=== PATIENT | female | born 1955 | race Caucasian/White ===

== ENCOUNTER → 2016-07-20 | Outpatient (CLI) | payer MEDICARE ==
[~2016-07-20] MED LIST: ALPR1T PO; ASPI-84 PO; CATHETER FLUSH 10 ML SYR IV PRN; CLC500CT; CPR500T PO; ESCT10T PO; EST.625T; ESTRADIOL PO; HYDR-3720 PO; HYDR12.56 PO; IOHEXOL 350 MG/ML 100 ML (OMNIPAQUE 350) VIAL IV ONE; LISI40TA PO; LSNP20T; METO-354 PO; MORP30CP12 PO; MULT-974 PO; NF-ESOM40C PO; NFPRILOC40 PO; NS 100 ML (IVPB) BAG IV ONE; ONDAN4ODT PO; PANT40TA2 PO; POLY17PO23 PO; PRILOSEC OTC; PRM25T PO; PROM25SU10 PR; SIMV40TA2 PO; SUCR1TAB36 PO; TRAM50TA2 PO; TRAZ-144 PO; TRAZADONE; TRZ50T PO; VENL150C PO; VITAMIN C; VITAMIN E
--- OUTSIDE RECORDS SUMMARY | 2016-07-20 09:27 | XMS REPORT | Continuity of Care Document ---
Author Author [facility] Organization [facility] Address Unknown Phone Unavailable Care Team Providers Care Lead Blender Name Role Phone HAIDER DEL CASTILLO DO PCP Insurance Providers Payer Name Policy Number Subscriber Name Relationship Wps Medicare [id number] Zhanna Sutton I 16 Self / Same As Patient Advance Directives Directive Response Recorded Date/Time Advance Directives No 12/15/15 9:35am Health Care Power of Skein Mercerizing Machine Operator No 12/15/15 9:35am Organ Donor Yes 12/15/15 [...] 11/30/07 Aspirin Allergy Unknown Active 11/30/07 desvenlafaxine ([id number]) Allergy Unknown NAUSEA Active 11/05/15 Immunizations Name Given Type Date of Pneumonia Vaccine 07/03/10 Historical Tetanus Booster (TDap) Unknown Historical Vital Signs Acute Vital Signs Vital Response Date/Time Temperature (Fahrenheit) 97.0 degrees F (97.6 - 99.5) 12/15/2015 11:42am Temperature (Calculated Celsius) 36.69532 degrees C (36.4 - 37.5) 12/15/2015 11:42am [...] 0.00 inches 12/15/2015 9:35am Height (Calculated Centimeters) 152.372245 cm 12/15/2015 9:35am Weight (Pounds) 130 pounds 12/15/2015 9:35am Weight (Ounces) 0.0 oz 12/15/2015 9:35am Weight (Calculated Grams) 08288.009 gm 12/15/2015 9:35am Weight (Calculated Kilograms) 58.691372 kilograms 12/15/2015 9:35am Calculated BMI 25.4 12/15/2015 9:35am Results No known relevant diagnostic tests, laboratory data and/or discharge summary. Procedures Procedure Status Date Provider(s) Diagnostic colonoscopy Completed 12/15/15 DAVE GORDON DO Anesthesia for 30 minutes Active 12/15/15 DAVE GORDON DO Encounters Encounter Location Arrival/Admit Date Discharge/Depart Date Attending Provider Departed [facility] 12/15/15 9:29am 11:40am DAVE GORDON DO Departed Clinic [facility] 12/09/15 6:19am 12/09/15 11: 12am DAVE GORDON DO
--- NOTE | 2016-07-20 11:25 | Diagnostic Imaging Report ---
PROCEDURE: CT abdomen with and without contrast. TECHNIQUE: Multiple contiguous axial CT images of the abdomen were obtained prior to and after intravenous administration of iodinated contrast. INDICATION: Liver disease. Hepatitis C. 100 mL of Omnipaque 350 is administered intravenously. FINDINGS: The lung bases demonstrate minimal atelectasis. There is a nodular contour to the liver compatible with cirrhosis. There is no liver mass identified. The portal vein is patent. This is 1.2 cm in caliber, the upper limits of normal. Mild upper abdominal varices around the stomach and distal esophagus seen, early varices. The spleen is enlarged measuring 13.9 x 6.7 x 10.6 cm. The pancreas and the adrenal glands appear unremarkable. Cholecystectomy clips are seen. The kidneys have symmetric enhancement and contrast excretion. The unenhanced phase demonstrates calcifications near the left kidney hilum, which appear to be vascular with no stones identified. There is an elongated 9 mm hypodense lesion in the lower pole of the left kidney, similar to the previous exam of 10/09/2015 exam, likely related to a tiny cyst. The abdominal aorta is normal in caliber. No para-aortic significantly enlarged lymph node is noted. There is no free fluid or fluid collection in the abdomen seen. The osseous structures demonstrate scoliosis convex to the right at the thoracolumbar junction and degenerative changes around this. IMPRESSION: Manifestations of liver cirrhosis, mild splenomegaly, and mild upper abdominal varices. There is no ascites. No liver mass seen. Dictated by: Dictated on workstation # [id number]
--- NOTE | 2016-07-20 11:31 | Diagnostic Imaging Report ---
PROCEDURE: US abdomen complete. TECHNIQUE: Multiple real-time grayscale images were obtained over the abdomen in various projections. INDICATION: Cirrhosis, hepatitis C, and renal mass. FINDINGS: Liver measures up to 17 cm. Liver has a nodular appearance compatible with cirrhosis. The gallbladder is surgically absent. Common bile duct measures 5.9 mm. The pancreas is largely obscured by bowel gas. There is splenomegaly with the spleen measuring up to 14.2 cm. The abdominal aorta is nonaneurysmal. The IVC is obscured. Both kidneys are unremarkable. There is no ascites. IMPRESSION: Cirrhotic appearance of the liver. Status post cholecystectomy. Splenomegaly. Otherwise unremarkable abdominal ultrasound. Dictated by: Dictated on workstation # [id number]
== END ==
LOC: RAD 09:24
PROVIDERS: ATTEND Internal Medicine Hematology & Oncology
DX: N28.89 Other specified disorders of kidney and ureter (principal); K76.9 Liver disease, unspecified; B18.2 Chronic viral hepatitis C
CPT/HCPCS: 74170; 76700

== ENCOUNTER 2016-07-25 14:28 | Outpatient (RCR) | payer MEDICARE ==
--- OUTSIDE RECORDS SUMMARY | 2016-07-20 09:06 | XMS REPORT | Continuity of Care Document ---
Author Author [facility] Organization [facility] Address Unknown Phone Unavailable Care Team Providers Care [employer] Counselor Name Role Phone HAIDER DEL CASTILLO DO PCP Insurance Providers Payer Name Policy Number Subscriber Name Relationship Wps Medicare [id number] Zhanna Sutton I 16 Self / Same As Patient Advance Directives Directive Response Recorded Date/Time Advance Directives No 12/15/15 9:35am Health Care Power of Kitchen Food Assembler No 12/15/15 9:35am Organ Donor Yes 12/15/15 9:35am Resuscitation Status Full Code 12/15/15 9:35am Problems Active Problems Medical Problem Onset Date Status Constipation Unknown Acute Grief reaction Unknown Acute Headache Unknown Acute Low back pain Unknown Acute Low back pain Unknown Acute T12 compression fracture Unknown Acute Tension type headache Unknown Acute Medications Current Home Medications Medication Dose Units Route Directions Days/Qty Instructions Start Date Simvastatin 40 Mg 40 Mg Oral Bedtime 04/16/07 Alprazolam 1 Mg 1 Mg Oral Three Times A Day 04/16/07 Omeprazole 40 Mg 40 Mg Oral Daily 05/11/10 Lisinopril 40 Mg 40 Mg Oral Daily 05/11/10 Promethazine Hcl 25 Mg 1 Tab Oral Four Times Daily as needed Trazodone Hcl 50 Mg 50 Mg Oral Bedtime 09/16/14 Venlafaxine Hcl 150 Mg 150 Mg Oral Bedtime 09/16/14 Multivitamin 1 Each 1 Each Oral Daily 09/16/14 Hydrochlorothiazide 12.5 Mg 12.5 Mg Oral Daily 09/16/14 Polyethylene Glycol 17 Gm 17 Gm Oral Twice A Day 10 Days FOR CONSTIPATION 09/16/14 Pantoprazole Sodium 40 Mg 40 Mg Oral Daily 30 11/10/15 Sucralfate 1 Gm 1 Gm Oral Four Times Daily 120 11/10/15 Past Home Medications Medication Directions Ordered Status [Vitamin C] Tablet, 04/16/07 Discontinued [Vitamin E] , 04/16/07 Discontinued Calcium Carbonate 500 Mg Tab.chew, 04/16/07 Discontinued Lisinopril 20 Mg Tablet, 04/16/07 Discontinued [Trazadone ] , 04/16/07 Discontinued Estrogens Conjugated 0.625 Mg Tablet, 04/16/07 Discontinued [Prilosec Otc] , 04/16/07 Discontinued Acetaminophen/Hydrocodone Bitart 1 Ea Tab, 1 Ea Oral Every 6 Hours 11/12/08 Discontinued Escitalopram Oxalate 10 Mg Tablet, 1 Each Oral Daily 11/12/08 Discontinued Aspirin 81 Mg Tablet.dr, 81 Mg Oral Daily 04/23/09 Discontinued [Estradiol] , Oral Daily 05/11/10 Discontinued Trazodone Hcl 50 Mg Tab, 50 Mg Oral Bedtime 05/11/10 Discontinued Ondansetron Hcl 4 Mg Tab, 4 Mg Oral Every 4HRS 05/11/10 Discontinued Esomeprazole Magnesium 40 Mg Capsule.dr, 1 Cap Oral Daily 05/11/10 Discontinued Ciprofloxacin 500 Mg Tablet, 1 Tab Oral Twice A Day 03/30/11 Discontinued Promethazine Hcl 25 Mg/Supp.rect Supp.rect, 1 Supp Rectal Four Times Daily as needed 12/19/12 Discontinued Metoclopramide Hcl 10 Mg Tab, 1 Each Oral Qid Prn 12/19/12 Discontinued Ondansetron Hcl 4 Mg Tab, 4 Mg Oral Every 4HRS 12/19/12 Discontinued Tramadol Hcl 50 Mg Tablet, 50 Mg Oral Every 4HRS as needed for Pain 09/16/14 Discontinued Morphine Sulfate 30 Mg Cpmp.24hr, 30 Mg Oral Three Times A Day 09/16/14 Discontinued Social History Social History Problem Response Recorded Date/Time Alcohol Use Occasionally Uses 10/04/2015 5:48pm Recreational Drug Use Y METH "30 YRS.AGO" STILL USES THC 10/04/2015 7:20pm Recent Foreign Travel No 12/15/2015 9:35am Sexually Transmitted Disease No 10/04/2015 5:48pm HIV/AIDS No 10/04/2015 5:48pm Smoking Status Never a Smoker 12/15/2015 9:35am Do you dip or chew tobacco? No 10/04/2015 5:48pm Query Response Start Date Stop Date Smoking Status Never a Smoker Hospital Discharge Instructions Patient Instructions Physician Instructions Plan of Care/Instructions/FU: Repeat colonoscopy in 10 years unless family history of colon cancer, if change in condition be re-evaluated at that time. Activity as Tolerated: Yes Discharge Diet: Regular Diet (high fiber) Care Plan Patient Instructions:: Repeat colonoscopy in 10 years unless family history of colon cancer, ifchange in condition be re-evaluated at that time. Plan of Care Discharge Date 12/15/15 11:40am Instructions/Education Provided Colonoscopy (DC) Prescriptions See Medication Section Functional Status No functional status results. Allergies, Adverse Reactions, Alerts Allergen Type Severity Reaction Status Last Updated Oxycodone Adverse Reaction Mild HALLUCINATIONS Active 11/30/07 Aspirin Allergy Unknown Active 11/30/07 desvenlafaxine ([id number]) Allergy Unknown NAUSEA Active 11/05/15 Immunizations Name Given Type Date of Pneumonia Vaccine 07/03/10 Historical Tetanus Booster (TDap) Unknown Historical Vital Signs Acute Vital Signs Vital Response Date/Time Temperature (Fahrenheit) 97.0 degrees F (97.6 - 99.5) 12/15/2015 11:42am Temperature (Calculated Celsius) 36.44004 degrees C (36.4 - 37.5) 12/15/2015 11:42am Temperature Source Tympanic 12/15/2015 11:42am Pulse Rate (adult) 76 bpm (60 - 90) 12/15/2015 11:42am Respiratory Rate 18 bpm (12 - 24) 12/15/2015 11:42am O2 Sat by Pulse Oximetry 100 % (88 - 100) 12/15/2015 11:42am Blood Pressure 182/87 mm Hg 12/15/2015 11:42am Pain Pain Intensity 0 12/15/2015 11:42am Height (Feet) 5 feet 12/15/2015 9:35am Height (Inches) 0.00 inches 12/15/2015 9:35am Height (Calculated Centimeters) 152.182248 cm 12/15/2015 9:35am Weight (Pounds) 130 pounds 12/15/2015 9:35am Weight (Ounces) 0.0 oz 12/15/2015 9:35am Weight (Calculated Grams) 41681.009 gm 12/15/2015 9:35am Weight (Calculated Kilograms) 58.726838 kilograms 12/15/2015 9:35am Calculated BMI 25.4 12/15/2015 9:35am Results No known relevant diagnostic tests, laboratory data and/or discharge summary. Procedures Procedure Status Date Provider(s) Diagnostic colonoscopy Completed 12/15/15 DAVE GORDON DO Anesthesia for 30 minutes Active 12/15/15 DAVE GORDON DO Encounters Encounter Location Arrival/Admit Date Discharge/Depart Date Attending Provider Departed [facility] 12/15/15 9:29am 11:40am DAVE GORDON DO Departed Clinic [facility] 12/09/15 6:19am 12/09/15 11: 12am DAVE GORDON DO
[2016-07-20 09:16] LABS: BASOPHILS % (AUTO) 0 % (0-10); EOSINOPHILS # (AUTO) 0.1 10^3/uL (0.0-0.3); EOSINOPHILS % (AUTO) 3 % (0-10); LYMPHOCYTES # (AUTO) 1.6 X 10^3 (1.0-4.0); LYMPHOCYTES % (AUTO) 44 % (12-44); MEAN CORPUSCULAR HEMOGLOBIN 28 PG (25-34); MEAN CORPUSCULAR HGB CONC 32 G/DL (32-36); MEAN CORPUSCULAR VOLUME 85 FL (80-99); MEAN PLATELET VOLUME 9.1 FL (7.4-10.4); MONOCYTES # (AUTO) 0.3 X 10^3 (0.0-1.0); MONOCYTES % (AUTO) 10 % (0-12); NEUTROPHILS # (AUTO) 1.5 X 10^3 (1.8-7.8); NEUTROPHILS % (AUTO) 43 % (42-75); PLATELET COUNT 89 10^3/uL (130-400); RED BLOOD COUNT 3.34 10^6/uL (4.35-5.85); RED CELL DISTRIBUTION WIDTH 17.9 % (10.0-14.5); WHITE BLOOD COUNT 3.5 10^3/uL (4.3-11.0)
[2016-07-20 09:39] LABS: INR 1.3 (0.8-1.4); PROTHROMBIN TIME PATIENT 15.9 SEC (12.2-14.7)
[2016-07-20 09:51] LABS: BILIRUBIN,TOTAL 0.9 MG/DL (0.1-1.0); CALCIUM 9.2 MG/DL (8.5-10.1); CREATININE SERUM 0.94 MG/DL (0.60-1.30); POTASSIUM 3.2 MMOL/L (3.6-5.0); TOTAL PROTEIN 7.8 G/DL (6.4-8.2)
[~2016-07-25 14:28] MED LIST changes: -CATHETER FLUSH 10 ML SYR IV PRN; -IOHEXOL 350 MG/ML 100 ML (OMNIPAQUE 350) VIAL IV ONE; -NS 100 ML (IVPB) BAG IV ONE
== END 2016-10-18 | disposition home or self-care (01) ==
LOC: ONC 14:28
PROVIDERS: ATTEND Internal Medicine Hematology & Oncology
DX: D61.818 Other pancytopenia (principal); D69.59 Other secondary thrombocytopenia; D68.4 Acquired coagulation factor deficiency; B18.2 Chronic viral hepatitis C; I10 Essential (primary) hypertension; F17.210 Nicotine dependence, cigarettes, uncomplicated; F11.20 Opioid dependence, uncomplicated; Z79.899 Other long term (current) drug therapy
CPT/HCPCS: 36415; 80053; 82105; 85025; 85610; 99213

== ENCOUNTER 2017-02-17 13:25 | Emergency (ER) | payer OTHER, MEDICARE ==
[~2017-02-17] VITALS: Ht 165.1 cm; Wt 59.9 kg
[2017-02-17 13:35] VITALS: BP 142/71
--- OUTSIDE RECORDS SUMMARY | 2017-02-17 13:35 | XMS REPORT | Continuity of Care Document ---
Author Author [facility] Organization [facility] Address Unknown Phone Unavailable Allergies Active Description Code Type Severity Reaction Onset Reported/Identified Relationship to Patient Clinical Status Yes oxycodone [id number] Drug Allergy Mild HALLUCINATIONS 11/30/2007 Yes aspirin [id number] Drug Allergy Unknown N/A 11/30/2007 Yes ketorolac [id number] Drug Allergy Unknown N/A 09/16/2014 Yes desvenlafaxine [id number] Drug Allergy Unknown NAUSEA 11/05/2015 Medications Problems Date Dx Coded Attending Type Code Diagnosis Diagnosed By 12/19/2012 DEA HARRIS DO Ot 276.9 ELECTROLYT/FLUID DIS NEC 12/19/2012 DEA HARRIS DO Ot 564.00 UNSPEC CONSTIPATION 12/19/2012 DEA HARRIS DO Ot 787.01 NAUSEA WITH VOMITING 01/10/2014 Ot 309.0 ADJUSTMENT DISORDER WITH DEPRESSED MOOD 01/10/2014 Ot 338.29 OTHER CHRONIC PAIN 01/10/2014 Ot 530.81 ESOPHAGEAL REFLUX 01/10/2014 Ot 564.09 OTHER CONSTIPATION 01/10/2014 Ot 719.46 JOINT PAIN-L/LEG 01/10/2014 Ot 784.0 HEADACHE 01/10/2014 Ot V12.54 PERSONAL HX OF TIA, CEREBRAL INFARCTION 01/10/2014 Ot V58.66 LONG-TERM (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 OF ASPIRIN 01/10/2014 Ot V58.69 OTH MED,LT,CURRENT USE 09/16/2014 Ot 564.00 UNSPEC CONSTIPATION 09/16/2014 Ot 805.2 FX DORSAL VERTEBRA-CLOSE 09/16/2014 Ot 959.19 OTH INJURY OF OTHER SITES OF TRUNK 09/16/2014 Ot E000.8 OTHER EXTERNAL CAUSE STATUS 09/16/2014 Ot E816.0 LOSS CONTROL MV ACC-DRIV 05/05/2015 LAWRENCE BARRIOS Ot Z12.31 10/04/2015 Ot F17.210 NICOTINE DEPENDENCE, CIGARETTES, UNCOMPL 10/04/2015 Ot G44.209 TENSION-TYPE HEADACHE, UNSPECIFIED, NOT 10/04/2015 Ot Z79.891 SWEAT BAND SEPARATOR (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 OF OPIATE ANALGE 10/06/2015 LISETH PANDA MD Ot 070.54 10/06/2015 LISETH PANDA MD Ot 789.01 10/06/2015 DIEGO WYMAN, AIDAN Paulson Ot 070.70 10/06/2015 DIEGO WYMAN, AIDAN Paulson Ot 305.1 10/06/2015 DIEGO WYMAN, AIDAN Paulson Ot 396.3 10/06/2015 DIEGO WYMAN, AIDAN Paulson Ot 397.0 10/06/2015 IDEGO WYMAN, AIDAN Paulson Ot 729.5 10/06/2015 DIEGO WYMAN, AIDAN Paulson Ot 780.4 10/06/2015 DIEGO WYMAN, AIDAN Paulson Ot 786.50 10/06/2015 LAWRENCE BARRIOS INTERIOR HORTICULTURIST Ot Z12.31 10/09/2015 LISETH PANDA MD Ot 070.54 10/09/2015 LISETH PANDA MD Ot 789.01 10/09/2015 AIDAN CORTEZ MD Ot 070.70 10/09/2015 DIEGO WYMAN, AIDAN Paulson Ot 305.1 10/09/2015 DIEGO WYMAN, AIDAN Paulson Ot 396.3 10/09/2015 DIEGO WYMAN, AIDAN Paulson Ot 397.0 10/09/2015 DIEGO WYMAN, AIDAN Paulson Ot 729.5 10/09/2015 DIEGO WYMAN, AIDAN Paulson Ot 780.4 10/09/2015 DIEGO WYMAN, AIDAN Paulson Ot 786.50 10/09/2015 LAWRENCE BARRIOS INTERIOR HORTICULTURIST Ot Z12.31 10/09/2015 KENYON WYMAN, JAI Mcadams Ot B18.2 10/09/2015 KENYON WYMAN, JAI Mcadams Ot D61.818 10/09/2015 KENYNO WYMAN, JAI Mcadams Ot D68.4 10/09/2015 KENYON WYMAN, JAI Mcadams Ot D69.59 10/09/2015 KENYON WYMAN, JAI Mcadams Ot F11.20 10/09/2015 KENYON WYMAN, JAI Mcadams Ot F17.210 10/09/2015 KENYON WYMAN, JAI Mcadams Ot I10 10/09/2015 KENYON WYMAN, JAI Mcadams Ot Z79.899 10/12/2015 KENYON WYMAN, JAI Mcadams Ot B19.20 10/12/2015 KENYON WYMAN, JAI Mcadams Ot D69.59 10/12/2015 KENYON WYMAN, JAI Mcadams Ot F11.20 10/12/2015 KENYON WYMAN, JAI Mcadams Ot F17.200 10/12/2015 KENYON WYMAN, JAI Mcadams Ot I10 10/12/2015 KENYON WYMAN, JAI Mcadams Ot B19.20 10/12/2015 KENYON WYMAN, JAI Mcadams Ot D69.59 10/12/2015 KENYON WYMAN, JAI Mcadams Ot F11.20 10/12/2015 KENYON WYMAN, JAI Mcadams Ot F17.200 10/12/2015 KENYON WYMAN, JAI Mcadams Ot I10 10/29/2015 KENYON WYMAN, JAI Mcadams Ot B19.20 UNSPECIFIED VIRAL HEPATITIS C WITHOUT HE 10/29/2015 KENYON WYMAN, JAI Mcadams Ot D69.59 OTHER SECONDARY THROMBOCYTOPENIA 10/29/2015 KENYON WYMAN, JAI Mcadams Ot F11.20 OPIOID DEPENDENCE, UNCOMPLICATED 10/29/2015 KENYON WYMAN, JAI Mcadams Ot F17.200 NICOTINE DEPENDENCE, UNSPECIFIED, UNCOMP 10/29/2015 KENYON WYMAN, JAI Abbe Ot I10 ESSENTIAL (PRIMARY) HYPERTENSION 11/05/2015 DAVE GORDON DO D Ot K59.00 CONSTIPATION, UNSPECIFIED 11/05/2015 DAVE GORDON DO D Ot R13.10 DYSPHAGIA, UNSPECIFIED 11/05/2015 DAVE GORDON DO D Ot Z01.818 ENCOUNTER FOR OTHER PREPROCEDURAL EXAMIN 11/06/2015 DAVE GORDON DO D Ot K59.00 CONSTIPATION, UNSPECIFIED 11/06/2015 DAVE GORDON DO Ot R13.10 DYSPHAGIA, UNSPECIFIED 11/06/2015 GORDONDAVE SHEPHERD DO D Ot Z01.818 ENCOUNTER FOR OTHER PREPROCEDURAL EXAMIN 11/10/2015 DAVE GORDON DO D Ot D69.6 THROMBOCYTOPENIA, UNSPECIFIED 11/10/2015 GORDONDAVE SHEPHERD DO D Ot K22.2 ESOPHAGEAL OBSTRUCTION 11/10/2015 DAVE GORDON DO D Ot K29.70 GASTRITIS, UNSPECIFIED, WITHOUT BLEEDING 11/10/2015 DAVE GORDON DO D Ot K59.00 CONSTIPATION, UNSPECIFIED 11/11/2015 GORDONDAVE SHEPHERD DO D Ot K59.00 CONSTIPATION, UNSPECIFIED 11/11/2015 GORDONDAVE SHEPHERD DO D Ot R13.10 DYSPHAGIA, UNSPECIFIED 11/11/2015 DAVE GORDON DO Ot Z01.818 ENCOUNTER FOR OTHER PREPROCEDURAL EXAMIN 11/11/2015 JAI PRESCOTT MD Ot D69.59 OTHER SECONDARY THROMBOCYTOPENIA 11/11/2015 JAI PRESCOTT MD Ot D69.59 OTHER SECONDARY THROMBOCYTOPENIA 11/12/2015 DAVE GORDON DO Ot D69.6 THROMBOCYTOPENIA, UNSPECIFIED 11/12/2015 DAVE GORDON DO Ot K22.2 ESOPHAGEAL OBSTRUCTION 11/12/2015 DAVE GORDON DO Ot K29.70 GASTRITIS, UNSPECIFIED, WITHOUT BLEEDING 11/12/2015 DAVE GORDON DO Ot K59.00 CONSTIPATION, UNSPECIFIED 11/17/2015 DAVE GORDON DO Ot D69.6 THROMBOCYTOPENIA, UNSPECIFIED 11/17/2015 DAVE GORDON DO Ot K22.2 ESOPHAGEAL OBSTRUCTION 11/17/2015 DAVE GORDON DO Ot K29.70 GASTRITIS, UNSPECIFIED, WITHOUT BLEEDING 11/17/2015 DAVE GORDON DO Ot K59.00 CONSTIPATION, UNSPECIFIED 11/23/2015 JAI PRESCOTT MD Ot B18.2 CHRONIC VIRAL HEPATITIS C 11/23/2015 JAI PRESCOTT MD Ot D61.818 OTHER PANCYTOPENIA 11/23/2015 JAI PRESCOTT MD Ot D68.4 ACQUIRED COAGULATION FACTOR DEFICIENCY 11/23/2015 JAI PRESCOTT MD Ot D69.59 OTHER SECONDARY THROMBOCYTOPENIA 11/23/2015 JAI PRESCOTT MD Ot F11.20 OPIOID DEPENDENCE, UNCOMPLICATED 11/23/2015 JAI PRSECOTT MD Ot F17.210 NICOTINE DEPENDENCE, CIGARETTES, UNCOMPL 11/23/2015 JAI PRESCOTT MD Ot I10 ESSENTIAL (PRIMARY) HYPERTENSION 11/23/2015 JAI PRESCOTT MD Ot Z79.899 OTHER SHELTER (CURRENT) DRUG THERAPY 12/09/2015 JAI PRESCOTT MD Ot D69.59 OTHER SECONDARY THROMBOCYTOPENIA 12/09/2015 DAVE GORDON DO Ot Z01.818 ENCOUNTER FOR OTHER PREPROCEDURAL EXAMIN 12/10/2015 DAVE GORDON DO Ot Z01.818 ENCOUNTER FOR OTHER PREPROCEDURAL EXAMIN 12/15/2015 DAVE GORDON DO Ot K59.00 CONSTIPATION, UNSPECIFIED 12/15/2015 DAVE GORDON DO Ot R10.32 LEFT LOWER QUADRANT PAIN 12/17/2015 DAVE GORDON DO Ot R10.32 LEFT LOWER QUADRANT PAIN 01/04/2016 JAI PRESCOTT MD Ot B18.2 CHRONIC VIRAL HEPATITIS C 01/04/2016 JAI PRESCOTT MD Ot D61.818 OTHER PANCYTOPENIA 01/04/2016 JAI PRESCOTT MD Ot D68.4 ACQUIRED COAGULATION FACTOR DEFICIENCY 01/04/2016 JAI PRESCOTT MD Ot D69.59 OTHER SECONDARY THROMBOCYTOPENIA 01/04/2016 JAI PRESCOTT MD Ot F11.20 OPIOID DEPENDENCE, UNCOMPLICATED 01/04/2016 JAI PRESCOTT MD Ot F17.210 NICOTINE DEPENDENCE, CIGARETTES, UNCOMPL 01/04/2016 JAI PRESCOTT MD Ot I10 ESSENTIAL (PRIMARY) HYPERTENSION 01/04/2016 JAI PRESCOTT MD Ot Z79.899 OTHER SWEAT BAND SEPARATOR (CURRENT) DRUG THERAPY 07/20/2016 LISETH PANDA MD Ot 070.54 CHRONIC HEPATITIS C W/O HEPATIC COMA 07/20/2016 LISETH PANDA MD Ot 789.01 ABDOMINAL PAIN, RIGHT UPPER QUADRANT 07/20/2016 AIDAN CORTEZ MD Ot 070.70 UNSPECIFIED VIRAL HEPATITIS C WITHOUT HE 07/20/2016 AIDAN CORTEZ MD Ot 305.1 TOBACCO USE DISORDER 07/20/2016 AIDAN CORTEZ MD Ot 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 07/20/2016 AIDAN CORTEZ MD Ot 397.0 TRICUSPID VALVE DISEASE 07/20/2016 AIDAN CORTEZ MD Ot 729.5 PAIN IN LIMB 07/20/2016 AIDAN CORTEZ MD Ot 780.4 DIZZINESS AND GIDDINESS 07/20/2016 AIDAN CORTEZ MD Ot 786.50 CHEST PAIN NOS 07/20/2016 LAWRENCE BARRIOS INTERIOR HORTICULTURIST Ot Z12.31 ENCNTR SCREEN MAMMOGRAM FOR MALIGNANT NE 07/20/2016 JAI PRESCOTT MD Ot B19.20 UNSPECIFIED VIRAL HEPATITIS C WITHOUT HE 07/20/2016 JAI PRESCOTT MD Ot D69.59 OTHER SECONDARY THROMBOCYTOPENIA 07/20/2016 JAI PRESCOTT MD Ot F11.20 OPIOID DEPENDENCE, UNCOMPLICATED 07/20/2016 JAI PRESCOTT MD Ot F17.200 NICOTINE DEPENDENCE, UNSPECIFIED, UNCOMP 07/20/2016 JAI PRESCOTT MD Ot I10 ESSENTIAL (PRIMARY) HYPERTENSION 07/20/2016 JAI PRESCOTT MD Ot D69.59 OTHER SECONDARY THROMBOCYTOPENIA 07/20/2016 JAI PRESCOTT MD Ot B18.2 CHRONIC VIRAL HEPATITIS C 07/20/2016 JAI PRESCOTT MD Ot D61.818 OTHER PANCYTOPENIA 07/20/2016 JAI PRESCOTT MD Ot D68.4 ACQUIRED COAGULATION FACTOR DEFICIENCY 07/20/2016 JAI PRESCOTT MD Ot D69.59 OTHER SECONDARY THROMBOCYTOPENIA 07/20/2016 JAI PRESCOTT MD Ot F11.20 OPIOID DEPENDENCE, UNCOMPLICATED 07/20/2016 JAI PRESCOTT MD Ot F17.210 NICOTINE DEPENDENCE, CIGARETTES, UNCOMPL 07/20/2016 JAI PRESCOTT MD Ot I10 ESSENTIAL (PRIMARY) HYPERTENSION 07/20/2016 JAI PRESCOTT MD Ot Z79.899 OTHER SHELTER (CURRENT) DRUG THERAPY 07/21/2016 JAI PRESCOTT MD Ot B18.2 CHRONIC VIRAL HEPATITIS C 07/21/2016 JAI PRESCOTT MD Ot K76.9 LIVER DISEASE, UNSPECIFIED 07/21/2016 JAI PRESCOTT MD Ot N28.89 OTHER SPECIFIED DISORDERS OF KIDNEY AND 07/21/2016 JAI PRESCOTT MD Ot B18.2 CHRONIC VIRAL HEPATITIS C 07/21/2016 JAI PRESCOTT MD Ot D61.818 OTHER PANCYTOPENIA 07/21/2016 JAI PRESCOTT MD Ot D68.4 ACQUIRED COAGULATION FACTOR DEFICIENCY 07/21/2016 JAI PRESCOTT MD Ot D69.59 OTHER SECONDARY THROMBOCYTOPENIA 07/21/2016 JAI PRESCOTT MD Ot F11.20 OPIOID DEPENDENCE, UNCOMPLICATED 07/21/2016 JAI PRESCOTT MD Ot F17.210 NICOTINE DEPENDENCE, CIGARETTES, UNCOMPL 07/21/2016 JAI PRESCOTT MD Ot I10 ESSENTIAL (PRIMARY) HYPERTENSION 07/21/2016 JAI PRESCOTT MD Ot Z79.899 OTHER SHELTER (CURRENT) DRUG THERAPY 08/12/2016 JAI PRESCOTT MD Ot B18.2 CHRONIC VIRAL HEPATITIS C 08/12/2016 JAI PRESCOTT MD Ot K76.9 LIVER DISEASE, UNSPECIFIED 08/12/2016 JAI PRESCOTT MD Ot N28.89 OTHER SPECIFIED DISORDERS OF KIDNEY AND 08/29/2016 JAI PRESCOTT MD Ot B18.2 CHRONIC VIRAL HEPATITIS C 08/29/2016 JAI PRESCOTT MD Ot D61.818 OTHER PANCYTOPENIA 08/29/2016 JAI PRESCOTT MD Ot D68.4 ACQUIRED COAGULATION FACTOR DEFICIENCY 08/29/2016 JAI PRESCOTT MD Ot D69.59 OTHER SECONDARY THROMBOCYTOPENIA 08/29/2016 JAI PRESCOTT MD Ot F11.20 OPIOID DEPENDENCE, UNCOMPLICATED 08/29/2016 JAI PRESCOTT MD Ot F17.210 NICOTINE DEPENDENCE, CIGARETTES, UNCOMPL 08/29/2016 JAI PRESCOTT MD Ot I10 ESSENTIAL (PRIMARY) HYPERTENSION 08/29/2016 JAI PRESCOTT MD Ot Z79.899 OTHER SWEAT BAND SEPARATOR (CURRENT) DRUG THERAPY 08/30/2016 KASHMIR BULL DO Ot B18.2 CHRONIC VIRAL HEPATITIS C 10/18/2016 JAI PRESCOTT MD, Ot B18.2 CHRONIC VIRAL HEPATITIS C 10/18/2016 JAI PRESCOTT MD Ot D61.818 OTHER PANCYTOPENIA 10/18/2016 JAI PRESCOTT MD Ot D68.4 ACQUIRED COAGULATION FACTOR DEFICIENCY 10/18/2016 JAI PRESCOTT MD Ot D69.59 OTHER SECONDARY THROMBOCYTOPENIA 10/18/2016 JAI PRESCOTT MD Ot F11.20 OPIOID DEPENDENCE, UNCOMPLICATED 10/18/2016 JAI PRESCOTT MD Ot F17.210 NICOTINE DEPENDENCE, CIGARETTES, UNCOMPL 10/18/2016 JAI PRESCOTT MD Ot I10 ESSENTIAL (PRIMARY) HYPERTENSION 10/18/2016 JAI PRESCOTT MD Ot Z79.899 OTHER SWEAT BAND SEPARATOR (CURRENT) DRUG THERAPY Procedures Results Encounters ACCT No. Visit Date/Time Discharge Status Pt. Type Provider Facility Loc./Unit Complaint [id number] 01/18/2017 08:30:00 2016 23:59:59 CLS Preadmit JAI PRESCOTT MD [facility] RAD HEP C,ABNORMAL LFT'S [id number] 10/19/2016 00:12:00 2016 23:59:59 CLS Shiramit JAI PRESCOTT MD [facility] ONC [id number] 07/25/2016 14:28:00 2016 00:01:00 DIS Outpatient JAI PRESCOTT MD [facility] ONC [id number] 08/29/2016 11:31:00 2016 11:31:00 CAN Preadmit KASHMIR BULL DO [facility] LAB [id number] 07/20/2016 09:24:00 2016 23:59:59 CLS Outpatient JAI PRESCOTT MD [facility] RAD LIVER DISEASE,HEPATITIS C [id number] 12/23/2015 13:43:00 2015 00:01:00 DIS Outpatient JAI PRESCOTT MD [facility] ONC [id number] 12/15/2015 09:29:00 2015 11:40:00 DIS Outpatient DAVE GORDON DO [facility] ABDOMINAL PAIN [id number] 12/09/2015 06:19:00 2015 11:12:00 DIS Outpatient DAVE GORDON DO [facility] PREOP ABDOMINAL PAIN [id number] 11/10/2015 09:22:00 2015 23:59:59 CLS Outpatient JAI PRESCOTT MD [facility] LAB ACQUIRED THROMBOCYTOPENIA [id number] 11/10/2015 09:17:00 2015 23:59:59 CLS Outpatient DAVE GORDON DO [facility] SDC DYSPHAGIA [id number] 11/05/2015 05:43:00 2015 10:57:00 DIS Outpatient DAVE GORDON DO [facility] PREOP DYSPHAGIA [id number] 10/09/2015 11:33:00 2015 23:59:59 CLS Outpatient JAI PRESCOTT MD [facility] RAD HISTORY OF SMOKING,ABDOMINAL PAIN, THROMBOSIDAPENIA [id number] 04/10/2015 13:26:00 2014 23:59:59 CLS Outpatient LAWRENCE BARRIOS [facility] RAD SCREENING [id number] 02/25/2014 10:58:00 2013 23:59:59 CLS Outpatient AIDAN CORTEZ MD [facility] CARD CHEST PAIN HTN [id number] 08/12/2013 08:39:00 2013 23:59:59 CLS Outpatient LISETH PANDA MD [facility] RAD HEPATITIS C UPPER QUAD PAIN [id number] 12/19/2012 18:09:00 2012 22:20:00 DIS Emergency DEA HARRIS DO [facility] ER NAUSEA,VOMITING [id number] 10/05/2015 14:37:00 Document Registration [id number] 09/16/2014 14:39:00 Document Registration [id number] 01/10/2014 21:50:00 Document Registration
[2017-02-17] MEDS ORDERED: morphine INJ 10 MG/ML 1ML (SYR OR VIAL) IVP STA (14:21)
[2017-02-17] MEDS ORDERED: ORPHENADRINE 60 MG/2 ML (NORFLEX) AMP IV STA (14:21)
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
[2017-02-17] MEDS ORDERED: NS 100 ML (IVPB) BAG IV ONE (14:45)
[2017-02-17] MEDS ORDERED: IOHEXOL 350 MG/ML 100 ML (OMNIPAQUE 350) VIAL IV ONE (14:45)
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
[2017-02-17] MEDS ORDERED: CYCL5TAB PO (16:51)
[2017-02-17] MEDS ORDERED: oxyCODONE/APAP 5/325MG (PERCOCET 5) TABLET PO STA (17:13)
[2017-03-06] MEDS ORDERED: ONDA4TAB8 PO (05:59)
[2017-03-06] MEDS ORDERED: HYOS0.1283 SL (05:59)
== END 2017-02-17 17:27 | disposition home or self-care (01) ==
LOC: EDUNIT# 13:25 → ER 13:30
DX: S22.029A Unspecified fracture of second thoracic vertebra, initial encounter for closed fracture (principal); S22.039A Unspecified fracture of third thoracic vertebra, initial encounter for closed fracture; S22.049A Unspecified fracture of fourth thoracic vertebra, initial encounter for closed fracture; S42.002A Fracture of unspecified part of left clavicle, initial encounter for closed fracture; E78.00 Pure hypercholesterolemia, unspecified; I10 Essential (primary) hypertension; G43.909 Migraine, unspecified, not intractable, without status migrainosus; B19.20 Unspecified viral hepatitis C without hepatic coma; F41.9 Anxiety disorder, unspecified; F32.9 Major depressive disorder, single episode, unspecified; K21.9 Gastro-esophageal reflux disease without esophagitis; F17.210 Nicotine dependence, cigarettes, uncomplicated; Z87.19 Personal history of other diseases of the digestive system; Z90.49 Acquired absence of other specified parts of digestive tract; Z90.710 Acquired absence of both cervix and uterus; V49.40XA Driver injured in collision with unspecified motor vehicles in traffic accident, initial encounter
CPT/HCPCS: 70450; 71250; 72125; 72128; 72131; 96374; 96375

== ENCOUNTER 2017-02-18 16:41 | Emergency (ER) | payer OTHER, MEDICARE ==
[~2017-02-18] VITALS: Ht 165.1 cm; Wt 59.9 kg
[~2017-02-18 16:41] MED LIST changes: +CYCL5TAB PO
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
[2017-02-18] MEDS ORDERED: oxyCODONE/APAP 5/325MG (PERCOCET 5) TABLET PO STA (18:33)
[2017-02-18] MEDS ORDERED: CYCLOBENZAPRINE 10 MG (FLEXERIL) TAB PO STA (18:33)
[2017-02-18 18:55] VITALS: BP 145/87
--- OUTSIDE RECORDS SUMMARY | 2017-02-19 02:39 | XMS REPORT | Continuity of Care Document ---
Author Author [facility] Organization [facility] Address Unknown Phone Unavailable Allergies Active Description Code Type Severity Reaction Onset Reported/Identified Relationship to Patient Clinical Status Yes oxycodone [id number] Drug Allergy Mild HALLUCINATIONS 11/30/2007 Yes aspirin [id number] Drug Allergy Unknown N/A 11/30/2007 Yes ketorolac [id number] Drug Allergy Unknown N/A 09/16/2014 Yes desvenlafaxine [id number] Drug Allergy Unknown NAUSEA 11/05/2015 Medications Problems [...] TENSION-TYPE HEADACHE, UNSPECIFIED, NOT 10/04/2015 Ot Z79.891 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 MIXER 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31 10/09/2015 KENYON WYMAN, JAI Mcadams Ot B18.2 10/09/2015 KENYON WYMAN, JAI Mcadams Ot D61.818 10/09/2015 KENYON WYMAN, JAI Mcadams Ot D68.4 10/09/2015 KENYON [...] Ot F11.20 OPIOID DEPENDENCE, UNCOMPLICATED 11/23/2015 JAI PRESCOTT MD Ot F17.210 NICOTINE DEPENDENCE, CIGARETTES, UNCOMPL 11/23/2015 JAI PRESCOTT MD Ot I10 ESSENTIAL (PRIMARY) HYPERTENSION 11/23/2015 JAI PRESCOTT MD Ot Z79.899 OTHER SKILLED NURSING (CURRENT) DRUG THERAPY 12/09/2015 JAI PRESCOTT MD [...] 01/04/2016 JAI PRESCOTT MD Ot Z79.899 OTHER QUICK MIXER OPERATOR (CURRENT) DRUG THERAPY 07/20/2016 LISETH PANDA MD [...] 786.50 CHEST PAIN NOS 07/20/2016 LAWRENCE BARRIOS CUTTER GRINDER Ot Z12.31 ENCNTR SCREEN MAMMOGRAM FOR MALIGNANT [...] 07/20/2016 JAI PRESCOTT MD Ot Z79.899 OTHER SKILLED NURSING (CURRENT) DRUG THERAPY 07/21/2016 JAI PRESCOTT MD [...] 07/21/2016 JAI PRESCOTT MD Ot Z79.899 OTHER SKILLED NURSING (CURRENT) DRUG THERAPY 08/12/2016 JAI PRESCOTT MD [...] 08/29/2016 JAI PRESCOTT MD Ot Z79.899 OTHER QUICK MIXER OPERATOR (CURRENT) DRUG THERAPY 08/30/2016 KASHMIR BULL DO [...] 10/18/2016 JAI PRESCOTT MD Ot Z79.899 OTHER QUICK MIXER OPERATOR (CURRENT) DRUG THERAPY Procedures Results Encounters ACCT No. Visit Date/Time Discharge Status Pt. Type Provider Facility Loc./Unit Complaint [id number] 01/18/2017 08:30:00 2016 23:59:59 CLS Preadmit JAI PRESCOTT MD [facility] RAD HEP C,ABNORMAL LFT'S [id number] 10/19/2016 00:12:00 2016 23:59:59 CLS Shiramit JAI PRESCOTT MD [facility] ONC [id number] 07/25/2016 14:28:00 2016 00:01:00 DIS Outpatient JAI PRESCOTT MD [facility] ONC [id number] 08/29/2016 11:31:00 2016 11:31:00 CAN Preadmit KASHMIR BULL DO [facility] LAB [id number] 07/20/2016 09:24:00 2016 23:59:59 CLS Outpatient JAI PRESCOTT MD [facility] RAD LIVER DISEASE,HEPATITIS C [id number] 12/23/2015 13:43:00 2015 00:01:00 DIS Outpatient JAI PRESCOTT MD [facility] ONC [id number] 12/15/2015 09:29:00 2015 11:40:00 DIS Outpatient DAVE GORDON DO [facility] ABDOMINAL PAIN [id number] 12/09/2015 06:19:00 2015 11:12:00 DIS Outpatient DAVE GORDON DO [facility] PREOP ABDOMINAL PAIN [id number] 11/10/2015 09:22:00 2015 23:59:59 CLS Outpatient JAI PRESCOTT MD [facility] LAB ACQUIRED THROMBOCYTOPENIA [id number] 11/10/2015 09:17:00 2015 23:59:59 CLS Outpatient DAVE GORDNO DO [facility] SDC DYSPHAGIA [id number] 11/05/2015 05:43:00 2015 10:57:00 DIS Outpatient DAVE GORDON DO [facility] PREOP DYSPHAGIA [id number] 10/09/2015 11:33:00 2015 23:59:59 CLS Outpatient JAI PRESCOTT MD [facility] RAD HISTORY OF SMOKING,ABDOMINAL PAIN, THROMBOSIDAPENIA [id number] 04/10/2015 13:26:00 2014 23:59:59 CLS Outpatient LAWRENCE BARRIOS [facility] RAD SCREENING [id number] 02/25/2014 10:58:00 2013 23:59:59 CLS Outpatient AIDAN CORTEZ MD [facility] CARD CHEST PAIN HTN [id number] 08/12/2013 08:39:00 2013 23:59:59 CLS Outpatient LISETH PANDA MD [facility] RAD HEPATITIS C UPPER QUAD PAIN [id number] 12/19/2012 18:09:00 2012 22:20:00 DIS Emergency DEA HARRIS DO [facility] ER NAUSEA,VOMITING [id number] 10/05/2015 14:37:00 Document Registration [id number] 09/16/2014 14:39:00 Document Registration [id number] 01/10/2014 21:50:00 Document Registration
[2017-02-19] MEDS ORDERED: TRAM-42 PO (03:35)
== END 2017-02-18 18:55 | disposition home or self-care (01) ==
LOC: EDUNIT# 16:41 → ER 16:44
DX: S20.212D Contusion of left front wall of thorax, subsequent encounter (principal); F41.9 Anxiety disorder, unspecified; F32.9 Major depressive disorder, single episode, unspecified; K21.9 Gastro-esophageal reflux disease without esophagitis; G43.909 Migraine, unspecified, not intractable, without status migrainosus; E78.00 Pure hypercholesterolemia, unspecified; I10 Essential (primary) hypertension; F17.210 Nicotine dependence, cigarettes, uncomplicated; Z91.14 Patient's other noncompliance with medication regimen; Z90.49 Acquired absence of other specified parts of digestive tract; Z90.710 Acquired absence of both cervix and uterus; Z87.81 Personal history of (healed) traumatic fracture; V49.9XXD Car occupant (driver) (passenger) injured in unspecified traffic accident, subsequent encounter
CPT/HCPCS: 99283

== ENCOUNTER 2017-02-19 02:15 | Emergency (ER) | payer OTHER, MEDICARE ==
[~2017-02-19] VITALS: Ht 165.1 cm; Wt 59.9 kg
[2017-02-19] MEDS ORDERED: KETOROLAC 60 MG/2 ML VIAL IM ONE (03:30)
[2017-02-19] MEDS ORDERED: TRAM-42 PO (03:35)
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
[2017-02-19 03:45] VITALS: BP 140/85
== END 2017-02-19 03:45 | disposition home or self-care (01) ==
LOC: EDUNIT# 02:15 → ER 02:17
DX: S22.9XXD Fracture of bony thorax, part unspecified, subsequent encounter for fracture with routine healing (principal); F41.9 Anxiety disorder, unspecified; F32.9 Major depressive disorder, single episode, unspecified; G25.81 Restless legs syndrome; K21.9 Gastro-esophageal reflux disease without esophagitis; K59.09 Other constipation; G43.909 Migraine, unspecified, not intractable, without status migrainosus; E78.00 Pure hypercholesterolemia, unspecified; I10 Essential (primary) hypertension; F17.210 Nicotine dependence, cigarettes, uncomplicated; Z90.49 Acquired absence of other specified parts of digestive tract; Z87.828 Personal history of other (healed) physical injury and trauma; Z90.710 Acquired absence of both cervix and uterus; V49.9XXD Car occupant (driver) (passenger) injured in unspecified traffic accident, subsequent encounter
CPT/HCPCS: 96372; 99282

== ENCOUNTER → 2017-03-06 | Emergency (ER) | payer OTHER, MEDICARE ==
[~2017-03-06] VITALS: Ht 165.1 cm; Wt 59.0 kg
[~2017-03-06] MED LIST changes: +FAMOTIDINE 20MG/2ML IV (PEPCID) IV STA; +HYOS0.1283 SL; +HYOSCYAMINE 0.125 MG (LEVSIN) TAB SL ONE; +KCL 10 MEQ TAB (MICRO K) PO ONE; +LACTATED RINGERS 1,000 ML IV ONE; +MAGNESIUM OXIDE (MAG-OX)400 MG TAB PO ONE; +NS IV 1000 ML 1,000 ML IV ONE; +NS W/KCL 20 MEQ/L 1,000 ML IV SCH; +ONDA4TAB8 PO; +ONDANSETRON 4 MG/2 ML (SDV) Z0FRAN IVP ONE; +TRAM-42 PO
[2017-03-06 02:18] VITALS: BP 179/84
[2017-03-06 03:41] LABS: BILIRUBIN,URINE NEGATIVE (NEGATIVE); KETONES,URINE NEGATIVE (NEGATIVE); LEUKOCYTE ESTERASE ,URINE 1+ (NEGATIVE); NITRITE,URINE NEGATIVE (NEGATIVE); PH,URINE 8 (5-9); PROTEIN,URINE NEGATIVE (NEGATIVE); UROBILINOGEN,URINE NORMAL (NORMAL)
[2017-03-06 03:49] LABS: SQUAMOUS EPITHELIAL CELL,UR 0-2 /HPF; WBC,URINE RARE /HPF
[2017-03-06 04:03] LABS: BASOPHILS % (AUTO) 1 % (0-10); EOSINOPHILS # (AUTO) 0.1 10^3/uL (0.0-0.3); EOSINOPHILS % (AUTO) 1 % (0-10); LYMPHOCYTES # (AUTO) 1.4 X 10^3 (1.0-4.0); LYMPHOCYTES % (AUTO) 38 % (12-44); MEAN CORPUSCULAR HEMOGLOBIN 31 PG (25-34); MEAN CORPUSCULAR HGB CONC 33 G/DL (32-36); MEAN CORPUSCULAR VOLUME 94 FL (80-99); MEAN PLATELET VOLUME 9.6 FL (7.4-10.4); MONOCYTES # (AUTO) 0.4 X 10^3 (0.0-1.0); MONOCYTES % (AUTO) 12 % (0-12); NEUTROPHILS # (AUTO) 1.8 X 10^3 (1.8-7.8); NEUTROPHILS % (AUTO) 49 % (42-75); PLATELET COUNT 111 10^3/uL (130-400); RED BLOOD COUNT 2.94 10^6/uL (4.35-5.85); RED CELL DISTRIBUTION WIDTH 17.4 % (10.0-14.5); WHITE BLOOD COUNT 3.7 10^3/uL (4.3-11.0)
[2017-03-06 04:25] LABS: ALANINE AMINOTRANSFERASE 18 U/L (0-55); ALBUMIN 3.5 GM/DL (3.2-4.5); ALCOHOL < 10 MG/DL (<10); AMYLASE 70 U/L (25-125); ANION GAP 14 MMOL/L (5-14); ASPARTATE AMINO TRANSFERASE 36 U/L (5-34); BLOOD UREA NITROGEN 6 MG/DL (7-18); BUN/CREATININE RATIO 8; CARBON DIOXIDE 17 MMOL/L (21-32); CHLORIDE 95 MMOL/L (98-107); CREATININE SERUM 0.76 MG/DL (0.60-1.30); GFR ESTIMATED > 60; GLUCOSE 90 MG/DL (70-105); LIPASE 84 U/L (8-78); MAGNESIUM 1.4 MG/DL (1.8-2.4); POTASSIUM 3.4 MMOL/L (3.6-5.0); SODIUM 126 MMOL/L (135-145); TOTAL PROTEIN 7.3 GM/DL (6.4-8.2)
[2017-03-06 04:26] LABS: ACETAMINOPHEN < 10 UG/ML (10-30)
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
--- NOTE | 2017-03-06 08:46 | Diagnostic Imaging Report ---
INDICATION: Nausea, vomiting. FINDINGS: Lungs are clear. The heart and vessels normal. There is no effusion or pneumothorax. IMPRESSION: Negative. Dictated by: Dictated on workstation # [id number]
--- NOTE | 2017-03-06 09:12 | Diagnostic Imaging Report ---
PROCEDURE: CT abdomen and pelvis without contrast. TECHNIQUE: Multiple contiguous axial images were obtained through the abdomen and pelvis without the use of intravenous contrast. INDICATION: Nausea, vomiting. FINDINGS: Spleen decreased in size from prior. Fatty infiltration of the liver also less conspicuous. There is no ascites. There is no hydronephrosis. Nonaneurysmal aortic atherosclerotic disease chronic. No abscess, hematoma or other fluid collection. There is some distention of the otherwise nonfocal urinary bladder. The appendix absent. There is no diverticulitis. No pneumatosis or free air. No focal inflammatory process. IMPRESSION: Decreased spleen size. Improvements in fatty liver. No ascites. No inflammatory process. Obstructive features or acute abnormalities identified. Dictated by: Dictated on workstation # [id number]
== END ==
LOC: EDUNIT# 02:04 → ER 02:06
DX: R10.30 Lower abdominal pain, unspecified (principal); R11.2 Nausea with vomiting, unspecified; E87.1 Hypo-osmolality and hyponatremia; E87.6 Hypokalemia; D61.818 Other pancytopenia; E83.42 Hypomagnesemia; F32.9 Major depressive disorder, single episode, unspecified; F41.9 Anxiety disorder, unspecified; K21.9 Gastro-esophageal reflux disease without esophagitis; K59.09 Other constipation; E78.00 Pure hypercholesterolemia, unspecified; I10 Essential (primary) hypertension; F17.210 Nicotine dependence, cigarettes, uncomplicated; Z87.19 Personal history of other diseases of the digestive system; Z87.81 Personal history of (healed) traumatic fracture; Z90.710 Acquired absence of both cervix and uterus; Z90.49 Acquired absence of other specified parts of digestive tract
CPT/HCPCS: 36415; 71010; 74176; 80053; 80306; 80320; 80329; 81000; 82150; 83690; 83735; 85025; 96361; 96374; 96375

== ENCOUNTER 2017-03-09 07:25 | Inpatient (IN) | payer MEDICARE, OTHER ==
[2017-03-09] VITALS (7 sets, daily range): BP systolic 122–179; BP diastolic 70–83
[~2017-03-09] VITALS: Ht 165.1 cm; Wt 64.4 kg
[~2017-03-09 07:25] MED LIST changes: -FAMOTIDINE 20MG/2ML IV (PEPCID) IV STA; -HYOSCYAMINE 0.125 MG (LEVSIN) TAB SL ONE; -KCL 10 MEQ TAB (MICRO K) PO ONE; -LACTATED RINGERS 1,000 ML IV ONE; -MAGNESIUM OXIDE (MAG-OX)400 MG TAB PO ONE; -NS IV 1000 ML 1,000 ML IV ONE; -NS W/KCL 20 MEQ/L 1,000 ML IV SCH; -ONDANSETRON 4 MG/2 ML (SDV) Z0FRAN IVP ONE
[2017-03-09] MEDS ORDERED: D5 NS 1000 ML IV SOLUTION 1,000 ML IV ONE (07:44)
--- NOTE | 2017-03-09 07:53 | ED Neurological Problem ---
General Chief Complaint: General Problems/Pain Stated Complaint: SEIZURE Nursing Triage Note: PT BROUGHT IN BY [facility] AFTER FAMILY REPORTS THAT PT WAS FOUND IN THE BATHROOM WITH SEIZURE LIKE ACTIVITY. UPON ARRIVAL TO ED PT IS A&O X 3. SHE DOES NOT APPEAR TO BE POST ICTAL AT THIS TIME. Nursing Sepsis Screen: No Definite Risk Source: patient, family, EMS Exam Limitations: no limitations History of Present Illness Time seen by provider: 07:43 Initial Comments Patient presents to ER by EMS with a chief complaint that the found her slumped over on the toilet and doing some convulsing seizure-like movements. Patient does not have a history of epilepsy however she has a 38 year history of using opiates and Xanax and recently tried to go cold turkey but the took over giving her her medicines and says that she's been using about half the Xanax that she is prescribed for the past several days. He says she's been seen for 5 days ago in the ER for some abdominal pain and since at times, progressively gone downhill and being less responsive and not making much sense. The son who is present said that the patient called her yesterday telling her that some cousin had who had clearly not side and saying some other bizarre things. The patient's unable to give any meaningful history and when interviewed says the reason she came to ER because she lied to God and that God told her to come to the ER. She does say that she feels a little short of breath and has some epigastric pain and when asked to point to the pain she points to her throat. says the patient did not fall or strike her head. denies any vomiting or nausea or diarrhea. Patient is been afebrile per . Allergies and Home Medications Allergies Coded Allergies: aspirin (Verified Allergy, Unknown, 11/30/07) desvenlafaxine (Verified Allergy, Unknown, NAUSEA, 11/05/15) Home Medications Alprazolam 1 Mg Tablet, 1 MG PO TID, (Reported) Cyclobenzaprine HCl 5 Mg Tablet, 5 MG PO Q8H PRN for SPASMS, #14 Ref 0 Prescribed by: ISRAEL CARTER on 02/17/17 1651 Hydrochlorothiazide 12.5 Mg Tablet, 12.5 MG PO DAILY, (Reported) Hyoscyamine Sulfate 0.125 Mg Tab.subl, 1-2 TAB SL Q4H, #15 Prescribed by: DEA HARRIS on 03/06/17 0559 Lisinopril 40 Mg Tablet, 40 MG PO DAILY, (Reported) Multivitamin 1 Each Tablet, 1 EACH PO DAILY, (Reported) Omeprazole 40 Mg Capsule.dr, 40 MG PO DAILY, (Reported) Ondansetron 4 Mg Tab.rapdis, 4 MG PO Q4H, #10 Prescribed by: DEA HARRIS on 03/06/17 0559 Pantoprazole Sodium 40 Mg Tablet.dr, 40 MG PO DAILY, #30 Ref 5 Prescribed by: MOHAN MOJICA on 11/10/15 1041 Polyethylene Glycol 17 Gm Pack, 17 GM PO BID for 10 Days FOR CONSTIPATION Prescribed by: ARJUN BRANTLEY on 09/16/14 1756 Promethazine Hcl 25 Mg Tablet, 1 TAB PO QID PRN, (Reported) Simvastatin 40 Mg Tablet, 40 MG PO HS, Ref 0 (Reported) Sucralfate 1 Gm Tablet, 1 GM PO QID, #120 Prescribed by: MOHAN MOJICA on 11/10/15 1041 Tramadol HCl 50 Mg Tablet, 50 MG PO BID, #8 Prescribed by: DONAVAN RODRIGUEZ on 02/19/17 0335 Trazodone Hcl 50 Mg Tablet, 50 MG PO HS, (Reported) Venlafaxine Hcl 150 Mg Cap.sr.24h, 150 MG PO HS, (Reported) Constitutional: see HPI (a complete and thorough review of systems is difficult to obtain as the patient is fairly nonsensical in her verbal command medication.), No fever Eyes: Denies Blindness, Denies Pain Respiratory: cough, short of breath Gastrointestinal: abdominal pain, No diarrhea, No nausea Genitourinary: No discharge, dysuria Psychiatric/Neurological: Cognitive Dysfunction (per family) Past Hcjkvhe-Ixsydb-Bopplh Hx Patient Social History Alcohol Use: Denies Use Recreational Drug Use: Yes (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, NOW HYDROCODONE AND THC) Smoking Status: Current Everyday Smoker Type Used: Cigarettes 2nd Hand Smoke Exposure: Yes Recent Foreign Travel: No Contact w/Someone Who Travel: No Recent Infectious Disease Expo: No Recent Hopitalizations: No Physical Abuse: No Sexual Abuse: No Immunizations Up To Date Tetanus Booster (TDap): Unknown Date of Pneumonia Vaccine: Jul 03, 2010 Seasonal Allergies Seasonal Allergies: No Surgeries History of Surgeries: Yes (right foot x4, left foot x1, BILATERAL ANKLES; TEETH REMOVED; HYST/BSO) Surgeries: Appendectomy, Gallbladder, Hysterectomy, Oophorectomy, Orthopedic Respiratory History of Respiratory Disorde: No Cardiovascular History of Cardiac Disorders: Yes Cardiac Disorders: High Cholesterol, Hypertension, Irregular Heartbeat Neurological History of Neurological Disord: Yes (NARCOTIC DEPENDENT) Neurological Disorders: Headaches /Migraines Reproductive System Hx Reproductive Disorders: No Sexually Transmitted Disease: No HIV/AIDS: 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, 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 Genitourinary History of Genitourinary Disor: No Gastrointestinal History of Gastrointestinal Di: Yes (HEPATITIS C--NO TREATMENT) Gastrointestinal Disorders: Gastroesophageal Reflux, Liver Disease/Jaundice, Chronic Constipation, Hepatitis Musculoskeletal History of Musculoskeletal Dis: Yes (CHRONIC ANKLE PAIN/BILAT ANKLE FX'S; RESTLESS LEGS) Musculoskeletal Disorders: Fractures Endocrine History of Endocrine Disorders: No HEENT History of HEENT Disorders: Yes (SINUS PROBLEMS) Cancer History of Cancer: No Psychosocial History of Psychiatric Problem: Yes Behavioral Health Disorders: Anxiety, Depression Suicide Risk Score: 0 Integumentary History of Skin or Integumenta: No Blood Transfusions History of Blood Disorders: No Adverse Reaction to a Blood Tr: No Physical Exam Vital Signs Vital Sign - Last 12Hours 03/09/17 07:25 Temp 97.8 Pulse 96 Resp 14 B/P (MAP) 146/77 Pulse Ox 97 O2 Delivery Room Air Capillary Refill : Less Than 3 Seconds General Appearance: mild distress, thin HEENT: PERRL/EOMI, normal ENT inspection, TMs normal, pharynx normal (oral mucosa mildly on the dry side) Neck: non-tender, full range of motion, supple, normal inspection Respiratory: chest non-tender, lungs clear, normal breath sounds, no respiratory distress Cardiovascular: normal peripheral pulses, regular rate, rhythm, no edema, no JVD Peripheral Pulses: 2+ Dorsalis Pedis (R), 2+ Left Dors-Pedis (L), 2+ Radial Pulses (R), 2+ Radial Pulses (L) Gastrointestinal: normal bowel sounds, non tender, soft, no organomegaly, no pulsatile mass Extremities: non-tender, normal inspection, no pedal edema, no calf tenderness , normal capillary refill Neurologic/Psychiatric: alert, disoriented x 3 Crainal Nerves: normal hearing, normal speech, PERRL Skin: normal color, warm/dry Focused Exam Evaluation Lactate Level Laboratory Tests 03/09/17 08:05: Lactic Acid Level 2.28*H Lactic Acid Level Laboratory Tests Test 03/09/17 08:05 Lactic Acid Level 2.28 MMOL/L (0.50-2.00) *H Progress/Results/Core Measures Results/Orders Lab Results Laboratory Tests Test 03/09/17 07:50 03/09/17 08:05 Range/Units Urine Color YELLOW Urine Clarity CLEAR Urine pH 6.5 5-9 Urine Specific [place] 1.020 1.016-1.022 Urine Protein 3+ H NEGATIVE Urine Glucose (UA) NEGATIVE NEGATIVE Urine Ketones NEGATIVE NEGATIVE Urine Nitrite NEGATIVE NEGATIVE Urine Bilirubin NEGATIVE NEGATIVE Urine Urobilinogen 1 NORMAL MG/DL Urine Leukocyte Esterase 3+ H NEGATIVE Urine RBC (Auto) 1+ H NEGATIVE Urine RBC RARE /HPF Urine WBC 10-25 H /HPF Urine Squamous Epithelial Cells 0-2 /HPF Urine Crystals NONE /LPF Urine Bacteria LARGE H /HPF Urine Casts NONE /LPF Urine Mucus NEGATIVE /LPF Urine Culture Indicated YES Urine Opiates Screen NEGATIVE NEGATIVE Urine Oxycodone Screen NEGATIVE NEGATIVE Urine Methadone Screen NEGATIVE NEGATIVE Urine Propoxyphene Screen NEGATIVE NEGATIVE Urine Barbiturates Screen NEGATIVE NEGATIVE Ur Tricyclic Antidepressants Screen NEGATIVE NEGATIVE Urine Phencyclidine Screen NEGATIVE NEGATIVE Urine Amphetamines Screen NEGATIVE NEGATIVE Urine Methamphetamines Screen NEGATIVE NEGATIVE Urine Benzodiazepines Screen POSITIVE H NEGATIVE Urine Cocaine Screen NEGATIVE NEGATIVE Urine Cannabinoids Screen NEGATIVE NEGATIVE White Blood Count 3.6 L 4.3-11.0 10^3/uL Red Blood Count 3.30 L 4.35-5.85 10^6/uL Hemoglobin 10.3 L 11.5-16.0 G/DL Hematocrit 31 L 35-52 % Mean Corpuscular Volume 94 80-99 FL Mean Corpuscular Hemoglobin 31 25-34 PG Mean Corpuscular Hemoglobin Concent 33 32-36 G/DL Red Cell Distribution Width 16.5 H 10.0-14.5 % Platelet Count 134 130-400 10^3/uL Mean Platelet Volume 8.7 7.4-10.4 FL Neutrophils (%) (Auto) 60 42-75 % Lymphocytes (%) (Auto) 25 12-44 % Monocytes (%) (Auto) 13 H 0-12 % Eosinophils (%) (Auto) 1 0-10 % Basophils (%) (Auto) 0 0-10 % Neutrophils # (Auto) 2.2 1.8-7.8 X 10^3 Lymphocytes # (Auto) 0.9 L 1.0-4.0 X 10^3 Monocytes # (Auto) 0.5 0.0-1.0 X 10^3 Eosinophils # (Auto) 0.1 0.0-0.3 10^3/uL Basophils # (Auto) 0.0 0.0-0.1 10^3/uL Prothrombin Time 15.2 H 12.2-14.7 SEC INR Comment 1.2 0.8-1.4 Activated Partial Thromboplast Time 28 24-35 SEC Sodium Level 126 L 135-145 MMOL/L Potassium Level 3.6 3.6-5.0 MMOL/L Chloride Level 95 L 98-107 MMOL/L Carbon Dioxide Level 22 21-32 MMOL/L Anion Gap 9 5-14 MMOL/L Blood Urea Nitrogen 5 L 7-18 MG/DL Creatinine 0.83 0.60-1.30 MG/DL Estimat Glomerular Filtration Rate > 60 BUN/Creatinine Ratio 6 Glucose Level 137 H 70-105 MG/DL Lactic Acid Level 2.28 *H 0.50-2.00 MMOL/L Calcium Level 10.4 H 8.5-10.1 MG/DL Phosphorus Level 2.7 2.3-4.7 MG/DL Magnesium Level 1.8 1.8-2.4 MG/DL Total Bilirubin 0.9 0.1-1.0 MG/DL Aspartate Amino Transf (AST/SGOT) 32 5-34 U/L Alanine Aminotransferase (ALT/SGPT) 20 0-55 U/L Alkaline Phosphatase 92 40-136 U/L Ammonia 19 11-32 UMOL/L Troponin I < 0.30 <0.30 NG/ML Total Protein 7.8 6.4-8.2 GM/DL Albumin 3.9 3.2-4.5 GM/DL Lipase 77 8-78 U/L Thyroid Stimulating Hormone (TSH) 2.27 0.35-4.94 UIU/ML Salicylates Level < 5.0 L 5.0-20.0 MG/DL Acetaminophen Level < 10 L 10-30 UG/ML Serum Alcohol < 10 <10 MG/DL My Orders Orders - MARIAA COLEMAN Acetaminophen (03/09/17 07:44) Alcohol (03/09/17 07:44) Ammonia (03/09/17 07:44) Cbc With Automated Diff (03/09/17 07:44) Comprehensive Metabolic Panel (03/09/17 07:44) Drug Screen Stat (Urine) (03/09/17 07:44) Lactic Acid Analyzer (03/09/17 07:44) Lipase (03/09/17 07:44) Magnesium (03/09/17 07:44) Salicylate (03/09/17 07:44) Thyroid Stimulating Hormone (03/09/17 07:44) Troponin I (03/09/17 07:44) Ua Culture If Indicated (03/09/17 07:44) Phosphorus (03/09/17 07:44) Chest 1 View, Ap/Pa Only (03/09/17 07:44) Saline Lock/Iv-Start (03/09/17 07:44) D5 Ns 1000 Ml Iv Solution (Dextrose 5%/0 (03/09/17 07:44) Protime With Inr (03/09/17 08:29) Partial Thromboplastin Time (03/09/17 08:29) Urine Culture (03/09/17 07:50) Ns Iv 500 Ml (Sodium Chloride 0.9%) (03/09/17 08:55) Blood Culture (03/09/17 09:58) Ua Culture If Indicated (03/09/17 09:58) Vital Signs Adult Sepsis Patie Q1HR (03/09/17 09:58) Ceftriaxone Injection (Rocephin Injectio (03/09/17 09:58) Remove Rings In Anticipation O (03/09/17 09:58) Medications Given in ED Current Medications Medications Dose Ordered Sig/[place] Route Start Time Stop Time Status Last Admin Dose Admin Dextrose/Sodium Chloride 1,000 ml @ 0 mls/hr Q0M ONCE IV 03/09/17 07:44 03/09/17 07:51 DC 03/09/17 08:14 0 MLS/HR Sodium Chloride 500 ml @ 0 mls/hr Q0M ONCE IV 03/09/17 08:55 03/09/17 08:57 DC 03/09/17 09:12 0 MLS/HR Vital Signs/I&O Vital Sign - Last 12Hours 03/09/17 07:25 Temp 97.8 Pulse 96 Resp 14 B/P (MAP) 146/77 Pulse Ox 97 O2 Delivery Room Air Blood Pressure Mean: 100 Progress Note #1: Time: 08:02 Progress Note Patient doesn't give much useful history however when I listen to the patient interact with nursing staff while in the room she answers questions appropriately and asks questions about what they're doing and what the plans are while she is here which is inconsistent with the clinical history she was able to provide this provider. I reviewed her recent hospital examination in the ER from 03/06/[address] abdomen and pelvis were performed as well as a chest x-ray which were both unremarkable. She still is endorsing some abdominal pain but her abdominal exam is not remarkable and with a recent CT Araceli sure that wouldn't see anything different in 3 days time with no known history of diarrhea nausea or vomiting per the . On the fourth she was endorsing some nausea and diarrhea but did not have any while in the ER. We'll hold off giving her any Zofran and get her lab and chest x-ray and observe her. It is highly likely that the substances she's been using on a daily basis and now trying to wean off on could explain many of her symptoms. Certainly an elevated ammonia or infection is also high on the differential. Progress Note #2: Time: 08:31 Progress Note Patient's white blood cell count is low and 3000 but stable from what is been for over a year. Given her history is likely secondary to her liver disease. Diagnostic Imaging Diagonstic Imaging: Xray Plain Films/CT/US/NM/MRI: chest Comments No acute cardiopulmonary process. Pending radiology over read Reviewed: Reviewed by Me Departure Communication (Admissions) Time/Spoke to Admitting Phy: 10:[address] Thu Cervantes covering for the PCP and she is willing to admit the patient and since the ammonia is okay and the urinalysis looks positive she is okay with Rocephin and fluids and admitting to the floor with stable vitals. Normal chest x-ray discussed. she'll see the patient. Impression Impression: Primary Impression: Sepsis Qualified Codes: A41.9 - Sepsis, unspecified organism Additional Impressions: UTI (urinary tract infection) Qualified Codes: N30.00 - Acute cystitis without hematuria Delirium Chronic hyponatremia Disposition: 01 HOME, SELF-CARE Condition: Stable Admissions Decision to Admit Reason: Admit from ER (General) Decision to Admit/Date: Mar 09, 2017 Time/Decision to Admit Time: 10:04 Departure-Patient Inst. Referrals: LAWRENCE BARRIOS (PCP/Family) Primary Care Physician Copy Copies To 1: HAIDER DEL CASTILLO TITUS J Mar 09, 2017 07:53
[2017-03-09 08:17] LABS: BASOPHILS % (AUTO) 0 % (0-10); EOSINOPHILS # (AUTO) 0.1 10^3/uL (0.0-0.3); EOSINOPHILS % (AUTO) 1 % (0-10); LYMPHOCYTES # (AUTO) 0.9 X 10^3 (1.0-4.0); LYMPHOCYTES % (AUTO) 25 % (12-44); MEAN CORPUSCULAR HEMOGLOBIN 31 PG (25-34); MEAN CORPUSCULAR HGB CONC 33 G/DL (32-36); MEAN CORPUSCULAR VOLUME 94 FL (80-99); MEAN PLATELET VOLUME 8.7 FL (7.4-10.4); MONOCYTES # (AUTO) 0.5 X 10^3 (0.0-1.0); MONOCYTES % (AUTO) 13 % (0-12); NEUTROPHILS # (AUTO) 2.2 X 10^3 (1.8-7.8); NEUTROPHILS % (AUTO) 60 % (42-75); PLATELET COUNT 134 10^3/uL (130-400); RED CELL DISTRIBUTION WIDTH 16.5 % (10.0-14.5); WHITE BLOOD COUNT 3.6 10^3/uL (4.3-11.0)
[2017-03-09 08:21] LABS: BILIRUBIN,URINE NEGATIVE (NEGATIVE); KETONES,URINE NEGATIVE (NEGATIVE); LEUKOCYTE ESTERASE ,URINE 3+ (NEGATIVE); NITRITE,URINE NEGATIVE (NEGATIVE); PH,URINE 6.5 (5-9); PROTEIN,URINE 3+ (NEGATIVE); UROBILINOGEN,URINE 1 MG/DL (NORMAL)
[2017-03-09 08:37] LABS: SQUAMOUS EPITHELIAL CELL,UR 0-2 /HPF
--- NOTE | 2017-03-09 08:37 | Diagnostic Imaging Report ---
INDICATION: Seizure. COMPARISON: 03/06/2017. FINDINGS: The lungs are well aerated and clear. The heart is not enlarged. There is no pulmonary edema. No hilar adenopathy. No pneumothorax or pleural effusion. No bony abnormality. IMPRESSION: Normal chest. Dictated by: Dictated on workstation # [id number]
[2017-03-09 08:43] LABS: INR 1.2 (0.8-1.4); PROTHROMBIN TIME PATIENT 15.2 SEC (12.2-14.7)
[2017-03-09 08:46] LABS: ALANINE AMINOTRANSFERASE 20 U/L (0-55); ALBUMIN 3.9 GM/DL (3.2-4.5); ALCOHOL < 10 MG/DL (<10); AMMONIA 19 UMOL/L (11-32); ANION GAP 9 MMOL/L (5-14); ASPARTATE AMINO TRANSFERASE 32 U/L (5-34); BILIRUBIN,TOTAL 0.9 MG/DL (0.1-1.0); BLOOD UREA NITROGEN 5 MG/DL (7-18); BUN/CREATININE RATIO 6; CALCIUM 10.4 MG/DL (8.5-10.1); CARBON DIOXIDE 22 MMOL/L (21-32); CHLORIDE 95 MMOL/L (98-107); CREATININE SERUM 0.83 MG/DL (0.60-1.30); GFR ESTIMATED > 60; GLUCOSE 137 MG/DL (70-105); LIPASE 77 U/L (8-78); MAGNESIUM 1.8 MG/DL (1.8-2.4); PHOSPHORUS 2.7 MG/DL (2.3-4.7); POTASSIUM 3.6 MMOL/L (3.6-5.0); SALICYLATE < 5.0 MG/DL (5.0-20.0); SODIUM 126 MMOL/L (135-145); TOTAL PROTEIN 7.8 GM/DL (6.4-8.2)
[2017-03-09 08:54] LABS: ACETAMINOPHEN < 10 UG/ML (10-30)
[2017-03-09] MEDS ORDERED: NS IV 500 ML 500 ML IV ONE (08:55)
[2017-03-09 09:06] LABS: THYROID STIMULATING HORMONE 2.27 UIU/ML (0.35-4.94); TROPONIN I < 0.30 NG/ML (<0.30)
[2017-03-09] MEDS ORDERED: cefTRIAXone 1 GM (ROCEPHIN) VIAL IV STA (09:58)
[2017-03-09] MEDS ORDERED: TRAZ-28 PO (11:02)
[2017-03-09] MEDS ORDERED: VENL75CA PO (11:02)
[2017-03-09] MEDS ORDERED: METH20TA34 PO (11:02)
[2017-03-09] MEDS ORDERED: ALPR1TAB7 PO (11:02)
[2017-03-09] MEDS ORDERED: HYDR12.5 PO (11:02)
[2017-03-09] MEDS ORDERED: SPIR50TA PO (11:02)
[2017-03-09] MEDS ORDERED: OXYC-465 PO (11:02)
[2017-03-09] MEDS ORDERED: CATHETER FLUSH 10 ML SYR IV PRN (11:30)
[2017-03-09] MEDS ORDERED: ONDANSETRON 4 MG/2 ML (SDV) Z0FRAN IV PRN (11:30)
[2017-03-09] MEDS: NS IV 1000 ML 1,000 ML IV SCH ×2 (11:41→20:30)
[2017-03-09] MEDS ORDERED: LORazepam INJ 2 MG/ML (ATIVAN) VIAL IVP PRN (15:30)
[2017-03-09 15:52] LABS: ANION GAP 11 MMOL/L (5-14); BLOOD UREA NITROGEN 3 MG/DL (7-18); BUN/CREATININE RATIO 4; CALCIUM 8.8 MG/DL (8.5-10.1); CARBON DIOXIDE 17 MMOL/L (21-32); CHLORIDE 105 MMOL/L (98-107); CREATININE SERUM 0.77 MG/DL (0.60-1.30); GFR ESTIMATED > 60; GLUCOSE 124 MG/DL (70-105); SODIUM 133 MMOL/L (135-145)
[2017-03-10] VITALS (21 sets, daily range): BP systolic 151–176; BP diastolic 70–97
[2017-03-10 04:27] LABS: BASOPHILS % (AUTO) 1 % (0-10); EOSINOPHILS % (AUTO) 1 % (0-10); LYMPHOCYTES # (AUTO) 1.9 X 10^3 (1.0-4.0); LYMPHOCYTES % (AUTO) 43 % (12-44); MEAN CORPUSCULAR HEMOGLOBIN 31 PG (25-34); MEAN CORPUSCULAR HGB CONC 32 G/DL (32-36); MEAN CORPUSCULAR VOLUME 97 FL (80-99); MONOCYTES # (AUTO) 0.5 X 10^3 (0.0-1.0); MONOCYTES % (AUTO) 11 % (0-12); NEUTROPHILS % (AUTO) 45 % (42-75); PLATELET COUNT 120 10^3/uL (130-400); RED BLOOD COUNT 2.81 10^6/uL (4.35-5.85); RED CELL DISTRIBUTION WIDTH 16.8 % (10.0-14.5); WHITE BLOOD COUNT 4.5 10^3/uL (4.3-11.0)
[2017-03-10 04:48] LABS: ANION GAP 12 MMOL/L (5-14); BLOOD UREA NITROGEN 4 MG/DL (7-18); BUN/CREATININE RATIO 5; CALCIUM 8.7 MG/DL (8.5-10.1); CARBON DIOXIDE 14 MMOL/L (21-32); CHLORIDE 108 MMOL/L (98-107); CREATININE SERUM 0.76 MG/DL (0.60-1.30); GFR ESTIMATED > 60; GLUCOSE 93 MG/DL (70-105); MAGNESIUM 1.7 MG/DL (1.8-2.4); PHOSPHORUS 2.3 MG/DL (2.3-4.7); POTASSIUM 3.1 MMOL/L (3.6-5.0); SODIUM 134 MMOL/L (135-145)
[2017-03-10] MEDS: MAGNESIUM 1 GM/100 ML IVPB 100 ML IV SCH ×3 (05:00→06:19)
[2017-03-10] MEDS: KCL 20 MEQ TAB (K-DUR) PO SCH (05:00)
[2017-03-10] MEDS: POTASSIUM CL 10MEQ/50ML IVPB 50 ML IV SCH (05:00)
[2017-03-10] MEDS ORDERED: KCL 20 MEQ TAB (K-DUR) PO ONE ×2 (05:15→07:15)
[2017-03-10] MEDS: NS IV 1000 ML 1,000 ML IV SCH ×3 (05:26→23:46)
--- NOTE | 2017-03-10 08:21 | Pulmonary Consultation ---
History of Present Illness History of Present Illness Date of Consultation 03/10/17 08:13 Time Seen by Provider: 08:14 Date of Admission History of Present Illness 61 yo with hx of epilepsy presented via EMS after being found in the bathroom having seizure like activity and slumped over the toilet. Upon arival to ED was was A&O x 3 and did not appear to be post ictal per ED notes. Pt has had progressive abdominal pain over the last 5 days. Pt has been taking opiates and xanax for about 38yrs and tried to D/C meds all at once. Secondary to withdrawl symptoms her started giving her 1/2 tab of xanax 3-4 days prior to admission. She was seen in ED 5 days prior to this admission secondary to abdominal pain. Pt has also had progressive confusion. Unable to obtain ROS secondary to pt fanny very lethargic and confused. I am consulted for ICU management. Allergies and Home Medications Allergies Coded Allergies: aspirin (Verified Allergy, Unknown, 11/30/07) desvenlafaxine (Verified Allergy, Unknown, NAUSEA, 11/05/15) Home Medications Alprazolam 1 Mg Tablet, 1 MG PO BID PRN for ANXIETY, (Reported) Hydrochlorothiazide 12.5 Mg Capsule, 12.5 MG PO DAILY, (Reported) Hyoscyamine Sulfate 0.125 Mg Tab.subl, 1-2 TAB SL Q4H, #15 Prescribed by: DEA HARRIS on 03/06/17 0559 Lisinopril 40 Mg Tablet, 40 MG PO DAILY, (Reported) LAST FILLED #90 10-18-16 Methylphenidate HCl 20 Mg Tablet, 20 MG PO DAILY, (Reported) Multivitamin 1 Each Tablet, 1 EACH PO DAILY, (Reported) Omeprazole 40 Mg Capsule.dr, 40 MG PO DAILY, (Reported) Oxycodone HCl/Acetaminophen 1 Each Tablet, 1 TAB PO QID PRN for PAIN-MODERATE, ( Reported) Polyethylene Glycol 17 Gm Pack, 17 GM PO BID for 10 Days FOR CONSTIPATION Prescribed by: ARJUN BRANTLEY on 09/16/14 5759 Promethazine Hcl 25 Mg Tablet, 1 TAB PO QID PRN, (Reported) Simvastatin 40 Mg Tablet, 40 MG PO HS, (Reported) Spironolactone 50 Mg Tablet, 50 MG PO DAILY, (Reported) Trazodone HCl 50 Mg Tablet, 50 MG PO HS PRN for SLEEP, (Reported) Venlafaxine HCl 75 Mg Cap.er.24h, 75 MG PO DAILY, (Reported) Past Ztsmohg-Bzsapg-Ivhxwl Hx Patient Social History Alcohol Use: Denies Use Recreational Drug Use: Yes (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, NOW HYDROCODONE AND THC) Smoking Status: Never a Smoker Type Used: Cigarettes 2nd Hand Smoke Exposure: Yes Recent Foreign Travel: No Contact w/Someone Who Travel: No Recent Infectious Disease Expo: No Recent Hopitalizations: No Physical Abuse: No Sexual Abuse: No Immunizations Up To Date Tetanus Booster (TDap): Unknown Date of Pneumonia Vaccine: Jul 03, 2010 Seasonal Allergies Seasonal Allergies: No Surgeries History of Surgeries: Yes (right foot x4, left foot x1, BILATERAL ANKLES; TEETH REMOVED; HYST/BSO) Surgeries: Appendectomy, Gallbladder, Hysterectomy, Oophorectomy, Orthopedic Respiratory History of Respiratory Disorde: No Cardiovascular History of Cardiac Disorders: Yes Cardiac Disorders: High Cholesterol, Hypertension, Irregular Heartbeat Neurological History of Neurological Disord: Yes (NARCOTIC DEPENDENT) Neurological Disorders: Headaches /Migraines Reproductive System Hx Reproductive Disorders: No Sexually Transmitted Disease: No 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, 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 Genitourinary History of Genitourinary Disor: No Gastrointestinal History of Gastrointestinal Di: Yes (HEPATITIS C-TREATMENT UNKNOWN IF CURED) Gastrointestinal Disorders: Gastroesophageal Reflux, Liver Disease/Jaundice, Chronic Constipation, Hepatitis Musculoskeletal History of Musculoskeletal Dis: Yes (CHRONIC ANKLE PAIN/BILAT ANKLE FX'S; RESTLESS LEGS) Musculoskeletal Disorders: Fractures Endocrine History of Endocrine Disorders: No HEENT History of HEENT Disorders: Yes (SINUS PROBLEMS) Cancer History of Cancer: No Psychosocial History of Psychiatric Problem: Yes Behavioral Health Disorders: Anxiety, Depression Suicide Risk Score: 0 Integumentary History of Skin or Integumenta: No Blood Transfusions History of Blood Disorders: No Adverse Reaction to a Blood Tr: No Review of Systems Time Seen by Provider: 09:16 Exam Exam Vital Signs Date Time Temp Pulse Resp B/P (MAP) Pulse Ox O2 Delivery O2 Flow Rate FiO2 03/10/17 06:00 91 21 160/96 98 Room Air 03/10/17 05:00 105 20 153/79 99 Room Air 03/10/17 04:00 100 26 159/73 98 Room Air 03/10/17 04:00 Room Air 03/10/17 04:00 98.9 03/10/17 03:00 99.9 03/10/17 03:00 106 30 151/70 98 Room Air 03/10/17 02:00 91 19 160/77 98 Room Air 03/10/17 01:00 102 25 157/80 98 Room Air 03/10/17 01:00 102 03/10/17 00:00 102 26 158/73 98 Room Air 03/10/17 00:00 98.7 03/10/17 00:00 Room Air 03/09/17 23:00 96 21 149/70 99 Room Air 03/09/17 22:00 102 22 151/70 100 Room Air 03/09/17 21:00 96 20 154/77 100 Room Air 03/09/17 20:00 Room Air 03/09/17 20:00 103 28 153/73 100 Room Air 03/09/17 19:00 102 03/09/17 19:00 102 28 146/70 99 Room Air 03/09/17 17:30 Room Air 03/09/17 16:00 100.7 143 26 179/81 97 Room Air 03/09/17 12:12 99 Room Air 03/09/17 11:25 97.9 122 24 122/83 99 OxyMask 03/09/17 11:14 97.8 90 14 97 Room Air General Appearance: No Apparent Distress, Thin HEENT: Normal ENT Inspection Respiratory: Accessory Muscle Use, Decreased Breath Sounds Cardiovascular: No Edema, No Gallop, No Murmur, Tachycardia Capillary Refill: Less Than 3 Seconds Peripheral Pulses: 2+ Dorsalis Pedis (R), 2+ Left Dors-Pedis (L), 2+ Radial Pulses (R), 2+ Radial Pulses (L) Gastrointestinal: normal bowel sounds, non tender, soft, no organomegaly, no pulsatile mass Neurologic/Psychiatric: Other (lethargic ) Skin: Normal Color, Warm/Dry Lymphatic: No Adenopathy Results Lab Laboratory Tests 03/09/17 08:05 03/09/17 15:20 03/10/17 03:51 Assessment/Plan Assessment/Plan Confusion/MS changes -check ABG, accu check -Check CT of head with and without contrast -Check EEG seizure -Seizure precautions -check EEG UTI with sepsis -Continue Abx Metabolic acidosis nonanion gap -Check ABG -check CT of abd/pelvis Pt was complaining of sever abdominal pain and constipation prior to admission sinus tachycardia I am going to check Ct of head and abd/pelvis. If imaging does not explain clinical symptoms i am suspicous of OD on Levsin and will proceed with physostigmine. I discussed this with pharmacy and they state there has been recalls on Levsin secondary to ODs and over concentration of medicines. 120 min spent with patient, family, and medical care team including pharmacy, RN , and Dr. Cervantes. UPDATE: d/w radiology and patient has extensive colitis. Head CT is normal. Adding flagyl and vanco to rocephin and checking marshall cultures. Will hold off on physostigmine. I consulted Dr. Loredo. Clinical Quality Measures DVT/VTE Risk/Contraindication: Risk Factor Score Per Nursin RFS Level Per Nursing on Admit: 4+=Very High TAMIKA RIDLEY DO Mar 10, 2017 08:21
--- NOTE | 2017-03-10 08:44 | Diagnostic Imaging Report ---
Portable erect AP chest at 4:55 AM. INDICATION: Dyspnea. There is shallow inspiration when compared to the prior exam of 03/09/2017. Allowing for this technical factor, the heart size is within normal limits, and the lungs remain clear. There is still no sign of failure, pneumonia, or pleural effusion. Mediastinum is not widened. The osseous structures are intact. IMPRESSION: Stable chest. Allowing for the shallow degree of inspiration on this exam, there has been no significant change since the prior study. Dictated by: Dictated on workstation # [id number]
[2017-03-10] MEDS ORDERED: NS 100 ML (IVPB) BAG IV ONE (09:15)
[2017-03-10] MEDS ORDERED: IOHEXOL 350 MG/ML 100 ML (OMNIPAQUE 350) VIAL IV ONE (09:15)
--- NOTE | 2017-03-10 09:24 | Diagnostic Imaging Report ---
PROCEDURE: CT head with and without contrast. TECHNIQUE: Multiple contiguous axial images were obtained through the brain before and after the administration of intravenous contrast. INDICATION: Cerebrovascular accident. COMPARISON: 02/17/2017. FINDINGS: The ventricles and cortical sulci are diffusely prominent, compatible with age-related volume loss. There are confluent areas of abnormal, low attenuation in the periventricular white matter. This is consistent with chronic small vessel ischemic changes. Postcontrast images show no abnormal areas of enhancement. There is no midline shift or mass-effect. No acute intra-axial hemorrhage is seen. There are no abnormal areas of increased or decreased density to suggest acute hemorrhage or edema. No extra-axial masses or collections are present. The bony calvarium is intact. The visualized paranasal sinuses are unremarkable. The mastoid air cells are clear. IMPRESSION: 1. No acute intracranial abnormality. No CT evidence of mass, acute infarct or intracranial hemorrhage. 2. Chronic small vessel ischemic changes in deep white matter. Dictated by: Dictated on workstation # [id number]
[2017-03-10] MEDS: cefTRIAXone 1 GM/NS 50 ML IVPB IV SCH ×2 (09:56)
--- NOTE | 2017-03-10 10:01 | Diagnostic Imaging Report ---
PROCEDURE: CT abdomen and pelvis with contrast. TECHNIQUE: Multiple contiguous axial images were obtained through the abdomen and pelvis after administration of intravenous contrast. INDICATION: Abdominal pain. FINDINGS: The recent CT abdomen/pelvis exam of 03/06/17 failed to show any sign of an acute abnormality. In the interval since the prior exam, marked thickening and edema of the wall of most of the colon has developed. I suspect that this is secondary to colitis. There is no sign of pneumatosis to indicate bowel ischemia. The liver, spleen, pancreas, adrenals, kidneys, aorta and inferior vena cava show no sign of an acute abnormality. The spleen is prominent but stable when compared to the prior exam. The small area of diminished density along the posterior aspect of the left kidney seen on the previous exam of 10/09/15 is again evident and no different. This may represent a small cyst. The stomach is partially filled with fluid and particulate matter and consequently difficult to assess. There is no pelvic mass or free fluid collection noted. In the interval since the prior exam, a Rebolledo catheter has been inserted into the bladder and the bladder is now decompressed. The uterus is surgically absent. The appendix was not well-visualized but there are no indirect signs of acute appendicitis. The lung bases are clear. The bone windows show no sign of a fracture or destructive lesion. IMPRESSION: 1. In the interval since the prior exam, marked thickening and edema of the wall of the colon has developed. This does suggest diffuse colitis. There is no sign of pneumatosis to indicate bowel ischemia, however. 2. No other acute abnormality of the abdomen or pelvis is identified. 3. There is now Rebolledo catheter in place. 4. These results were discussed with Dr. Neto Maradiaga and Dr. Pranay Loredo. Dictated by: Dictated on workstation # [id number]
[2017-03-10 10:23] LABS: ABG BASE EXCESS -4.7 MMOL/L (-2.5-2.5); ABG HCO3 19 MMOL/L (23-27); ABG OXYGEN SATURATION 84 % (94-100); ABG PCO2 29 MMHG (35-45); ABG PH 7.43 (7.37-7.43); ABG PO2 51 MMHG (79-93); ABG TCO2 19.8 MMOL/L (21.0-31.0)
[2017-03-10 10:24] LABS: ALLENS TEST YES-POS; PATIENT TEMP 98.1
[2017-03-10] MEDS ORDERED: VANCOMYCIN 1500 MG/NS 500 ML IVPB IV NR ×2 (10:24)
--- NOTE | 2017-03-10 11:36 | History & Physicial ([facility]) ---
HPI History of Present Illness: 61 yo woman presented with mental status changes. She is well known to have cirrhosis and was recently treated with hep c with epclusa for a 12 week course. Her family noticed that she was becoming much weaker and disoriented. No fevers, no abdominal pain, no diarrhea or nausea. Once pt was transferred to 4th floor she began to have seizure activity. A rapid response was called and fluid bolus begun. She came out of that seizure but had another within about 30 min. She was given a dose of Ativan and did not have a recurrence. 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 Reviewed Test Results Reviewed Test Results Lab Laboratory Tests Test 03/09/17 07:50 03/09/17 08:05 03/09/17 10:59 03/09/17 15:20 Range/Units Urine Color YELLOW Urine Clarity CLEAR Urine pH 6.5 5-9 Urine Specific [place] 1.020 1.016-1.022 Urine Protein 3+ H NEGATIVE Urine Glucose (UA) NEGATIVE NEGATIVE Urine Ketones NEGATIVE NEGATIVE Urine Nitrite NEGATIVE NEGATIVE Urine Bilirubin NEGATIVE NEGATIVE Urine Urobilinogen 1 NORMAL MG/DL Urine Leukocyte Esterase 3+ H NEGATIVE Urine RBC (Auto) 1+ H NEGATIVE Urine RBC RARE /HPF Urine WBC 10-25 H /HPF Urine Squamous Epithelial Cells 0-2 /HPF Urine Crystals NONE /LPF Urine Bacteria LARGE H /HPF Urine Casts NONE /LPF Urine Mucus NEGATIVE /LPF Urine Culture Indicated YES Urine Opiates Screen NEGATIVE NEGATIVE Urine Oxycodone Screen NEGATIVE NEGATIVE Urine Methadone Screen NEGATIVE NEGATIVE Urine Propoxyphene Screen NEGATIVE NEGATIVE Urine Barbiturates Screen NEGATIVE NEGATIVE Ur Tricyclic Antidepressants Screen NEGATIVE NEGATIVE Urine Phencyclidine Screen NEGATIVE NEGATIVE Urine Amphetamines Screen NEGATIVE NEGATIVE Urine Methamphetamines Screen NEGATIVE NEGATIVE Urine Benzodiazepines Screen POSITIVE H NEGATIVE Urine Cocaine Screen NEGATIVE NEGATIVE Urine Cannabinoids Screen NEGATIVE NEGATIVE White Blood Count 3.6 L 4.3-11.0 10^3/uL Red Blood Count 3.30 L 4.35-5.85 10^6/uL Hemoglobin 10.3 L 11.5-16.0 G/DL Hematocrit 31 L 35-52 % Mean Corpuscular Volume 94 80-99 FL Mean Corpuscular Hemoglobin 31 25-34 PG Mean Corpuscular Hemoglobin Concent 33 32-36 G/DL Red Cell Distribution Width 16.5 H 10.0-14.5 % Platelet Count 134 130-400 10^3/uL Mean Platelet Volume 8.7 7.4-10.4 FL Neutrophils (%) (Auto) 60 42-75 % Lymphocytes (%) (Auto) 25 12-44 % Monocytes (%) (Auto) 13 H 0-12 % Eosinophils (%) (Auto) 1 0-10 % Basophils (%) (Auto) 0 0-10 % Neutrophils # (Auto) 2.2 1.8-7.8 X 10^3 Lymphocytes # (Auto) 0.9 L 1.0-4.0 X 10^3 Monocytes # (Auto) 0.5 0.0-1.0 X 10^3 Eosinophils # (Auto) 0.1 0.0-0.3 10^3/uL Basophils # (Auto) 0.0 0.0-0.1 10^3/uL Prothrombin Time 15.2 H 12.2-14.7 SEC INR Comment 1.2 0.8-1.4 Activated Partial Thromboplast Time 28 24-35 SEC Sodium Level 126 L 133 L 135-145 MMOL/L Potassium Level 3.6 3.0 L 3.6-5.0 MMOL/L Chloride Level 95 L 105 98-107 MMOL/L Carbon Dioxide Level 22 17 L 21-32 MMOL/L Anion Gap 9 11 5-14 MMOL/L Blood Urea Nitrogen 5 L 3 L 7-18 MG/DL Creatinine 0.83 0.77 0.60-1.30 MG/DL Estimat Glomerular Filtration Rate > 60 > 60 BUN/Creatinine Ratio 6 4 Glucose Level 137 H 124 H 70-105 MG/DL Lactic Acid Level 2.28 *H 2.83 *H 7.48 *H 0.50-2.00 MMOL/L Calcium Level 10.4 H 8.8 8.5-10.1 MG/DL Phosphorus Level 2.7 2.3-4.7 MG/DL Magnesium Level 1.8 1.8-2.4 MG/DL Total Bilirubin 0.9 0.1-1.0 MG/DL Aspartate Amino Transf (AST/SGOT) 32 5-34 U/L Alanine Aminotransferase (ALT/SGPT) 20 0-55 U/L Alkaline Phosphatase 92 40-136 U/L Ammonia 19 11-32 UMOL/L Troponin I < 0.30 <0.30 NG/ML Total Protein 7.8 6.4-8.2 GM/DL Albumin 3.9 3.2-4.5 GM/DL Lipase 77 8-78 U/L Thyroid Stimulating Hormone (TSH) 2.27 0.35-4.94 UIU/ML Salicylates Level < 5.0 L 5.0-20.0 MG/DL Acetaminophen Level < 10 L 10-30 UG/ML Serum Alcohol < 10 <10 MG/DL Test 03/09/17 15:58 03/09/17 19:53 03/10/17 00:45 03/10/17 03:51 Range/Units Glucometer 127 H 70-110 MG/DL Lactic Acid Level 1.37 0.76 0.50-2.00 MMOL/L White Blood Count 4.5 4.3-11.0 10^3/uL Red Blood Count 2.81 L 4.35-5.85 10^6/uL Hemoglobin 8.7 L 11.5-16.0 G/DL Hematocrit 27 L 35-52 % Mean Corpuscular Volume 97 80-99 FL Mean Corpuscular Hemoglobin 31 25-34 PG Mean Corpuscular Hemoglobin Concent 32 32-36 G/DL Red Cell Distribution Width 16.8 H 10.0-14.5 % Platelet Count 120 L 130-400 10^3/uL Mean Platelet Volume 9.0 7.4-10.4 FL Neutrophils (%) (Auto) 45 42-75 % Lymphocytes (%) (Auto) 43 12-44 % Monocytes (%) (Auto) 11 0-12 % Eosinophils (%) (Auto) 1 0-10 % Basophils (%) (Auto) 1 0-10 % Neutrophils # (Auto) 2.0 1.8-7.8 X 10^3 Lymphocytes # (Auto) 1.9 1.0-4.0 X 10^3 Monocytes # (Auto) 0.5 0.0-1.0 X 10^3 Eosinophils # (Auto) 0.0 0.0-0.3 10^3/uL Basophils # (Auto) 0.0 0.0-0.1 10^3/uL Sodium Level 134 L 135-145 MMOL/L Potassium Level 3.1 L 3.6-5.0 MMOL/L Chloride Level 108 H 98-107 MMOL/L Carbon Dioxide Level 14 L 21-32 MMOL/L Anion Gap 12 5-14 MMOL/L Blood Urea Nitrogen 4 L 7-18 MG/DL Creatinine 0.76 0.60-1.30 MG/DL Estimat Glomerular Filtration Rate > 60 BUN/Creatinine Ratio 5 Glucose Level 93 70-105 MG/DL Calcium Level 8.7 8.5-10.1 MG/DL Phosphorus Level 2.3 2.3-4.7 MG/DL Magnesium Level 1.7 L 1.8-2.4 MG/DL Test 03/10/17 08:33 03/10/17 10:13 03/10/17 10:53 Range/Units Glucometer 103 70-110 MG/DL Blood Gas Puncture Site LT RAD Blood Gas Patient Temperature 98.1 Arterial Blood pH 7.43 7.37-7.43 Arterial Blood Partial Pressure CO2 29 L 35-45 MMHG Arterial Blood Partial Pressure O2 51 L 79-93 MMHG Arterial Blood HCO3 19 L 23-27 MMOL/L Arterial Blood Total CO2 19.8 L 21.0-31.0 MMOL/L Arterial Blood Oxygen Saturation 84 L 94-100 % Arterial Blood Base Excess -4.7 L -2.5-2.5 MMOL/L Elliott Test YES-POS Blood Gas Ventilator Setting NO Blood Gas Inspired Oxygen ROOM AIR Lactic Acid Level 0.65 0.50-2.00 MMOL/L Physical Exam-([facility]) Physical Exam Vital Signs VS - Last 72 Hours, by Label 03/09/17 03/09/17 03/09/17 03/09/17 07:25 11:14 11:25 12:12 Temp 97.8 97.8 97.9 Pulse 96 90 122 Resp 14 14 24 B/P (MAP) 146/77 122/83 Pulse Ox 97 97 99 99 O2 Delivery Room Air Room Air OxyMask Room Air 03/09/17 03/09/17 03/09/17 03/09/17 16:00 17:30 19:00 19:00 Temp 100.7 Pulse 143 102 102 Resp 26 28 B/P (MAP) 179/81 146/70 Pulse Ox 97 99 O2 Delivery Room Air Room Air Room Air 03/09/17 03/09/17 03/09/17 03/09/17 20:00 20:00 21:00 22:00 Pulse 103 96 102 Resp 28 20 22 B/P (MAP) 153/73 154/77 151/70 Pulse Ox 100 100 100 O2 Delivery Room Air Room Air Room Air Room Air 03/09/17 03/10/17 03/10/17 03/10/17 23:00 00:00 00:00 00:00 Temp 98.7 Pulse 96 102 Resp 26 B/P (MAP) 149/70 158/73 Pulse Ox 99 98 O2 Delivery Room Air Room Air Room Air 03/10/17 03/10/17 03/10/17 03/10/17 01:00 01:00 02:00 03:00 Pulse 102 102 91 106 Resp 25 19 30 B/P (MAP) 157/80 160/77 151/70 Pulse Ox 98 98 98 O2 Delivery Room Air Room Air Room Air 03/10/17 03/10/17 03/10/17 03/10/17 03:00 04:00 04:00 04:00 Temp 99.9 98.9 Pulse 100 Resp 26 B/P (MAP) 159/73 Pulse Ox 98 O2 Delivery Room Air Room Air 03/10/17 03/10/17 03/10/17 03/10/17 05:00 06:00 07:00 07:00 Pulse 105 91 98 98 Resp 20 21 27 B/P (MAP) 153/79 160/96 153/76 Pulse Ox 99 98 99 O2 Delivery Room Air Room Air Room Air 03/10/17 03/10/17 03/10/17 08:00 08:39 10:00 Temp 97.8 Pulse 93 98 Resp 26 30 B/P (MAP) 154/74 160/83 Pulse Ox 99 100 O2 Delivery Room Air Room Air Room Air Capillary Refill : Less Than 3 SecondsLess Than 3 Seconds General Appearance: no apparent distress, thin Eyes: Bilateral Eye Normal Inspection Neck: supple Respiratory: lungs clear, normal breath sounds, no respiratory distress Cardiovascular: regular rate, rhythm, no edema, no murmur Peripheral Pulses: 2+ Dorsalis Pedis (R) Gastrointestinal: normal bowel sounds, non tender, soft, no organomegaly Extremities: normal capillary refill Neurologic/Psychiatric: alert, oriented x 3 Skin: normal color, warm/dry Assessment/Plan Assessment/Plan Plan AMS ADM: Likely due to severity of sepsis, family denies pt regularly uses ETOH. Will give fluids to see if dehydration also playing a role. Hyponatremia, Chronic ADM: Likely due to severity of liver disease, states she has had low sodium in the past. I am concerned that the rapid IV fluids necessary to treat the sepsis may have increased her sodium level too quickly and precipitated the seizure. Seizures ADM: Not likely to be withdrawal related in absence of regular ETOH use. I do believe this is caused by the rapid increase in her sodium level. However, there was no way to avoid this in light of her septic state. UTI w/ sepsis ADM: On Rocephin. Blood cultures pending. ESLD w/ cirrhosis ADM: Will require careful fluid balance. Does not appear to be encephalopathic at this point. Pancytopenia ADM: Will monitor. No active bleeding. DVT ppx: SCDs I had a long conversation with the family about the severity of the patient's condition. With her end-stage cirrhosis, she has both a decreased immunity as well as metabolic derangements. She will require a large amount of fluid to treat the sepsis. This may cause worsening over her overall fluid balance and precipitate respiratory failure. I asked the family if the pt would want to be intubated, her stated no and the family all agreed. They further stated they would not want her to be resuscitated. We agreed that we would do all measures up to intubation and we would not do a code. I am transferring her to the ICU for closer monitoring and will consult Dr. Maradiaga as well, he will see her in the morning. Diagnosis/Problems: Clinical Quality Measures DVT/VTE Risk/Contraindication: Risk Factor Score Per Nursin RFS Level Per Nursing on Admit: 4+=Very High GAMAL AUGUSTINE MD Mar 10, 2017 11:36 am
--- NOTE | 2017-03-10 12:01 | Progress Note (SOAP) ---
Objective Exam Last Set of Vital Signs Vital Signs Date Time Temp Pulse Resp B/P (MAP) Pulse Ox O2 Delivery O2 Flow Rate FiO2 03/10/17 10:00 98 30 160/83 100 Room Air 03/10/17 08:39 97.8 Capillary Refill : Less Than 3 SecondsLess Than 3 Seconds I&O Intake and Output 03/11/17 00:00 Intake Total 590 ml Output Total 850 ml Balance -260 ml Intake Oral 340 ml IV Total 250 ml Output Urine Total 850 ml Results/Procedures Lab Laboratory Tests 03/09/17 15:20: Sodium Level 133L, Potassium Level 3.0L, Chloride Level 105, Carbon Dioxide Level 17L, Anion Gap 11, Blood Urea Nitrogen 3L, Creatinine 0.77, Estimat Glomerular Filtration Rate > 60, BUN/Creatinine Ratio 4, Glucose Level 124H, Lactic Acid Level 7.48*H, Calcium Level 8.8 03/09/17 15:58: Glucometer 127H 03/09/17 19:53: Lactic Acid Level 1.37 03/10/17 00:45: Lactic Acid Level 0.76 03/10/17 03:51: White Blood Count 4.5, Red Blood Count 2.81L, Hemoglobin 8.7L, Hematocrit 27L, Mean Corpuscular Volume 97, Mean Corpuscular Hemoglobin 31, Mean Corpuscular Hemoglobin Concent 32, Red Cell Distribution Width 16.8H, Platelet Count 120L, Mean Platelet Volume 9.0, Neutrophils (%) (Auto) 45, Lymphocytes (%) (Auto) 43, Monocytes (%) (Auto) 11, Eosinophils (%) (Auto) 1, Basophils (%) (Auto) 1, Neutrophils # (Auto) 2.0, Lymphocytes # (Auto) 1.9, Monocytes # (Auto) 0.5, Eosinophils # (Auto) 0.0, Basophils # (Auto) 0.0, Sodium Level 134L, Potassium Level 3.1L, Chloride Level 108H, Carbon Dioxide Level 14L, Anion Gap 12, Blood Urea Nitrogen 4L, Creatinine 0.76, Estimat Glomerular Filtration Rate > 60, BUN/ Creatinine Ratio 5, Glucose Level 93, Calcium Level 8.7, Phosphorus Level 2.3, Magnesium Level 1.7L 03/10/17 08:33: Glucometer 103 03/10/17 10:13: Blood Gas Puncture Site LT RAD, Blood Gas Patient Temperature 98.1, Arterial Blood pH 7.43, Arterial Blood Partial Pressure CO2 29L, Arterial Blood Partial Pressure O2 51L, Arterial Blood HCO3 19L, Arterial Blood Total CO2 19.8L, Arterial Blood Oxygen Saturation 84L, Arterial Blood Base Excess -4.7L, Elliott Test YES-POS, Blood Gas Ventilator Setting NO, Blood Gas Inspired Oxygen ROOM AIR 03/10/17 10:53: Lactic Acid Level 0.65 Microbiology 03/09/17 Urine Culture - Preliminary, Resulted Klebsiella Oxytoca Assessment/Plan Assessment/Plan Plan AMS ADM: Likely due to severity of sepsis, family denies pt regularly uses ETOH. Will give fluids to see if dehydration also playing a role. Hyponatremia, Chronic ADM: Likely due to severity of liver disease, states she has had low sodium in the past. I am concerned that the rapid IV fluids necessary to treat the sepsis may have increased her sodium level too quickly and precipitated the seizure. Seizures ADM: Not likely to be withdrawal related in absence of regular ETOH use. I do believe this is caused by the rapid increase in her sodium level. However, there was no way to avoid this in light of her septic state. UTI w/ sepsis ADM: On Rocephin. Blood cultures pending. ESLD w/ cirrhosis ADM: Will require careful fluid balance. Does not appear to be encephalopathic at this point. Pancytopenia ADM: Will monitor. No active bleeding. DVT ppx: SCDs I had a long conversation with the family about the severity of the patient's condition. With her end-stage cirrhosis, she has both a decreased immunity as well as metabolic derangements. She will require a large amount of fluid to treat the sepsis. This may cause worsening over her overall fluid balance and precipitate respiratory failure. I asked the family if the pt would want to be intubated, her stated no and the family all agreed. They further stated they would not want her to be resuscitated. We agreed that we would do all measures up to intubation and we would not do a code. I am transferring her to the ICU for closer monitoring and will consult Dr. Maradiaga as well, he will see her in the morning. Diagnosis/Problems: Clinical Quality Measures DVT/VTE Risk/Contraindication: Risk Factor Score Per Nursin RFS Level Per Nursing on Admit: 4+=Very High GAMAL AUGUSTINE MD Mar 10, 2017 12:01 pm
--- NOTE | 2017-03-10 12:26 | Consultation ---
History of Present Illness History of Present Illness Patient Consulted On(yesika/time) 03/10/17 12:17 Date Seen by Provider: Mar 10, 2017 Time Seen by Provider: 12:17 History of Present Illness consult requested by Dr. Maradiaga for colitis Patient is a 61-year-old female who is been ill for approximately 5 days. Her family states that she was having some complaints of some slight abdominal discomfort. Patient yesterday was found in the bathroom having a seizure I her and was brought to the emergency department by EMS. Patient has had altered mental status.. Family states that she has constipation/diarrhea issues for many years. She did have some diarrhea today but they think that she has been constipated lately. Patient had a CT scan on 2016 which did not demonstrate any bowel wall thickening but today had a repeat CT of the abdomen and pelvis which demonstrated thickened edematous: Consistent with colitis. There is no free air and no pneumatosis. Patient was admitted for urinary tract infection and has been on Rocephin. Patient still does not respond to questions and is difficult to arouse. Allergies and Home Medications Allergies Coded Allergies: aspirin (Verified Allergy, Unknown, 11/30/07) desvenlafaxine (Verified Allergy, Unknown, NAUSEA, 11/05/15) Home Medications Alprazolam 1 Mg Tablet, 1 MG PO BID PRN for ANXIETY, (Reported) Hydrochlorothiazide 12.5 Mg Capsule, 12.5 MG PO DAILY, (Reported) Hyoscyamine Sulfate 0.125 Mg Tab.subl, 1-2 TAB SL Q4H, #15 Prescribed by: DEA HARRIS on 03/06/17 0559 Lisinopril 40 Mg Tablet, 40 MG PO DAILY, (Reported) LAST FILLED #90 10-18-16 Methylphenidate HCl 20 Mg Tablet, 20 MG PO DAILY, (Reported) Multivitamin 1 Each Tablet, 1 EACH PO DAILY, (Reported) Omeprazole 40 Mg Capsule.dr, 40 MG PO DAILY, (Reported) Oxycodone HCl/Acetaminophen 1 Each Tablet, 1 TAB PO QID PRN for PAIN-MODERATE, ( Reported) Polyethylene Glycol 17 Gm Pack, 17 GM PO BID for 10 Days FOR CONSTIPATION Prescribed by: ARJUN BRANTLEY on 09/16/14 2636 Promethazine Hcl 25 Mg Tablet, 1 TAB PO QID PRN, (Reported) Simvastatin 40 Mg Tablet, 40 MG PO HS, (Reported) Spironolactone 50 Mg Tablet, 50 MG PO DAILY, (Reported) Trazodone HCl 50 Mg Tablet, 50 MG PO HS PRN for SLEEP, (Reported) Venlafaxine HCl 75 Mg Cap.er.24h, 75 MG PO DAILY, (Reported) Past Blykafh-Bjutdd-Erqvxg Hx Patient Social History Alcohol Use: Denies Use Recreational Drug Use: Yes (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, NOW HYDROCODONE AND THC) Smoking Status: Never a Smoker Type Used: Cigarettes 2nd Hand Smoke Exposure: Yes Recent Foreign Travel: No Contact w/Someone Who Travel: No Recent Infectious Disease Expo: No Recent Hopitalizations: No Physical Abuse Screen: No Sexual Abuse: No Immunizations Up To Date Tetanus Booster (TDap): Unknown Date of Pneumonia Vaccine: Jul 03, 2010 Seasonal Allergies Seasonal Allergies: No Surgeries History of Surgeries: Yes (right foot x4, left foot x1, BILATERAL ANKLES; TEETH REMOVED; HYST/BSO) Surgeries: Appendectomy, Gallbladder, Hysterectomy, Oophorectomy, Orthopedic Respiratory History of Respiratory Disorde: No Cardiovascular History of Cardiac Disorders: Yes Cardiac Disorders: High Cholesterol, Hypertension, Irregular Heartbeat Neurological History of Neurological Disord: Yes (NARCOTIC DEPENDENT) Neurological Disorders: Headaches /Migraines Reproductive System Hx Reproductive Disorders: No Sexually Transmitted Disease: No HIV/AIDS: 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, 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 Genitourinary History of Genitourinary Disor: No Gastrointestinal History of Gastrointestinal Di: Yes (HEPATITIS C-TREATMENT UNKNOWN IF CURED) Gastrointestinal Disorders: Gastroesophageal Reflux, Liver Disease/Jaundice, Chronic Constipation, Hepatitis Musculoskeletal History of Musculoskeletal Dis: Yes (CHRONIC ANKLE PAIN/BILAT ANKLE FX'S; RESTLESS LEGS) Musculoskeletal Disorders: Fractures Endocrine History of Endocrine Disorders: No HEENT History of HEENT Disorders: Yes (SINUS PROBLEMS) Cancer History of Cancer: No Psychosocial History of Psychiatric Problem: Yes Behavioral Health Disorders: Anxiety, Depression Integumentary History of Skin or Integumenta: No Blood Transfusions History of Blood Disorders: No Adverse Reaction to a Blood Tr: No Family Medical History Significant Family History: No Pertinent Family Hx Review of Systems-General ROS-Unable to Obtain: patient with altered mental status and not communicating at this time. Physical Exam-General Problems Physical Exam Vital Signs Vital Sign - Last 12Hours 03/09/17 07:25 Temp 97.8 Pulse 96 Resp 14 B/P (MAP) 146/77 Pulse Ox 97 O2 Delivery Room Air Capillary Refill : Less Than 3 SecondsLess Than 3 Seconds General Appearance: no apparent distress HEENT: other (head is normocephalic atraumatic eyes are nonicteric nares are patent mouth moist) Neck: supple Respiratory: no respiratory distress, no accessory muscle use Cardiovascular: regular rate, rhythm Gastrointestinal: non tender, soft, no organomegaly, No distended, No guarding , No rebound, No tenderness Rectal: deferred Back: no CVA tenderness Extremities: non-tender, normal inspection Neurologic/Psychiatric: No alert Skin: normal color, warm/dry Lymphatic: no adenopathy Data Review Labs Laboratory Tests 03/09/17 15:20: Sodium Level 133L, Potassium Level 3.0L, Chloride Level 105, Carbon Dioxide Level 17L, Anion Gap 11, Blood Urea Nitrogen 3L, Creatinine 0.77, Estimat Glomerular Filtration Rate > 60, BUN/Creatinine Ratio 4, Glucose Level 124H, Lactic Acid Level 7.48*H, Calcium Level 8.8 03/09/17 15:58: Glucometer 127H 03/09/17 19:53: Lactic Acid Level 1.37 03/10/17 00:45: Lactic Acid Level 0.76 03/10/17 03:51: White Blood Count 4.5, Red Blood Count 2.81L, Hemoglobin 8.7L, Hematocrit 27L, Mean Corpuscular Volume 97, Mean Corpuscular Hemoglobin 31, Mean Corpuscular Hemoglobin Concent 32, Red Cell Distribution Width 16.8H, Platelet Count 120L, Mean Platelet Volume 9.0, Neutrophils (%) (Auto) 45, Lymphocytes (%) (Auto) 43, Monocytes (%) (Auto) 11, Eosinophils (%) (Auto) 1, Basophils (%) (Auto) 1, Neutrophils # (Auto) 2.0, Lymphocytes # (Auto) 1.9, Monocytes # (Auto) 0.5, Eosinophils # (Auto) 0.0, Basophils # (Auto) 0.0, Sodium Level 134L, Potassium Level 3.1L, Chloride Level 108H, Carbon Dioxide Level 14L, Anion Gap 12, Blood Urea Nitrogen 4L, Creatinine 0.76, Estimat Glomerular Filtration Rate > 60, BUN/ Creatinine Ratio 5, Glucose Level 93, Calcium Level 8.7, Phosphorus Level 2.3, Magnesium Level 1.7L 03/10/17 08:33: Glucometer 103 03/10/17 10:13: Blood Gas Puncture Site LT RAD, Blood Gas Patient Temperature 98.1, Arterial Blood pH 7.43, Arterial Blood Partial Pressure CO2 29L, Arterial Blood Partial Pressure O2 51L, Arterial Blood HCO3 19L, Arterial Blood Total CO2 19.8L, Arterial Blood Oxygen Saturation 84L, Arterial Blood Base Excess -4.7L, Elliott Test YES-POS, Blood Gas Ventilator Setting NO, Blood Gas Inspired Oxygen ROOM AIR 03/10/17 10:53: Lactic Acid Level 0.65 Microbiology 03/09/17 Urine Culture - Preliminary, Resulted Klebsiella Oxytoca Assessment/Plan Assessment/Plan Assessment/Plan Colitis, UTI, sepsis, seizures, ESLD, AMS patient urine culture klebsiella on rocephin with colitis vanc and flagyl added today by Dr. Ashwini hanks ordered no surgical intervention at this time will follow. Clinical Quality Measures DVT/VTE Risk/Contraindication: Risk Factor Score Per Nursin RFS Level Per Nursing on Admit: 4+=Very High DAVE GORDON DO Mar 10, 2017 12:26
[2017-03-10] MEDS ORDERED: DIPH25CA79 PO (13:52)
[2017-03-10] MEDS ORDERED: OMEP20TA33 PO (13:52)
[2017-03-10] MEDS ORDERED: LINA72CA PO (13:52)
[2017-03-10] MEDS ORDERED: PEDI1TAB35 PO (13:52)
[2017-03-10] MEDS ORDERED: LATUDA PO (13:57)
[2017-03-10] MEDS: metroNIDAZOLE 500MG/100ML IVPB 100 ML IV SCH ×2 (14:20→22:22)
[2017-03-10] MEDS ORDERED: LURA60TA2 PO (16:07)
[2017-03-10] MEDS: VANCOMYCIN INJECTION 1,250 MG in NS (IVPB) 250 ML IV SCH (20:52)
[2017-03-11] VITALS (10 sets, daily range): BP systolic 150–179; BP diastolic 74–118
[2017-03-11 05:16] LABS: BASOPHILS % (AUTO) 1 % (0-10); EOSINOPHILS # (AUTO) 0.1 10^3/uL (0.0-0.3); EOSINOPHILS % (AUTO) 3 % (0-10); LYMPHOCYTES # (AUTO) 1.7 X 10^3 (1.0-4.0); LYMPHOCYTES % (AUTO) 35 % (12-44); MEAN CORPUSCULAR HEMOGLOBIN 31 PG (25-34); MEAN CORPUSCULAR HGB CONC 32 G/DL (32-36); MEAN CORPUSCULAR VOLUME 97 FL (80-99); MEAN PLATELET VOLUME 8.8 FL (7.4-10.4); MONOCYTES # (AUTO) 0.5 X 10^3 (0.0-1.0); MONOCYTES % (AUTO) 10 % (0-12); NEUTROPHILS # (AUTO) 2.6 X 10^3 (1.8-7.8); NEUTROPHILS % (AUTO) 51 % (42-75); PLATELET COUNT 120 10^3/uL (130-400); RED BLOOD COUNT 2.93 10^6/uL (4.35-5.85); RED CELL DISTRIBUTION WIDTH 16.2 % (10.0-14.5)
[2017-03-11 05:28] LABS: ANION GAP 9 MMOL/L (5-14); BLOOD UREA NITROGEN 4 MG/DL (7-18); BUN/CREATININE RATIO 6; CALCIUM 8.8 MG/DL (8.5-10.1); CARBON DIOXIDE 16 MMOL/L (21-32); CHLORIDE 105 MMOL/L (98-107); CREATININE SERUM 0.71 MG/DL (0.60-1.30); GFR ESTIMATED > 60; GLUCOSE 95 MG/DL (70-105); PHOSPHORUS 2.4 MG/DL (2.3-4.7); POTASSIUM 3.1 MMOL/L (3.6-5.0); SODIUM 130 MMOL/L (135-145)
[2017-03-11 05:29] LABS: MAGNESIUM 1.7 MG/DL (1.8-2.4)
[2017-03-11] MEDS: metroNIDAZOLE 500MG/100ML IVPB 100 ML IV SCH ×2 (05:47→15:35)
[2017-03-11] MEDS: MAGNESIUM 1 GM/100 ML IVPB 100 ML IV SCH ×3 (07:04→12:01)
[2017-03-11] MEDS: KCL 20 MEQ TAB (K-DUR) PO SCH (07:04)
[2017-03-11] MEDS: POTASSIUM CL 10MEQ/50ML IVPB 50 ML IV SCH ×5 (07:04→13:26)
--- NOTE | 2017-03-11 08:10 | Diagnostic Imaging Report ---
INDICATION: Dyspnea. COMPARISON: 03/10/2017. FINDINGS: Visible lungs are clear. Please note posterior lower lobes are poorly evaluated by portable radiography. No pleural effusion or pneumothorax. Normal heart size and pulmonary vasculature. Atherosclerotic aorta is unchanged. IMPRESSION: 1. Stable exam without adverse development or acute process. Dictated by: Dictated on workstation # [id number]
[2017-03-11] MEDS ORDERED: TROUGH ORDER-PHARMACY XX NR (09:00)
[2017-03-11] MEDS ORDERED: GADOBUTROL 7.5 MMOL/7.5 ML (GADAVIST) VIAL IV ONE (09:00)
--- NOTE | 2017-03-11 09:18 | Diagnostic Imaging Report ---
PROCEDURE: MR imaging of the brain with and without contrast. TECHNIQUE: Multiplanar, multisequence MR imaging of the brain was performed with and without contrast. INDICATION: Seizure. COMPARISON: CT head without and with IV contrast 03/10/2017. FINDINGS: Examination mildly limited by motion artifact. Moderate to advanced nonspecific T2 hyperintensities in the supratentorial white matter. No other abnormal intracranial signal, enhancement, restricted water diffusion or hemosiderin deposition. Mild to moderate generalized cerebral and cerebellar parenchymal volume loss is age appropriate. Normal morphology including the major midline structures, cerebellar pontine angle and posterior fossa. The orbits are negative. No hydrocephalus or extra-axial fluid collections. Normal intracranial flow voids. The paranasal sinuses are clear. Small amount of fluid in the right mastoid air cells. Normal bone marrow signal. IMPRESSION: 1. Moderate to advanced nonspecific T2 hyperintensities in the supratentorial white matter. These most likely represent chronic small vessel ischemic change. There is no active intracranial enhancement or restricted water diffusion. No evidence of intracranial hemorrhage. 2. Mild to moderate generalized parenchymal volume loss is age appropriate. 3. No findings specific for seizure etiology or sequelae. Dictated by: Dictated on workstation # [id number]
[2017-03-11] MEDS: cefTRIAXone 1 GM/NS 50 ML IVPB IV SCH ×2 (09:45)
[2017-03-11] MEDS ORDERED: meTOprolol 5 MG/5 ML (LOPRESSOR) VIAL ONE (10:31)
[2017-03-11] MEDS ORDERED: meTOprolol 5 MG/5 ML (LOPRESSOR) VIAL IV ONE (10:40)
[2017-03-11 11:07] LABS: ALANINE AMINOTRANSFERASE 18 U/L (0-55); ALBUMIN 3.3 GM/DL (3.2-4.5); ANION GAP 10 MMOL/L (5-14); ASPARTATE AMINO TRANSFERASE 38 U/L (5-34); BILIRUBIN,TOTAL 0.8 MG/DL (0.1-1.0); BLOOD UREA NITROGEN 3 MG/DL (7-18); BUN/CREATININE RATIO 4; CALCIUM 9.1 MG/DL (8.5-10.1); CARBON DIOXIDE 16 MMOL/L (21-32); CHLORIDE 104 MMOL/L (98-107); CREATININE SERUM 0.74 MG/DL (0.60-1.30); GFR ESTIMATED > 60; GLUCOSE 98 MG/DL (70-105); MAGNESIUM 1.7 MG/DL (1.8-2.4); PHOSPHORUS 2.7 MG/DL (2.3-4.7); POTASSIUM 3.4 MMOL/L (3.6-5.0); SODIUM 130 MMOL/L (135-145); TOTAL PROTEIN 6.9 GM/DL (6.4-8.2)
[2017-03-11] MEDS: NS IV 1000 ML 1,000 ML IV SCH (13:26)
[2017-03-11] MEDS: VANCOMYCIN INJECTION 1,250 MG in NS (IVPB) 250 ML IV SCH (13:30)
--- NOTE | 2017-03-11 13:36 | Progress Note ---
Subjective Date Seen by Provider: Mar 11, 2017 Time Seen by Provider: 09:00 Subjective/Events-last exam Patient lying in bed with family around her. She does not verbalize any information. She does open eyes. She does have some seizure-like activity while I'm in the room. Patient's family reports that she's been having a couple of these today. Patient's C. difficile is negative. She still having some diarrhea stools. Objective Exam Vital Signs Date Time Temp Pulse Resp B/P (MAP) Pulse Ox O2 Delivery O2 Flow Rate FiO2 03/11/17 12:05 98 Room Air 03/11/17 12:01 97.9 03/11/17 09:00 93 23 174/94 100 Room Air 03/11/17 09:00 98.2 03/11/17 08:00 103 20 179/88 96 Room Air 03/11/17 08:00 98 Room Air 03/11/17 07:00 98 03/11/17 07:00 97 22 175/86 97 Room Air 03/11/17 06:00 98 18 174/86 97 Room Air 03/11/17 05:00 101 19 166/118 96 Room Air 03/11/17 04:00 99.2 03/11/17 04:00 98 Room Air 03/11/17 04:00 104 13 168/76 98 Room Air 03/11/17 03:00 101 16 162/75 97 Room Air 03/11/17 02:00 96 20 150/89 97 Room Air 03/11/17 01:36 96 03/11/17 01:00 96 22 157/74 97 Room Air 03/11/17 00:00 94 21 165/81 99 Room Air 03/11/17 00:00 98 Room Air 03/11/17 00:00 99.2 03/10/17 23:00 99 20 171/83 98 Room Air 03/10/17 22:00 98 18 176/97 98 Room Air 03/10/17 21:00 98 15 152/84 98 Room Air 03/10/17 20:00 97 22 168/91 99 Room Air 03/10/17 20:00 98.7 03/10/17 20:00 98 Room Air 03/10/17 19:27 93 03/10/17 19:00 94 22 166/83 100 Room Air 03/10/17 18:00 96 19 167/81 99 Room Air 03/10/17 17:00 94 19 172/74 100 Room Air 03/10/17 16:31 98.3 03/10/17 16:00 95 24 99 Room Air 03/10/17 16:00 Room Air 03/10/17 15:00 92 19 164/94 100 Room Air 03/10/17 14:00 93 23 165/84 100 Room Air I & O 03/12/17 07:00 Intake Total 50 ml Output Total 350 ml Balance -300 ml Capillary Refill : Less Than 3 SecondsLess Than 3 Seconds General Appearance: Thin, Other (does not verbalize. She does track and follow slightly at times) HEENT: Normal ENT Inspection Neck: Supple Respiratory: No Accessory Muscle Use, No Respiratory Distress, Decreased Breath Sounds Cardiovascular: No Edema, No Gallop, No Murmur, Tachycardia Gastrointestinal: non tender, soft, no organomegaly, No distended, No guarding , No rebound, No tenderness, other (does not seem to have any abdominal pain or discomfort with deep palpation) Extremity: Non Tender Neurologic/Psychiatric: No Alert, No Oriented x3, Other (lethargic ) Skin: Normal Color, Warm/Dry Lymphatic: No Adenopathy Results Lab Laboratory Tests 03/11/17 04:47: White Blood Count 5.0, Red Blood Count 2.93L, Hemoglobin 9.2L, Hematocrit 28L, Mean Corpuscular Volume 97, Mean Corpuscular Hemoglobin 31, Mean Corpuscular Hemoglobin Concent 32, Red Cell Distribution Width 16.2H, Platelet Count 120L, Mean Platelet Volume 8.8, Neutrophils (%) (Auto) 51, Lymphocytes (%) (Auto) 35, Monocytes (%) (Auto) 10, Eosinophils (%) (Auto) 3, Basophils (%) (Auto) 1, Neutrophils # (Auto) 2.6, Lymphocytes # (Auto) 1.7, Monocytes # (Auto) 0.5, Eosinophils # (Auto) 0.1, Basophils # (Auto) 0.0, Sodium Level 130L, Potassium Level 3.1L, Chloride Level 105, Carbon Dioxide Level 16L, Anion Gap 9, Blood Urea Nitrogen 4L, Creatinine 0.71, Estimat Glomerular Filtration Rate > 60, BUN/ Creatinine Ratio 6, Glucose Level 95, Calcium Level 8.8, Phosphorus Level 2.4, Magnesium Level 1.7L 03/11/17 09:46: Sodium Level 130L, Potassium Level 3.4L, Chloride Level 104, Carbon Dioxide Level 16L, Anion Gap 10, Blood Urea Nitrogen 3L, Creatinine 0.74, Estimat Glomerular Filtration Rate > 60, BUN/Creatinine Ratio 4, Glucose Level 98, Calcium Level 9.1, Phosphorus Level 2.7, Magnesium Level 1.7L, Total Bilirubin 0.8, Aspartate Amino Transf (AST/SGOT) 38H, Alanine Aminotransferase (ALT/SGPT) 18, Alkaline Phosphatase 82, Total Protein 6.9, Albumin 3.3 03/11/17 09:56: Vancomycin Level Trough 19.2 Microbiology 03/09/17 Blood Culture - Preliminary, Resulted No growth 03/10/17 C. difficile [facility] Antigen & Toxins - Final, Complete 03/09/17 Urine Culture - Final, Complete Klebsiella Oxytoca Assessment/Plan Assessment/Plan Assessment/Plan Colitis, UTI, sepsis, seizures, ESLD, AMS patient urine culture klebsiella on rocephin with colitis vanc and flagyl added c diff ordered-neg Patient with seizures Difficult to assess patient due to questionable neurological condition. At this time don't feel that her abdomen needs any surgical intervention. We' ll continue to follow closely. We'll also get stool culture. Continue antibiotics, medical management Clinical Quality Measures DVT/VTE Risk/Contraindication: Risk Factor Score Per Nursin RFS Level Per Nursing on Admit: 4+=Very High DAVE GORDON DO Mar 11, 2017 13:36
--- NOTE | 2017-03-11 13:39 | Discharge Summary ---
Diagnosis/Chief Complaint Date of Admission Mar 09, 2017 at 10:15 am Date of Discharge Mar 11, 2017 Admission Diagnosis Admission Diagnosis AMS Hyponatremia, Chronic Seizures UTI w/ sepsis ESLD w/ cirrhosis Pancytopenia Discharge Diagnosis AMS -Unclear etiology- initially suspected due to sepsis, however not improving with treatment and in fact worsened after seizure activity to the point of long periods of unresponsiveness, given this and her recurrent seizures of unexplained origin, patient was transferred to [facility] for continuous Neuro monitoring and evaluation Hyponatremia, Chronic ADM: Likely due to severity of liver disease, states she has had low sodium in the past. Seizures Not likely to be withdrawal related in absence of regular ETOH use. There was concern that it was related to sodium change with fluid required for sepsis resuscitation, however the rate of change in her sodium was 7 mEq over 6-7 hours per lab work, so this seems less likely. CT of head with chronic small vessel changes. MRI obtained 03/11 with nonspecific hyperintense T2 supratentorial signal likely chronic small vessel change, no findings to explain seizures or depressed sensorium. Given recurrent seizures with improving labs, discussed with Neurology at [facility] in [place] who accept patient in transfer for further evaluation. UTI w/ sepsis- klebsiella oxytoca sensitive to rocephin Fluid resusciated on arrival, lactate up to over 7, but back to normal. On Rocephin. Blood cultures negative to date. ESLD w/ cirrhosis Will require careful fluid balance. Does not appear to be encephalopathic at this point, ammonia normal on admission Pancytopenia ADM: Will monitor. No active bleeding. Diffuse colitis CT abdomen 03/10 showed diffuse colon wall thickening, no pneumotosis to suggest ischemia. Surgery consulted, no surgical issue currently. Added vancomycin, flagyl. C diff negative. Chief Complaint/HPI Chief Complaint/HPI 61 yo woman presented with mental status changes. She is well known to have cirrhosis and was recently treated with hep c with epclusa for a 12 week course. Her family noticed that she was becoming much weaker and disoriented. No fevers, no abdominal pain, no diarrhea or nausea. Once pt was transferred to 4th floor she began to have seizure activity. A rapid response was called and fluid bolus begun. She came out of that seizure but had another within about 30 min. She was given a dose of Ativan and did not have a recurrence. Discharge Summary-Simple/Stand Consultations Critical Care General Surgery Discharge Physical Examination Allergies: Coded Allergies: aspirin (Verified Allergy, Unknown, 11/30/07) desvenlafaxine (Verified Allergy, Unknown, NAUSEA, 11/05/15) Vitals & I&Os Vital Sign - Last 12Hours Date Time Temp Pulse Resp B/P (MAP) Pulse Ox O2 Delivery O2 Flow Rate FiO2 03/11/17 12:05 98 Room Air 03/11/17 12:01 97.9 03/11/17 09:00 93 23 174/94 General Appearance: Other (Does not open eyes to name or tactile stimuli, but opens eyes spontaneously and holds eye contact, does not speak) Respiratory: Clear to Auscultation, Normal Air Movement Cardiovascular: Regular Rate, No Murmurs Abdominal: Normal Bowel Sounds, Soft, No Tenderness Hospital Course See final discharge diagnosis. Labs Laboratory Tests Test 03/09/17 15:20 03/09/17 15:58 03/09/17 19:53 03/10/17 00:45 Range/Units Sodium Level 133 L 135-145 MMOL/L Potassium Level 3.0 L 3.6-5.0 MMOL/L Chloride Level 105 98-107 MMOL/L Carbon Dioxide Level 17 L 21-32 MMOL/L Anion Gap 11 5-14 MMOL/L Blood Urea Nitrogen 3 L 7-18 MG/DL Creatinine 0.77 0.60-1.30 MG/DL Estimat Glomerular Filtration Rate > 60 BUN/Creatinine Ratio 4 Glucose Level 124 H 70-105 MG/DL Lactic Acid Level 7.48 *H 1.37 0.76 0.50-2.00 MMOL/L Calcium Level 8.8 8.5-10.1 MG/DL Glucometer 127 H 70-110 MG/DL Test 03/10/17 03:51 03/10/17 08:33 03/10/17 10:13 03/10/17 10:53 Range/Units White Blood Count 4.5 4.3-11.0 10^3/uL Red Blood Count 2.81 L 4.35-5.85 10^6/uL Hemoglobin 8.7 L 11.5-16.0 G/DL Hematocrit 27 L 35-52 % Mean Corpuscular Volume 97 80-99 FL Mean Corpuscular Hemoglobin 31 25-34 PG Mean Corpuscular Hemoglobin Concent 32 32-36 G/DL Red Cell Distribution Width 16.8 H 10.0-14.5 % Platelet Count 120 L 130-400 10^3/uL Mean Platelet Volume 9.0 7.4-10.4 FL Neutrophils (%) (Auto) 45 42-75 % Lymphocytes (%) (Auto) 43 12-44 % Monocytes (%) (Auto) 11 0-12 % Eosinophils (%) (Auto) 1 0-10 % Basophils (%) (Auto) 1 0-10 % Neutrophils # (Auto) 2.0 1.8-7.8 X 10^3 Lymphocytes # (Auto) 1.9 1.0-4.0 X 10^3 Monocytes # (Auto) 0.5 0.0-1.0 X 10^3 Eosinophils # (Auto) 0.0 0.0-0.3 10^3/uL Basophils # (Auto) 0.0 0.0-0.1 10^3/uL Sodium Level 134 L 135-145 MMOL/L Potassium Level 3.1 L 3.6-5.0 MMOL/L Chloride Level 108 H 98-107 MMOL/L Carbon Dioxide Level 14 L 21-32 MMOL/L Anion Gap 12 5-14 MMOL/L Blood Urea Nitrogen 4 L 7-18 MG/DL Creatinine 0.76 0.60-1.30 MG/DL Estimat Glomerular Filtration Rate > 60 BUN/Creatinine Ratio 5 Glucose Level 93 70-105 MG/DL Calcium Level 8.7 8.5-10.1 MG/DL Phosphorus Level 2.3 2.3-4.7 MG/DL Magnesium Level 1.7 L 1.8-2.4 MG/DL Glucometer 103 70-110 MG/DL Blood Gas Puncture Site LT RAD Blood Gas Patient Temperature 98.1 Arterial Blood pH 7.43 7.37-7.43 Arterial Blood Partial Pressure CO2 29 L 35-45 MMHG Arterial Blood Partial Pressure O2 51 L 79-93 MMHG Arterial Blood HCO3 19 L 23-27 MMOL/L Arterial Blood Total CO2 19.8 L 21.0-31.0 MMOL/L Arterial Blood Oxygen Saturation 84 L 94-100 % Arterial Blood Base Excess -4.7 L -2.5-2.5 MMOL/L Elliott Test YES-POS Blood Gas Ventilator Setting NO Blood Gas Inspired Oxygen ROOM AIR Lactic Acid Level 0.65 0.50-2.00 MMOL/L Test 03/11/17 04:47 03/11/17 09:46 03/11/17 09:56 Range/Units White Blood Count 5.0 4.3-11.0 10^3/uL Red Blood Count 2.93 L 4.35-5.85 10^6/uL Hemoglobin 9.2 L 11.5-16.0 G/DL Hematocrit 28 L 35-52 % Mean Corpuscular Volume 97 80-99 FL Mean Corpuscular Hemoglobin 31 25-34 PG Mean Corpuscular Hemoglobin Concent 32 32-36 G/DL Red Cell Distribution Width 16.2 H 10.0-14.5 % Platelet Count 120 L 130-400 10^3/uL Mean Platelet Volume 8.8 7.4-10.4 FL Neutrophils (%) (Auto) 51 42-75 % Lymphocytes (%) (Auto) 35 12-44 % Monocytes (%) (Auto) 10 0-12 % Eosinophils (%) (Auto) 3 0-10 % Basophils (%) (Auto) 1 0-10 % Neutrophils # (Auto) 2.6 1.8-7.8 X 10^3 Lymphocytes # (Auto) 1.7 1.0-4.0 X 10^3 Monocytes # (Auto) 0.5 0.0-1.0 X 10^3 Eosinophils # (Auto) 0.1 0.0-0.3 10^3/uL Basophils # (Auto) 0.0 0.0-0.1 10^3/uL Sodium Level 130 L 130 L 135-145 MMOL/L Potassium Level 3.1 L 3.4 L 3.6-5.0 MMOL/L Chloride Level 105 104 98-107 MMOL/L Carbon Dioxide Level 16 L 16 L 21-32 MMOL/L Anion Gap 9 10 5-14 MMOL/L Blood Urea Nitrogen 4 L 3 L 7-18 MG/DL Creatinine 0.71 0.74 0.60-1.30 MG/DL Estimat Glomerular Filtration Rate > 60 > 60 BUN/Creatinine Ratio 6 4 Glucose Level 95 98 70-105 MG/DL Calcium Level 8.8 9.1 8.5-10.1 MG/DL Phosphorus Level 2.4 2.7 2.3-4.7 MG/DL Magnesium Level 1.7 L 1.7 L 1.8-2.4 MG/DL Total Bilirubin 0.8 0.1-1.0 MG/DL Aspartate Amino Transf (AST/SGOT) 38 H 5-34 U/L Alanine Aminotransferase (ALT/SGPT) 18 0-55 U/L Alkaline Phosphatase 82 40-136 U/L Total Protein 6.9 6.4-8.2 GM/DL Albumin 3.3 3.2-4.5 GM/DL Vancomycin Level Trough 19.2 10.0-20.0 UG/ML Discharge Condition at discharge Transferred to facility with Neurology Instructions to patient/family Please see electronic discharge instructions given to patient. Discharge Medications Reviewed and agree with Discharge Medication list on patient's Discharge Instruction sheet Clinical Quality Measures DVT/VTE Risk/Contraindication: Risk Factor Score Per Nursin RFS Level Per Nursing on Admit: 4+=Very High Copy Copies To 1: GAMAL AUGUSTINE MD, BETHANY N MD Mar 11, 2017 1:39 pm
--- NOTE | 2017-03-15 09:16 | ELECTROENCEPHALOPATHY REPORT ---
DATE OF SERVICE: 03/10/2017 The patient is a 61-year-old female who was admitted for urinary tract infection. On 03/10/2017 the patient had witnessed event of staring episodes with unresponsiveness lasting approximately 20 minutes long. The background rhythm consisted of 9-10 Hz, 60-75 microvolts in amplitude, bilaterally symmetric over the vortex region which was reactive to eye opening. Intermixed were a few sharp waves in the left temporal area. Muscle and movement artifacts were present. The patient was awaken and drowsy during this recording. Hyperventilation was not performed. Intermittent photic stimulation was done at various fast frequencies and no photic driving response was seen. IMPRESSION: This EEG is abnormal in awake and drowsy states. The epileptic form activity described above is suggestive of a seizure focus in the left upper lobe, the clinical correlation is suggested. 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
== END 2017-03-11 16:35 | disposition short-term general hospital (02) | DRG 872 ==
LOC: EDUNIT# 07:25 → ER 07:26 → 4TH 10:15 → ICU 17:30
PROVIDERS: ADMIT Pediatrics; ATTEND Pediatrics
DX: A41.89 Other specified sepsis (principal); N39.0 Urinary tract infection, site not specified; B96.89 Other specified bacterial agents as the cause of diseases classified elsewhere; E87.1 Hypo-osmolality and hyponatremia; E87.2 Acidosis; D61.818 Other pancytopenia; R41.82 Altered mental status, unspecified; R56.9 Unspecified convulsions; B19.20 Unspecified viral hepatitis C without hepatic coma; K74.60 Unspecified cirrhosis of liver; K52.9 Noninfective gastroenteritis and colitis, unspecified; I10 Essential (primary) hypertension; G43.909 Migraine, unspecified, not intractable, without status migrainosus; F17.210 Nicotine dependence, cigarettes, uncomplicated; F12.10 Cannabis abuse, uncomplicated; F11.10 Opioid abuse, uncomplicated; E78.00 Pure hypercholesterolemia, unspecified; K21.9 Gastro-esophageal reflux disease without esophagitis; G25.81 Restless legs syndrome; M25.571 Pain in right ankle and joints of right foot; M25.572 Pain in left ankle and joints of left foot; F41.9 Anxiety disorder, unspecified; F32.9 Major depressive disorder, single episode, unspecified; K59.09 Other constipation
CPT/HCPCS: 36415; 51701; 70470; 70553; 71010; 74177; 80048; 80053; 80202; 80306; 80320; 80329; 81000; 82140; 82805; 82962; 83605; 83690; 83735; 83930; 84100; 84443; 84484; 85025; 85610; 85730; 87040; 87077; 87088; 87186; 87324; 87449; 95819; 96361; 96365

== ENCOUNTER 2017-11-26 13:03 | Emergency (ER) | payer MEDICARE ==
[~2017-11-26] VITALS: Ht 162.6 cm; Wt 68.0 kg
[~2017-11-26 13:03] MED LIST changes: +ALPR1TAB7 PO; +BENZ-13 PO; +CEFU250T80 PO; +DIPH25CA79 PO; +HYDR12.5 PO; +LATUDA PO; +LINA72CA PO; +LURA60TA2 PO; +METH20TA34 PO; +OMEP20TA33 PO; +OXYC-465 PO; +PEDI1TAB35 PO; +SPIR50TA PO; +TRAZ-28 PO; +VENL75CA PO
--- NOTE | 2017-11-26 13:12 | ED General ---
General Chief Complaint: Trauma-Non Activation Stated Complaint: FALL Nursing Triage Note: Patient brought by [place] [facility] after falling at a [place]emetary in [place]. Patient c/o R shoulder/arm pain and L knee pain. denies hitting head or LOC Nursing Sepsis Screen: No Definite Risk Source of Information: Patient Exam Limitations: No Limitations History of Present Illness Date Seen by Provider: November 26, 2017 Time Seen by Provider: 13:09 Initial Comments [facility]. She landed on the left knee and her right shoulder hit a retaining wall. She has pain in these locations did not hit her head and no other pains. She was given 100 g of fentanyl in route to the hospital. Timing/Duration: 1-3 Hours Severity: Moderate Allergies and Home Medications Allergies Coded Allergies: aspirin (Verified Allergy, Unknown, 11/30/07) desvenlafaxine (Verified Allergy, Unknown, NAUSEA, 11/05/15) Home Medications Alprazolam 1 Mg Tablet, 1 MG PO BID PRN for ANXIETY, (Reported) Benzonatate 100 Mg Capsule, 100 MG PO BID PRN for COUGH Prescribed by: ARJUN BRANTLEY on 11/09/171846 Cefuroxime Axetil 250 Mg Tablet, 250 MG PO BID Prescribed by: ARJUN BRANTLEY on 11/09/171846 Diphenhydramine HCl 25 Mg Capsule, 50 MG PO HS, (Reported) TAKES 2 (25MG) CAPSULES Hydrochlorothiazide 12.5 Mg Capsule, 12.5 MG PO DAILY, (Reported) Hydrocodone/Acetaminophen 1 Each Tablet, 1 EACH PO Q4H PRN for PAIN-MODERATE TO SEVERE Prescribed by: ARJUN BRANTLEY on 11/26/17 1351 Linaclotide 72 Mcg Capsule, 72 MCG PO DAILY, (Reported) Lurasidone HCl 60 Mg Tablet, 60 MG PO DAILY, (Reported) Methylphenidate HCl 20 Mg Tablet, 20 MG PO DAILY, (Reported) Omeprazole Magnesium 20 Mg Tablet.dr, 20 MG PO DAILY, (Reported) Oxycodone HCl/Acetaminophen 1 Each Tablet, 0.5-1 TAB PO QID PRN for PAIN- MODERATE, (Reported) Pediatric Multivit Comb. No.49 1 Each Tab.chew, 2 TAB.CHEW PO DAILY, (Reported) Simvastatin 40 Mg Tablet, 40 MG PO HS, (Reported) Spironolactone 50 Mg Tablet, 50 MG PO DAILY, (Reported) Trazodone HCl 50 Mg Tablet, 25 MG PO HS PRN for SLEEP, (Reported) TAKES 1/2 (50MG) TABLET Venlafaxine HCl 75 Mg Cap.er.24h, 75 MG PO HS, (Reported) Patient Home Medication List Home Medication List Reviewed: Yes Review of Systems Constitutional: see HPI EENTM: see HPI Respiratory: no symptoms reported Cardiovascular: no symptoms reported Genitourinary: no symptoms reported Musculoskeletal: see HPI Skin: no symptoms reported Psychiatric/Neurological: No Symptoms Reported Hematologic/Lymphatic: No Symptoms Reported Immunological/Allergic: no symptoms reported Past Awluydu-Cvfyaf-Jxxtmh Hx Patient Social History Alcohol Use: Denies Use Recreational Drug Use: No (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, NOW HYDROCODONE AND THC) Type Used: Cigarettes 2nd Hand Smoke Exposure: Yes Recent Foreign Travel: No Contact w/Someone Who Travel: No Recent Infectious Disease Expo: No Recent Hopitalizations: No Immunizations Up To Date Tetanus Booster (TDap): Unknown Date of Pneumonia Vaccine: Jul 03, 2010 Seasonal Allergies Seasonal Allergies: No Past Medical History Surgeries: Yes (right foot x4, left foot x1, BILATERAL ANKLES; TEETH REMOVED; HYST/BSO) Appendectomy, Gallbladder, Hysterectomy, Oophorectomy, Orthopedic Respiratory: No Cardiac: Yes High Cholesterol, Hypertension, Irregular Heartbeat Neurological: Yes (NARCOTIC DEPENDENT. 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 Sexually Transmitted Disease: No HIV/AIDS: No Genitourinary: No Gastrointestinal: Yes (HEPATITIS C-TREATMENT UNKNOWN IF CURED) Gastroesophageal Reflux, Liver Disease/Jaundice, Chronic Constipation, Hepatitis Musculoskeletal: Yes (CHRONIC ANKLE PAIN/BILAT ANKLE FX'S; RESTLESS LEGS) Back Injury, Chronic Back Pain, Fractures Endocrine: No HEENT: Yes (SINUS PROBLEMS) Cancer: No Psychosocial: Yes Anxiety, Depression Integumentary: No Blood Disorders: No Adverse Reaction/Blood Tranf: No Family Medical History No Pertinent Family Hx Physical Exam Vital Signs Vital Signs - First Documented 11/26/17 13:04 Temp 98.2 Pulse 80 Resp 18 B/P (MAP) 146/71 (96) Pulse Ox 98 Capillary Refill : Less Than 3 Seconds General Appearance: No Apparent Distress, WD/WN Eyes: Bilateral Eye Normal Inspection, Bilateral Eye PERRL, Bilateral Eye EOMI HEENT: PERRL/EOMI, TMs Normal Neck: Full Range of Motion, Normal Inspection Respiratory: No Accessory Muscle Use, No Respiratory Distress Cardiovascular: Regular Rate, Rhythm Extremity: Other (Ecchymosis and abrasion to the left anterior knee. No deformity. She complains of pain to the right elbow and right shoulder but there is no obvious deformity.) Neurologic/Psychiatric: Alert, Oriented x3 Skin: Normal Color, Warm/Dry Comments She is distally neurovascularly intact with strong radial pulse and normal sensation in the right fingertips. Distal sensation with capillary refill also noted to the left foot. Progress/Results/Core Measures Suspected Sepsis Recent Fever Within 48 Hours: No Infection Criteria Present: None New/Unexplained Altered Menta: No Sepsis Screen: No Definite Risk SIRS Temperature:98.2 Pulse: 80 Respiratory Rate: 18 Blood Pressure 146 /71 Mean: 96 Results/Orders My Orders Orders - ARJUN BRANTLEY APRN Shoulder, Right, 3 Views (11/26/17 13:07) Humerus, Right, 2 Views (11/26/17 13:07) Knee, Left, 3 Views (11/26/17 13:07) Vital Signs/I&O 11/26/17 13:04 Temp 98.2 Pulse 80 Resp 18 B/P (MAP) 146/71 (96) Pulse Ox 98 Capillary Refill : Less Than 3 Seconds Blood Pressure Mean: 96 Diagnostic Imaging Diagonstic Imaging: Xray Plain Films/CT/US/NM/MRI: chest Comments NAME: MARI SUTTON I [facility] REC#: [id number] PT STATUS: REG ER : 1955 PHYSICIAN: ARJUN BRANTLEY APRN ADMIT DATE: 11/26/17/ER Draft Date of Exam:11/26/17 HUMERUS, RIGHT, 2 VIEWS Right humerus. Indication: Fall. Comparison made with shoulder radiographs the same day. Findings: Displaced and comminuted fractures demonstrated through the greater tuberosity of the proximal right humerus. There is a high riding humeral head but no evidence of dislocation. The appearance of the clavicle is compatible with prior remote clavicular injury. Impression: 1. Acute mildly displaced multiplanar fracture involving the greater tuberosity of the right proximal humerus. 2. Remote posttraumatic deformity of the right clavicle. Dictated on workstation # [id number] Dict: 11/26/17 1352 Trans: 11/26/17 1354 CVB [id number] Interpreted by: MALIA SIDDIQUI MD Electronically signed by: NAME: MARI SUTTON I [facility] REC#: [id number] PT STATUS: REG ER : 1955 PHYSICIAN: ARJUN BRANTLEY APRN ADMIT DATE: 11/26/17/ER Draft Date of Exam:11/26/17 KNEE, LEFT, 3 VIEWS Three views of the left knee. Indication: Fall. Findings: There is a diastased and displaced transversely oriented fracture demonstrated through the patella. There is no femoral, tibial or fibular fracture. There is no significant joint effusion. Impression: 1. Displaced transversely oriented fracture through the patella. This is displaced by approximately 3.2 cm. Dictated on workstation # [id number] Dict: 11/26/17 1350 Trans: 11/26/17 135 CVB [id number] Interpreted by: MALIA SIDDIQUI MD Electronically signed by: Departure Communication (Admissions) 1412- I discussed the case with Dr. Estes. He agrees to follow-up. Ice to the knee and shoulder, pain medication Impression Primary Impression: Shoulder fracture, right Additional Impression: Left patella fracture Disposition: 01 HOME, SELF-CARE Condition: Stable Departure-Patient Inst. Decision time for Depature: 13:49 Referrals: LISA BULL DAVID F MD (PCP/Family) Primary Care Physician VICKI ADAM MD, JOHN T MD STRINGER, ROBERT F DO ZAFUTA, MICHAEL P MD Patient Instructions: PATELLA FRACTURE, Shoulder Fracture Add. Discharge Instructions: 1. Wear the knee immobilizer at all times. You may take it off to get dressed. Call an orthopedic surgeon of your choosing tomorrow to make an appointment to be seen wear the sling for next 2-3 weeks. All discharge instructions reviewed with patient and/or family. Voiced understanding. Scripts Hydrocodone/Acetaminophen ([place] 5-325 Tablet) 1 Each Tablet 1 EACH PO Q4H PRN for PAIN-MODERATE TO SEVERE, #30 TAB Prov: ARJUN BRANTLEY APRN 11/26/17 Copy Copies To 1: LIZBET ESTES PETER J APRN November 26, 2017 13:12
[2017-11-26] MEDS ORDERED: HYDR-757 PO (13:51)
--- NOTE | 2017-11-26 13:53 | Diagnostic Imaging Report ---
Three views of the left knee. Indication: Fall. Findings: There is a diastased and displaced transversely oriented fracture demonstrated through the patella. There is no femoral, tibial or fibular fracture. There is no significant joint effusion. Impression: 1. Displaced transversely oriented fracture through the patella. This is displaced by approximately 3.2 cm. Dictated by: Dictated on workstation # [id number]
--- NOTE | 2017-11-26 13:55 | Diagnostic Imaging Report ---
Right humerus. Indication: Fall. Comparison made with shoulder radiographs the same day. Findings: Displaced and comminuted fractures demonstrated through the greater tuberosity of the proximal right humerus. There is a high riding humeral head but no evidence of dislocation. The appearance of the clavicle is compatible with prior remote clavicular injury. Impression: 1. Acute mildly displaced multiplanar fracture involving the greater tuberosity of the right proximal humerus. 2. Remote posttraumatic deformity of the right clavicle. Dictated by: Dictated on workstation # [id number]
--- NOTE | 2017-11-26 13:58 | Diagnostic Imaging Report ---
EXAMINATION: Right shoulder series. INDICATION: Fall. COMPARISON: Correlation made with the prior chest radiographs from March [address] of the chest from February 17, 2017. FINDINGS: Prior healed right-sided clavicular fracture is noted. There is however now a new acute fracture involving the proximal right humerus at the level of the greater tuberosity. There is no glenohumeral joint dislocation. The visualized portion of the right lung is clear. IMPRESSION: 1. Acute proximal humeral head fracture with multiplanar fracture lines involving the greater tuberosity. The humeral head is high riding but there is no evidence of dislocation. 2. Remote posttraumatic deformities of the right clavicle. Dictated by: Dictated on workstation # [id number]
[2017-11-26] MEDS ORDERED: HYDROcodone/APAP 5 MG/325 MG (LORTAB) TAB ONE (14:08)
[2017-11-26] MEDS ORDERED: HYDROcodone/APAP 5 MG/325 MG (LORTAB) TAB PO ONE (14:15)
[2017-11-26 14:20] VITALS: BP 165/79
== END 2017-11-26 14:21 | disposition home or self-care (01) ==
LOC: EDUNIT# 13:03 → ER 13:04
DX: S82.032A Displaced transverse fracture of left patella, initial encounter for closed fracture (principal); S42.291A Other displaced fracture of upper end of right humerus, initial encounter for closed fracture; E78.00 Pure hypercholesterolemia, unspecified; I10 Essential (primary) hypertension; G43.909 Migraine, unspecified, not intractable, without status migrainosus; B19.20 Unspecified viral hepatitis C without hepatic coma; K21.9 Gastro-esophageal reflux disease without esophagitis; G25.81 Restless legs syndrome; F41.9 Anxiety disorder, unspecified; F32.9 Major depressive disorder, single episode, unspecified; Z87.19 Personal history of other diseases of the digestive system; Z88.6 Allergy status to analgesic agent; Z88.8 Allergy status to other drugs, medicaments and biological substances; Z77.22 Contact with and (suspected) exposure to environmental tobacco smoke (acute) (chronic); Z90.49 Acquired absence of other specified parts of digestive tract; Z90.710 Acquired absence of both cervix and uterus; W22.01XA Walked into wall, initial encounter
CPT/HCPCS: 73030; 73060; 73562

== ENCOUNTER 2017-11-26 21:43 | Inpatient (IN) | payer MEDICARE ==
[~2017-11-26] VITALS: Ht 162.6 cm; Wt 80.5 kg
[~2017-11-26 21:43] MED LIST changes: +HYDR-757 PO
[2017-11-26] MEDS ORDERED: KETOROLAC 60 MG/2 ML VIAL IM ONE (22:30)
[2017-11-26] MEDS ORDERED: oxyCODONE/APAP 5/325MG (PERCOCET 5) TABLET PO ONE (22:30)
[2017-11-26] MEDS ORDERED: KETOROLAC 30 MG/ML VIAL IVP ONE (22:45)
[2017-11-26] MEDS ORDERED: fentaNYL INJECTION 100 MCG/2 ML AMP IVP ONE (22:45)
--- NOTE | 2017-11-26 22:45 | ED Upper Extremity ---
General Chief Complaint: General Problems/Pain Stated Complaint: PAIN R ARM Nursing Triage Note: increased pain in right shoulder and leg, took pain medications without relief, states she does not have anyone that can help her at home with bathroom and transfers. Spouse present but did not stay in room Nursing Sepsis Screen: No Definite Risk Source: patient Exam Limitations: no limitations History of Present Illness Date Seen by Provider: November 26, 2017 Time Seen by Provider: 22:41 Initial Comments Brought to ER by her with severe right shoulder and left anterior knee pain. She was seen here earlier today by me after having fallen at the [place] in [place]. She was found to have a fracture of the proximal humerus and displaced fracture of the patella left side. She was placed in a sling and a knee immobilizer given a prescription for hydrocodone and discharged to home after discussion with Dr. Estes. He agreed to see her in the outpatient setting. She comes back tonight with uncontrolled pain and inability to take care of herself at home, unable to toilet and her is unable to help her. Onset: just prior to arrival Severity: moderate Pain/Injury Location: right shoulder Method of Injury: fell Modifying Factors: Worse With Movement Allergies and Home Medications Allergies Coded Allergies: aspirin (Verified Allergy, Unknown, 11/30/07) desvenlafaxine (Verified Allergy, Unknown, NAUSEA, 11/05/15) Home Medications Alprazolam 1 Mg Tablet, 1 MG PO BID PRN for ANXIETY, (Reported) Benzonatate 100 Mg Capsule, 100 MG PO BID PRN for COUGH Prescribed by: ARJUN BRANTLEY on 11/09/171846 Cefuroxime Axetil 250 Mg Tablet, 250 MG PO BID Prescribed by: ARJUN BRANTLEY on 11/09/171846 Diphenhydramine HCl 25 Mg Capsule, 50 MG PO HS, (Reported) TAKES 2 (25MG) CAPSULES Hydrochlorothiazide 12.5 Mg Capsule, 12.5 MG PO DAILY, (Reported) Hydrocodone/Acetaminophen 1 Each Tablet, 1 EACH PO Q4H PRN for PAIN-MODERATE TO SEVERE Prescribed by: ARJUN BRANTLEY on 11/26/17 1351 Linaclotide 72 Mcg Capsule, 72 MCG PO DAILY, (Reported) Lurasidone HCl 60 Mg Tablet, 60 MG PO DAILY, (Reported) Methylphenidate HCl 20 Mg Tablet, 20 MG PO DAILY, (Reported) Omeprazole Magnesium 20 Mg Tablet.dr, 20 MG PO DAILY, (Reported) Oxycodone HCl/Acetaminophen 1 Each Tablet, 0.5-1 TAB PO QID PRN for PAIN- MODERATE, (Reported) Pediatric Multivit Comb. No.49 1 Each Tab.chew, 2 TAB.CHEW PO DAILY, (Reported) Simvastatin 40 Mg Tablet, 40 MG PO HS, (Reported) Spironolactone 50 Mg Tablet, 50 MG PO DAILY, (Reported) Trazodone HCl 50 Mg Tablet, 25 MG PO HS PRN for SLEEP, (Reported) TAKES 1/2 (50MG) TABLET Venlafaxine HCl 75 Mg Cap.er.24h, 75 MG PO HS, (Reported) Patient Home Medication List Home Medication List Reviewed: Yes Constitutional: see HPI EENTM: see HPI Respiratory: no symptoms reported Cardiovascular: no symptoms reported Musculoskeletal: see HPI Skin: no symptoms reported Psychiatric/Neurological: No Symptoms Reported Past Xmgtffr-Bzkvdo-Wuiitn Hx Patient Social History Type Used: Cigarettes 2nd Hand Smoke Exposure: Yes Recent Foreign Travel: No Contact w/Someone Who Travel: No Recent Infectious Disease Expo: No Recent Hopitalizations: No Immunizations Up To Date Tetanus Booster (TDap): Unknown Date of Pneumonia Vaccine: Jul 03, 2010 Seasonal Allergies Seasonal Allergies: No Past Medical History Surgeries: Yes (right foot x4, left foot x1, BILATERAL ANKLES; TEETH REMOVED; HYST/BSO) Appendectomy, Gallbladder, Hysterectomy, Oophorectomy, Orthopedic Respiratory: No Cardiac: Yes High Cholesterol, Hypertension, Irregular Heartbeat Neurological: Yes (NARCOTIC DEPENDENT. 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 Sexually Transmitted Disease: No HIV/AIDS: No Genitourinary: No Gastrointestinal: Yes (HEPATITIS C-TREATMENT UNKNOWN IF CURED) Gastroesophageal Reflux, Liver Disease/Jaundice, Chronic Constipation, Hepatitis Musculoskeletal: Yes (CHRONIC ANKLE PAIN/BILAT ANKLE FX'S; RESTLESS LEGS) Back Injury, Chronic Back Pain, Fractures Endocrine: No HEENT: Yes (SINUS PROBLEMS) Cancer: No Psychosocial: Yes Anxiety, Depression Integumentary: No Blood Disorders: No Adverse Reaction/Blood Tranf: No Family Medical History No Pertinent Family Hx Physical Exam Vital Signs Vital Signs - First Documented 11/26/17 22:24 Pulse 95 Resp 22 B/P (MAP) 152/89 (110) Pulse Ox 99 O2 Delivery Room Air Capillary Refill : Less Than 3 Seconds General Appearance: WD/WN, no apparent distress HEENT: PERRL/EOMI, normal ENT inspection Neck: non-tender, full range of motion Respiratory: no respiratory distress, no accessory muscle use Gastrointestinal: normal bowel sounds, non tender Shoulder: limited ROM, pain, soft tissue tenderness (Normal sensation and capillary refills of the fingertips and strong radial pulse.) Elbow/Forearm: normal inspection, non-tender Wrist: Yes normal inspection, Yes non-tender Hand: normal inspection, non-tender Neurologic/Psychiatric: alert, normal mood/affect, oriented x 3 Skin: normal color, warm/dry Comments Knee immobilizer remains in place. Distally she is neurovascularly intact. Progress/Results/Core Measures Results/Orders My Orders Orders - ARJUN BRANTLEY APRN Ketorolac Injection (Toradol Injection) (11/26/17 22:30) Oxycodone/Apap 5/325mg Tablet (Percocet (11/26/17 22:30) Iv Leave Out (Order) (11/26/17 22:35) Fentanyl Injection (Sublimaze Injection (11/26/17 22:45) Ketorolac Injection (Toradol Injection) (11/26/17 22:45) Vital Signs/I&O 11/26/17 22:24 Pulse 95 Resp 22 B/P (MAP) 152/89 (110) Pulse Ox 99 O2 Delivery Room Air Blood Pressure Mean: 110 Departure Communication (Admissions) Time/Spoke to Admitting Phy: 22:[address] Garcia who agrees to admit. Ill consult orthopedics tomorrow. Impression Primary Impression: Closed fracture of right proximal humerus Additional Impression: Patella fracture Disposition: 09 ADMITTED INPATIENT Condition: Stable Admissions Decision to Admit Reason: Admit from ER (General) Decision to Admit/Date: November 26, 2017 Time/Decision to Admit Time: 22:44 Departure-Patient Inst. Referrals: GERMAIN WAN MD (PCP) Primary Care Physician Copy Copies To 1: LIZBET ESTES PETER J APRN November 26, 2017 22:45
[2017-11-27 00:45] VITALS: BP 165/74
[2017-11-27] MEDS ORDERED: ONDANSETRON 4 MG/2 ML (SDV) Z0FRAN IV PRN (01:00)
[2017-11-27] MEDS: fentaNYL INJECTION 100 MCG/2 ML AMP IV PRN ×5 (01:29→17:40)
[2017-11-27 04:30] VITALS: BP 165/74
[2017-11-27] MEDS: oxyCODONE/APAP 5/325MG (PERCOCET 5) TABLET PO PRN ×4 (07:32→20:14)
[2017-11-27 08:00] VITALS: BP 172/71
[2017-11-27] MEDS: DOCUSATE SODIUM 100 MG (COLACE) CAP PO SCH ×2 (09:36→20:14)
--- NOTE | 2017-11-27 10:39 | Consultation ---
History of Present Illness History of Present Illness Patient Consulted On(yesika/time) 11/27/17 10:33 Date Seen by Provider: November 27, 2017 Time Seen by Provider: 10:33 Reason for Visit: fall yesterday, consulted for right shoulder fracture and left knee History of Present Illness She fell at [facility] yesterday visiting her brother's grave. She struck her shoulder on a concrete wall and her knee on the concrete sidewalk. She was seen through the ER and was discharged home. She then presented back to the hospital due to issues with ADL's and inability to ambulate/transfer. Dr. Estes was consulted for orthopedic management of fractures. Allergies and Home Medications Allergies Coded Allergies: aspirin (Verified Allergy, Unknown, 11/30/07) desvenlafaxine (Verified Allergy, Unknown, NAUSEA, 11/05/15) Home Medications Alprazolam 1 Mg Tablet, 1 MG PO BID PRN for ANXIETY, (Reported) Benzonatate 100 Mg Capsule, 100 MG PO BID PRN for COUGH Prescribed by: ARJUN BRANTLEY on 11/09/171846 Cefuroxime Axetil 250 Mg Tablet, 250 MG PO BID Prescribed by: ARJUN BRANTLEY on 11/09/171846 Diphenhydramine HCl 25 Mg Capsule, 50 MG PO HS, (Reported) TAKES 2 (25MG) CAPSULES Hydrochlorothiazide 12.5 Mg Capsule, 12.5 MG PO DAILY, (Reported) Hydrocodone/Acetaminophen 1 Each Tablet, 1 EACH PO Q4H PRN for PAIN-MODERATE TO SEVERE Prescribed by: ARJUN BRANTLEY on 11/26/17 1351 Linaclotide 72 Mcg Capsule, 72 MCG PO DAILY, (Reported) Lurasidone HCl 60 Mg Tablet, 60 MG PO DAILY, (Reported) Methylphenidate HCl 20 Mg Tablet, 20 MG PO DAILY, (Reported) Omeprazole Magnesium 20 Mg Tablet.dr, 20 MG PO DAILY, (Reported) Oxycodone HCl/Acetaminophen 1 Each Tablet, 0.5-1 TAB PO QID PRN for PAIN- MODERATE, (Reported) Pediatric Multivit Comb. 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, NOW HYDROCODONE AND THC) Smoking Status: Current Everyday Smoker Type Used: Cigarettes 2nd Hand Smoke Exposure: Yes Recent Foreign Travel: No Contact w/Someone Who Travel: No Recent Infectious Disease Expo: No Recent Hopitalizations: No Immunizations Up To Date Tetanus Booster (TDap): Unknown Date of Pneumonia Vaccine: Jun 02, 2017 Seasonal Allergies Seasonal Allergies: No Past Medical History Surgeries: Yes (right foot x4, left foot x1, BILATERAL ANKLES; TEETH REMOVED; HYST/BSO) Appendectomy, Gallbladder, Hysterectomy, Oophorectomy, Orthopedic Respiratory: No Cardiac: Yes High Cholesterol, Hypertension, Irregular Heartbeat Neurological: Yes (NARCOTIC DEPENDENT. 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 No Pertinent Family Hx Review of Systems-General Constitutional: no symptoms reported EENTM: no symptoms reported Respiratory: no symptoms reported Cardiovascular: no symptoms reported Gastrointestinal: no symptoms reported Genitourinary: no symptoms reported Musculoskeletal: joint pain, joint swelling, muscle pain Skin: other (abrasion left knee) Psychiatric/Neurological: No Symptoms Reported Physical Exam-General Problems Physical Exam Vital Signs Vital Signs - First Documented 11/26/17 11/27/17 22:24 00:45 Temp 97.8 Pulse 95 Resp 22 B/P (MAP) 152/89 (110) Pulse Ox 99 O2 Delivery Room Air Capillary Refill : Less Than 3 SecondsLess Than 3 Seconds General Appearance: WD/WN, no apparent distress HEENT: PERRL/EOMI Neck: non-tender Respiratory: normal breath sounds, no respiratory distress, no accessory muscle use Cardiovascular: regular rate, rhythm, no edema Gastrointestinal: non tender, soft Back: normal inspection, no CVA tenderness, no vertebral tenderness Extremities: no pedal edema, normal capillary refill, other (pain to palpation right shoulder and left knee, small area of superficial abrasion anterior left knee, diffuse swelling and ecchymosis to knee and shoulder, all 4 ext N/V intact ) 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 will hopefully make arrangements for later today. Admission Status: Inpatient Order (span 2 midnights) Clinical Quality Measures DVT/VTE Risk/Contraindication: Risk Factor Score Per Nursin RFS Level Per Nursing on Admit: 4+=Very High JOSHUA PATTERSON APRN November 27, 2017 10:39 am
[2017-11-27 12:00] VITALS: BP 157/68
--- NOTE | 2017-11-27 12:36 | History & Physical-Hospitalist ---
History of Present Illness HPI/Chief Complaint CC: Right proximal humerus fracture and left patella fracture HPI: This is a 62-year-old white female clinic patient of Dr. Anne at [facility] known to me from prior senior [facility] unit admission at [facility] who presents following a fall at home and suffering a right shoulder fracture and left patella fracture. Currently her pain is intense which she is on a regular schedule of pain medication and her last BM was yesterday. Apparently she had a fall at home that was assessed to be noncardiac in origin and she is set to have a repair I Dr. Estes tomorrow afternoon at 4 PM. I reviewed her labs revealing sodium level of 122 set she has been placed on 1000 cc fluid restriction in addition her hemoglobin was 10 platelet count was 111,000 so we will initiate normal saline at 70 an hour in order to optimize sodium level in order to have surgery tomorrow as planned. Her home medications are not clear to me at this current time but there could be a hydrochlorothiazide and spironolactone component to her home meds as previously listed so that could give rise to the hyponatremia and obviously place her risk for falls. Source: patient Date Seen 11/27/17 Time Seen by Provider: 11:15 Attending Physician Masha Garcia MD PCP Luisito Anne MD Referring Physician Date of Admission November 26, 2017 at 22:35 Home Medications & Allergies Home Medications Reviewed patient Home Medication Reconciliation performed by pharmacy medication reconciliations earth science technician and/or nursing. Patients Allergies have been reviewed. 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, NOW HYDROCODONE AND THC) Smoking Status: Current Everyday Smoker Type Used: Cigarettes 2nd Hand Smoke Exposure: Yes Physical Abuse Screen: No Sexual Abuse: No Recent Foreign Travel: No Contact w/other who traveled: No Recent Hopitalizations: No Recent Infectious Disease Expo: No Immunizations Up To Date Tetanus Booster (TDap): Unknown Date of Pneumonia Vaccine: Jun 02, 2017 Seasonal Allergies Seasonal Allergies: No Past Medical History Surgeries: Appendectomy, Gallbladder, Hysterectomy, Oophorectomy, Orthopedic Respiratory: COPD Cardiac: High Cholesterol, Hypertension, Irregular Heartbeat Neurological: Headaches /Migraines Reproductive: No Sexually Transmitted Disease: No HIV/AIDS: No Hysterectomy, Menopausal Gastrointestinal: Gastroesophageal Reflux, Liver Disease/Jaundice, Chronic Constipation, Hepatitis Musculoskeletal: Back Injury, Chronic Back Pain, Fractures Psychosocial: Anxiety, Depression History of Blood Disorders: No Adverse Reaction to Blood Moore: No Family History Patient reports no known family medical history. No Pertinent Family Hx Review of Systems Constitutional: see HPI, dizziness, weakness EENTM: no symptoms reported Respiratory: no symptoms reported Cardiovascular: no symptoms reported Gastrointestinal: no symptoms reported Musculoskeletal: joint pain Skin: no symptoms reported Psychiatric/Neurological: No Symptoms Reported All Other Systems Reviewed Negative Unless Noted: Yes Physical Exam Physical Exam Vital Signs Vital Signs - First Documented 11/26/17 11/27/17 22:24 00:45 Temp 97.8 Pulse 95 Resp 22 B/P (MAP) 152/89 (110) Pulse Ox 99 O2 Delivery Room Air Capillary Refill : Less Than 3 SecondsLess Than 3 Seconds General Appearance: WD/WN, Chronically ill, Mild Distress (Due to pain in right shoulder and left knee) Eyes: Bilateral Eye Normal Inspection, Bilateral Eye PERRL HEENT: PERRL/EOMI, Normal ENT Inspection, Pharynx Normal Neck: Full Range of Motion, Normal Inspection, Non Tender, Supple, Carotid Bruit Respiratory: Chest Non Tender, Lungs Clear, Normal Breath Sounds, No Accessory Muscle Use, No Respiratory Distress Cardiovascular: Regular Rate, Rhythm, No Edema, No Gallop, No JVD, No Murmur, Normal Peripheral Pulses Gastrointestinal: Normal Bowel Sounds, No Organomegaly, No Pulsatile Mass, Non Tender, Soft Back: Normal Inspection, No CVA Tenderness, No Vertebral Tenderness Extremity: Normal Capillary Refill, Normal Inspection, Normal Range of Motion ( Except left knee is in immobilizer and right arm is in sling), Non Tender, No Calf Tenderness, No Pedal Edema Neurologic/Psychiatric: Alert, Oriented x3, No Motor/Sensory Deficits, Depressed Affect Skin: Normal Color, Warm/Dry Lymphatic: No Adenopathy Results Results/Procedures Labs Laboratory Tests 11/27/17 12:55 11/27/17 13:05 Patient resulted labs reviewed. Assessment/Plan Admission Diagnosis Assessment: Fall Severe hyponatremia Dizziness Acute right proximal humerus fracture Acute left patella fracture Depression Anxiety Hypertension COPD Current smoker Liver disease Plan: Monitor blood pressure Fluid restriction Gentle normal saline IV fluid Check labs in morning Check iron level Admission Status: Inpatient Order (span 2 midnights) Reason for Inpatient Admission: Severe hyponatremia will require 3 days of hospitalization in addition to surgery is planned for shoulder fracture and patella fracture Diagnosis/Problems Diagnosis/Problems (1) Hyponatremia Status: Acute (2) Hypertension Status: Chronic Qualifiers: Hypertension type: essential hypertension Qualified Codes: I10 - Essential (primary) hypertension (3) Depression Status: Chronic Qualifiers: Depression Type: unspecified Qualified Codes: F32.9 - Major depressive disorder, single episode, unspecified (4) Anxiety Status: Chronic (5) Closed fracture of right proximal humerus Status: Acute Qualifiers: Encounter type: initial encounter Fracture morphology: other fracture Fracture alignment: displaced Qualified Codes: S42.291A - Other displaced fracture of upper end of right humerus, initial encounter for closed fracture (6) Patella fracture Status: Acute Qualifiers: Encounter type: initial encounter Fracture type: closed Fracture morphology: unspecified fracture morphology Fracture alignment: nondisplaced Laterality: left Qualified Codes: S82.002A - Unspecified fracture of left patella, initial encounter for closed fracture (7) Constipation Status: Chronic Qualifiers: Constipation type: chronic idiopathic constipation Qualified Codes: K59.04 - Chronic idiopathic constipation (8) Low back pain Status: Chronic Qualifiers: Chronicity: unspecified Back pain laterality: unspecified Sciatica presence: unspecified whether sciatica present Qualified Codes: M54.5 - Low back pain Clinical Quality Measures DVT/VTE Risk/Contraindication: Risk Factor Score Per Nursin RFS Level Per Nursing on Admit: 4+=Very High FELIBERTO JOHNSTON DO November 27, 2017 12:36
[2017-11-27] MEDS: POLYETHYLENE GLYCOL 17 GM (MIRALAX) PACK PO SCH ×2 (13:09→20:15)
[2017-11-27] MEDS: LACTULOSE SYRUP 10GM/15ML (ENULOSE) 30ML UDC PO SCH ×2 (13:10→20:15)
[2017-11-27 13:14] LABS: BASOPHILS % (AUTO) 0 % (0-10); EOSINOPHILS # (AUTO) 0.5 10^3/uL (0.0-0.3); EOSINOPHILS % (AUTO) 5 % (0-10); HEMATOCRIT 30 % (35-52); HEMOGLOBIN 10.2 G/DL (11.5-16.0); LYMPHOCYTES # (AUTO) 3.4 X 10^3 (1.0-4.0); LYMPHOCYTES % (AUTO) 33 % (12-44); MEAN CORPUSCULAR HEMOGLOBIN 32 PG (25-34); MEAN CORPUSCULAR HGB CONC 34 G/DL (32-36); MEAN CORPUSCULAR VOLUME 95 FL (80-99); MEAN PLATELET VOLUME 9.5 FL (7.4-10.4); MONOCYTES # (AUTO) 1.2 X 10^3 (0.0-1.0); MONOCYTES % (AUTO) 11 % (0-12); NEUTROPHILS # (AUTO) 5.2 X 10^3 (1.8-7.8); NEUTROPHILS % (AUTO) 51 % (42-75); PLATELET COUNT 111 10^3/uL (130-400); RED BLOOD COUNT 3.16 10^6/uL (4.35-5.85); RED CELL DISTRIBUTION WIDTH 13.4 % (10.0-14.5); WHITE BLOOD COUNT 10.4 10^3/uL (4.3-11.0)
[2017-11-27 13:30] LABS: ALANINE AMINOTRANSFERASE 12 U/L (0-55); ALBUMIN 3.5 GM/DL (3.2-4.5); ALKALINE PHOSPHATASE 72 U/L (40-136); BILIRUBIN,TOTAL 0.5 MG/DL (0.1-1.0); BUN/CREATININE RATIO 10; CALCIUM 9.2 MG/DL (8.5-10.1); CARBON DIOXIDE 18 MMOL/L (21-32); CHLORIDE 93 MMOL/L (98-107); CREATININE SERUM 0.92 MG/DL (0.60-1.30); GFR ESTIMATED > 60; GLUCOSE 102 MG/DL (70-105); POTASSIUM 4.9 MMOL/L (3.6-5.0); TOTAL PROTEIN 6.5 GM/DL (6.4-8.2)
[2017-11-27 13:35] LABS: SODIUM 121 MMOL/L (135-145)
--- NOTE | 2017-11-27 13:40 | Occupational Therapy Eval ---
OT Evaluation-General/PLF Medical Diagnosis Admission Date November 26, 2017 at 22:35 Medical Diagnosis: Fx right humerus, left patella Onset Date: Dec 04, 2017 Therapy Diagnosis Therapy Diagnosis: Weakness Height/Weight Height (Feet): 5 Height (Inches): 4.00 Weight (Pounds): 177 Weight (Ounces): 6.0 Precautions Precautions/Isolations: Fall Prevention, Standard Precautions Safety Interventions: None Referral Physician: Dr. Garcia Referral Reason: Activity Tolerance, Self Care, Evaluation/Treatment, Strengthening/ROM Medical History Additional Medical History Sx right foot x 4, left foot x 1, hysterectomy Current History Pt. [place]. Fx right proximal humerus, and left patella. Pt. has on a sling on right UE, and knee immobilizer on left LE. Reviewed History: Yes Social History Home: Single Level Current Living Status: Spouse Entry Into Home: Stairs With Railing Steps Into Home: 3 Pt. lives with spouse but states that he can't assist her. ADL-Prior Level of Function ADL PLOF Comments Pt. was independent with daily tasks. DME/Equipment: Shower OT Current Status Subjective Pt. getting pain pill when OT came into room. Pt. states that she has pain but does not report a pain level. Appearance Pt. in bed. Agrees to work with OT. Mental Status/Objective Patient Orientation: Person, Place Current Upper Extremity ROM Right UE immobilized. Left UE WFL ADL-Treatment Functional [place] Measure 0=Not Assessed/NA 4=Minimal Assistance 1=Total Assistance 5=Supervision or Setup 2=Maximal Assistance 6=Modified [place] 3=Moderate Assistance 7=Complete IndependenceIRFPAI Quality Coding Scale 6 Independent with activity with or without an assistive device 5 Patient requires set up or clean up by helper. Patient completes activity by themselves 4 Supervision or touching assist (CGA). [place] provide cues , steadying assist 3 The helper provides less than half the effort to complete the activity 2 The helper provides more than half the effort to complete the activity 1 Dependent. The helper does all the effort to complete an activity 7 Patient refused to complete or attempt activity 9 The patient did not perform the activity before the current illness or injury 88 Not attempted due to Medical conditions or safety concerns Transfers (B, C, W/C) (FIM): 1 (Pt. requires max assist x 2 for supine-sit. Sat supported on side of bed approximately 10 minutes. Transferred back to bed with max x2, and then dependent x 2 for bed mobility.) Pt. is supposed to have surgery tomorrow to repair right UE and left LE. Will continue to follow and monitor pt. and address needs. Education OT Patient Education: Correct positioning, Progress toward Goal/Update tx plan , Purpose of tx/functional activities, Reviewed precautions, Rehab process, Transfer techniques Teaching Recipient: Patient Teaching Methods: Demonstration Response to Teaching: Verbalize Understanding, Return Demonstration OT Short Term Goals Short Term Goals 1=Demonstrate adherence to instructed precautions during ADL tasks. 2=Patient will verbalize/demonstrate understanding of assistive devices/ modifications for ADL. 3=Patient will improve strength/tolerance for activity to enable patient to perform ADL's. OT Supervisor Pumping Goals Senior Living Goals Time Frame: November 30, 2017 Goals to be re-written and addressed once pt. has surgeries. 1=Demonstrate adherence to instructed precautions during ADL tasks. 2=Patient will verbalize/demonstrate understanding of assistive devices/ modifications for ADL. 3=Patient will improve strength/tolerance for activity to enable patient to perform ADL's. OT Education/Plan Problem List/Assessment Assessment: Decreased Activ Tolerance, Decreased UE Strength, Dependent Transfers, Impaired Bed Mobility, Impaired I ADL's, Impaired Self-Care Skills, Restricted Funct UE ROM Discharge Recommendations Plan/Recommendations: Continue POC Therapy D/C Recommendations: 24 hr Supervision Comment Goals, equipment needs, and discharge destination to be determined once pt. has surgery. Treatment Plan/Plan of Care Treatment,Training & Education: Yes Patient would benefit from OT for education, treatment and training to promote independence in ADL's, mobility, safety and/or upper extremity function for ADL' s. Plan of Care: ADL Retraining, Functional Mobility Treatment Duration: Dec 05, 2017 Frequency: 5 times per week Estimated Hrs Per Day: .25 hour per day Agreement: Yes Rehab Potential: Fair Time/GCodes Start Time: 11:30 Stop Time: 11:50 Total Time Billed (hr/min): 20 Billed Treatment Time 1, TETE GARCIA OT November 27, 2017 13:40
--- NOTE | 2017-11-27 13:53 | Diagnostic Imaging Report ---
PROCEDURE: CT right upper extremity without contrast. TECHNIQUE: Multiple contiguous axial images were obtained through the right upper extremity without the use of intravenous contrast. Sagittal and coronal reformations were then performed. INDICATION: Injury, shoulder pain. There are no previous CT right upper extremity examinations available for comparison. FINDINGS: The plain film examination of the right shoulder performed on 11/26/2017 noted a multiplanar fracture of the humeral head and posttraumatic changes of the right clavicle. On this study, there is a comminuted slightly displaced fracture of the humeral head. There also appears to be slight impaction of the main fracture fragments and the surgical neck of the humerus. The coronal images also show slight buckling of the inferior cortex of the acromion. There could be a nondisplaced fracture in this area. No other acute fracture is identified. The long-standing fractures of the tip of the distal right clavicle and of the midshaft of the clavicle seen on plain film exam are again visualized. There is no sign of a dislocation of the humeral head with respect to the glenoid. There is considerable edema/inflammation of the soft tissues about the fractured humeral head. There may be a small joint effusion present as well. The lungs, where visualized, show no evidence for an acute abnormality. However, there are fairly severe emphysematous changes involving the right upper lobe. IMPRESSION: 1. There is a comminuted slightly displaced fracture of the humeral head with mild impaction of the humeral head and the surgical neck of the humerus. 2. There is also a question of a nondisplaced fracture involving the inferior margin of the acromion. There is no acute bony abnormality noted otherwise. 3. There are long-standing fractures of the right clavicle. 4. There is considerable edema/inflammation of the soft tissues about the fractured humeral head. Dictated by: Dictated on workstation # [id number]
[2017-11-27] MEDS: NS IV 1000 ML 1,000 ML IV SCH (14:26)
[2017-11-27 16:55] VITALS: BP 147/65
[2017-11-27] MEDS ORDERED: RT-ALBUTEROL/IPRATROPIUM 3 ML (DUONEB) VIAL ONE (18:08)
[2017-11-27 19:21] VITALS: BP 143/65
[2017-11-27] MEDS: RT-ALBUTEROL/IPRATROPIUM 3 ML (DUONEB) VIAL INH SCH (21:30)
[2017-11-27] MEDS ORDERED: ALPRAZolam 0.5 MG (XANAX) TAB ONE (22:20)
[2017-11-27] MEDS: ALPRAZolam 0.5 MG (XANAX) TAB PO PRN (23:06)
[2017-11-28] VITALS: BP 192/78
[2017-11-28] MEDS: oxyCODONE/APAP 5/325MG (PERCOCET 5) TABLET PO PRN ×3 (03:04→22:44)
[2017-11-28] MEDS: NS IV 1000 ML 1,000 ML IV SCH (03:05)
[2017-11-28 04:00] VITALS: BP 179/79
[2017-11-28] MEDS: RT-ALBUTEROL/IPRATROPIUM 3 ML (DUONEB) VIAL INH SCH ×3 (06:59→21:45)
[2017-11-28] MEDS: LACTULOSE SYRUP 10GM/15ML (ENULOSE) 30ML UDC PO SCH ×2 (07:40→20:15)
[2017-11-28] MEDS: POLYETHYLENE GLYCOL 17 GM (MIRALAX) PACK PO SCH ×2 (07:41→20:15)
[2017-11-28] MEDS: DOCUSATE SODIUM 100 MG (COLACE) CAP PO SCH ×2 (07:41→20:15)
[2017-11-28 08:03] VITALS: BP 187/76
[2017-11-28] MEDS: NICOTINE 21 MG (NICODERM) PATCH TD SCH (08:35)
[2017-11-28] MEDS: ALPRAZolam 0.5 MG (XANAX) TAB PO PRN (08:35)
[2017-11-28 08:38] LABS: BASOPHILS % (AUTO) 0 % (0-10); EOSINOPHILS # (AUTO) 0.3 10^3/uL (0.0-0.3); EOSINOPHILS % (AUTO) 4 % (0-10); HEMATOCRIT 27 % (35-52); HEMOGLOBIN 9.6 G/DL (11.5-16.0); LYMPHOCYTES # (AUTO) 2.1 X 10^3 (1.0-4.0); LYMPHOCYTES % (AUTO) 28 % (12-44); MEAN CORPUSCULAR HEMOGLOBIN 33 PG (25-34); MEAN CORPUSCULAR HGB CONC 36 G/DL (32-36); MEAN CORPUSCULAR VOLUME 92 FL (80-99); MEAN PLATELET VOLUME 9.2 FL (7.4-10.4); MONOCYTES # (AUTO) 0.8 X 10^3 (0.0-1.0); MONOCYTES % (AUTO) 10 % (0-12); NEUTROPHILS # (AUTO) 4.3 X 10^3 (1.8-7.8); NEUTROPHILS % (AUTO) 57 % (42-75); PLATELET COUNT 90 10^3/uL (130-400); RED BLOOD COUNT 2.94 10^6/uL (4.35-5.85); WHITE BLOOD COUNT 7.5 10^3/uL (4.3-11.0)
[2017-11-28 08:57] LABS: ALANINE AMINOTRANSFERASE 12 U/L (0-55); ALBUMIN 3.5 GM/DL (3.2-4.5); ALKALINE PHOSPHATASE 72 U/L (40-136); BILIRUBIN,TOTAL 0.5 MG/DL (0.1-1.0); BUN/CREATININE RATIO 14; CALCIUM 9.6 MG/DL (8.5-10.1); CARBON DIOXIDE 22 MMOL/L (21-32); CHLORIDE 98 MMOL/L (98-107); CREATININE SERUM 0.81 MG/DL (0.60-1.30); GFR ESTIMATED > 60; GLUCOSE 101 MG/DL (70-105); POTASSIUM 4.6 MMOL/L (3.6-5.0); SODIUM 127 MMOL/L (135-145); TOTAL PROTEIN 6.7 GM/DL (6.4-8.2)
--- NOTE | 2017-11-28 10:25 | Progress Note-Hospitalist ---
Subjective HPI/CC On Admission Date Seen by Provider: November 28, 2017 Time Seen by Provider: 09:15 CC: Right proximal humerus fracture and left patella fracture HPI: This is a 62-year-old white female clinic patient of Dr. Anne at [facility] known to me from prior [facility] who presents following a fall at home and suffering a right shoulder fracture and left patella fracture. Currently her pain is intense which she is on a regular schedule of pain medication and her last BM was yesterday. Apparently she had a fall at home that was assessed to be noncardiac in origin and she is set to have a repair I Dr. Estes tomorrow afternoon at 4 PM. I reviewed her labs revealing sodium level of 122 set she has been placed on 1000 cc fluid restriction in addition her hemoglobin was 10 platelet count was 111,000 so we will initiate normal saline at 70 an hour in order to optimize sodium level in order to have surgery tomorrow as planned. Her home medications are not clear to me at this current time but there could be a hydrochlorothiazide and spironolactone component to her home meds as previously listed so that could give rise to the hyponatremia and obviously place her risk for falls. Subjective/Events-last exam Patient doing about the same Surgery is scheduled for later this afternoon Hemoglobin stable Sodium level went from 122-127 on 1000 mL fluid restriction normal saline at 70 mL an hour Pain is well-controlled Poor venous access so will place midline Empirically placing on iron due to large amount of blood loss expected for the repair surgery Bowels not moving multiple meds given to prevent narcotic bowel Using incentive spirometer and nebulizer treatments due to smoking status Review of Systems General: Fatigue, Malaise Musculoskeletal: shoulder pain, leg pain Objective Exam Vital Signs Vital Signs Date Time Temp Pulse Resp B/P (MAP) Pulse Ox O2 Delivery O2 Flow Rate FiO2 11/28/17 08:03 97.3 81 18 187/76 (113) 97 Room Air Capillary Refill : Less Than 3 SecondsLess Than 3 Seconds General Appearance: No Apparent Distress, WD/WN, Chronically ill Respiratory: Lungs Clear, Normal Breath Sounds Cardiovascular: No Edema Neurologic/Psychiatric: Alert, Oriented x3, No Motor/Sensory Deficits, Depressed Affect Results/Procedures Lab Laboratory Tests 11/27/17 12:55 11/27/17 13:05 11/28/17 08:20 Patient resulted labs reviewed. Assessment/Plan Assessment and Plan Assess & Plan/Chief Complaint Assessment: Right proximal humerus fracture Right patellar fracture Severe hyponatremia likely due to hydrochlorothiazide Anemia Iron deficiency Depression Plan: Proceed on with surgery since benefits outweigh medical risks we'll continue fluid restriction IV fluids and monitor hemoglobin closely Diagnosis/Problems Diagnosis/Problems (1) Hyponatremia Status: Acute (2) Hypertension Status: Chronic Qualifiers: Hypertension type: essential hypertension Qualified Codes: I10 - Essential (primary) hypertension (3) Depression Status: Chronic Qualifiers: Depression Type: unspecified Qualified Codes: F32.9 - Major depressive disorder, single episode, unspecified (4) Anxiety Status: Chronic (5) Closed fracture of right proximal humerus Status: Acute Qualifiers: Encounter type: initial encounter Fracture morphology: other fracture Fracture alignment: displaced Qualified Codes: S42.291A - Other displaced fracture of upper end of right humerus, initial encounter for closed fracture (6) Patella fracture Status: Acute Qualifiers: Encounter type: initial encounter Fracture type: closed Fracture morphology: unspecified fracture morphology Fracture alignment: nondisplaced Laterality: left Qualified Codes: S82.002A - Unspecified fracture of left patella, initial encounter for closed fracture (7) Constipation Status: Chronic Qualifiers: Constipation type: chronic idiopathic constipation Qualified Codes: K59.04 - Chronic idiopathic constipation (8) Low back pain Status: Chronic Qualifiers: Chronicity: unspecified Back pain laterality: unspecified Sciatica presence: unspecified whether sciatica present Qualified Codes: M54.5 - Low back pain (9) Smoker Status: Chronic Clinical Quality Measures DVT/VTE Risk/Contraindication: Risk Factor Score Per Nursin RFS Level Per Nursing on Admit: 4+=Very High FELIBERTO JOHNSTON DO November 28, 2017 10:25
--- NOTE | 2017-11-28 11:48 | Occupational Ther Daily Note ---
OT Current Status-Daily Note Subjective Spoke with nrsg on pt's status. Surgery around 1630. Pt increased pain and decreased mobility. Pt alert, lying in bed. Agrees to therapy. Mental Status/Objective Patient Orientation: Person, Place, Time, Situation Functional [place] Measure 0=Not Assessed/NA 4=Minimal Assistance 1=Total Assistance 5=Supervision or Setup 2=Maximal Assistance 6=Modified [place] 3=Moderate Assistance 7=Complete [place] ADL-Treatment After giving pt oral care supplies in bed, pt able to complete oral care by self. Explained to pt on what OT would be working on after surgery, lower/ upper body ADLs. Pt verbalized understanding. After therapy, pt lying in bed with call light/phone in reach. All needs met in room. Education OT Patient Education: Modified ADL techniques, Use of adapted equipment Teaching Recipient: Patient Teaching Methods: Discussion Response to Teaching: Verbalize Understanding OT Short Term Goals Short Term Goals 1=Demonstrate adherence to instructed precautions during ADL tasks. 2=Patient will verbalize/demonstrate understanding of assistive devices/ modifications for ADL. 3=Patient will improve strength/tolerance for activity to enable patient to perform ADL's. OT [facility] Goals [facility] Goals Time Frame: November 30, 2017 Goals to be re-written and addressed once pt. has surgeries. 1=Demonstrate adherence to instructed precautions during ADL tasks. 2=Patient will verbalize/demonstrate understanding of assistive devices/ modifications for ADL. 3=Patient will improve strength/tolerance for activity to enable patient to perform ADL's. OT Education/Plan Discharge Recommendations Plan/Recommendations: Continue POC Treatment Plan/Plan of Care Patient would benefit from OT for education, treatment and training to promote independence in ADL's, mobility, safety and/or upper extremity function for ADL' s. Plan of Care: ADL Retraining, Functional Mobility Treatment Duration: Dec 05, 2017 Frequency: 5 times per week Estimated Hrs Per Day: .25 hour per day Agreement: Yes Rehab Potential: Fair Time/GCodes Start Time: 11:31 Stop Time: 11:46 Total Time Billed (hr/min): 15 Billed Treatment Time 1 visit-FA 1 (15 min) MARBIN ROSALES November 28, 2017 11:48
[2017-11-28 12:20] VITALS: BP 133/79
[2017-11-28] MEDS ORDERED: VENL150C98 PO (12:53)
[2017-11-28] MEDS ORDERED: LISI40TA PO (12:53)
[2017-11-28] MEDS ORDERED: SIMV40TA4 PO (12:53)
[2017-11-28] MEDS ORDERED: MONT10TA21 PO (12:53)
[2017-11-28] MEDS ORDERED: ALPR0.5T7 PO (12:53)
[2017-11-28] MEDS ORDERED: FEXO-46 PO (13:05)
[2017-11-28] MEDS ORDERED: FERR325T24 PO (13:05)
[2017-11-28] MEDS ORDERED: LURA80TA3 PO (13:05)
[2017-11-28] MEDS ORDERED: POTA20TA15 PO (13:05)
[2017-11-28] MEDS ORDERED: ACHD5005 PO (13:05)
[2017-11-28] MEDS ORDERED: MELA3TAB PO (13:05)
[2017-11-28] MEDS ORDERED: MEMA10TA2 PO (13:05)
[2017-11-28] MEDS ORDERED: GENTAMICIN 40 MG/ML 2 ML INJ SDV ONE (13:22)
[2017-11-28] MEDS ORDERED: NEO/POLY/BAC (NEOSPORIN) OINT 15 GM TUBE ONE (13:23)
--- NOTE | 2017-11-28 13:23 | Physical Therapy Progress Note ---
Therapy Progress Note Patient to have surgery this p.m. PT to evaluate in EDITA Leigh PT November 28, 2017 13:23
[2017-11-28] MEDS ORDERED: fentaNYL INJECTION 100 MCG/2 ML AMP ONE ×2 (14:21→14:29)
[2017-11-28] MEDS ORDERED: LIDOCAINE PF 2% 5 ML (XYLOCAINE) VIAL ONE ×2 (14:21→14:29)
[2017-11-28] MEDS ORDERED: proPOfol 200 MG/20 ML (DIPRIVAN) VIAL IV ONE ×2 (14:21→14:29)
[2017-11-28] MEDS ORDERED: SEVOFLURANE (ULTANE) 15 ML INHAL SOLN ONE ×8 (14:21→17:59)
[2017-11-28] MEDS ORDERED: DEXAMETHASONE 10 MG/ML (DECADRON) 1 ML VIAL ONE ×2 (14:21→14:29)
[2017-11-28] MEDS ORDERED: MIDAZOLAM 2 MG/2 ML (VERSED) VIAL ONE ×2 (14:21→14:29)
[2017-11-28] MEDS ORDERED: ONDANSETRON 4 MG/2 ML (SDV) Z0FRAN ONE ×2 (14:21→14:29)
[2017-11-28] MEDS: IRON SUCROSE 200 MG/10 ML (VENOFER) VIAL IV SCH (14:34)
[2017-11-28] MEDS: fentaNYL INJECTION 100 MCG/2 ML AMP IV PRN ×2 (14:45→20:11)
[2017-11-28 15:25] VITALS: BP 135/63
[2017-11-28] MEDS: LACTATED RINGERS 1,000 ML IV SCH (16:00)
[2017-11-28] MEDS ORDERED: ceFAZolin 2 GM IV Premixed 50 ML ONE (16:08)
--- NOTE | 2017-11-28 16:18 | Progress Note-Pre Operative ---
Pre-Operative Progress Note H&P Reviewed The H&P was reviewed, patient examined and no changes noted. Date Seen by Provider: November 28, 2017 Time Seen by Provider: 16:10 Date H&P Reviewed: November 28, 2017 Time H&P Reviewed: 16:10 Pre-Operative Diagnosis: Displaced inferior pole patella fracture left knee LIZBET ESPOSITO DO November 28, 2017 4:18 pm
[2017-11-28] MEDS ORDERED: morphine INJ 10 MG/ML 1ML (SYR OR VIAL) ONE (16:53)
--- NOTE | 2017-11-28 17:45 | Progress Note-Post Operative ---
Post-Operative Progess Note Surgeon (s)/Sales Engineering Manager (s) Surgeon LIZBET ESPOSITO DO Sales Engineering Manager: Edgardo Thornton ELECTRIC MOTOR CONTROLS ASSEMBLEREliecer Pre-Operative Diagnosis Displaced inferior pole patella fracture left knee Post-Operative Diagnosis acute patellar tedon avulsion left knee Procedure & Operative Findings Date of Procedure 11/28/17 Procedure Performed/Findings open patellar tendon reattachment left knee Anesthesia Type General with femoral nerve block Estimated Blood Loss Estimated blood loss (mL): 100 ml Specimens/Packing Specimens Removed Patellar bone fragments Packing: none LIZBET ESPOSITO DO November 28, 2017 5:45 pm
[2017-11-28] MEDS ORDERED: PROMETHAZINE INJ 25 MG/ML (PHENERGAN) AMP IVP PRN (18:00)
[2017-11-28] MEDS ORDERED: BISACODYL 10 MG SUPP (DULCOLAX) PR PRN (18:00)
[2017-11-28] MEDS ORDERED: ONDANSETRON 4 MG/2 ML (SDV) Z0FRAN IVP PRN ×2 (18:00→18:30)
[2017-11-28] MEDS: morphine INJ 10 MG/ML 1ML (SYR OR VIAL) IVP PRN ×2 (18:32→18:37)
[2017-11-28 19:15] VITALS: BP 189/82
--- NOTE | 2017-11-28 23:36 | OPERATIVE REPORT ---
DATE OF SERVICE: 11/28/2017 PREOPERATIVE DIAGNOSIS: Displaced inferior pole patella fracture, left knee. POSTOPERATIVE DIAGNOSIS: Acute patellar tendon avulsion, left knee. PROCEDURE: Open reattachment patellar tendon, left knee. SURGEON: Janak Esposito DO. AVION[employer] SHOP SUPERVISOR: Edgardo Thornton APRN. CHIEF DIETITIAN DUTIES: Edgardo Thornton, registered nurse surgical services, was utilized throughout the entire procedure for the patient positioning, retraction of soft tissues, placement of multiple implants in and around the patella and the tibia, soft tissue closure, dressing application and the patient transfer. ANESTHESIA: General with femoral nerve block. ESTIMATED BLOOD LOSS: 100 mL. INDICATIONS AND FINDINGS: The patient is a 62-year-old female, who was seen with chief complaint of left knee pain. The patient was in [place], [place] on 11/26/2017. She lost her balance. She stumbled forward striking a concrete wall with her right shoulder and the concrete sidewall with her left knee. She was evaluated in the emergency room. The patient was placed in a sling and a knee immobilizer. She was actually discharged from the emergency room. She continued to have persistent pain and disability, was presented back to the hospital where she was admitted for pain control. The patient's x-rays of her left knee revealed a very displaced proximally migrated patella with a very small fragment of bone remaining attached to the patellar tendon. There was a large hemarthrosis. She also had a comminuted proximal humerus fracture of the right shoulder. The patient was taken to surgery, but at the time of arthrotomy, the patient demonstrated additional fractures the very small piece of bone. This was a sleeve type fracture. The small fragments of bone were excised. The patellar tendon was reattached to the inferior aspect of the patella utilizing the Arthrex system with a total of seven 4.75 mm BioComposite SwiveLock C anchor was used. The medial and lateral retinaculum was torn as well and this was repaired. DESCRIPTION OF PROCEDURE: The patient was transported to the operating room, placed supine upon the operating table and a general inhalation anesthetic was administered. A well-padded pneumatic tourniquet was placed about the upper aspect of left thigh. A ChloraPrep and sterile drape of left lower extremity was performed. The left leg was elevated, exsanguinated and the tourniquet was inflated to 300 mmHg pressure. An anterior longitudinal midline incision was made over the anterior surface of the left knee. A large hemarthrosis was identified. Multiple blood clots were identified at the avulsion site over the inferior aspect of the patella. These clots were removed with a curette and a rongeur with irrigation. The patient demonstrated three small fragments of bone consistent with the very distal aspect of the inferior pole of the patella. She had lost some of her cortical tissue over the anterior inferior aspect of the patella as well. Plain film x-rays demonstrated a small fragment. On further evaluation, there were multiple (three) small fragments and these were excised from the patellar tendon. Utilizing the ArthTrustEgg system, two 3.5 mm drill holes were then placed in the inferior aspect of the avulsed site of the patella. The bone was extremely soft and these drill holes did not require tapping. 4.75 mm anchors were then placed into the inferior pole of the patella x2. Free needle was applied to the FiberWire sutures. The sutures were then directed through the patellar tendon and inferiorly down to the area just superior to the tibial tubercle. A locking suture was placed in each of the 2 sutures from the medial lateral anchor. Traction was applied to the sutures and the patella could be pulled down into the position of the proximal edge of the patellar tendon. This was performed while the knee was placed on the small bump placing the knee in approximately 30 degrees of flexion. Using the same 3.5 mm drill bit, two 45-degree oblique holes were placed in the medial and lateral aspect of the mid of the body of the patella. These were each loaded with a FiberTape suture as well as a FiberWire suture. Using the banana-shaped suture passer, this was placed at the proposed exit site at the region the tibial tubercle both medially and laterally, advanced through the soft tissues just lateral to the patellar tendon and medial to the patellar tendon and advanced up into the area of the anchor position at the mid aspect of the patella, both medially and laterally. The FiberTape suture was then drawn through the soft tissues distally. Two additional 3.5 mm drill holes were made medial and lateral to the tibial tubercle. Again, this bone was soft and this bone was not tapped. With traction applied to the FiberTape sutures, additional appropriate tension was applied to the FiberWire sutures placed on the inferior aspect of patella and a 4.75 mm SwiveLock anchor was placed in the central aspect of the tibial tubercle. With the appropriate tension on the patella, two additional 4.75 mm SwiveLock anchors were placed in the captain/airline pilot holes created medial and lateral to the tibial tubercle. The FiberWire sutures placed in the lateral aspect of the body of the patella medially as well as the medial aspect were then placed through the soft tissues at the divided medial and lateral retinaculum and with a horizontal mattress suture further tied securing this to the lateral aspect of patella. A running suture of #1 Vicryl was then used to further close the medial and lateral retinaculum. The wound was irrigated extensively with normal saline solution after the tourniquet was released. The subcutaneous tissues were closed with 0 and 2-0 Vicryl suture. The skin was closed with stainless steel amanda. Adaptic Neosporin bulky dressing was placed about the left knee. Following the procedure, anesthesia performed an ultrasound-guided femoral nerve block to decrease postop pain. The patient was then transported to the postoperative recovery with anesthesia personnel present in satisfactory condition. Job ID: [id number] DocumentID: [id number] Dictated Date: 11/28/2017 17:53:04 Manager Packaging Date: 11/28/2017 23:36:26 Dictated By: JANAK ESPOSITO DO
[2017-11-29] VITALS: BP 146/74
[2017-11-29] MEDS: ALPRAZolam 0.5 MG (XANAX) TAB PO PRN ×3 (01:43→18:44)
[2017-11-29] MEDS: ceFAZolin 2 GM IV Premixed 50 ML IV SCH ×3 (01:44→15:19)
[2017-11-29] MEDS: oxyCODONE/APAP 5/325MG (PERCOCET 5) TABLET PO PRN ×5 (03:47→21:34)
[2017-11-29 04:00] VITALS: BP 146/74
[2017-11-29] MEDS: LACTATED RINGERS 1,000 ML IV SCH (04:15)
[2017-11-29] MEDS: RT-ALBUTEROL/IPRATROPIUM 3 ML (DUONEB) VIAL INH SCH ×3 (07:45→22:25)
[2017-11-29] MEDS: LACTULOSE SYRUP 10GM/15ML (ENULOSE) 30ML UDC PO SCH ×2 (07:49→19:39)
[2017-11-29 08:08] LABS: BASOPHILS % (AUTO) 0 % (0-10); EOSINOPHILS % (AUTO) 0 % (0-10); HEMATOCRIT 25 % (35-52); HEMOGLOBIN 8.6 G/DL (11.5-16.0); LYMPHOCYTES # (AUTO) 1.5 X 10^3 (1.0-4.0); LYMPHOCYTES % (AUTO) 16 % (12-44); MEAN CORPUSCULAR HEMOGLOBIN 32 PG (25-34); MEAN CORPUSCULAR HGB CONC 35 G/DL (32-36); MEAN CORPUSCULAR VOLUME 93 FL (80-99); MEAN PLATELET VOLUME 9.4 FL (7.4-10.4); MONOCYTES # (AUTO) 0.6 X 10^3 (0.0-1.0); MONOCYTES % (AUTO) 6 % (0-12); NEUTROPHILS # (AUTO) 7.3 X 10^3 (1.8-7.8); NEUTROPHILS % (AUTO) 78 % (42-75); PLATELET COUNT 90 10^3/uL (130-400); RED BLOOD COUNT 2.67 10^6/uL (4.35-5.85); RED CELL DISTRIBUTION WIDTH 13.3 % (10.0-14.5); WHITE BLOOD COUNT 9.4 10^3/uL (4.3-11.0)
[2017-11-29 08:09] VITALS: BP 145/73
[2017-11-29 08:31] LABS: ALANINE AMINOTRANSFERASE 9 U/L (0-55); ALBUMIN 3.5 GM/DL (3.2-4.5); ALKALINE PHOSPHATASE 63 U/L (40-136); BILIRUBIN,TOTAL 0.4 MG/DL (0.1-1.0); BUN/CREATININE RATIO 17; CALCIUM 9.4 MG/DL (8.5-10.1); CARBON DIOXIDE 20 MMOL/L (21-32); CHLORIDE 98 MMOL/L (98-107); CREATININE SERUM 0.78 MG/DL (0.60-1.30); GFR ESTIMATED > 60; GLUCOSE 132 MG/DL (70-105); POTASSIUM 4.8 MMOL/L (3.6-5.0); SODIUM 127 MMOL/L (135-145); TOTAL PROTEIN 6.6 GM/DL (6.4-8.2)
[2017-11-29] MEDS ORDERED: ASPIRIN E.C. 325 MG (ECOTRIN) TABLET PO SCH (09:00)
[2017-11-29] MEDS: POLYETHYLENE GLYCOL 17 GM (MIRALAX) PACK PO SCH ×2 (09:06→20:26)
[2017-11-29] MEDS: DOCUSATE SODIUM 100 MG (COLACE) CAP PO SCH ×2 (09:06→20:26)
[2017-11-29] MEDS: ENOXAPARIN 40 MG/0.4 ML (LOVENOX) SYR SC SCH (09:08)
[2017-11-29] MEDS: NICOTINE 21 MG (NICODERM) PATCH TD SCH (09:08)
--- NOTE | 2017-11-29 09:35 | Progress Note-Hospitalist ---
Subjective HPI/CC On Admission Date Seen by Provider: November 29, 2017 Time Seen by Provider: 09:00 CC: Right proximal humerus fracture and left patella fracture HPI: This is a 62-year-old white female clinic patient of Dr. Anne at [facility] known to me from prior [facility] admission at [facility] who presents following a fall at home and suffering a right shoulder fracture and left patella fracture. Currently her pain is intense which she is on a regular schedule of pain medication and her last BM was yesterday. Apparently she had a fall at home that was assessed to be noncardiac in origin and she is set to have a repair I Dr. Estes tomorrow afternoon at 4 PM. I reviewed her labs revealing sodium level of 122 set she has been placed on 1000 cc fluid restriction in addition her hemoglobin was 10 platelet count was 111,000 so we will initiate normal saline at 70 an hour in order to optimize sodium level in order to have surgery tomorrow as planned. Her home medications are not clear to me at this current time but there could be a hydrochlorothiazide and spironolactone component to her home meds as previously listed so that could give rise to the hyponatremia and obviously place her risk for falls. Subjective/Events-last exam Patient did well from right shoulder surgery Prefers to go to halfway for rehabilitation so will obtain social work consult in a range that Pain is severe at times Sodium level remains at 127 so discontinued lactated Ringer's IV fluid and maintain fluid restriction Reconcile all home meds and holding spironolactone Overall feels okay No BM yet so we will increase meds given Review of Systems General: Fatigue, Malaise Gastrointestinal: Constipation Musculoskeletal: shoulder pain, leg pain Objective Exam Vital Signs Vital Signs Date Time Temp Pulse Resp B/P (MAP) Pulse Ox O2 Delivery O2 Flow Rate FiO2 11/29/17 08:09 97.3 78 16 145/73 (97) 98 Room Air Capillary Refill : Less Than 3 SecondsLess Than 3 Seconds General Appearance: No Apparent Distress, WD/WN, Chronically ill Respiratory: Lungs Clear, Normal Breath Sounds Cardiovascular: Regular Rate, Rhythm, No Edema Neurologic/Psychiatric: Alert, Oriented x3, No Motor/Sensory Deficits, Depressed Affect Results/Procedures Lab Laboratory Tests 11/29/17 08:00 Patient resulted labs reviewed. Assessment/Plan Assessment and Plan Assess & Plan/Chief Complaint Assessment: Right proximal humerus fracture POD # 1 Right patellar fracture POD # 1 Severe hyponatremia likely due to hydrochlorothiazide improved at 127 but will DC LR IVF Anemia Iron deficiency Depression Plan: NHP DC IVF Fluid restriction Diagnosis/Problems Diagnosis/Problems (1) Hyponatremia Status: Acute (2) Hypertension Status: Chronic Qualifiers: Hypertension type: essential hypertension Qualified Codes: I10 - Essential (primary) hypertension (3) Depression Status: Chronic Qualifiers: Depression Type: unspecified Qualified Codes: F32.9 - Major depressive disorder, single episode, unspecified (4) Anxiety Status: Chronic (5) Closed fracture of right proximal humerus Status: Acute Qualifiers: Encounter type: initial encounter Fracture morphology: other fracture Fracture alignment: displaced Qualified Codes: S42.291A - Other displaced fracture of upper end of right humerus, initial encounter for closed fracture (6) Patella fracture Status: Acute Qualifiers: Encounter type: initial encounter Fracture type: closed Fracture morphology: unspecified fracture morphology Fracture alignment: nondisplaced Laterality: left Qualified Codes: S82.002A - Unspecified fracture of left patella, initial encounter for closed fracture (7) Constipation Status: Chronic Qualifiers: Constipation type: chronic idiopathic constipation Qualified Codes: K59.04 - Chronic idiopathic constipation (8) Low back pain Status: Chronic Qualifiers: Chronicity: unspecified Back pain laterality: unspecified Sciatica presence: unspecified whether sciatica present Qualified Codes: M54.5 - Low back pain (9) Smoker Status: Chronic Clinical Quality Measures DVT/VTE Risk/Contraindication: Risk Factor Score Per Nursin RFS Level Per Nursing on Admit: 4+=Very High FELIBERTO JOHNSTON DO November 29, 2017 09:35
[2017-11-29] MEDS ORDERED: BISACODYL 10 MG SUPP (DULCOLAX) PR NR (09:45)
[2017-11-29] MEDS ORDERED: SENNA W/DOCUSATE (SENOKOT S) TABLET PO NR (09:45)
[2017-11-29] MEDS ORDERED: ALPRAZolam 0.5 MG (XANAX) TAB PO PRN (09:45)
--- NOTE | 2017-11-29 09:50 | Physical Therapy Evaluation ---
PT Evaluation-General Medical Diagnosis Admission Date November 26, 2017 at 22:35 Medical Diagnosis: Fx right humerus, left patella Onset Date: Dec 04, 2017 Therapy Diagnosis Therapy Diagnosis: impaired mobility, strength, ROM Height/Weight Height (Feet): 5 Height (Inches): 4.00 Weight (Pounds): 177 Weight (Ounces): 6.0 Precautions Precautions/Isolations: Fall Prevention Weight Bear Status Right Lower Extremity: Right Full Weight Bearing Left Lower Extremity: Left Touch Toe Bearing no use of right shoulder Referral Physician: Dr. Garcia Reason for Referral: Evaluation/Treatment Medical History Pertinent Medical History: HTN, Smoking Additional Medical History narcotic dependent, Hep C Current History fall at [facility], has left patellar fx and right shoulder fx Reviewed History: Yes Social History Home: Single Level Current Living Status: Spouse Entry Into Home: Stairs With Railing PT Steps Into Home: 3 Patient has a at home but doesn't think he can take care of her. She states she may be going to a usp. Prior/Core FIM Prior Level of Function Functional [place] Measure 0=Not Assessed/NA 4=Minimal Assistance 1=Total Assistance 5=Supervision or Setup 2=Maximal Assistance 6=Modified [place] 3=Moderate Assistance 7=Complete [place] Bed Mobility: 7 Transfers (B,C,W/C) (FIM): 7 Gait: 7 PT Evaluation-Current Subjective Patient in bed pre tx, agrees to PT, has pain of 8/10 in her left knee. Pt/Family Goals "to be able to move around better" Objective Patient Orientation: Person, Place, Situation Attachments: IV ROM/Strength ROM Lower Extremities limited in LLE due to fx and knee immobilizer, RLE WNL Neuromuscular (Tone, Coordination, Reflexes) NT Sensory Vision: Functional Hearing: Functional Sensation Right Lower Extremit: Intact Sensation Left Lower Extremity: Intact Sensation Lower Extremities Patient has no complaints of numbness or tingling. Transfers Functional [place] Measure 0=Not Assessed/NA 4=Minimal Assistance 1=Total Assistance 5=Supervision or Setup 2=Maximal Assistance 6=Modified [place] 3=Moderate Assistance 7=Complete [place] Transfers (B, C, W/C) (FIM): 5 Scootin Rollin Supine to/from Sit: 5 Patient sat at the edge of the bed for about 5 min, she refused to try to stand at this time. Balance Sitting Static: Normal Sitting Dynamic: Normal Treatment seated exercises x15 (AP, LAQ right side), supine x15 (QS, GS) Assessment/Needs Patient has impaired mobility, strength, endurance, ROM post right shoulder fx and left patellar fx. Rehab Potential: Fair PT Short Term Goals Short Term Goals Time Frame: Dec 06, 2017 Transfers (B,C,W/C) (FIM): 6 Wheelchair (FIM): 5 Wheelchair Distance: 150' Wheelchair Level of Assist: 5 PT Plan Problem List Problem List: Activity Tolerance, Functional Strength, Safety, Balance, Gait, Transfer, Bed Mobility, ROM Treatment/Plan Treatment Plan: Continue Plan of Care Treatment Plan: Bed Mobility, Education, Functional Activity [place], Functional Strength, Gait, Safety, Therapeutic Exercise, Transfers Treatment Duration: Dec 06, 2017 Frequency: 11 times per week Estimated Hrs Per Day: .25 hour per day (15-30') Patient and/or Family Agrees t: Yes Safety Risks/Education Patient Education: Transfer Techniques, Reviewed Precautions, Correct Positioning, Disease Process, Safety Issues Teaching Recipient: Patient Teaching Methods: Demonstration, Discussion Response to Teaching: Reinforcement Needed Discharge Recommendations Plan Patient will perform bed mobility and transfer training, balance and endurance training, functional strengthening, wheelchair mobility training, and education , to improve functional mobility and independence at home. Therapy D/C Recommendations: Home w/ Family Support, Alf (TCU/NH) Time/GCodes Time In: 930 Time Out: 0945 Total Billed Treatment Time: 15 Total Billed Treatment 1 visit NADER 15' KRYSTLE ROGERS PT November 29, 2017 09:50
--- NOTE | 2017-11-29 10:07 | Occupational Ther Daily Note ---
OT Current Status-Daily Note Subjective Pt alert, finishing up with PT. NEWTON took over care. Pt agrees to therapy. States she is in pain, does not rate. Nrsg notified about pain. Mental Status/Objective Patient Orientation: Person, Place, Time, Situation Functional [place] Measure 0=Not Assessed/NA 4=Minimal Assistance 1=Total Assistance 5=Supervision or Setup 2=Maximal Assistance 6=Modified [place] 3=Moderate Assistance 7=Complete [place] Attachments: IV ADL-Treatment Non-wt bearing on L LE and R UE. Pt agrees to sponge bath. Pt able to complete kenji care lying in bed with HOB raised, assist to cleanse buttocks while pt rolled to sidelying. Min A to go from supine to sitting EOB. Sat EOB with SBA to complete upper body bathing and oral care after set up. Pt unable to reach LE's at this time to complete bathing or dressing. Assist x2 to scoot up in bed. After therapy, pt lying in bed with call light/phone in reach. All needs met in room. Grooming (FIM): 5 Bathing (FIM): 2 Bathing Location: L Arm, R Arm, Chest, Abdomen, Perineal Area Upper Body (FIM): 2 (Hospital gown though pt requires assist due to R shldr.) Lower Body Dressing (FIM): 1 OT Short Term Goals Short Term Goals Transfers (B,C,W/C) (FIM): 6 1=Demonstrate adherence to instructed precautions during ADL tasks. 2=Patient will verbalize/demonstrate understanding of assistive devices/ modifications for ADL. 3=Patient will improve strength/tolerance for activity to enable patient to perform ADL's. OT Childcare Provider Goals Childcare Provider Goals Time Frame: November 30, 2017 Goals to be re-written and addressed once pt. has surgeries. 1=Demonstrate adherence to instructed precautions during ADL tasks. 2=Patient will verbalize/demonstrate understanding of assistive devices/ modifications for ADL. 3=Patient will improve strength/tolerance for activity to enable patient to perform ADL's. OT Education/Plan Discharge Recommendations Plan/Recommendations: Continue POC Treatment Plan/Plan of Care Patient would benefit from OT for education, treatment and training to promote independence in ADL's, mobility, safety and/or upper extremity function for ADL' s. Plan of Care: ADL Retraining, Functional Mobility Treatment Duration: Dec 05, 2017 Frequency: 5 times per week Estimated Hrs Per Day: .25 hour per day Agreement: Yes Rehab Potential: Fair Time/GCodes Start Time: 09:45 Stop Time: 10:06 Total Time Billed (hr/min): 21 Billed Treatment Time 1 visit-ADL 1 (21 min) MARBIN ROSALES November 29, 2017 10:06
[2017-11-29] MEDS: lisINopril 40 MG (PRINIVIL) TABLET PO SCH (10:26)
[2017-11-29] MEDS: fentaNYL INJECTION 100 MCG/2 ML AMP IV PRN ×3 (11:17→20:26)
--- NOTE | 2017-11-29 11:19 | Anesthesia-General Post-Op ---
General Patient Condition Mental Status/LOC: Same as Preop Cardiovascular: Satisfactory Nausea/Vomiting: Absent Respiratory: Satisfactory Pain: Controlled Complications: Absent Post Op Complications Complications None Follow Up Care/Instructions Patient Instructions None needed. Anesthesia/Patient Condition Patient Condition Patient is doing well, no complaints, stable vital signs, no apparent adverse anesthesia problems. No complications reported per nursing. D/C home per [facility] Criteria: Yes PETTY ORTA CRNA November 29, 2017 11:19
[2017-11-29 12:40] VITALS: BP 150/67
--- NOTE | 2017-11-29 12:53 | Progress Note (SOAP) ---
Subjective Date Seen by Provider: November 29, 2017 Time Seen by Provider: 12:47 Subjective/Events-last exam Currently in bed watching TV. She has no complaints. Pain is controlled. POD #1 s/p patellar tendon repair left knee. Immobilizer and polar care in place. Objective Exam Vital Signs Date Time Temp Pulse Resp B/P (MAP) Pulse Ox O2 Delivery O2 Flow Rate FiO2 11/29/17 12:40 98.9 109 20 150/67 (94) 98 Room Air 11/29/17 08:09 97.3 78 16 145/73 (97) 98 Room Air 11/29/17 07:45 91 Room Air 11/29/17 04:00 97.8 84 19 146/74 (98) 98 Room Air 11/29/17 00:00 98.4 90 18 146/74 (98) 92 Room Air 11/28/17 21:45 95 Room Air 11/28/17 19:15 96.8 96 20 189/82 (117) 96 Room Air 11/28/17 15:25 98.4 80 18 135/63 (87) 95 Room Air 11/28/17 15:08 92 Room Air I & O 11/29/17 07:00 Intake Total 250 ml Output Total 2150 ml Balance -1900 ml Capillary Refill : Less Than 3 SecondsLess Than 3 Seconds General Appearance: No Apparent Distress Extremity: No Calf Tenderness, No Pedal Edema, Other (sling to right arm, tenderness right shoulder) Neurologic/Psychiatric: Alert, Oriented x3, No Motor/Sensory Deficits Skin: Normal Color, Warm/Dry (dressing clean dry and intact left knee) Results Lab Laboratory Tests 11/29/17 08:00: White Blood Count 9.4, Red Blood Count 2.67L, Hemoglobin 8.6L, Hematocrit 25L, Mean Corpuscular Volume 93, Mean Corpuscular Hemoglobin 32, Mean Corpuscular Hemoglobin Concent 35, Red Cell Distribution Width 13.3, Platelet Count 90L, Mean Platelet Volume 9.4, Neutrophils (%) (Auto) 78H, Lymphocytes (%) (Auto) 16 , Monocytes (%) (Auto) 6, Eosinophils (%) (Auto) 0, Basophils (%) (Auto) 0, Neutrophils # (Auto) 7.3, Lymphocytes # (Auto) 1.5, Monocytes # (Auto) 0.6, Eosinophils # (Auto) 0.0, Basophils # (Auto) 0.0, Sodium Level 127L, Potassium Level 4.8, Chloride Level 98, Carbon Dioxide Level 20L, Anion Gap 9, Blood Urea Nitrogen 13, Creatinine 0.78, Estimat Glomerular Filtration Rate > 60, BUN/ Creatinine Ratio 17, Glucose Level 132H, Calcium Level 9.4, Total Bilirubin 0.4 , Aspartate Amino Transf (AST/SGOT) 16, Alanine Aminotransferase (ALT/SGPT) 9, Alkaline Phosphatase 63, Total Protein 6.6, Albumin 3.5 Microbiology 11/27/17 MRSA Screen - Final, Complete MRSA not isolated Assessment/Plan Assessment/Plan Assess & Plan/Chief Complaint A: traumatic displaced comminuted 4 part proximal humerus fracture right shoulder, traumatic displaced transverse fracture of the inferior pole of the patella left knee, POD #1 s/p patellar tendon repair left knee fall, hyponatremia, acute blood loss anemia P: CT results showed fractures through the neck with slight impaction and rotation of head. She likely will need at Reverse Total Shoulder arthroplasty at some point. We will follow up with xrays and treat conservatively for now. She is doing well as far as the knee, continue immobilizer and polar care unit. avoid knee flexion, touch toe wb only. She will need assist for all transfers due to shoulder fracture. Plan to DC to skilled when cleared by medicine. Orthopedics signing off at this point, f/u in 10 days for staple removal. Clinical Quality Measures DVT/VTE Risk/Contraindication: Risk Factor Score Per Nursin RFS Level Per Nursing on Admit: 4+=Very High JOSHUA PATTERSON APRN November 29, 2017 12:52 pm
[2017-11-29 15:35] VITALS: BP 164/69
--- NOTE | 2017-11-29 15:38 | Physical Therapy Daily Note ---
PT Daily Note-Current Subjective Patient in bed pre tx, agrees to PT, has 8/10 pain in her left leg. Patient states she has a wet bed, will stand at the edge of the bed while nursing changes her bed. Appearance Patient BTB post tx with nurse call, phone, tray, nursing in room. Mental Status Patient Orientation: Person, Place, Situation Attachments: IV Transfers Functional [place] Measure 0=Not Assessed/NA 4=Minimal Assistance 1=Total Assistance 5=Supervision or Setup 2=Maximal Assistance 6=Modified [place] 3=Moderate Assistance 7=Complete IndependenceIRFPAI Quality Coding Scale 6 Independent with activity with or without an assistive device 5 Patient requires set up or clean up by helper. Patient completes activity by themselves 4 Supervision or touching assist (CGA). [place] provide cues , steadying assist 3 The helper provides less than half the effort to complete the activity 2 The helper provides more than half the effort to complete the activity 1 Dependent. The helper does all the effort to complete an activity 7 Patient refused to complete or attempt activity 9 The patient did not perform the activity before the current illness or injury 88 Not attempted due to Medical conditions or safety concerns Transfers (B, C, W/C) (FIM): 4 Scootin Rollin Supine to/from Sit: 4 Sit to/from Stand: 4 Patient needed min assist getting her left leg back into bed and min assist for sit to stand. Patient stood at the edge of the bed for 5 min. Weight Bearing Right Lower Extremity: Right Full Weight Bearing Left Lower Extremity: Left Touch Toe Bearing no use of right shoulder Exercises Seated Therapy Exercises: Ankle pumps, Long arc quads (right leg only) Treatments bed mobility, transfers, functional strengthening/ROM Assessment Current Status: Fair Progress patient was able to stand at the edge of the bed this afternoon PT Short Term Goals Short Term Goals Time Frame: Dec 06, 2017 Transfers (B,C,W/C) (FIM): 6 Wheelchair (FIM): 5 Wheelchair Distance: 150' Wheelchair Level of Assist: 5 PT Plan Problem List Problem List: Activity Tolerance, Functional Strength, Safety, Balance, Gait, Transfer, Bed Mobility, ROM Treatment/Plan Treatment Plan: Continue Plan of Care Treatment Plan: Bed Mobility, Education, Functional Activity Brando, Functional Strength, Gait, Safety, Therapeutic Exercise, Transfers Treatment Duration: Dec 06, 2017 Frequency: 11 times per week Estimated Hrs Per Day: .25 hour per day (15-30') Patient and/or Family Agrees t: Yes Safety Risks/Education Patient Education: Transfer Techniques, Reviewed Precautions, Correct Positioning, Safety Issues Teaching Recipient: Patient Teaching Methods: Demonstration, Discussion Response to Teaching: Reinforcement Needed Time/GCodes Time In: 1520 Time Out: 1532 Total Billed Treatment Time: 12 Total Billed Treatment 1 visit FA 12' KRYSTLE ROGERS PT November 29, 2017 15:38
[2017-11-29 19:35] VITALS: BP 152/72
[2017-11-29] MEDS ORDERED: diphenhydrAMINE 25 MG TAB (BENADRYL) PO ONE (20:08)
[2017-11-29] MEDS: traZODone 50 MG (DESYREL) TAB PO SCH (20:26)
[2017-11-29] MEDS: SENNA W/DOCUSATE (SENOKOT S) TABLET PO SCH (20:26)
[2017-11-29] MEDS: MEMANTINE 10 MG (NAMENDA) TABLET PO SCH (20:26)
[2017-11-29] MEDS: diphenhydrAMINE 25 MG TAB (BENADRYL) PO PRN (20:26)
[2017-11-29] MEDS: MONTELUKAST 10 MG (SINGULAIR) TAB PO SCH (20:26)
[2017-11-29] MEDS: SIMvastatin 40 MG (ZOCOR) TAB PO SCH (20:26)
[2017-11-29] MEDS: MELATONIN 3 MG TABLET PO SCH (20:26)
[2017-11-29] MEDS: LURASIDONE 80 MG (LATUDA) TABLET NON-FORMULARY PO SCH (20:29)
[2017-11-29] MEDS ORDERED: NON-FORMULARY MEDICATION 1 EA EA (Melatonin 3 MG) PO SCH (21:00)
[2017-11-29] MEDS ORDERED: MEMANTINE HCL 10 MG PO SCH (21:00)
[2017-11-29] MEDS ORDERED: NON-FORMULARY MEDICATION 1 EA EA (Montelukast Sodium (Singulair) 10 MG) PO SCH (21:00)
[2017-11-29] MEDS ORDERED: ZOLPIDEM 5 MG (AMBIEN) TAB ONE (22:21)
[2017-11-29] MEDS ORDERED: ZOLPIDEM 5 MG (AMBIEN) TAB PO ONE (22:30)
[2017-11-30] VITALS: BP 162/80
[2017-11-30] MEDS: fentaNYL INJECTION 100 MCG/2 ML AMP IV PRN ×3 (04:20→18:11)
[2017-11-30] MEDS: oxyCODONE/APAP 5/325MG (PERCOCET 5) TABLET PO PRN ×4 (06:13→19:53)
[2017-11-30] MEDS: MULTIVIT W/MINERALS TAB (THERAGRAN M) PO SCH (06:13)
[2017-11-30] MEDS: VENlafaxine XR 75 MG (EFFEXOR XR) CAP PO SCH (06:13)
[2017-11-30] MEDS: KCL 20 MEQ TAB (K-DUR) PO SCH (06:13)
[2017-11-30] MEDS: PANTOPRAZOLE 20 MG TABLET (PROTONIX) PO SCH (06:13)
[2017-11-30] MEDS ORDERED: fentaNYL PATCH 50 MCG (DURAGESIC) ONE (06:27)
[2017-11-30] MEDS: fentaNYL PATCH 50 MCG (DURAGESIC) TD SCH (06:35)
[2017-11-30 06:52] LABS: BASOPHILS % (AUTO) 0 % (0-10); EOSINOPHILS # (AUTO) 0.3 10^3/uL (0.0-0.3); EOSINOPHILS % (AUTO) 3 % (0-10); HEMATOCRIT 25 % (35-52); HEMOGLOBIN 8.6 G/DL (11.5-16.0); LYMPHOCYTES # (AUTO) 3.4 X 10^3 (1.0-4.0); LYMPHOCYTES % (AUTO) 32 % (12-44); MEAN CORPUSCULAR HEMOGLOBIN 33 PG (25-34); MEAN CORPUSCULAR HGB CONC 35 G/DL (32-36); MEAN CORPUSCULAR VOLUME 95 FL (80-99); MEAN PLATELET VOLUME 9.4 FL (7.4-10.4); MONOCYTES # (AUTO) 1.2 X 10^3 (0.0-1.0); MONOCYTES % (AUTO) 12 % (0-12); NEUTROPHILS # (AUTO) 5.7 X 10^3 (1.8-7.8); NEUTROPHILS % (AUTO) 54 % (42-75); PLATELET COUNT 81 10^3/uL (130-400); RED BLOOD COUNT 2.58 10^6/uL (4.35-5.85); RED CELL DISTRIBUTION WIDTH 13.3 % (10.0-14.5); WHITE BLOOD COUNT 10.6 10^3/uL (4.3-11.0)
[2017-11-30 07:12] LABS: ALANINE AMINOTRANSFERASE 10 U/L (0-55); ALBUMIN 3.5 GM/DL (3.2-4.5); ALKALINE PHOSPHATASE 68 U/L (40-136); BILIRUBIN,TOTAL 0.8 MG/DL (0.1-1.0); BUN/CREATININE RATIO 15; CALCIUM 9.7 MG/DL (8.5-10.1); CARBON DIOXIDE 20 MMOL/L (21-32); CHLORIDE 100 MMOL/L (98-107); CREATININE SERUM 0.78 MG/DL (0.60-1.30); GFR ESTIMATED > 60; GLUCOSE 104 MG/DL (70-105); POTASSIUM 4.7 MMOL/L (3.6-5.0); SODIUM 130 MMOL/L (135-145); TOTAL PROTEIN 6.8 GM/DL (6.4-8.2)
[2017-11-30] MEDS: RT-ALBUTEROL/IPRATROPIUM 3 ML (DUONEB) VIAL INH SCH ×3 (08:12→22:09)
[2017-11-30 08:41] VITALS: BP 135/60
[2017-11-30] MEDS: POLYETHYLENE GLYCOL 17 GM (MIRALAX) PACK PO SCH ×2 (08:43→19:53)
[2017-11-30] MEDS: LORATADINE (CLARITIN) 10 MG TAB PO SCH (08:44)
[2017-11-30] MEDS: SENNA W/DOCUSATE (SENOKOT S) TABLET PO SCH ×2 (08:44→20:18)
[2017-11-30] MEDS: NICOTINE 21 MG (NICODERM) PATCH TD SCH (08:44)
[2017-11-30] MEDS: DOCUSATE SODIUM 100 MG (COLACE) CAP PO SCH ×2 (08:44→20:18)
[2017-11-30] MEDS: ENOXAPARIN 40 MG/0.4 ML (LOVENOX) SYR SC SCH (08:44)
[2017-11-30] MEDS: MEMANTINE 10 MG (NAMENDA) TABLET PO SCH ×2 (08:44→20:18)
[2017-11-30] MEDS: IRON SUCROSE 200 MG/10 ML (VENOFER) VIAL IV SCH (08:51)
[2017-11-30] MEDS: lisINopril 40 MG (PRINIVIL) TABLET PO SCH (08:51)
[2017-11-30] MEDS ORDERED: NON-FORMULARY MEDICATION 1 EA EA (Fexofenadine HCl 180 MG) PO SCH (09:00)
[2017-11-30] MEDS: LACTULOSE SYRUP 10GM/15ML (ENULOSE) 30ML UDC PO SCH ×2 (09:00→19:53)
[2017-11-30] MEDS ORDERED: NON-FORMULARY MEDICATION 1 EA EA (Venlafaxine HCl (Venlafaxine HCl ER) 150 MG) PO SCH (09:00)
[2017-11-30] MEDS ORDERED: NON-FORMULARY MEDICATION 1 EA EA (Omeprazole Magnesium (Prilosec Otc) 20 MG) PO SCH (09:00)
[2017-11-30] MEDS ORDERED: [UNRECOGNIZED DRUG - REMARK] PO SCH (09:00)
--- NOTE | 2017-11-30 09:50 | Physical Therapy Daily Note ---
PT Daily Note-Current Subjective Patient agrees to PT. Pain Numeric Pain Scale: 5-Moderate Pain Location: Left Location Body Site: Knee Pain Description: Acute Mental Status Patient Orientation: Normal For Age Transfers Functional [place] Measure 0=Not Assessed/NA 4=Minimal Assistance 1=Total Assistance 5=Supervision or Setup 2=Maximal Assistance 6=Modified [place] 3=Moderate Assistance 7=Complete IndependenceIRFPAI Quality Coding Scale 6 Independent with activity with or without an assistive device 5 Patient requires set up or clean up by helper. Patient completes activity by themselves 4 Supervision or touching assist (CGA). [place] provide cues , steadying assist 3 The helper provides less than half the effort to complete the activity 2 The helper provides more than half the effort to complete the activity 1 Dependent. The helper does all the effort to complete an activity 7 Patient refused to complete or attempt activity 9 The patient did not perform the activity before the current illness or injury 88 Not attempted due to Medical conditions or safety concerns Transfers (B, C, W/C) (FIM): 3 Scootin Rollin Supine to/from Sit: 3 Sit to/from Stand: 3 Bed to/from Chair: 3 mod assist with use of hemiwalker left UE and SPT with TTWB left LE and NWB right UE/right UE is in sling. Weight Bearing Right Lower Extremity: Right Full Weight Bearing Left Lower Extremity: Left Touch Toe Bearing no use of right shoulder Gait Training Gait (FIM): 1 Distance (FIM): 1=up to 49 ft Distance: 3 steps Gait Level of Assist: 3 Gait Persons Needed: 1 Gait Assistive Device: Walker Jerry Exercises Supine Ex: Ankle pumps Supine Reps: 15 Assessment Patient is limited due to NWB right UE and left LE TTWB. Patient reports she desires to go to [place] for rehab vs. ARU. From a PT standpoint, patient will require extended care and time to allow proper healing of fractures. PT Short Term Goals Short Term Goals Time Frame: Dec 06, 2017 Transfers (B,C,W/C) (FIM): 6 Wheelchair (FIM): 5 Wheelchair Distance: 150' Wheelchair Level of Assist: 5 PT Plan Treatment/Plan Treatment Plan: Continue Plan of Care Treatment Plan: Bed Mobility, Education, Functional Activity [place], Functional Strength, Gait, Safety, Therapeutic Exercise, Transfers Treatment Duration: Dec 06, 2017 Frequency: 11 times per week Estimated Hrs Per Day: .25 hour per day (15-30') Patient and/or Family Agrees t: Yes Time/GCodes Time In: 851 Time Out: 906 Total Billed Treatment Time: 15 Total Billed Treatment 1 visit FA 15 min EDITA NIETO PT November 30, 2017 09:50
--- NOTE | 2017-11-30 10:52 | Progress Note-Hospitalist ---
Subjective HPI/CC On Admission Date Seen by Provider: November 30, 2017 Time Seen by Provider: 10:00 CC: Right proximal humerus fracture and left patella fracture HPI: This is a 62-year-old white female clinic patient of Dr. Anne at [facility] known to me from prior senior [facility] unit admission at [facility] who presents following a fall at home and suffering a right shoulder fracture and left patella fracture. Currently her pain is intense which she is on a regular schedule of pain medication and her last BM was yesterday. Apparently she had a fall at home that was assessed to be noncardiac in origin and she is set to have a repair I Dr. Estes tomorrow afternoon at 4 PM. I reviewed her labs revealing sodium level of 122 set she has been placed on 1000 cc fluid restriction in addition her hemoglobin was 10 platelet count was 111,000 so we will initiate normal saline at 70 an hour in order to optimize sodium level in order to have surgery tomorrow as planned. Her home medications are not clear to me at this current time but there could be a hydrochlorothiazide and spironolactone component to her home meds as previously listed so that could give rise to the hyponatremia and obviously place her risk for falls. Subjective/Events-last exam Spoke to Dr. Estes today All of her bones are soft giving rise to slow healing and likely some sort of osteoporosis that needs to be pursued as an outpatient Once to go to [facility] Smoking cessation discussed and she is willing to do that to help her bone strength Applied fentanyl patch 50 mcg and that seems to be helping her with the severe pain she had last night Using incentive spirometer No bowel movement yet so we'll place suppository if that doesn't work we'll give soapsuds enema Checked meds and labs Review of Systems Gastrointestinal: Constipation Musculoskeletal: shoulder pain, leg pain Objective Exam Vital Signs Vital Signs Date Time Temp Pulse Resp B/P (MAP) Pulse Ox O2 Delivery O2 Flow Rate FiO2 11/30/17 08:41 98.0 96 20 135/60 (85) 93 Room Air Capillary Refill : Less Than 3 SecondsLess Than 3 Seconds General Appearance: No Apparent Distress, WD/WN, Chronically ill Respiratory: Lungs Clear, Normal Breath Sounds Cardiovascular: Regular Rate, Rhythm, No Edema Extremity: Other (left knee in immobilizer and right arm in sling) Neurologic/Psychiatric: Alert, Oriented x3, No Motor/Sensory Deficits, Depressed Affect Results/Procedures Lab Laboratory Tests 11/30/17 06:28 Patient resulted labs reviewed. Assessment/Plan Assessment and Plan Assess & Plan/Chief Complaint Assessment: Right proximal humerus fracture not a surgical candidate at this time due to soft bones but ultimately may need reverse shoulder per Dr Estes today Right patellar fracture POD # 2 Severe hyponatremia improved at 130 today on 1000c fluid restriction Anemia Iron deficiency Depression Constipation Plan: NHP tomorrow? DC IVF Fluid restriction Diagnosis/Problems Diagnosis/Problems (1) Hyponatremia Status: Acute (2) Hypertension Status: Chronic Qualifiers: Hypertension type: essential hypertension Qualified Codes: I10 - Essential (primary) hypertension (3) Depression Status: Chronic Qualifiers: Depression Type: unspecified Qualified Codes: F32.9 - Major depressive disorder, single episode, unspecified (4) Anxiety Status: Chronic (5) Closed fracture of right proximal humerus Status: Acute Qualifiers: Encounter type: initial encounter Fracture morphology: other fracture Fracture alignment: displaced Qualified Codes: S42.291A - Other displaced fracture of upper end of right humerus, initial encounter for closed fracture (6) Patella fracture Status: Acute Qualifiers: Encounter type: initial encounter Fracture type: closed Fracture morphology: unspecified fracture morphology Fracture alignment: nondisplaced Laterality: left Qualified Codes: S82.002A - Unspecified fracture of left patella, initial encounter for closed fracture (7) Constipation Status: Acute Qualifiers: Constipation type: chronic idiopathic constipation Qualified Codes: K59.04 - Chronic idiopathic constipation (8) Low back pain Status: Chronic Qualifiers: Chronicity: unspecified Back pain laterality: unspecified Sciatica presence: unspecified whether sciatica present Qualified Codes: M54.5 - Low back pain (9) Smoker Status: Chronic (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
--- NOTE | 2017-11-30 11:03 | Occupational Ther Daily Note ---
OT Current Status-Daily Note Subjective Pt sitting in recliner, alert. No c/o pain at this time. Pt agrees to therapy. Pt excited that she was able to stand with PT. Mental Status/Objective Patient Orientation: Person, Place, Time, Situation Functional [place] Measure 0=Not Assessed/NA 4=Minimal Assistance 1=Total Assistance 5=Supervision or Setup 2=Maximal Assistance 6=Modified [place] 3=Moderate Assistance 7=Complete [place] ADL-Treatment Pt requested to use BSC. Mod A for sit to stand and stand pivot transfer, 1 person for transfer and 1 person for safety. Pt transferred onto BSC with assist to maneuvered L LE to comfortable position. Pt required assist to manipulate clothing and cleanse self after toileting. Stand pivot transfer back to recliner to sit up for lunch. Nrsg present in room after therapy. Call light/phone in reach. All needs met in room. Other Treatment Pt completed isometric exercises with coupon and bond collection clerk, pinch, wrist flex/extension (10 reps ). Pt appeared to fatigue at the end of each exercises then stated that the exercises made her tired. Pt was able to complete supination/pronation and elbow flex/ext without resistance with minimal pain. Education OT Patient Education: Exercise program Teaching Recipient: Patient Teaching Methods: Demonstration, Discussion Response to Teaching: Return Demonstration OT Short Term Goals Short Term Goals Transfers (B,C,W/C) (FIM): 6 1=Demonstrate adherence to instructed precautions during ADL tasks. 2=Patient will verbalize/demonstrate understanding of assistive devices/ modifications for ADL. 3=Patient will improve strength/tolerance for activity to enable patient to perform ADL's. OT Mat Cutter Goals Group Home Goals Time Frame: November 30, 2017 Goals to be re-written and addressed once pt. has surgeries. 1=Demonstrate adherence to instructed precautions during ADL tasks. 2=Patient will verbalize/demonstrate understanding of assistive devices/ modifications for ADL. 3=Patient will improve strength/tolerance for activity to enable patient to perform ADL's. OT Education/Plan Discharge Recommendations Plan/Recommendations: Continue POC Treatment Plan/Plan of Care Patient would benefit from OT for education, treatment and training to promote independence in ADL's, mobility, safety and/or upper extremity function for ADL' s. Plan of Care: ADL Retraining, Functional Mobility Treatment Duration: Dec 05, 2017 Frequency: 5 times per week Estimated Hrs Per Day: .25 hour per day Agreement: Yes Rehab Potential: Fair Time/GCodes Start Time: 10:46 Stop Time: 11:09 Total Time Billed (hr/min): 23 Billed Treatment Time 1 visit-EX 1 (8 min) ADL 1 (15 min) MARBIN ROSALES November 30, 2017 11:03
--- NOTE | 2017-11-30 14:22 | Physical Therapy Daily Note ---
PT Daily Note-Current Subjective Patient declined OOB activities but agrees to exercises. Pain Numeric Pain Scale: 5-Moderate Pain Location: Left Location Body Site: Knee Pain Description: Acute Mental Status Patient Orientation: Normal For Age Transfers Functional [place] Measure 0=Not Assessed/NA 4=Minimal Assistance 1=Total Assistance 5=Supervision or Setup 2=Maximal Assistance 6=Modified [place] 3=Moderate Assistance 7=Complete IndependenceIRFPAI Quality Coding Scale 6 Independent with activity with or without an assistive device 5 Patient requires set up or clean up by helper. Patient completes activity by themselves 4 Supervision or touching assist (CGA). [place] provide cues , steadying assist 3 The helper provides less than half the effort to complete the activity 2 The helper provides more than half the effort to complete the activity 1 Dependent. The helper does all the effort to complete an activity 7 Patient refused to complete or attempt activity 9 The patient did not perform the activity before the current illness or injury 88 Not attempted due to Medical conditions or safety concerns Weight Bearing Right Lower Extremity: Right Full Weight Bearing Left Lower Extremity: Left Touch Toe Bearing no use of right shoulder Exercises Supine Ex: Ankle pumps, Quad Set, Heel Slides (right LE only), Straight leg raise (AAROM left LE), Hip abd/add Supine Reps: 15 (2 sets) Assessment Patient reports she wants to dismiss to [facility] is possible for recovery. Patient tolerated treatment. PT Short Term Goals Short Term Goals Time Frame: Dec 06, 2017 Transfers (B,C,W/C) (FIM): 6 Wheelchair (FIM): 5 Wheelchair Distance: 150' Wheelchair Level of Assist: 5 PT Plan Treatment/Plan Treatment Plan: Continue Plan of Care Treatment Plan: Bed Mobility, Education, Functional Activity Brando, Functional Strength, Gait, Safety, Therapeutic Exercise, Transfers Treatment Duration: Dec 06, 2017 Frequency: 11 times per week Estimated Hrs Per Day: .25 hour per day (15-30') Patient and/or Family Agrees t: Yes Time/GCodes Time In: 1350 Time Out: 1403 Total Billed Treatment Time: 13 Total Billed Treatment 1 visit EX 13 min EDITA NIETO PT November 30, 2017 14:22
[2017-11-30 15:50] VITALS: BP 123/56
[2017-11-30] MEDS: ALPRAZolam 0.5 MG (XANAX) TAB PO PRN (17:11)
[2017-11-30] MEDS: LURASIDONE 80 MG (LATUDA) TABLET NON-FORMULARY PO SCH (17:12)
[2017-11-30] MEDS: diphenhydrAMINE 25 MG TAB (BENADRYL) PO PRN (17:13)
[2017-11-30] MEDS: traZODone 50 MG (DESYREL) TAB PO SCH (20:18)
[2017-11-30] MEDS: MELATONIN 3 MG TABLET PO SCH (20:18)
[2017-11-30] MEDS: MONTELUKAST 10 MG (SINGULAIR) TAB PO SCH (20:18)
[2017-11-30] MEDS: SIMvastatin 40 MG (ZOCOR) TAB PO SCH (20:18)
[2017-12-01] VITALS: BP 111/56
[2017-12-01] MEDS: oxyCODONE/APAP 5/325MG (PERCOCET 5) TABLET PO PRN ×5 (00:19→20:29)
[2017-12-01] MEDS: PANTOPRAZOLE 20 MG TABLET (PROTONIX) PO SCH (05:09)
[2017-12-01] MEDS: KCL 20 MEQ TAB (K-DUR) PO SCH (05:09)
[2017-12-01] MEDS: MULTIVIT W/MINERALS TAB (THERAGRAN M) PO SCH (05:09)
[2017-12-01] MEDS: VENlafaxine XR 75 MG (EFFEXOR XR) CAP PO SCH (05:09)
[2017-12-01 06:53] LABS: BASOPHILS % (AUTO) 0 % (0-10); EOSINOPHILS # (AUTO) 0.4 10^3/uL (0.0-0.3); EOSINOPHILS % (AUTO) 5 % (0-10); HEMATOCRIT 21 % (35-52); HEMOGLOBIN 7.1 G/DL (11.5-16.0); LYMPHOCYTES # (AUTO) 2.3 X 10^3 (1.0-4.0); LYMPHOCYTES % (AUTO) 28 % (12-44); MEAN CORPUSCULAR HEMOGLOBIN 32 PG (25-34); MEAN CORPUSCULAR HGB CONC 34 G/DL (32-36); MEAN CORPUSCULAR VOLUME 96 FL (80-99); MEAN PLATELET VOLUME 9.2 FL (7.4-10.4); MONOCYTES # (AUTO) 0.9 X 10^3 (0.0-1.0); MONOCYTES % (AUTO) 11 % (0-12); NEUTROPHILS # (AUTO) 4.6 X 10^3 (1.8-7.8); NEUTROPHILS % (AUTO) 57 % (42-75); PLATELET COUNT 91 10^3/uL (130-400); RED CELL DISTRIBUTION WIDTH 13.8 % (10.0-14.5); WHITE BLOOD COUNT 8.2 10^3/uL (4.3-11.0)
[2017-12-01] MEDS: RT-ALBUTEROL/IPRATROPIUM 3 ML (DUONEB) VIAL INH SCH ×3 (06:59→21:27)
[2017-12-01 07:17] LABS: ALANINE AMINOTRANSFERASE 7 U/L (0-55); ALBUMIN 3.1 GM/DL (3.2-4.5); ALKALINE PHOSPHATASE 65 U/L (40-136); BILIRUBIN,TOTAL 0.8 MG/DL (0.1-1.0); BUN/CREATININE RATIO 19; CALCIUM 9.3 MG/DL (8.5-10.1); CARBON DIOXIDE 21 MMOL/L (21-32); CHLORIDE 100 MMOL/L (98-107); CREATININE SERUM 0.77 MG/DL (0.60-1.30); GFR ESTIMATED > 60; GLUCOSE 104 MG/DL (70-105); POTASSIUM 4.5 MMOL/L (3.6-5.0); SODIUM 129 MMOL/L (135-145); TOTAL PROTEIN 5.9 GM/DL (6.4-8.2)
[2017-12-01 08:49] VITALS: BP 103/51
[2017-12-01] MEDS: NICOTINE 21 MG (NICODERM) PATCH TD SCH (09:47)
[2017-12-01] MEDS: lisINopril 40 MG (PRINIVIL) TABLET PO SCH (09:47)
[2017-12-01] MEDS: ENOXAPARIN 40 MG/0.4 ML (LOVENOX) SYR SC SCH (09:48)
[2017-12-01] MEDS: MEMANTINE 10 MG (NAMENDA) TABLET PO SCH ×2 (09:48→20:28)
[2017-12-01] MEDS: LACTULOSE SYRUP 10GM/15ML (ENULOSE) 30ML UDC PO SCH ×2 (09:48→20:27)
[2017-12-01] MEDS: LORATADINE (CLARITIN) 10 MG TAB PO SCH (09:48)
[2017-12-01] MEDS: POLYETHYLENE GLYCOL 17 GM (MIRALAX) PACK PO SCH ×2 (09:49→20:27)
[2017-12-01] MEDS: DOCUSATE SODIUM 100 MG (COLACE) CAP PO SCH ×2 (09:49→20:26)
[2017-12-01] MEDS: SENNA W/DOCUSATE (SENOKOT S) TABLET PO SCH ×2 (09:49→20:28)
--- NOTE | 2017-12-01 10:04 | Physical Therapy Daily Note ---
PT Daily Note-Current Subjective Patient agrees to PT. Pain Numeric Pain Scale: 6 Location: Left Location Body Site: Knee Pain Description: Acute Mental Status Patient Orientation: Normal For Age Transfers Functional [place] Measure 0=Not Assessed/NA 4=Minimal Assistance 1=Total Assistance 5=Supervision or Setup 2=Maximal Assistance 6=Modified [place] 3=Moderate Assistance 7=Complete IndependenceIRFPAI Quality Coding Scale 6 Independent with activity with or without an assistive device 5 Patient requires set up or clean up by helper. Patient completes activity by themselves 4 Supervision or touching assist (CGA). [place] provide cues , steadying assist 3 The helper provides less than half the effort to complete the activity 2 The helper provides more than half the effort to complete the activity 1 Dependent. The helper does all the effort to complete an activity 7 Patient refused to complete or attempt activity 9 The patient did not perform the activity before the current illness or injury 88 Not attempted due to Medical conditions or safety concerns Transfers (B, C, W/C) (FIM): 3 Scootin Rollin Supine to/from Sit: 3 Sit to/from Stand: 3 Bed to/from Chair: 3 Patient requires mod assist due to TTWB left LE and NWB right UE with use of hemiwalker in left UE Weight Bearing Right Lower Extremity: Right Full Weight Bearing Left Lower Extremity: Left Touch Toe Bearing no use of right shoulder Gait Training Gait (FIM): 1 Distance (FIM): 1=up to 49 ft Distance: 5 steps Gait Level of Assist: 3 Gait Persons Needed: 1 Gait Assistive Device: Walker Jerry quick step to gait sequence Exercises Supine Ex: Ankle pumps, Quad Set, Heel Slides (right le ONLY), Straight leg raise (AROM right LE/AAROM left LE) Supine Reps: 15 Seated Therapy Exercises: Ankle pumps, Long arc quads Seated Reps: 15 (right LE only) Assessment Patient tolerated treatment and is up in recliner with needs met. PT Short Term Goals Short Term Goals Time Frame: Dec 06, 2017 Transfers (B,C,W/C) (FIM): 6 Wheelchair (FIM): 5 Wheelchair Distance: 150' Wheelchair Level of Assist: 5 PT Plan Treatment/Plan Treatment Plan: Continue Plan of Care Treatment Plan: Bed Mobility, Education, Functional Activity Brando, Functional Strength, Gait, Safety, Therapeutic Exercise, Transfers Treatment Duration: Dec 06, 2017 Frequency: 11 times per week Estimated Hrs Per Day: .25 hour per day (15-30') Patient and/or Family Agrees t: Yes Time/GCodes Time In: 907 Time Out: 930 Total Billed Treatment Time: 23 Total Billed Treatment 1 visit EX 10 min FA 13 min EDITA NIETO PT Dec 01, 2017 10:04
--- NOTE | 2017-12-01 10:46 | Occupational Ther Daily Note ---
OT Current Status-Daily Note Subjective Pt alert, in shower with nrsg. Pt agrees to therapy. Mental Status/Objective Patient Orientation: Person, Place, Time, Situation Functional [place] Measure 0=Not Assessed/NA 4=Minimal Assistance 1=Total Assistance 5=Supervision or Setup 2=Maximal Assistance 6=Modified [place] 3=Moderate Assistance 7=Complete [place] Attachments: Knee Immobilizer ADL-Treatment Nrsg completed bathing, drying and dressing. Pt did assist as much as possible using L UE. Dependent at this time completing lower body dressing and manipulating clothing. Pt ambulated initially with 1 person though would use both UE's on karie walker, R UE NWB status, did not adhere to wt bearing status with upper/lower extremity. Pt fatigued intermediate through walking to bed from bathroom. Pt then needed encouragement and 2 person assist for safety. Mod A to go from sitting EOB to supine and assist to scoot up in bed. After therapy, nrsg present in room. Call light/phone in reach. Pt laying in bed. All needs met in room. Bathing (FIM): 2 Upper Body (FIM): 2 Lower Body Dressing (FIM): 1 Shower Transfer(FIM): 2 OT Short Term Goals Short Term Goals Transfers (B,C,W/C) (FIM): 6 1=Demonstrate adherence to instructed precautions during ADL tasks. 2=Patient will verbalize/demonstrate understanding of assistive devices/ modifications for ADL. 3=Patient will improve strength/tolerance for activity to enable patient to perform ADL's. OT Assisted Goals Yam Curer Goals Time Frame: November 30, 2017 Goals to be re-written and addressed once pt. has surgeries. 1=Demonstrate adherence to instructed precautions during ADL tasks. 2=Patient will verbalize/demonstrate understanding of assistive devices/ modifications for ADL. 3=Patient will improve strength/tolerance for activity to enable patient to perform ADL's. OT Education/Plan Discharge Recommendations Plan/Recommendations: Continue POC Treatment Plan/Plan of Care Patient would benefit from OT for education, treatment and training to promote independence in ADL's, mobility, safety and/or upper extremity function for ADL' s. Plan of Care: ADL Retraining, Functional Mobility Treatment Duration: Dec 05, 2017 Frequency: 5 times per week Estimated Hrs Per Day: .25 hour per day Agreement: Yes Rehab Potential: Fair Time/GCodes Start Time: 10:20 Stop Time: 10:40 Total Time Billed (hr/min): 40 Billed Treatment Time 1 visit-ADL 3 (40 min) MARBIN ROSALES Dec 01, 2017 10:46
[2017-12-01] MEDS ORDERED: OXYC-471 PO (11:05)
[2017-12-01] MEDS ORDERED: DOCU100C37 PO (11:05)
[2017-12-01] MEDS ORDERED: ENOX40DI8 SC (11:05)
[2017-12-01] MEDS ORDERED: NICO-588 TD (11:05)
[2017-12-01] MEDS ORDERED: IPRA3AMP INH (11:05)
[2017-12-01] MEDS ORDERED: ALPR0.5T7 PO (11:05)
[2017-12-01] MEDS ORDERED: LACT20SO2 PO (11:05)
[2017-12-01] MEDS ORDERED: FENT1PAT9 TD (11:05)
--- NOTE | 2017-12-01 11:08 | Discharge Inst-Skilled Nursing ---
Discharge Inst-Skilled NF Patient Instructions Patient Problems: Left patella fracture s/p repair Right proximal humerus fracture/shattered Depression Severe pain COPD Smoker Hyponatremia due to SIADH Severe anemia Goal: Return to independent living Consult/Follow Up/Orders Follow Up Appt.: [facility] for OR rounds Skilled NF Admit to: [facility] Certification (SNF) I certify that SNF services are required to be given on an inpatient basis because of the above named patient's need for shelter care on a continuing basis for the conditions(s) for which he/she was receiving inpatient hospital services prior to his/her transfer to the SNF. [facility] Facility Order: Nursing Services, Ingot Header-Evaluate & Treat, Physical Therapy-Evaluate & Treat Discharge Diet: No Restrictions, Other Diet (fluid restriction 1000cc/day) Daily Activity as Tolerated: Yes New & Resume Previous Orders Annamarie Aleman Dec 01, 2017 11:06 ANNAMARIE ALEMAN DO Dec 01, 2017 11:08
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
--- NOTE | 2017-12-01 14:51 | Physical Therapy Daily Note ---
PT Daily Note-Current Subjective Patient agrees to PT. Pain Numeric Pain Scale: 0-No Pain Location: No Pain Reported Mental Status Patient Orientation: Normal For Age Transfers Functional [place] Measure 0=Not Assessed/NA 4=Minimal Assistance 1=Total Assistance 5=Supervision or Setup 2=Maximal Assistance 6=Modified [place] 3=Moderate Assistance 7=Complete IndependenceIRFPAI Quality Coding Scale 6 Independent with activity with or without an assistive device 5 Patient requires set up or clean up by helper. Patient completes activity by themselves 4 Supervision or touching assist (CGA). [place] provide cues , steadying assist 3 The helper provides less than half the effort to complete the activity 2 The helper provides more than half the effort to complete the activity 1 Dependent. The helper does all the effort to complete an activity 7 Patient refused to complete or attempt activity 9 The patient did not perform the activity before the current illness or injury 88 Not attempted due to Medical conditions or safety concerns Transfers (B, C, W/C) (FIM): 2 Scootin Rollin Supine to/from Sit: 2 Sit to/from Stand: 2 Bed to/from Chair: 3 Patient demonstrates ability to maintain TTWB left LE with use of jerry walker Weight Bearing Right Lower Extremity: Right Full Weight Bearing Left Lower Extremity: Left Touch Toe Bearing no use of right shoulder Gait Training Gait (FIM): 1 Distance (FIM): 1=up to 49 ft Distance: 5' Gait Level of Assist: 3 Gait Persons Needed: 1 Gait Assistive Device: Walker Jerry decreased yovany and gait sequence/antalgic Exercises Supine Ex: Ankle pumps, Quad Set Supine Reps: 15 (AAROM left LE) Assessment Patient progressing slowly with treatment. PT to continue to increase activity as tolerated by patient. PT Short Term Goals Short Term Goals Time Frame: Dec 06, 2017 Transfers (B,C,W/C) (FIM): 6 Wheelchair (FIM): 5 Wheelchair Distance: 150' Wheelchair Level of Assist: 5 PT Plan Treatment/Plan Treatment Plan: Continue Plan of Care Treatment Plan: Bed Mobility, Education, Functional Activity Brando, Functional Strength, Gait, Safety, Therapeutic Exercise, Transfers Treatment Duration: Dec 06, 2017 Frequency: 11 times per week Estimated Hrs Per Day: .25 hour per day (15-30') Patient and/or Family Agrees t: Yes Time/GCodes Time In: 1401 Time Out: 1416 Total Billed Treatment Time: 15 Total Billed Treatment 1 visit FA 15 min EDITA NIETO PT Dec 01, 2017 14:50
[2017-12-01 16:59] VITALS: BP 120/55
[2017-12-01] MEDS: LURASIDONE 80 MG (LATUDA) TABLET NON-FORMULARY PO SCH (18:27)
[2017-12-01] MEDS: traZODone 50 MG (DESYREL) TAB PO SCH (20:26)
[2017-12-01] MEDS: MELATONIN 3 MG TABLET PO SCH (20:27)
[2017-12-01] MEDS: ALPRAZolam 0.5 MG (XANAX) TAB PO PRN (20:28)
[2017-12-01] MEDS: MONTELUKAST 10 MG (SINGULAIR) TAB PO SCH (20:28)
[2017-12-01] MEDS: SIMvastatin 40 MG (ZOCOR) TAB PO SCH (20:28)
[2017-12-01 23:04] VITALS: BP 118/58
[2017-12-02] MEDS: oxyCODONE/APAP 5/325MG (PERCOCET 5) TABLET PO PRN ×4 (03:41→20:15)
[2017-12-02] MEDS: VENlafaxine XR 75 MG (EFFEXOR XR) CAP PO SCH (05:59)
[2017-12-02] MEDS: KCL 20 MEQ TAB (K-DUR) PO SCH (05:59)
[2017-12-02] MEDS: MULTIVIT W/MINERALS TAB (THERAGRAN M) PO SCH (05:59)
[2017-12-02] MEDS: PANTOPRAZOLE 20 MG TABLET (PROTONIX) PO SCH (05:59)
[2017-12-02] MEDS: RT-ALBUTEROL/IPRATROPIUM 3 ML (DUONEB) VIAL INH SCH ×3 (07:05→21:28)
[2017-12-02 07:35] VITALS: BP 120/58
--- NOTE | 2017-12-02 08:54 | Progress Note (SOAP) ---
Subjective Subjective/Events-last exam Patient doing well this AM. States that she would like to sit up in chair. States that pain is well controlled. Tolerating PO diet. Review of Systems Date Seen by Provider: Dec 02, 2017 Time Seen by Provider: 07:25 Pulmonary: No Dyspnea, No Cough Cardiovascular: No: Chest Pain, Palpitations Musculoskeletal: shoulder pain Objective Exam Last Set of Vital Signs Vital Signs Date Time Temp Pulse Resp B/P (MAP) Pulse Ox O2 Delivery O2 Flow Rate FiO2 12/02/17 07:35 98.2 95 18 120/58 (78) 94 Room Air Capillary Refill : Less Than 3 SecondsLess Than 3 Seconds I&O Intake and Output 12/02/17 00:00 Intake Total 760 ml Output Total 1201 ml Balance -441 ml Intake Oral 760 ml Output Urine Total 1050 ml Gastric Drainage Total 1 ml Estimated Blood Loss 150 ml # Voids 7 # Bowel Movements 1 General: Alert, Oriented X3, Cooperative, No Acute Distress HEENT: Mucous Memb Moist/[place] Lungs: Clear to Auscultation, Normal Air Movement Heart: Regular Rate, No Murmurs Extremities: Other (RUE in sling, no swelling or erythema present) Results/Procedures Lab Laboratory Tests 12/02/17 08:14: Microbiology 11/27/17 MRSA Screen - Final, Complete MRSA not isolated Assessment/Plan Assessment/Plan (1) Patella fracture Status: Acute Qualifiers: Qualified Codes: S82.002A - Unspecified fracture of left patella, initial encounter for closed fracture (2) Closed fracture of right proximal humerus Status: Acute Assessment & Plan: - Pain well controlled Qualifiers: Qualified Codes: S42.291A - Other displaced fracture of upper end of right humerus, initial encounter for closed fracture (3) Hyponatremia Status: Acute Assessment & Plan: - Likely nutritional will continue to monitor (4) Hypertension Status: Chronic Qualifiers: Qualified Codes: I10 - Essential (primary) hypertension (5) Depression Status: Chronic Qualifiers: Qualified Codes: F32.9 - Major depressive disorder, single episode, unspecified (6) Anxiety Status: Chronic (7) Constipation Status: Resolved Qualifiers: Qualified Codes: K59.04 - Chronic idiopathic constipation (8) Low back pain Status: Chronic Qualifiers: Qualified Codes: M54.5 - Low back pain (9) Smoker Status: Chronic (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
[2017-12-02] MEDS: NICOTINE 21 MG (NICODERM) PATCH TD SCH (09:05)
[2017-12-02] MEDS: DOCUSATE SODIUM 100 MG (COLACE) CAP PO SCH ×2 (09:05→20:15)
[2017-12-02] MEDS: MEMANTINE 10 MG (NAMENDA) TABLET PO SCH ×2 (09:05→20:15)
[2017-12-02] MEDS: POLYETHYLENE GLYCOL 17 GM (MIRALAX) PACK PO SCH ×2 (09:05→20:16)
[2017-12-02] MEDS: lisINopril 40 MG (PRINIVIL) TABLET PO SCH (09:05)
[2017-12-02] MEDS: LACTULOSE SYRUP 10GM/15ML (ENULOSE) 30ML UDC PO SCH ×2 (09:05→20:15)
[2017-12-02] MEDS: SENNA W/DOCUSATE (SENOKOT S) TABLET PO SCH ×2 (09:05→20:15)
[2017-12-02] MEDS: LORATADINE (CLARITIN) 10 MG TAB PO SCH (09:05)
[2017-12-02] MEDS: IRON SUCROSE 200 MG/10 ML (VENOFER) VIAL IV SCH (09:06)
--- NOTE | 2017-12-02 09:38 | Physical Therapy Daily Note ---
PT Daily Note-Current Subjective Patient agrees to PT. Pain Numeric Pain Scale: 0-No Pain Location: No Pain Reported Mental Status Patient Orientation: Normal For Age Transfers Functional [place] Measure 0=Not Assessed/NA 4=Minimal Assistance 1=Total Assistance 5=Supervision or Setup 2=Maximal Assistance 6=Modified [place] 3=Moderate Assistance 7=Complete IndependenceIRFPAI Quality Coding Scale 6 Independent with activity with or without an assistive device 5 Patient requires set up or clean up by helper. Patient completes activity by themselves 4 Supervision or touching assist (CGA). [place] provide cues , steadying assist 3 The helper provides less than half the effort to complete the activity 2 The helper provides more than half the effort to complete the activity 1 Dependent. The helper does all the effort to complete an activity 7 Patient refused to complete or attempt activity 9 The patient did not perform the activity before the current illness or injury 88 Not attempted due to Medical conditions or safety concerns Transfers (B, C, W/C) (FIM): 3 Scootin Rollin Supine to/from Sit: 3 Sit to/from Stand: 4 Weight Bearing Right Lower Extremity: Right Full Weight Bearing Left Lower Extremity: Left Touch Toe Bearing no use of right shoulder Gait Training Gait (FIM): 1 Distance (FIM): 1=up to 49 ft Distance: 30' Gait Level of Assist: 3 Gait Persons Needed: 1 Gait Assistive Device: Walker Jerry TTWB left LE with PT assist to maintain Assessment Patient tolerated treatment well and returned to bed with mod assist. PT Short Term Goals Short Term Goals Time Frame: Dec 06, 2017 Transfers (B,C,W/C) (FIM): 6 Wheelchair (FIM): 5 Wheelchair Distance: 150' Wheelchair Level of Assist: 5 PT Plan Treatment/Plan Treatment Plan: Continue Plan of Care Treatment Plan: Bed Mobility, Education, Functional Activity Brando, Functional Strength, Gait, Safety, Therapeutic Exercise, Transfers Treatment Duration: Dec 06, 2017 Frequency: 11 times per week Estimated Hrs Per Day: .25 hour per day (15-30') Patient and/or Family Agrees t: Yes Time/GCodes Time In: 910 Time Out: 920 Total Billed Treatment Time: 10 Total Billed Treatment 1 visit GT 10 min EDITA NIETO PT Dec 02, 2017 09:38
[2017-12-02] MEDS: ALPRAZolam 0.5 MG (XANAX) TAB PO PRN ×2 (10:03→20:15)
[2017-12-02 16:00] VITALS: BP 137/64
[2017-12-02] MEDS: LURASIDONE 80 MG (LATUDA) TABLET NON-FORMULARY PO SCH (18:26)
[2017-12-02] MEDS: MONTELUKAST 10 MG (SINGULAIR) TAB PO SCH (20:15)
[2017-12-02] MEDS: MELATONIN 3 MG TABLET PO SCH (20:15)
[2017-12-02] MEDS: SIMvastatin 40 MG (ZOCOR) TAB PO SCH (20:16)
[2017-12-02] MEDS: traZODone 50 MG (DESYREL) TAB PO SCH (20:16)
[2017-12-02 23:53] VITALS: BP 104/53
[2017-12-03] MEDS: oxyCODONE/APAP 5/325MG (PERCOCET 5) TABLET PO PRN ×4 (02:52→17:10)
[2017-12-03 05:23] LABS: BASOPHILS % (AUTO) 0 % (0-10); EOSINOPHILS # (AUTO) 0.4 10^3/uL (0.0-0.3); EOSINOPHILS % (AUTO) 6 % (0-10); HEMATOCRIT 21 % (35-52); LYMPHOCYTES # (AUTO) 1.4 X 10^3 (1.0-4.0); LYMPHOCYTES % (AUTO) 20 % (12-44); MEAN CORPUSCULAR HEMOGLOBIN 32 PG (25-34); MEAN CORPUSCULAR HGB CONC 33 G/DL (32-36); MEAN CORPUSCULAR VOLUME 98 FL (80-99); MEAN PLATELET VOLUME 9.4 FL (7.4-10.4); MONOCYTES % (AUTO) 13 % (0-12); NEUTROPHILS # (AUTO) 4.5 X 10^3 (1.8-7.8); NEUTROPHILS % (AUTO) 61 % (42-75); PLATELET COUNT 109 10^3/uL (130-400); RED BLOOD COUNT 2.17 10^6/uL (4.35-5.85); RED CELL DISTRIBUTION WIDTH 14.7 % (10.0-14.5); WHITE BLOOD COUNT 7.4 10^3/uL (4.3-11.0)
[2017-12-03] MEDS: fentaNYL PATCH 50 MCG (DURAGESIC) TD SCH (06:17)
[2017-12-03] MEDS: KCL 20 MEQ TAB (K-DUR) PO SCH (06:17)
[2017-12-03] MEDS: PANTOPRAZOLE 20 MG TABLET (PROTONIX) PO SCH (06:17)
[2017-12-03] MEDS: MULTIVIT W/MINERALS TAB (THERAGRAN M) PO SCH (06:17)
[2017-12-03] MEDS: VENlafaxine XR 75 MG (EFFEXOR XR) CAP PO SCH (06:17)
[2017-12-03] MEDS: RT-ALBUTEROL/IPRATROPIUM 3 ML (DUONEB) VIAL INH SCH ×3 (06:52→22:15)
[2017-12-03 08:00] VITALS: BP 125/69
[2017-12-03 08:30] VITALS: BP 125/69
[2017-12-03] MEDS: LORATADINE (CLARITIN) 10 MG TAB PO SCH (09:09)
[2017-12-03] MEDS: lisINopril 40 MG (PRINIVIL) TABLET PO SCH (09:09)
[2017-12-03] MEDS: DOCUSATE SODIUM 100 MG (COLACE) CAP PO SCH ×2 (09:09→20:15)
[2017-12-03] MEDS: MEMANTINE 10 MG (NAMENDA) TABLET PO SCH ×2 (09:09→20:15)
--- NOTE | 2017-12-03 09:13 | Physical Therapy Daily Note ---
PT Daily Note-Current Subjective Patient agrees to PT. Pain Numeric Pain Scale: 3 Location: Left Location Body Site: Knee Pain Description: Acute Mental Status Patient Orientation: Normal For Age Transfers Functional [place] Measure 0=Not Assessed/NA 4=Minimal Assistance 1=Total Assistance 5=Supervision or Setup 2=Maximal Assistance 6=Modified [place] 3=Moderate Assistance 7=Complete IndependenceIRFPAI Quality Coding Scale 6 Independent with activity with or without an assistive device 5 Patient requires set up or clean up by helper. Patient completes activity by themselves 4 Supervision or touching assist (CGA). [place] provide cues , steadying assist 3 The helper provides less than half the effort to complete the activity 2 The helper provides more than half the effort to complete the activity 1 Dependent. The helper does all the effort to complete an activity 7 Patient refused to complete or attempt activity 9 The patient did not perform the activity before the current illness or injury 88 Not attempted due to Medical conditions or safety concerns Transfers (B, C, W/C) (FIM): 3 Scootin Supine to/from Sit: 3 Sit to/from Stand: 4 Bed to/from Chair: 4 Patient is able to TTWB left LE with jerry walker. Continues to have difficulty with bed mobility. Weight Bearing Right Lower Extremity: Right Full Weight Bearing Left Lower Extremity: Left Touch Toe Bearing no use of right shoulder Gait Training Gait (FIM): 1 Distance (FIM): 1=up to 49 ft Distance: 15' x 2 Gait Level of Assist: 3 Gait Assistive Device: Walker Jerry decrease yovany and quick step right LE with use of jerry walker and mod assist by PT. Exercises Supine Ex: Ankle pumps, Quad Set, Heel Slides (right LE), Straight leg raise Supine Reps: 15 (AAROM left LE) Seated Therapy Exercises: Long arc quads Seated Reps: 20 (right LE only) Assessment Patient is up in recliner with needs met. From a PT standpoint, patient will require extended care facility to ensure proper healing to return to home with family. PT Short Term Goals Short Term Goals Time Frame: Dec 06, 2017 Transfers (B,C,W/C) (FIM): 6 Wheelchair (FIM): 5 Wheelchair Distance: 150' Wheelchair Level of Assist: 5 PT Plan Treatment/Plan Treatment Plan: Continue Plan of Care Treatment Plan: Bed Mobility, Education, Functional Activity Brando, Functional Strength, Gait, Safety, Therapeutic Exercise, Transfers Treatment Duration: Dec 06, 2017 Frequency: 11 times per week Estimated Hrs Per Day: .25 hour per day (15-30') Patient and/or Family Agrees t: Yes Time/GCodes Time In: 805 Time Out: 828 Total Billed Treatment Time: 23 Total Billed Treatment 1 visit GT 14 min Ex 9 min EDITA NIETO PT Dec 03, 2017 09:13
[2017-12-03] MEDS: SENNA W/DOCUSATE (SENOKOT S) TABLET PO SCH ×2 (09:16→20:16)
[2017-12-03] MEDS: NICOTINE 21 MG (NICODERM) PATCH TD SCH (09:16)
[2017-12-03] MEDS: LACTULOSE SYRUP 10GM/15ML (ENULOSE) 30ML UDC PO SCH ×2 (09:16→20:16)
[2017-12-03] MEDS: POLYETHYLENE GLYCOL 17 GM (MIRALAX) PACK PO SCH ×2 (09:16→20:16)
--- NOTE | 2017-12-03 13:46 | Progress Note (SOAP) ---
Subjective Subjective/Events-last exam Patient sitting up in chair. Pain well controlled. BM this AM. Tolerating PO diet Review of Systems Date Seen by Provider: Dec 03, 2017 Time Seen by Provider: 11:25 Pulmonary: No Dyspnea, No Cough Cardiovascular: No: Chest Pain, Palpitations Gastrointestinal: No: Nausea, Vomiting Musculoskeletal: shoulder pain Objective Exam Last Set of Vital Signs Vital Signs Date Time Temp Pulse Resp B/P (MAP) Pulse Ox O2 Delivery O2 Flow Rate FiO2 12/03/17 08:30 97.1 84 18 125/69 (87) 96 Room Air Capillary Refill : Less Than 3 SecondsLess Than 3 Seconds I&O Intake and Output 12/03/17 00:00 Intake Total 1060 ml Balance 1060 ml Intake Oral 1060 ml # Voids 3 # Bowel Movements 2 General: Alert, Oriented X3, Cooperative, No Acute Distress HEENT: Mucous Memb Moist/[place] Lungs: Clear to Auscultation, Normal Air Movement Heart: Regular Rate, No Murmurs Extremities: No Clubbing, No Cyanosis, No Edema, No Tenderness/Swelling Results/Procedures Lab Laboratory Tests 12/03/17 04:54: White Blood Count 7.4, Red Blood Count 2.17L, Hemoglobin 7.0L, Hematocrit 21L, Mean Corpuscular Volume 98, Mean Corpuscular Hemoglobin 32, Mean Corpuscular Hemoglobin Concent 33, Red Cell Distribution Width 14.7H, Platelet Count 109L, Mean Platelet Volume 9.4, Neutrophils (%) (Auto) 61, Lymphocytes (%) (Auto) 20, Monocytes (%) (Auto) 13H, Eosinophils (%) (Auto) 6, Basophils (%) (Auto) 0, Neutrophils # (Auto) 4.5, Lymphocytes # (Auto) 1.4, Monocytes # (Auto) 1.0, Eosinophils # (Auto) 0.4H, Basophils # (Auto) 0.0 Microbiology 11/27/17 MRSA Screen - Final, Complete MRSA not isolated Assessment/Plan Assessment/Plan (1) Patella fracture Status: Acute Qualifiers: Qualified Codes: S82.002A - Unspecified fracture of left patella, initial encounter for closed fracture (2) Closed fracture of right proximal humerus Status: Acute Assessment & Plan: - Pain well controlled, Shoulder in sling Qualifiers: Qualified Codes: S42.291A - Other displaced fracture of upper end of right humerus, initial encounter for closed fracture (3) Hyponatremia Status: Acute Assessment & Plan: - BMP in AM (4) Hypertension Status: Chronic Assessment & Plan: - controlled Qualifiers: Qualified Codes: I10 - Essential (primary) hypertension (5) Depression Status: Chronic Qualifiers: Qualified Codes: F32.9 - Major depressive disorder, single episode, unspecified (6) Anxiety Status: Chronic (7) Constipation Status: Resolved Qualifiers: Qualified Codes: K59.04 - Chronic idiopathic constipation (8) Low back pain Status: Chronic Qualifiers: Qualified Codes: M54.5 - Low back pain (9) Smoker Status: Chronic (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
[2017-12-03 16:00] VITALS: BP 139/63
[2017-12-03] MEDS: ALPRAZolam 0.5 MG (XANAX) TAB PO PRN (16:39)
[2017-12-03] MEDS: LURASIDONE 80 MG (LATUDA) TABLET NON-FORMULARY PO SCH (17:10)
[2017-12-03 20:00] VITALS: BP 159/71
[2017-12-03] MEDS: MELATONIN 3 MG TABLET PO SCH (20:15)
[2017-12-03] MEDS: traZODone 50 MG (DESYREL) TAB PO SCH (20:15)
[2017-12-03] MEDS: MONTELUKAST 10 MG (SINGULAIR) TAB PO SCH (20:15)
[2017-12-03] MEDS: SIMvastatin 40 MG (ZOCOR) TAB PO SCH (20:15)
[2017-12-03 23:32] VITALS: BP 152/68
[2017-12-04] MEDS: oxyCODONE/APAP 5/325MG (PERCOCET 5) TABLET PO PRN ×3 (01:20→11:50)
[2017-12-04 05:55] LABS: BASOPHILS % (AUTO) 1 % (0-10); EOSINOPHILS # (AUTO) 0.5 10^3/uL (0.0-0.3); EOSINOPHILS % (AUTO) 8 % (0-10); HEMATOCRIT 22 % (35-52); HEMOGLOBIN 7.6 G/DL (11.5-16.0); LYMPHOCYTES # (AUTO) 1.6 X 10^3 (1.0-4.0); LYMPHOCYTES % (AUTO) 27 % (12-44); MEAN CORPUSCULAR HEMOGLOBIN 34 PG (25-34); MEAN CORPUSCULAR HGB CONC 35 G/DL (32-36); MEAN CORPUSCULAR VOLUME 97 FL (80-99); MEAN PLATELET VOLUME 9.4 FL (7.4-10.4); MONOCYTES # (AUTO) 0.9 X 10^3 (0.0-1.0); MONOCYTES % (AUTO) 14 % (0-12); NEUTROPHILS % (AUTO) 51 % (42-75); PLATELET COUNT 105 10^3/uL (130-400); RED BLOOD COUNT 2.26 10^6/uL (4.35-5.85); RED CELL DISTRIBUTION WIDTH 14.6 % (10.0-14.5)
[2017-12-04] MEDS: KCL 20 MEQ TAB (K-DUR) PO SCH (06:12)
[2017-12-04] MEDS: VENlafaxine XR 75 MG (EFFEXOR XR) CAP PO SCH (06:13)
[2017-12-04] MEDS: MULTIVIT W/MINERALS TAB (THERAGRAN M) PO SCH (06:13)
[2017-12-04] MEDS: PANTOPRAZOLE 20 MG TABLET (PROTONIX) PO SCH (06:13)
[2017-12-04 06:15] LABS: BUN/CREATININE RATIO 14; CALCIUM 9.2 MG/DL (8.5-10.1); CARBON DIOXIDE 18 MMOL/L (21-32); CHLORIDE 96 MMOL/L (98-107); CREATININE SERUM 0.79 MG/DL (0.60-1.30); GFR ESTIMATED > 60; GLUCOSE 142 MG/DL (70-105)
[2017-12-04 06:23] LABS: SODIUM 125 MMOL/L (135-145)
[2017-12-04] MEDS: RT-ALBUTEROL/IPRATROPIUM 3 ML (DUONEB) VIAL INH SCH (06:39)
[2017-12-04 08:00] VITALS: BP 131/58
[2017-12-04] MEDS: POLYETHYLENE GLYCOL 17 GM (MIRALAX) PACK PO SCH (08:18)
[2017-12-04] MEDS: SENNA W/DOCUSATE (SENOKOT S) TABLET PO SCH (08:19)
[2017-12-04] MEDS: DOCUSATE SODIUM 100 MG (COLACE) CAP PO SCH (08:37)
[2017-12-04] MEDS: lisINopril 40 MG (PRINIVIL) TABLET PO SCH (08:37)
[2017-12-04] MEDS: MEMANTINE 10 MG (NAMENDA) TABLET PO SCH (08:37)
[2017-12-04] MEDS: IRON SUCROSE 200 MG/10 ML (VENOFER) VIAL IV SCH (08:37)
[2017-12-04] MEDS: LACTULOSE SYRUP 10GM/15ML (ENULOSE) 30ML UDC PO SCH (08:38)
[2017-12-04] MEDS: NICOTINE 21 MG (NICODERM) PATCH TD SCH (08:38)
[2017-12-04] MEDS: LORATADINE (CLARITIN) 10 MG TAB PO SCH (08:44)
--- NOTE | 2017-12-04 09:45 | Physical Therapy Daily Note ---
PT Daily Note-Current Subjective Patient agrees to PT. No c/o. Pain Numeric Pain Scale: 5-Moderate Pain Location: Left Location Body Site: Knee Pain Description: Acute Mental Status Patient Orientation: Normal For Age Transfers Functional [place] Measure 0=Not Assessed/NA 4=Minimal Assistance 1=Total Assistance 5=Supervision or Setup 2=Maximal Assistance 6=Modified [place] 3=Moderate Assistance 7=Complete IndependenceIRFPAI Quality Coding Scale 6 Independent with activity with or without an assistive device 5 Patient requires set up or clean up by helper. Patient completes activity by themselves 4 Supervision or touching assist (CGA). [place] provide cues , steadying assist 3 The helper provides less than half the effort to complete the activity 2 The helper provides more than half the effort to complete the activity 1 Dependent. The helper does all the effort to complete an activity 7 Patient refused to complete or attempt activity 9 The patient did not perform the activity before the current illness or injury 88 Not attempted due to Medical conditions or safety concerns Transfers (B, C, W/C) (FIM): 4 Scootin Supine to/from Sit: 5 Sit to/from Stand: 4 Weight Bearing Right Lower Extremity: Right Full Weight Bearing Left Lower Extremity: Left Touch Toe Bearing no use of right shoulder Gait Training Gait (FIM): 1 Distance (FIM): 1=up to 49 ft Distance: 25' Gait Level of Assist: 4 Gait Persons Needed: 1 Gait Assistive Device: Walker Jerry did have difficulty with maintaining TTWB left LE on this date. Exercises Supine Ex: Ankle pumps, Quad Set, Straight leg raise Supine Reps: 15 Seated Therapy Exercises: Long arc quads (right LE) Seated Reps: 25 Assessment Patient returned to bed with needs met. Patient had difficulty maintaining TTWB left LE with use of jerry walker. PT Short Term Goals Short Term Goals Time Frame: Dec 06, 2017 Transfers (B,C,W/C) (FIM): 6 Wheelchair (FIM): 5 Wheelchair Distance: 150' Wheelchair Level of Assist: 5 PT Plan Treatment/Plan Treatment Plan: Continue Plan of Care Treatment Plan: Bed Mobility, Education, Functional Activity [place], Functional Strength, Gait, Safety, Therapeutic Exercise, Transfers Treatment Duration: Dec 06, 2017 Frequency: 11 times per week Estimated Hrs Per Day: .25 hour per day (15-30') Patient and/or Family Agrees t: Yes Time/GCodes Time In: 820 Time Out: 843 Total Billed Treatment Time: 23 Total Billed Treatment 1 visit EX 13 min GT 10 min EDITA NIETO PT Dec 04, 2017 09:45
--- NOTE | 2017-12-04 11:08 | Discharge Summary ---
Diagnosis/Chief Complaint Date of Admission November 26, 2017 at 22:35 Date of Discharge 12/04/2017 Admission Diagnosis Admission Diagnosis Patellar Fracture s/p repair Right Humeral Fracture Hyponatremia SIADH HTN Depression Constipation 2/2 Opioid medication Iron Deficiency Anemia Discharge Diagnosis See Above Chief Complaint/HPI Chief Complaint/HPI See H&P Dr Aleman Discharge Summary-Simple/Stand Procedures Patellar fracture repair Consultations Ortho Discharge Physical Examination Allergies: Coded Allergies: aspirin (Verified Allergy, Unknown, 11/30/07) desvenlafaxine (Verified Allergy, Unknown, NAUSEA, 11/05/15) Vitals & I&Os Vital Sign - Last 12Hours Date Time Temp Pulse Resp B/P (MAP) Pulse Ox O2 Delivery O2 Flow Rate FiO2 12/04/17 08:00 96 Room Air 12/04/17 08:00 99.0 87 16 131/58 (82) Intake and Output 12/04/17 00:00 Intake Total 1020 ml Balance 1020 ml General Appearance: Alert, Oriented X3, Cooperative HEENT: Mucous Memb Moist/[place] Respiratory: Clear to Auscultation, Normal Air Movement Cardiovascular: Regular Rate, No Murmurs Abdominal: Normal Bowel Sounds, Soft, No Tenderness, No Masses Extremities: No Edema, Other Skin: No Rashes Neuro: Normal Speech, Strength at 5/5 X4 Ext, Sensation Intact, Cranial Nerves 3-12 NL Psych/Mental Status: Mental Status NL, Mood NL Hospital Course See final discharge diagnosis. Discussion & Recommendations 62 yo F admitted after fall with multiple orthopedic injuries Patellar Fracture s/p repair: Repaired upon admission by Ortho. Right Humeral Fracture: Placed in brace and will get repaired as outpatient Hyponatremia: Stable. No change in mental status, Improved during admission SIADH HTN: At baseline. Continued on home meds Depression: Continued on home meds Constipation 2/2 Opioid medication: Started on bowel medications due to pain medication Iron Deficiency Anemia: Patient received 4 doses of venefer during admission. Will not due PO replacement due to risk of more constipation. Patient was discharge to SNF for PT, Will be seen in SNF by [facility] Discharge Condition at discharge Stable Instructions to patient/family Please see electronic discharge instructions given to patient. Discharge Medications Reviewed and agree with Discharge Medication list on patient's Discharge Instruction sheet Clinical Quality Measures DVT/VTE Risk/Contraindication: Risk Factor Score Per Nursin RFS Level Per Nursing on Admit: 4+=Very High Copy Copies To 1: Pushpa YOUNGBLOOD HOLLY R MD Dec 04, 2017 11:08
== END 2017-12-04 11:52 | DRG 501 ==
LOC: EDUNIT# 21:43 → ER 21:44 → 4TH 22:35
PROVIDERS: ADMIT Family Medicine; ATTEND Family Medicine
PROC: 0KQR0ZZ Repair Left Upper Leg Muscle, Open Approach (ICD-10-PCS; 2017-11-28)
PROC: 0LC Tendons, Extirpation (ICD-10-PCS; 2017-11-28)
PROC: 0LMR0ZZ Reattachment of Left Knee Tendon, Open Approach (ICD-10-PCS; principal; 2017-11-28 16:15)
DX: S82.032A Displaced transverse fracture of left patella, initial encounter for closed fracture (principal); S76.892A Other injury of other specified muscles, fascia and tendons at thigh level, left thigh, initial encounter; S42.241A 4-part fracture of surgical neck of right humerus, initial encounter for closed fracture; D62 Acute posthemorrhagic anemia; E22.2 Syndrome of inappropriate secretion of antidiuretic hormone; M89.8X0 Other specified disorders of bone, multiple sites; M83.9 Adult osteomalacia, unspecified; T50.2X5A Adverse effect of carbonic-anhydrase inhibitors, benzothiadiazides and other diuretics, initial encounter; F11.20 Opioid dependence, uncomplicated; I10 Essential (primary) hypertension; B19.20 Unspecified viral hepatitis C without hepatic coma; J44.9 Chronic obstructive pulmonary disease, unspecified; E61.1 Iron deficiency; F32.9 Major depressive disorder, single episode, unspecified; K59.04 Chronic idiopathic constipation; M54.5 Low back pain; F17.210 Nicotine dependence, cigarettes, uncomplicated; F41.9 Anxiety disorder, unspecified; E78.00 Pure hypercholesterolemia, unspecified; K21.9 Gastro-esophageal reflux disease without esophagitis; G25.81 Restless legs syndrome; R25.1 Tremor, unspecified; G43.909 Migraine, unspecified, not intractable, without status migrainosus; F12.90 Cannabis use, unspecified, uncomplicated; W01.198A Fall on same level from slipping, tripping and stumbling with subsequent striking against other object, initial encounter; Y92.89 Other specified places as the place of occurrence of the external cause
CPT/HCPCS: 36415; 73200; 80048; 80053; 82728; 83540; 85025; 86850; 86900; 86901; 87081; 94640; 94664; 94760; 96374; 96375; 99284

== ENCOUNTER 2018-01-18 19:07 | Emergency (ER) | payer MEDICARE ==
[~2018-01-18] VITALS: Ht 162.6 cm; Wt 72.6 kg
[~2018-01-18 19:07] MED LIST changes: +ACHD5005 PO; +ALPR0.5T7 PO; +DOCU100C37 PO; +ENOX40DI8 SC; +FENT1PAT9 TD; +FERR325T24 PO; +FEXO-46 PO; +IPRA3AMP31 INH; +LACT20SO2 PO; +LURA80TA3 PO; +MELA3TAB PO; +MEMA10TA2 PO; +MONT10TA21 PO; +NICO-588 TD; +OXYC-471 PO; +POTA20TA15 PO; +SIMV40TA4 PO; +TRAZ-189 PO; -TRAZ-28 PO; +VENL150C98 PO
[2018-01-18] MEDS ORDERED: NS IV 1000 ML 1,000 ML IV SCH (19:30)
[2018-01-18] MEDS ORDERED: ONDANSETRON 4 MG/2 ML (SDV) Z0FRAN IVP ONE (19:30)
[2018-01-18 19:34] LABS: BASOPHILS % (AUTO) 0 % (0-10); EOSINOPHILS # (AUTO) 0.3 10^3/uL (0.0-0.3); EOSINOPHILS % (AUTO) 3 % (0-10); HEMATOCRIT 34 % (35-52); HEMOGLOBIN 11.8 G/DL (11.5-16.0); LYMPHOCYTES # (AUTO) 1.4 X 10^3 (1.0-4.0); LYMPHOCYTES % (AUTO) 17 % (12-44); MEAN CORPUSCULAR HEMOGLOBIN 32 PG (25-34); MEAN CORPUSCULAR HGB CONC 35 G/DL (32-36); MEAN CORPUSCULAR VOLUME 92 FL (80-99); MEAN PLATELET VOLUME 9.8 FL (7.4-10.4); MONOCYTES # (AUTO) 0.8 X 10^3 (0.0-1.0); MONOCYTES % (AUTO) 10 % (0-12); NEUTROPHILS # (AUTO) 5.9 X 10^3 (1.8-7.8); NEUTROPHILS % (AUTO) 71 % (42-75); PLATELET COUNT 79 10^3/uL (130-400); RED CELL DISTRIBUTION WIDTH 13.3 % (10.0-14.5); WHITE BLOOD COUNT 8.4 10^3/uL (4.3-11.0)
--- NOTE | 2018-01-18 19:37 | ED Abdominal Pain ---
General Chief Complaint: Abdominal/GI Problems Stated Complaint: ABD PAIN Nursing Triage Note: pt reports abdominal pain x 4 days. Pt states normal bm yesterday. pt denies vomiting or diahrrea but reports nausea. Sepsis Screen: No Definite Risk Source of Information: Patient Exam Limitations: No Limitations History of Present Illness Date Seen by Provider: Jan 18, 2018 Time Seen by Provider: 19:34 Initial Comments to ER with reports of epigastric abdominal pain for about 4 days. She's had nausea but no vomiting. She denies diarrhea. She states she had a normal bowel movement yesterday. She denies fevers or chills. She normally takes pain medication 4 times daily but she quit taking it about 3-4 days ago because she states that her son keeps her medication and he is "stingy with it" . Timing/Duration: 3-4 Days Severity/Quality: Moderate Location: Epigastric Radiation: No Radiation Activities at Onset: None Allergies and Home Medications Allergies Coded Allergies: aspirin (Verified Allergy, Unknown, 11/30/07) desvenlafaxine (Verified Allergy, Unknown, NAUSEA, 11/05/15) Home Medications Alprazolam 0.5 Mg Tablet, 0.5 MG PO BID PRN for ANXIETY Prescribed by: FELIBERTO JOHNSTON on 12/01/171104 Docusate Sodium 100 Mg Capsule, 100 MG PO BID Prescribed by: FELIBERTO JOHNSTON on 12/01/171104 Enoxaparin Sodium 40 Mg/0.4 Ml Syringe, 40 MG SC DAILY Prescribed by: FELIBERTO JOHNSTON on 12/01/17 110 Fentanyl 1 Each Patch.td72, 50 MCG TD Q72H Prescribed by: FELIBERTO JOHNSTON on 12/01/171104 Fexofenadine HCl 180 Mg Tablet, 180 MG PO DAILY, (Reported) Ipratropium/Albuterol Sulfate 3 Ml Ampul.neb, 3 ML INH RTQ8HR Prescribed by: FELIBERTO JOHNSTON on 12/01/171104 Lactulose 20 Gm/30 Ml Solution, 10 GM PO BID Prescribed by: FELIBERTO JOHNSTON on 12/01/171104 Lisinopril 40 Mg Tablet, 40 MG PO DAILY, (Reported) Lurasidone HCl 80 Mg Tablet, 80 MG PO 1800, (Reported) Melatonin 3 Mg Tablet, 3 MG PO HS, (Reported) Memantine HCl 10 Mg Tablet, 10 MG PO BID, (Reported) Montelukast Sodium 10 Mg Tablet, 10 MG PO HS, (Reported) Nicotine 1 Each Patch.td24, 21 MG TD DAILY@0900 Prescribed by: FELIBERTO JOHNSTON on 12/01/171104 Omeprazole Magnesium 20 Mg Tablet.dr, 20 MG PO DAILY, (Reported) Oxycodone HCl/Acetaminophen 1 Each Tablet, 1 TAB PO Q4H PRN for PAIN-MODERATE Prescribed by: FELIBERTO JOHNSTON on 12/01/171104 Pediatric Multivit Comb. No.49 1 Each Tab.chew, 2 TAB.CHEW PO DAILY, (Reported) Potassium Chloride 20 Meq Tab.er.prt, 20 MEQ PO DAILY, (Reported) Simvastatin 40 Mg Tablet, 40 MG PO HS, (Reported) Sulfamethoxazole/Trimethoprim 1 Each Tablet, 1 EACH PO BID Prescribed by: ARJUN BRANTLEY on 01/18/182053 Trazodone HCl 50 Mg Tablet, 50 MG PO HS, (Reported) Venlafaxine HCl 150 Mg Cap.er.24h, 150 MG PO DAILY, (Reported) Patient Home Medication List Home Medication List Reviewed: Yes Review of Systems Constitutional: see HPI EENTM: No Symptoms Reported Respiratory: No Symptoms Reported Cardiovascular: No Symptoms Reported Gastrointestinal: See HPI, Abdominal Pain; Denies Constipated, Denies Diarrhea ; Nausea Genitourinary: No Symptoms Reported Musculoskeletal: no symptoms reported Skin: no symptoms reported Psychiatric/Neurological: No Symptoms Reported Endocrine: No Symptoms Reported Past Kxinprc-Gfgwfs-Bjpvbr Hx Patient Social History Alcohol Use: Denies Use Recreational Drug Use: No (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, NOW HYDROCODONE AND THC) Smoking Status: Current Everyday Smoker Type Used: Cigarettes 2nd Hand Smoke Exposure: Yes Recent Foreign Travel: No Contact w/Someone Who Travel: No Recent Infectious Disease Expo: No Recent Hopitalizations: No Physical Abuse: No Sexual Abuse: No Mistreated: No Fear: No Immunizations Up To Date Tetanus Booster (TDap): Unknown Date of Pneumonia Vaccine: Jun 02, 2017 Seasonal Allergies Seasonal Allergies: No Past Medical History Surgeries: Yes (r foot x4, l foot x1, BILATERAL ANKLES; TEETH REMOVED; l knee) Appendectomy, Gallbladder, Hysterectomy, Oophorectomy, Orthopedic Respiratory: No Cardiac: Yes High Cholesterol, Hypertension, Irregular Heartbeat Neurological: Yes (NARCOTIC DEPENDENT. chronic tremors.) Headaches /Migraines Reproductive Disorders: No CERTIFIED SOC[employer] IN HE[employer] CARE History: Hysterectomy, Menopausal Sexually Transmitted Disease: No HIV/AIDS: No Genitourinary: No Gastrointestinal: Yes (HEPATITIS C-TREATMENT UNKNOWN IF CURED) Gastroesophageal Reflux, Liver Disease/Jaundice, Chronic Constipation, Hepatitis Musculoskeletal: Yes (CHRONIC ANKLE PAIN/BILAT ANKLE FX'S; RESTLESS LEGS) Back Injury, Chronic Back Pain, Fractures Endocrine: No HEENT: Yes (SINUS PROBLEMS) Cancer: No Psychosocial: Yes Anxiety, Depression Nursing Suicide Risk Score: 0 Integumentary: No Blood Disorders: No Adverse Reaction/Blood Tranf: No Family Medical History Patient reports no known family medical history. No Pertinent Family Hx Physical Exam Vital Signs Vital Signs - First Documented 01/18/18 19:24 Temp 97.9 Pulse 102 Resp 16 B/P (MAP) 193/90 (124) Pulse Ox 98 Capillary Refill : Less Than 3 Seconds Height/Weight/BMI Height: 5'4.00" Weight: 160lbs. 6.0oz. 72.738504ck; 30.5 BMI Method:Stated General Appearance: WD/WN, no apparent distress HEENT: PERRL/EOMI, normal ENT inspection Neck: non-tender, full range of motion Respiratory: no respiratory distress, no accessory muscle use Gastrointestinal: normal bowel sounds, soft, tenderness Extremities: normal range of motion, non-tender Neurologic/Psychiatric: alert, normal mood/affect, oriented x 3 Skin: normal color, warm/dry Progress/Results/Core Measures Results/Orders Lab Results Laboratory Tests Test 01/18/18 19:20 01/18/18 20:06 Range/Units White Blood Count 8.4 4.3-11.0 10^3/uL Red Blood Count 3.70 L 4.35-5.85 10^6/uL Hemoglobin 11.8 11.5-16.0 G/DL Hematocrit 34 L 35-52 % Mean Corpuscular Volume 92 80-99 FL Mean Corpuscular Hemoglobin 32 25-34 PG Mean Corpuscular Hemoglobin Concent 35 32-36 G/DL Red Cell Distribution Width 13.3 10.0-14.5 % Platelet Count 79 L 130-400 10^3/uL Mean Platelet Volume 9.8 7.4-10.4 FL Neutrophils (%) (Auto) 71 42-75 % Lymphocytes (%) (Auto) 17 12-44 % Monocytes (%) (Auto) 10 0-12 % Eosinophils (%) (Auto) 3 0-10 % Basophils (%) (Auto) 0 0-10 % Neutrophils # (Auto) 5.9 1.8-7.8 X 10^3 Lymphocytes # (Auto) 1.4 1.0-4.0 X 10^3 Monocytes # (Auto) 0.8 0.0-1.0 X 10^3 Eosinophils # (Auto) 0.3 0.0-0.3 10^3/uL Basophils # (Auto) 0.0 0.0-0.1 10^3/uL Sodium Level 129 L 135-145 MMOL/L Potassium Level 3.7 3.6-5.0 MMOL/L Chloride Level 98 98-107 MMOL/L Carbon Dioxide Level 23 21-32 MMOL/L Anion Gap 8 5-14 MMOL/L Blood Urea Nitrogen 6 L 7-18 MG/DL Creatinine 0.77 0.60-1.30 MG/DL Estimat Glomerular Filtration Rate > 60 BUN/Creatinine Ratio 8 Glucose Level 148 H 70-105 MG/DL Calcium Level 9.8 8.5-10.1 MG/DL Total Bilirubin 0.6 0.1-1.0 MG/DL Aspartate Amino Transf (AST/SGOT) 13 5-34 U/L Alanine Aminotransferase (ALT/SGPT) 7 0-55 U/L Alkaline Phosphatase 106 40-136 U/L Total Protein 7.2 6.4-8.2 GM/DL Albumin 3.5 3.2-4.5 GM/DL Lipase 51 8-78 U/L Urine Color YELLOW Urine Clarity CLEAR Urine pH 7 5-9 Urine Specific [place] 1.005 L 1.016-1.022 Urine Protein NEGATIVE NEGATIVE Urine Glucose (UA) NEGATIVE NEGATIVE Urine Ketones NEGATIVE NEGATIVE Urine Nitrite NEGATIVE NEGATIVE Urine Bilirubin NEGATIVE NEGATIVE Urine Urobilinogen 1 NORMAL MG/DL Urine Leukocyte Esterase 2+ H NEGATIVE Urine RBC (Auto) 4+ H NEGATIVE Urine RBC 10-25 H /HPF Urine WBC 25-50 H /HPF Urine Squamous Epithelial Cells 2-5 /HPF Urine Crystals NONE /LPF Urine Bacteria TRACE /HPF Urine Casts NONE /LPF Urine Mucus NEGATIVE /LPF Urine Culture Indicated YES Urine Opiates Screen NEGATIVE NEGATIVE Urine Oxycodone Screen POSITIVE H NEGATIVE Urine Methadone Screen NEGATIVE NEGATIVE Urine Propoxyphene Screen NEGATIVE NEGATIVE Urine Barbiturates Screen NEGATIVE NEGATIVE Ur Tricyclic Antidepressants Screen NEGATIVE NEGATIVE Urine Phencyclidine Screen NEGATIVE NEGATIVE Urine Amphetamines Screen NEGATIVE NEGATIVE Urine Methamphetamines Screen NEGATIVE NEGATIVE Urine Benzodiazepines Screen POSITIVE H NEGATIVE Urine Cocaine Screen NEGATIVE NEGATIVE Urine Cannabinoids Screen NEGATIVE NEGATIVE My Orders Orders - ARJUN BRANTLEY APRN Cbc With Automated Diff (01/18/18 19:28) Comprehensive Metabolic Panel (01/18/18 19:28) Lipase (01/18/18 19:28) Ua Culture If Indicated (01/18/18 19:28) Drug Screen Stat (Urine) (01/18/18 19:28) Iv Heplock-Insert (Order) (01/18/18 19:28) Ns Iv 1000 Ml (Sodium Chloride 0.9%) (01/18/18 19:30) Ondansetron Injection (Zofran Injectio (01/18/18 19:30) Metoprolol Tartrate Injection (Lopressor (01/18/18 19:45) Ct Abdomen/Pelvis W (01/18/18 19:38) Iohexol Injection (Omnipaque 350 Mg/Ml 1 (01/18/18 20:00) Sodium Chloride Flush (Catheter Flush Sy (01/18/18 20:00) Ns (Ivpb) (Sodium Chloride 0.9%) (01/18/18 20:00) Pharmacy Communication (Pharmacy Communi (01/18/18 19:47) Urine Culture (01/18/18 20:06) Ketorolac Injection (Toradol Injection) (01/18/18 20:30) Ceftriaxone Injection (Rocephin Injectio (01/18/18 20:45) Clonidine Tablet (Catapres Tablet) (01/18/18 21:00) Medications Given in ED Current Medications Medications Dose Ordered Sig/[place] Route Start Time Stop Time Status Last Admin Dose Admin Ceftriaxone Sodium 1000 mg/ Sodium Chloride 50 ml @ 100 mls/hr ONCE ONCE IV 01/18/18 20:45 01/18/18 21:14 01/18/18 20:51 100 MLS/HR Clonidine HCl 0.1 mg ONCE ONCE PO 01/18/18 21:00 01/18/18 21:01 DC 01/18/18 20:54 0.1 MG Iohexol 100 ml ONCE ONCE IV 01/18/18 20:00 01/18/18 20:01 DC 01/18/18 20:30 100 ML Ketorolac Tromethamine 15 mg ONCE ONCE IVP 01/18/18 20:30 01/18/18 20:31 DC 01/18/18 20:50 15 MG Metoprolol Tartrate 5 mg ONCE ONCE IV 01/18/18 19:45 01/18/18 19:46 DC 01/18/18 19:42 5 MG Ondansetron HCl 4 mg ONCE ONCE IVP 01/18/18 19:30 01/18/18 19:31 DC 01/18/18 19:42 4 MG Sodium Chloride 10 ml NEEDED PRN IV 01/18/18 20:00 01/18/18 20:30 10 ML Sodium Chloride 250 ml ONCE ONCE IV 01/18/18 20:00 01/18/18 20:01 DC 01/18/18 20:30 80 ML Vital Signs/I&O 01/18/18 19:24 Temp 97.9 Pulse 102 Resp 16 B/P (MAP) 193/90 (124) Pulse Ox 98 Blood Pressure Mean: 124 Diagnostic Imaging Diagonstic Imaging: CT Comments NAME: MARI SUTTON I [facility] REC#: [id number] PT STATUS: REG ER : 1955 PHYSICIAN: ARJUN BRANTLEY APRN ADMIT DATE: 01/18/18/ER Draft Date of Exam:01/18/18 CT ABDOMEN/PELVIS W Clinical indication: Patient with abdominal pain x3 days with nausea. Patient has surgical history of cholecystectomy, appendectomy, and hysterectomy. Patient has no history of cancer. Exam: CT scan of the abdomen and pelvis performed with 100 cc of Omnipaque 350 IV contrast. Coronal and sagittal reformatted images are created. Comparison: CT scan of the abdomen and pelvis performed with contrast dated 03/04/2017. Findings: There is mild patchy consolidation in the lingular region. There are degenerative spurs involving both hips. There is degenerative spurs involving the lumbar spine and lower lumbar spine facet arthropathy. There is diffuse low-attenuation seen throughout the liver which may be related to fatty infiltration. There is note of a slightly lobulated contour of the liver which may be seen in cirrhosis. Liver is enlarged measuring 18.3 cm. These findings have progressed compared to the prior CT scan. Cholecystectomy changes are seen. The liver has increased in size and is mildly enlarged in axial dimension. There is unopacified competition of blood flow seen in the IMV to the portal vein. The portal vein is mildly prominent measuring 15 mm. There is also prominence of the splenic vein measuring roughly 13 mm. There are no vascular collaterals seen. There is no recannulation of the umbilical vein. Again seen mildly atrophic pancreas which is stable. Likely duodenal diverticulum in the second portion the duodenum. Adrenal glands are unremarkable. Is a small cyst involving the posterior lateral aspect of left kidney again seen which is stable. Otherwise both kidneys are unremarkable no hydronephrosis or mass. There is no significant free fluid or free air. There is no lymphadenopathy. The previously seen diffuse colonic wall thickening has resolved. There is a small to moderate amount of stool throughout the colon. Otherwise, colon, small bowel and stomach are unremarkable. The appendix is surgically absent. The bladder is partially fluid-filled with no significant abnormalities seen. There is subcutaneous benign-appearing nodular soft tissue areas in the anterior abdominal region. Uterus is surgically resected. The adnexal regions are not well visualized and may also have been surgically resected. IMPRESSION: 1: There is interval development of hepatomegaly with lobulated liver contour which may be seen in patients with cirrhosis. There is also concern for portal hypertension and splenomegaly. There is no abdominal ascites. 2: There is resolution of previously seen diffuse colonic wall thickening. 3: Small patchy areas of consolidation in the lingula. Infection or inflammatory process may be considered. 4: The remainder of this exam shows no other significant abnormality. Dictated on workstation # [id number] Dict: 01/18/182045 Trans: 01/18/182105 [facility] [id number] Interpreted by: DESHAUN JARVIS MD Electronically signed by: Departure Communication (Admissions) review of tract shows that she had a quantity of 56 of the 0.5 mg Xanax filled on 01/10/18. She had a 15 day supply of fentanyl patch 50 g per hour filled on , a 28 day supply of oxycodone 5/325 filled on 01/05/18 and a three-day supply of oxycodone 5/325 filled on 01/04/18. she states that she should have a fentanyl patch on her back. I've inspected her back and there is no fentanyl patch on her back or her chest. She then states "I don't think I put one on". She then states "actually I don't think I have any left". Again, she had a 15 day supply filled 10 days ago. Impression Primary Impression: Nonspecific abdominal pain Additional Impressions: Hypertension Urinary tract infection Disposition: HOME, SELF-CARE Condition: Stable Departure-Patient Inst. Decision time for Depature: 20:43 Referrals: GERMAIN WAN MD (PCP/Family) Primary Care Physician Patient Instructions: Acute Abdomen (Belly Pain), Adult (DC), Urinary Tract Infection, Adult (DC) Add. Discharge Instructions: 1. Call [facility] tomorrow to make an appointment to be seen as soon as possible for follow-up and further evaluation. Return to the emergency room for any worsening symptoms.All discharge instructions reviewed with patient and/or family. Voiced understanding. Scripts Sulfamethoxazole/Trimethoprim (Bactrim Ds Tablet) 1 Each Tablet 1 EACH PO BID, #10 TAB Prov: ARJUN BRANTLEY APRN 01/18/18 ARJUN BRANTLEY APRN Jan 18, 2018 19:37
[2018-01-18] MEDS ORDERED: meTOprolol 5 MG/5 ML (LOPRESSOR) VIAL IV ONE (19:45)
[2018-01-18 19:48] LABS: ALANINE AMINOTRANSFERASE 7 U/L (0-55); ALBUMIN 3.5 GM/DL (3.2-4.5); ALKALINE PHOSPHATASE 106 U/L (40-136); BILIRUBIN,TOTAL 0.6 MG/DL (0.1-1.0); BUN/CREATININE RATIO 8; CALCIUM 9.8 MG/DL (8.5-10.1); CARBON DIOXIDE 23 MMOL/L (21-32); CHLORIDE 98 MMOL/L (98-107); CREATININE SERUM 0.77 MG/DL (0.60-1.30); GFR ESTIMATED > 60; GLUCOSE 148 MG/DL (70-105); LIPASE 51 U/L (8-78); POTASSIUM 3.7 MMOL/L (3.6-5.0); SODIUM 129 MMOL/L (135-145); TOTAL PROTEIN 7.2 GM/DL (6.4-8.2)
[2018-01-18] MEDS ORDERED: NS 250 ML (IVPB) BAG IV ONE (20:00)
[2018-01-18] MEDS ORDERED: CATHETER FLUSH 10 ML SYR IV PRN (20:00)
[2018-01-18] MEDS ORDERED: IOHEXOL 350 MG/ML 100 ML (OMNIPAQUE 350) VIAL IV ONE (20:00)
[2018-01-18 20:15] LABS: BILIRUBIN,URINE NEGATIVE (NEGATIVE); CLARITY,URINE CLEAR; COLOR,URINE YELLOW; GLUCOSE, URINE (UA) NEGATIVE (NEGATIVE); KETONES,URINE NEGATIVE (NEGATIVE); LEUKOCYTE ESTERASE ,URINE 2+ (NEGATIVE); NITRITE,URINE NEGATIVE (NEGATIVE); PH,URINE 7 (5-9); PROTEIN,URINE NEGATIVE (NEGATIVE); UROBILINOGEN,URINE 1 MG/DL (NORMAL)
[2018-01-18 20:22] LABS: BACTERIA,URINE TRACE /HPF; WBC,URINE 25-50 /HPF
[2018-01-18] MEDS ORDERED: KETOROLAC 30 MG/ML VIAL IVP ONE (20:30)
[2018-01-18 20:38] LABS: AMPHETAMINE SCREEN, URINE NEGATIVE (NEGATIVE); BENZODIAZEPINES SCREEN URINE POSITIVE (NEGATIVE); CANNABINOID SCREEN, URINE NEGATIVE (NEGATIVE); COCAINE SCREEN URINE NEGATIVE (NEGATIVE); METHAMPHETAMINE SCREEN URINE S NEGATIVE (NEGATIVE)
[2018-01-18 20:39] LABS: BARBITURATE SCREEN URINE NEGATIVE (NEGATIVE); METHADONE STAT NEGATIVE (NEGATIVE); OPIATE SCREEN URINE NEGATIVE (NEGATIVE); OXYCODONE STAT POSITIVE (NEGATIVE); PROPOXYPHENE STAT NEGATIVE (NEGATIVE); TRICYCLIC ANTIDEPRESSANTS SCRE NEGATIVE (NEGATIVE)
[2018-01-18] MEDS ORDERED: cefTRIAXone INJECTION 1,000 MG in NS (IVPB) 50 ML IV ONE (20:45)
[2018-01-18] MEDS ORDERED: SULF1TAB35 PO (20:54)
[2018-01-18] MEDS ORDERED: cloNIDine 0.1 MG (CATAPRES) TAB PO ONE (21:00)
--- NOTE | 2018-01-18 21:07 | Diagnostic Imaging Report ---
Clinical indication: Patient with abdominal pain x3 days with nausea. Patient has surgical history of cholecystectomy, appendectomy, and hysterectomy. Patient has no history of cancer. Exam: CT scan of the abdomen and pelvis performed with 100 cc of Omnipaque 350 IV contrast. Coronal and sagittal reformatted images are created. Comparison: CT scan of the abdomen and pelvis performed with contrast dated 03/04/2017. Findings: There is mild patchy consolidation in the lingular region. There are degenerative spurs involving both hips. There is degenerative spurs involving the lumbar spine and lower lumbar spine facet arthropathy. There is diffuse low-attenuation seen throughout the liver which may be related to fatty infiltration. There is note of a slightly lobulated contour of the liver which may be seen in cirrhosis. Liver is enlarged measuring 18.3 cm. These findings have progressed compared to the prior CT scan. Cholecystectomy changes are seen. The liver has increased in size and is mildly enlarged in axial dimension. There is unopacified competition of blood flow seen in the IMV to the portal vein. The portal vein is mildly prominent measuring 15 mm. There is also prominence of the splenic vein measuring roughly 13 mm. There are no vascular collaterals seen. There is no recannulation of the umbilical vein. Again seen mildly atrophic pancreas which is stable. Likely duodenal diverticulum in the second portion the duodenum. Adrenal glands are unremarkable. Is a small cyst involving the posterior lateral aspect of left kidney again seen which is stable. Otherwise both kidneys are unremarkable no hydronephrosis or mass. There is no significant free fluid or free air. There is no lymphadenopathy. The previously seen diffuse colonic wall thickening has resolved. There is a small to moderate amount of stool throughout the colon. Otherwise, colon, small bowel and stomach are unremarkable. The appendix is surgically absent. The bladder is partially fluid-filled with no significant abnormalities seen. There is subcutaneous benign-appearing nodular soft tissue areas in the anterior abdominal region. Uterus is surgically resected. The adnexal regions are not well visualized and may also have been surgically resected. IMPRESSION: 1: There is interval development of hepatomegaly with lobulated liver contour which may be seen in patients with cirrhosis. There is also concern for portal hypertension and splenomegaly. There is no abdominal ascites. 2: There is resolution of previously seen diffuse colonic wall thickening. 3: Small patchy areas of consolidation in the lingula. Infection or inflammatory process may be considered. 4: The remainder of this exam shows no other significant abnormality. Dictated by: Dictated on workstation # [id number]
[2018-01-18 21:39] VITALS: BP 185/91
== END 2018-01-18 21:39 | disposition home or self-care (01) ==
LOC: EDUNIT# 19:07 → ER 19:08
DX: N39.0 Urinary tract infection, site not specified (principal); I10 Essential (primary) hypertension; E78.00 Pure hypercholesterolemia, unspecified; G43.909 Migraine, unspecified, not intractable, without status migrainosus; B19.20 Unspecified viral hepatitis C without hepatic coma; G25.81 Restless legs syndrome; F41.9 Anxiety disorder, unspecified; F32.9 Major depressive disorder, single episode, unspecified; K21.9 Gastro-esophageal reflux disease without esophagitis; F17.210 Nicotine dependence, cigarettes, uncomplicated; Z90.89 Acquired absence of other organs; Z87.19 Personal history of other diseases of the digestive system; Z90.710 Acquired absence of both cervix and uterus; Z88.6 Allergy status to analgesic agent; Z88.8 Allergy status to other drugs, medicaments and biological substances
CPT/HCPCS: 36415; 74177; 80053; 80306; 81000; 83690; 85025; 87088; 96374; 96375

== ENCOUNTER 2018-03-07 12:12 | Emergency (ER) | payer MEDICARE ==
[~2018-03-07] VITALS: Ht 162.6 cm; Wt 68.2 kg
[~2018-03-07 12:12] MED LIST changes: -BENZ-13 PO; +BENZ100C18 PO; +HYDR-4226 PO; -HYDR-757 PO; +SULF1TAB35 PO
--- NOTE | 2018-03-07 12:54 | ED Headache ---
General Chief Complaint: Head/Cervical Problems Stated Complaint: MIGRAINE Source: patient Exam Limitations: no limitations History of Present Illness Date Seen by Provider: Mar 07, 2018 Time Seen by Provider: 12:52 Initial Comments To ER with a report of migraine. She has a history of these. This began last night at 5 PM. This feels similar to all of her others. She saw primary care who gave her some oral medications but these did not help. She denies vomiting. She denies fevers chills or head injury. Headache is frontal right-sided. Timing/Duration: constant Severity/Quality: moderate Location: frontal Associated Symptoms: nausea/vomiting (photophobia and nausea but no vomiting), vision changes Allergies and Home Medications Allergies Coded Allergies: aspirin (Verified Allergy, Unknown, 11/30/07) desvenlafaxine (Verified Allergy, Unknown, NAUSEA, 11/05/15) Home Medications Alprazolam 0.5 Mg Tablet, 0.5 MG PO BID PRN for ANXIETY Prescribed by: FELIBERTO JOHNSTON on 12/01/17 1105 Benzonatate 100 Mg Capsule, 100 MG PO TID PRN for COUGH Prescribed by: ARJUN BRANTLEY on 03/07/18 1330 Docusate Sodium 100 Mg Capsule, 100 MG PO BID Prescribed by: FELIBERTO JOHNSTON on 12/01/17 110 Enoxaparin Sodium 40 Mg/0.4 Ml Syringe, 40 MG SC DAILY Prescribed by: FELIBERTO JOHNSTON on 12/01/17 110 Fentanyl 1 Each Patch.td72, 50 MCG TD Q72H Prescribed by: FELIBERTO JOHNSTON on 12/01/17 1105 Fexofenadine HCl 180 Mg Tablet, 180 MG PO DAILY, (Reported) Ipratropium/Albuterol Sulfate 3 Ml Ampul.neb, 3 ML INH RTQ8HR Prescribed by: FELIBERTO JOHNSTON on 12/01/17 110 Lactulose 20 Gm/30 Ml Solution, 10 GM PO BID Prescribed by: FELIBERTO JOHNSTON on 12/01/17 1105 Lisinopril 40 Mg Tablet, 40 MG PO DAILY, (Reported) Lurasidone HCl 80 Mg Tablet, 80 MG PO 1800, (Reported) Melatonin 3 Mg Tablet, 3 MG PO HS, (Reported) Memantine HCl 10 Mg Tablet, 10 MG PO BID, (Reported) Montelukast Sodium 10 Mg Tablet, 10 MG PO HS, (Reported) Nicotine 1 Each Patch.td24, 21 MG TD DAILY@0900 Prescribed by: FELIBERTO JOHNSTON on 12/01/171104 Omeprazole Magnesium 20 Mg Tablet.dr, 20 MG PO DAILY, (Reported) Oxycodone HCl/Acetaminophen 1 Each Tablet, 1 TAB PO Q4H PRN for PAIN-MODERATE Prescribed by: FELIBERTO JOHNSTON on 12/01/171104 Pediatric Multivit Comb. No.49 1 Each Tab.chew, 2 TAB.CHEW PO DAILY, (Reported) Potassium Chloride 20 Meq Tab.er.prt, 20 MEQ PO DAILY, (Reported) Simvastatin 40 Mg Tablet, 40 MG PO HS, (Reported) Sulfamethoxazole/Trimethoprim 1 Each Tablet, 1 EACH PO BID Prescribed by: ARJUN BRANTLEY on 01/18/182053 Trazodone HCl 50 Mg Tablet, 50 MG PO HS, (Reported) Venlafaxine HCl 150 Mg Cap.er.24h, 150 MG PO DAILY, (Reported) Patient Home Medication List Home Medication List Reviewed: Yes Review of Systems Review of Systems Constitutional: see HPI Eyes: No Symptoms Reported Ears, Nose, Mouth, Throat: no symptoms reported Respiratory: see HPI Cardiovascular: no symptoms reported Genitourinary: no symptoms reported Musculoskeletal: no symptoms reported Skin: no symptoms reported Psychiatric/Neurological: No Symptoms Reported Past Xrraenm-Dfcswy-Osqyiu Hx Patient Social History Type Used: Cigarettes 2nd Hand Smoke Exposure: Yes Recent Foreign Travel: No Contact w/Someone Who Travel: No Recent Hopitalizations: No Immunizations Up To Date Tetanus Booster (TDap): Unknown Date of Pneumonia Vaccine: Jun 02, 2017 Seasonal Allergies Seasonal Allergies: No Past Medical History Surgeries: Yes (r foot x4, l foot x1, BILATERAL ANKLES; TEETH REMOVED; l knee) Appendectomy, Gallbladder, Hysterectomy, Oophorectomy, Orthopedic Respiratory: No Cardiac: Yes High Cholesterol, Hypertension, Irregular Heartbeat Neurological: Yes (NARCOTIC DEPENDENT. 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 No Pertinent Family Hx Physical Exam Vital Signs Vital Signs - First Documented 03/07/18 12:48 Temp 98.9 Pulse 72 Resp 20 B/P (MAP) 193/96 (128) Pulse Ox 98 O2 Delivery Room Air Capillary Refill : Height, Weight, BMI Height: 5'4.00" Weight: 150lbs. 6.0oz. 68.164161cb; 30.5 BMI Method:Stated General Appearance: WD/WN, no apparent distress HEENT: PERRL/EOMI, normal ENT inspection Neck: non-tender, full range of motion Cardiovascular: regular rate, rhythm, no murmur Respiratory: normal breath sounds, no respiratory distress, no accessory muscle use Gastrointestinal: normal bowel sounds, non tender, soft Extremities: normal range of motion, non-tender Psychiatric: alert, oriented x 3 Crainal Nerves: normal hearing, normal speech, PERRL Skin: normal color, warm/dry Progress/Results/Core Measures Results/Orders My Orders Orders - ARJUN BRANTLEY APRN Ketorolac Injection (Toradol Injection) (03/07/18 13:00) Diphenhydramine Injection (Benadryl Inje (03/07/18 13:00) Prochlorperazine Injection (Compazine In (03/07/18 13:00) Medications Given in ED Current Medications Medications Dose Ordered Sig/[place] Route Start Time Stop Time Status Last Admin Dose Admin Diphenhydramine HCl 50 mg ONCE ONCE IM 03/07/18 13:00 03/07/18 13:01 DC 03/07/18 12:59 50 MG Ketorolac Tromethamine 60 mg ONCE ONCE IM 03/07/18 13:00 03/07/18 13:01 DC 03/07/18 13:00 60 MG Prochlorperazine Edisylate 10 mg ONCE ONCE IM 03/07/18 13:00 03/07/18 13:01 DC 03/07/18 12:59 10 MG Vital Signs/I&O 03/07/18 03/07/18 03/07/18 03/07/18 12:48 12:59 12:59 13:00 Temp 98.9 98.9 98.9 98.9 Pulse 72 Resp 20 B/P (MAP) 193/96 (128) Pulse Ox 98 O2 Delivery Room Air Departure Communication (Admissions) 1331-states she is feeling better at this time. Ready to go home. Would like some cough medicine for cough that she's been having. No fevers or chills. Impression Primary Impression: Headache Disposition: HOME, SELF-CARE Condition: Improved Departure-Patient Inst. Decision time for Depature: 12:54 Referrals: GERMAIN WAN MD (PCP/Family) Primary Care Physician Patient Instructions: Headache, Adult (DC) Add. Discharge Instructions: 1. Return to ER for any concerns 2. Follow-up with your doctor this week 3. All discharge instructions reviewed with patient and/or family. Voiced understanding. Scripts Benzonatate (Tessalon Perle) 100 Mg Capsule 100 MG PO TID PRN for COUGH, #10 CAP Prov: ARJUN BRANTLEY GAME ROOM ATTENDANT 03/07/18 ARJUN BRANTLEY APRN Mar 07, 2018 12:54
[2018-03-07] MEDS ORDERED: KETOROLAC 60 MG/2 ML VIAL IM ONE (13:00)
[2018-03-07] MEDS ORDERED: diphenhydrAMINE 50 MG/ML INJ (BENADRYL) IM ONE (13:00)
[2018-03-07] MEDS ORDERED: PROCHLORPERAZINE 10 MG/2ML INJ (COMPAZINE) IM ONE (13:00)
[2018-03-07] MEDS ORDERED: BENZ100C18 PO (13:30)
[2018-03-07 13:43] VITALS: BP 195/91
== END 2018-03-07 13:43 | disposition home or self-care (01) ==
LOC: EDUNIT# 12:12 → ER 12:14
DX: R51 Headache (principal); E78.00 Pure hypercholesterolemia, unspecified; I10 Essential (primary) hypertension; B19.20 Unspecified viral hepatitis C without hepatic coma; K21.9 Gastro-esophageal reflux disease without esophagitis; F41.9 Anxiety disorder, unspecified; F32.9 Major depressive disorder, single episode, unspecified; G25.81 Restless legs syndrome; Z87.19 Personal history of other diseases of the digestive system; Z88.6 Allergy status to analgesic agent; Z88.8 Allergy status to other drugs, medicaments and biological substances; Z77.22 Contact with and (suspected) exposure to environmental tobacco smoke (acute) (chronic); Z90.89 Acquired absence of other organs; Z90.710 Acquired absence of both cervix and uterus
CPT/HCPCS: 96372; 99284

== ENCOUNTER 2018-03-19 10:57 | Emergency (ER) | payer MEDICARE ==
[~2018-03-19] VITALS: Ht 162.6 cm; Wt 72.6 kg
[2018-03-19] MEDS ORDERED: diphenhydrAMINE 50 MG/ML INJ (BENADRYL) IVP ONE (12:00)
[2018-03-19] MEDS ORDERED: KETOROLAC 30 MG/ML VIAL IVP ONE (12:00)
[2018-03-19] MEDS ORDERED: PROCHLORPERAZINE 10 MG/2ML INJ (COMPAZINE) IV ONE (12:00)
[2018-03-19] MEDS ORDERED: NS IV 1000 ML 1,000 ML IV SCH (12:00)
--- NOTE | 2018-03-19 12:07 | ED Headache ---
General Stated Complaint: VOMITING Source: patient Exam Limitations: no limitations History of Present Illness Date Seen by Provider: Mar 19, 2018 Time Seen by Provider: 12:05 Initial Comments To ER per private vehicle with reports of vomiting for 3-4 days. She also has a migraine. Has a history of frequent migraines. She is hypertensive at 222/100. She has a history of hypertension as well. This headache is similar to her previous migraines. She denies any abdominal pain or diarrhea. She's been taking Zofran at home without relief. Timing/Duration: other (3-4 days) Severity/Quality: moderate Location: global Prior Headaches/Recent Trauma: frequent headaches Associated Symptoms: No confusion; nausea/vomiting; No stiff neck Allergies and Home Medications Allergies Coded Allergies: aspirin (Verified Allergy, Unknown, 11/30/07) desvenlafaxine (Verified Allergy, Unknown, NAUSEA, 11/05/15) Home Medications Alprazolam 0.5 Mg Tablet, 0.5 MG PO BID PRN for ANXIETY Prescribed by: FELIBERTO JOHNSTON on 12/01/17 1105 Benzonatate 100 Mg Capsule, 100 MG PO TID PRN for COUGH Prescribed by: ARJUN BRANTLEY on 03/07/18 1330 Docusate Sodium 100 Mg Capsule, 100 MG PO BID Prescribed by: FELIBERTO JOHNSTON on 12/01/17 110 Enoxaparin Sodium 40 Mg/0.4 Ml Syringe, 40 MG SC DAILY Prescribed by: FELIBERTO JOHNSTON on 12/01/17 110 Fentanyl 1 Each Patch.td72, 50 MCG TD Q72H Prescribed by: FELIBERTO JOHNSTON on 12/01/17 110 Fexofenadine HCl 180 Mg Tablet, 180 MG PO DAILY, (Reported) Ipratropium/Albuterol Sulfate 3 Ml Ampul.neb, 3 ML INH RTQ8HR Prescribed by: FELIBERTO JOHNSTON on 12/01/17 110 Lactulose 20 Gm/30 Ml Solution, 10 GM PO BID Prescribed by: FELIBERTO JOHNSTON on 12/01/17 1105 Lisinopril 40 Mg Tablet, 40 MG PO DAILY, (Reported) Lurasidone HCl 80 Mg Tablet, 80 MG PO 1800, (Reported) Melatonin 3 Mg Tablet, 3 MG PO HS, (Reported) Memantine HCl 10 Mg Tablet, 10 MG PO BID, (Reported) Montelukast Sodium 10 Mg Tablet, 10 MG PO HS, (Reported) Nicotine 1 Each Patch.td24, 21 MG TD DAILY@0900 Prescribed by: FELIBERTO JOHNSTON on 12/01/171104 Omeprazole Magnesium 20 Mg Tablet.dr, 20 MG PO DAILY, (Reported) Oxycodone HCl/Acetaminophen 1 Each Tablet, 1 TAB PO Q4H PRN for PAIN-MODERATE Prescribed by: FELIBERTO JOHNSTON on 12/01/171104 Pediatric Multivit Comb. No.49 1 Each Tab.chew, 2 TAB.CHEW PO DAILY, (Reported) Potassium Chloride 20 Meq Tab.er.prt, 20 MEQ PO DAILY, (Reported) Simvastatin 40 Mg Tablet, 40 MG PO HS, (Reported) Sulfamethoxazole/Trimethoprim 1 Each Tablet, 1 EACH PO BID Prescribed by: ARJUN BRANTLEY on 01/18/182053 Trazodone HCl 50 Mg Tablet, 50 MG PO HS, (Reported) Venlafaxine HCl 150 Mg Cap.er.24h, 150 MG PO DAILY, (Reported) Patient Home Medication List Home Medication List Reviewed: Yes Review of Systems Review of Systems Constitutional: see HPI; No chills Eyes: No Symptoms Reported Ears, Nose, Mouth, Throat: no symptoms reported Respiratory: no symptoms reported Cardiovascular: no symptoms reported Gastrointestinal: nausea, vomiting Genitourinary: no symptoms reported Musculoskeletal: no symptoms reported Skin: no symptoms reported Psychiatric/Neurological: See HPI, Headache Past Ovmeeya-Zehcgr-Wmzikk Hx Patient Social History Type Used: Cigarettes 2nd Hand Smoke Exposure: Yes Recent Hopitalizations: No Immunizations Up To Date Tetanus Booster (TDap): Unknown Date of Pneumonia Vaccine: Jun 02, 2017 Seasonal Allergies Seasonal Allergies: No Past Medical History Surgeries: Yes (r foot x4, l foot x1, BILATERAL ANKLES; TEETH REMOVED; l knee) Appendectomy, Gallbladder, Hysterectomy, Oophorectomy, Orthopedic Respiratory: No Cardiac: Yes High Cholesterol, Hypertension, Irregular Heartbeat Neurological: Yes (NARCOTIC DEPENDENT. 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 No Pertinent Family Hx Physical Exam Vital Signs Vital Signs - First Documented 03/19/18 11:45 Temp 99.7 Pulse 93 Resp 18 B/P (MAP) 209/99 (135) Pulse Ox 97 O2 Delivery Room Air Capillary Refill : Height, Weight, BMI Height: 5'4.00" Weight: 150lbs. 6.0oz. 68.810854ul; 30.5 BMI Method:Stated General Appearance: WD/WN, no apparent distress HEENT: PERRL/EOMI, normal ENT inspection Neck: non-tender, full range of motion Respiratory: normal breath sounds, no respiratory distress, no accessory muscle use Gastrointestinal: normal bowel sounds, non tender Extremities: normal range of motion, non-tender Psychiatric: alert, oriented x 3 Crainal Nerves: normal hearing, normal speech, PERRL Skin: normal color, warm/dry Comments Alert and oriented GCS 15. Progress/Results/Core Measures Results/Orders Lab Results Laboratory Tests Test 03/19/18 12:00 03/19/18 13:17 Range/Units White Blood Count 4.4 4.3-11.0 10^3/uL Red Blood Count 4.35 4.35-5.85 10^6/uL Hemoglobin 13.3 11.5-16.0 G/DL Hematocrit 39 35-52 % Mean Corpuscular Volume 90 80-99 FL Mean Corpuscular Hemoglobin 31 25-34 PG Mean Corpuscular Hemoglobin Concent 34 32-36 G/DL Red Cell Distribution Width 15.8 H 10.0-14.5 % Platelet Count 88 L 130-400 10^3/uL Mean Platelet Volume 9.6 7.4-10.4 FL Neutrophils (%) (Auto) 47 42-75 % Lymphocytes (%) (Auto) 32 12-44 % Monocytes (%) (Auto) 13 H 0-12 % Eosinophils (%) (Auto) 7 0-10 % Basophils (%) (Auto) 1 0-10 % Neutrophils # (Auto) 2.1 1.8-7.8 X 10^3 Lymphocytes # (Auto) 1.4 1.0-4.0 X 10^3 Monocytes # (Auto) 0.6 0.0-1.0 X 10^3 Eosinophils # (Auto) 0.3 0.0-0.3 10^3/uL Basophils # (Auto) 0.0 0.0-0.1 10^3/uL Sodium Level 135 135-145 MMOL/L Potassium Level 3.7 3.6-5.0 MMOL/L Chloride Level 103 98-107 MMOL/L Carbon Dioxide Level 24 21-32 MMOL/L Anion Gap 8 5-14 MMOL/L Blood Urea Nitrogen 13 7-18 MG/DL Creatinine 0.82 0.60-1.30 MG/DL Estimat Glomerular Filtration Rate > 60 BUN/Creatinine Ratio 16 Glucose Level 98 70-105 MG/DL Calcium Level 10.0 8.5-10.1 MG/DL Corrected Calcium 10.0 8.5-10.1 MG/DL Total Bilirubin 0.8 0.1-1.0 MG/DL Aspartate Amino Transf (AST/SGOT) 19 5-34 U/L Alanine Aminotransferase (ALT/SGPT) 9 0-55 U/L Alkaline Phosphatase 105 40-136 U/L Total Protein 8.1 6.4-8.2 GM/DL Albumin 4.0 3.2-4.5 GM/DL Lipase 35 8-78 U/L Urine Color YELLOW Urine Clarity SLIGHTLY CLOUDY Urine pH 6.5 5-9 Urine Specific [place] 1.015 L 1.016-1.022 Urine Protein 2+ H NEGATIVE Urine Glucose (UA) NEGATIVE NEGATIVE Urine Ketones NEGATIVE NEGATIVE Urine Nitrite NEGATIVE NEGATIVE Urine Bilirubin NEGATIVE NEGATIVE Urine Urobilinogen 1 NORMAL MG/DL Urine Leukocyte Esterase NEGATIVE NEGATIVE Urine RBC (Auto) 2+ H NEGATIVE Urine RBC 5-10 H /HPF Urine WBC RARE /HPF Urine Squamous Epithelial Cells >50 H /HPF Urine Crystals NONE /LPF Urine Bacteria FEW H /HPF Urine Casts NONE /LPF Urine Mucus SMALL H /LPF Urine Yeast FEW H /HPF Urine Culture Indicated YES Urine Opiates Screen NEGATIVE NEGATIVE Urine Oxycodone Screen NEGATIVE NEGATIVE Urine Methadone Screen NEGATIVE NEGATIVE Urine Propoxyphene Screen NEGATIVE NEGATIVE Urine Barbiturates Screen NEGATIVE NEGATIVE Ur Tricyclic Antidepressants Screen NEGATIVE NEGATIVE Urine Phencyclidine Screen NEGATIVE NEGATIVE Urine Amphetamines Screen NEGATIVE NEGATIVE Urine Methamphetamines Screen NEGATIVE NEGATIVE Urine Benzodiazepines Screen POSITIVE H NEGATIVE Urine Cocaine Screen NEGATIVE NEGATIVE Urine Cannabinoids Screen POSITIVE H NEGATIVE My Orders Orders - ARJUN BRANTLEY APRN Iv He[place]ock-Insert (Order) (03/19/18 11:07) Cbc With Automated Diff (03/19/18 11:07) Comprehensive Metabolic Panel (03/19/18 11:07) Lipase (03/19/18 11:07) Ua Culture If Indicated (03/19/18 11:25) Drug Screen Stat (Urine) (03/19/18 11:25) Ketorolac Injection (Toradol Injection) (03/19/18 12:00) Diphenhydramine Injection (Benadryl Inje (03/19/18 12:00) Prochlorperazine Injection (Compazine In (03/19/18 12:00) Ns Iv 1000 Ml (Sodium Chloride 0.9%) (03/19/18 12:00) Ct Head Wo (03/19/18 11:53) Metoprolol Tartrate Injection (Lopressor (03/19/18 12:15) Urine Culture (03/19/18 13:17) Medications Given in ED Current Medications Medications Dose Ordered Sig/[place] Route Start Time Stop Time Status Last Admin Dose Admin Diphenhydramine HCl 25 mg ONCE ONCE IVP 03/19/18 12:00 03/19/18 12:01 DC 03/19/18 12:22 25 MG Ketorolac Tromethamine 15 mg ONCE ONCE IVP 03/19/18 12:00 03/19/18 12:01 DC 03/19/18 12:21 15 MG Metoprolol Tartrate 5 mg ONCE ONCE IV 03/19/18 12:15 03/19/18 12:16 DC 03/19/18 12:15 5 MG Prochlorperazine Edisylate 5 mg ONCE ONCE IV 03/19/18 12:00 03/19/18 12:01 DC 03/19/18 12:24 5 MG Vital Signs/I&O 03/19/18 11:45 Temp 99.7 Pulse 93 Resp 18 B/P (MAP) 209/99 (135) Pulse Ox 97 O2 Delivery Room Air Departure Impression Primary Impression: Headache Additional Impression: Nausea & vomiting Disposition: 01 HOME, SELF-CARE Condition: Stable Departure-Patient Inst. Decision time for Depature: 14:05 Referrals: GERMAIN WAN MD (PCP/Family) Primary Care Physician Patient Instructions: HEADACHE, Nausea and Vomiting, Adult Add. Discharge Instructions: 1. Return to ER for any concerns 2. Follow-up with doctor next week. ARJUN BRANTLEY APRN Mar 19, 2018 12:06
[2018-03-19] MEDS ORDERED: meTOprolol 5 MG/5 ML (LOPRESSOR) VIAL IV ONE (12:15)
[2018-03-19 12:33] LABS: BASOPHILS % (AUTO) 1 % (0-10); EOSINOPHILS # (AUTO) 0.3 10^3/uL (0.0-0.3); EOSINOPHILS % (AUTO) 7 % (0-10); HEMATOCRIT 39 % (35-52); HEMOGLOBIN 13.3 G/DL (11.5-16.0); LYMPHOCYTES # (AUTO) 1.4 X 10^3 (1.0-4.0); LYMPHOCYTES % (AUTO) 32 % (12-44); MEAN CORPUSCULAR HEMOGLOBIN 31 PG (25-34); MEAN CORPUSCULAR HGB CONC 34 G/DL (32-36); MEAN CORPUSCULAR VOLUME 90 FL (80-99); MEAN PLATELET VOLUME 9.6 FL (7.4-10.4); MONOCYTES # (AUTO) 0.6 X 10^3 (0.0-1.0); MONOCYTES % (AUTO) 13 % (0-12); NEUTROPHILS # (AUTO) 2.1 X 10^3 (1.8-7.8); NEUTROPHILS % (AUTO) 47 % (42-75); PLATELET COUNT 88 10^3/uL (130-400); RED BLOOD COUNT 4.35 10^6/uL (4.35-5.85); RED CELL DISTRIBUTION WIDTH 15.8 % (10.0-14.5); WHITE BLOOD COUNT 4.4 10^3/uL (4.3-11.0)
[2018-03-19 12:51] LABS: ALANINE AMINOTRANSFERASE 9 U/L (0-55); ALKALINE PHOSPHATASE 105 U/L (40-136); BILIRUBIN,TOTAL 0.8 MG/DL (0.1-1.0); BUN/CREATININE RATIO 16; CARBON DIOXIDE 24 MMOL/L (21-32); CHLORIDE 103 MMOL/L (98-107); CREATININE SERUM 0.82 MG/DL (0.60-1.30); GFR ESTIMATED > 60; GLUCOSE 98 MG/DL (70-105); LIPASE 35 U/L (8-78); POTASSIUM 3.7 MMOL/L (3.6-5.0); SODIUM 135 MMOL/L (135-145); TOTAL PROTEIN 8.1 GM/DL (6.4-8.2)
--- NOTE | 2018-03-19 13:20 | Diagnostic Imaging Report ---
PROCEDURE: CT head without contrast. TECHNIQUE: Multiple contiguous axial images were obtained through the brain without the use of intravenous contrast. INDICATION: Headache, nausea, vomiting. FINDINGS: The paranasal sinuses are clear. The globes and orbits appear normal. The ventricles are normal in size. There are no masses, hemorrhages or extra-axial fluid collections. IMPRESSION: No acute abnormality seen in the head. Dictated by: Dictated on workstation # [id number]
[2018-03-19 13:50] LABS: AMPHETAMINE SCREEN, URINE NEGATIVE (NEGATIVE); BARBITURATE SCREEN URINE NEGATIVE (NEGATIVE); BENZODIAZEPINES SCREEN URINE POSITIVE (NEGATIVE); BILIRUBIN,URINE NEGATIVE (NEGATIVE); CANNABINOID SCREEN, URINE POSITIVE (NEGATIVE); COCAINE SCREEN URINE NEGATIVE (NEGATIVE); GLUCOSE, URINE (UA) NEGATIVE (NEGATIVE); KETONES,URINE NEGATIVE (NEGATIVE); LEUKOCYTE ESTERASE ,URINE NEGATIVE (NEGATIVE); METHADONE STAT NEGATIVE (NEGATIVE); METHAMPHETAMINE SCREEN URINE S NEGATIVE (NEGATIVE); NITRITE,URINE NEGATIVE (NEGATIVE); OPIATE SCREEN URINE NEGATIVE (NEGATIVE); OXYCODONE STAT NEGATIVE (NEGATIVE); PH,URINE 6.5 (5-9); PROPOXYPHENE STAT NEGATIVE (NEGATIVE); PROTEIN,URINE 2+ (NEGATIVE); TRICYCLIC ANTIDEPRESSANTS SCRE NEGATIVE (NEGATIVE); UROBILINOGEN,URINE 1 MG/DL (NORMAL)
[2018-03-19 13:54] LABS: CLARITY,URINE SLIGHTLY CLOUDY; COLOR,URINE YELLOW; WBC,URINE RARE /HPF
[2018-03-19 13:55] LABS: BACTERIA,URINE FEW /HPF; SQUAMOUS EPITHELIAL CELL,UR >50 /HPF; YEAST,URINE FEW /HPF
[2018-03-19] MEDS ORDERED: cloNIDine 0.1 MG (CATAPRES) TAB PO ONE (14:15)
[2018-03-19 14:18] VITALS: BP 200/94
== END 2018-03-19 14:20 | disposition home or self-care (01) ==
LOC: EDUNIT# 10:57 → ER 10:58
DX: R51 Headache (principal); R11.2 Nausea with vomiting, unspecified; G43.909 Migraine, unspecified, not intractable, without status migrainosus; I10 Essential (primary) hypertension; K21.9 Gastro-esophageal reflux disease without esophagitis; G25.81 Restless legs syndrome; F41.9 Anxiety disorder, unspecified; F32.9 Major depressive disorder, single episode, unspecified; Z87.19 Personal history of other diseases of the digestive system; Z90.710 Acquired absence of both cervix and uterus; Z77.22 Contact with and (suspected) exposure to environmental tobacco smoke (acute) (chronic); Z88.6 Allergy status to analgesic agent; Z88.8 Allergy status to other drugs, medicaments and biological substances
CPT/HCPCS: 36415; 70450; 80053; 80306; 81000; 83690; 85025; 87088; 96361; 96374; 96375

== ENCOUNTER → 2018-04-16 | Emergency (ER) | payer MEDICARE ==
[~2018-04-16] VITALS: Ht 160 cm; Wt 68.0 kg
[~2018-04-16] MED LIST changes: +KETOROLAC 60 MG/2 ML VIAL IM ONE; +PROCHLORPERAZINE 10 MG/2ML INJ (COMPAZINE) IM ONE; +diphenhydrAMINE 50 MG/ML INJ (BENADRYL) IM ONE
--- NOTE | 2018-04-16 17:42 | ED Headache ---
General Chief Complaint: Head/Cervical Problems Stated Complaint: MIGRAINE HEADACHE/VOMITTING Source: patient Exam Limitations: no limitations History of Present Illness Date Seen by Provider: Apr 16, 2018 Time Seen by Provider: 17:15 Initial Comments The patient is a 62 year old female who presents to the emergency room with complains of a migraine headache, nausea, vomiting that started this morning. She has a history of migraines in the past and this one is very similar. Timing/Duration: other (12hrs) Location: global Prior Headaches/Recent Trauma: frequent headaches Associated Symptoms: No fever/chills; nausea/vomiting; No stiff neck Allergies and Home Medications Allergies Coded Allergies: aspirin (Verified Allergy, Unknown, 11/30/07) desvenlafaxine (Verified Allergy, Unknown, NAUSEA, 11/05/15) Home Medications Alprazolam 0.5 Mg Tablet, 0.5 MG PO BID PRN for ANXIETY Prescribed by: FELIBERTO JOHNSTON on 12/01/17 1105 Benzonatate 100 Mg Capsule, 100 MG PO TID PRN for COUGH Prescribed by: ARJUN BRANTLEY on 03/07/18 1330 Docusate Sodium 100 Mg Capsule, 100 MG PO BID Prescribed by: FELIBERTO JOHNSTON on 12/01/17 1105 Enoxaparin Sodium 40 Mg/0.4 Ml Syringe, 40 MG SC DAILY Prescribed by: FELIBERTO JOHNSTON on 12/01/17 110 Fentanyl 1 Each Patch.td72, 50 MCG TD Q72H Prescribed by: FELIBERTO JOHNSTON on 12/01/17 1105 Fexofenadine HCl 180 Mg Tablet, 180 MG PO DAILY, (Reported) Ipratropium/Albuterol Sulfate 3 Ml Ampul.neb, 3 ML INH RTQ8HR Prescribed by: FELIBERTO JOHNSTON on 12/01/17 110 Lactulose 20 Gm/30 Ml Solution, 10 GM PO BID Prescribed by: FELIBERTO JOHNSTON on 12/01/17 1105 Lisinopril 40 Mg Tablet, 40 MG PO DAILY, (Reported) Lurasidone HCl 80 Mg Tablet, 80 MG PO 1800, (Reported) Melatonin 3 Mg Tablet, 3 MG PO HS, (Reported) Memantine HCl 10 Mg Tablet, 10 MG PO BID, (Reported) Montelukast Sodium 10 Mg Tablet, 10 MG PO HS, (Reported) Nicotine 1 Each Patch.td24, 21 MG TD DAILY@0900 Prescribed by: FELIBERTO JOHNSTON on 12/01/171104 Omeprazole Magnesium 20 Mg Tablet.dr, 20 MG PO DAILY, (Reported) Oxycodone HCl/Acetaminophen 1 Each Tablet, 1 TAB PO Q4H PRN for PAIN-MODERATE Prescribed by: FELIBERTO JOHNSTON on 12/01/171104 Pediatric Multivit Comb. No.49 1 Each Tab.chew, 2 TAB.CHEW PO DAILY, (Reported) Potassium Chloride 20 Meq Tab.er.prt, 20 MEQ PO DAILY, (Reported) Simvastatin 40 Mg Tablet, 40 MG PO HS, (Reported) Sulfamethoxazole/Trimethoprim 1 Each Tablet, 1 EACH PO BID Prescribed by: ARJUN BRANTLEY on 01/18/182053 Trazodone HCl 50 Mg Tablet, 50 MG PO HS, (Reported) Venlafaxine HCl 150 Mg Cap.er.24h, 150 MG PO DAILY, (Reported) Patient Home Medication List Home Medication List Reviewed: Yes Review of Systems Review of Systems Constitutional: see HPI; No chills, No fever Gastrointestinal: see HPI, nausea, vomiting Psychiatric/Neurological: See HPI, Headache All Other Systems Reviewed Negative Unless Noted: Yes Past Sfglbtd-Nboqob-Zxgeot Hx Past Med/Social Hx: Reviewed Nursing Past Med/Soc Hx Patient Social History Type Used: Cigarettes 2nd Hand Smoke Exposure: Yes Recent Foreign Travel: No Contact w/Someone Who Travel: No Recent Hopitalizations: No Immunizations Up To Date Tetanus Booster (TDap): Unknown Date of Pneumonia Vaccine: Jun 02, 2017 Seasonal Allergies Seasonal Allergies: No Past Medical History Surgeries: Yes (r foot x4, l foot x1, BILATERAL ANKLES; TEETH REMOVED; l knee) Appendectomy, Gallbladder, Hysterectomy, Oophorectomy, Orthopedic Respiratory: No Cardiac: Yes High Cholesterol, Hypertension, Irregular Heartbeat Neurological: Yes (NARCOTIC DEPENDENT. 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 No Pertinent Family Hx Physical Exam Vital Signs Vital Signs - First Documented 04/16/18 17:11 Temp 99.3 Pulse 86 Resp 16 B/P (MAP) 203/106 (138) Pulse Ox 99 O2 Delivery Room Air Capillary Refill : Height, Weight, BMI Height: 5'4.00" Weight: 160lbs. 6.0oz. 72.780147mg; 30.5 BMI Method:Stated General Appearance: WD/WN, no apparent distress Neck: non-tender, full range of motion, supple, normal inspection Cardiovascular: normal peripheral pulses, regular rate, rhythm, no edema, no gallop, no JVD, no murmur Respiratory: chest non-tender, lungs clear, normal breath sounds, no respiratory distress, no accessory muscle use Gastrointestinal: normal bowel sounds, non tender, soft, no organomegaly, no pulsatile mass Extremities: normal capillary refill Psychiatric: alert, oriented x 3 Crainal Nerves: normal hearing, normal speech, PERRL Coordination/Gait: normal finger to nose Motor/Sensory: no motor deficit Skin: normal color, warm/dry Progress/Results/Core Measures Results/Orders My Orders Orders - KAYDEN ROGERS Ketorolac Injection (Toradol Injection) (04/16/18 17:15) Prochlorperazine Injection (Compazine In (04/16/18 17:15) Diphenhydramine Injection (Benadryl Inje (04/16/18 17:15) Medications Given in ED Current Medications Medications Dose Ordered Sig/[place] Route Start Time Stop Time Status Last Admin Dose Admin Diphenhydramine HCl 50 mg ONCE ONCE IM 04/16/18 17:15 04/16/18 17:16 DC 04/16/18 17:28 50 MG Ketorolac Tromethamine 60 mg ONCE ONCE IM 04/16/18 17:15 04/16/18 17:16 DC 04/16/18 17:29 60 MG Prochlorperazine Edisylate 10 mg ONCE ONCE IM 04/16/18 17:15 04/16/18 17:16 DC 04/16/18 17:29 10 MG Vital Signs/I&O 04/16/18 04/16/18 17:11 18:05 Temp 99.3 99.3 Pulse 86 77 Resp 16 16 B/P (MAP) 203/106 (138) 191/92 (125) Pulse Ox 99 99 O2 Delivery Room Air Room Air Progress Progress Note : Time: 18:02 Progress Note Patient will reports complete relief of migraine symptoms. She feels like she is able to go home and rest. She agrees with plans for discharge, plans for close follow-up, return precautions were given. Voices no questions or concerns. Departure Impression Primary Impression: Migraine Disposition: 01 HOME, SELF-CARE Condition: Stable/Unchanged Departure-Patient Inst. Decision time for Depature: 18:03 Referrals: GERMAIN WAN MD (PCP/Family) Primary Care Physician Patient Instructions: Migraine Headache (DC) Add. Discharge Instructions: Resume your home medications as previously prescribed. Follow-up with Dr. Ogden within 1 week for recheck. Return back to the emergency room for any worsening symptoms or concerns as needed. All discharge instructions reviewed with patient and/or family. Voiced understanding. KAYDEN ROGERS Apr 16, 2018 17:42
[2018-04-16 18:05] VITALS: BP 191/92
== END | disposition home or self-care (01) ==
LOC: EDUNIT# 16:59 → ER 17:01
DX: G43.909 Migraine, unspecified, not intractable, without status migrainosus (principal); E78.00 Pure hypercholesterolemia, unspecified; I10 Essential (primary) hypertension; B19.20 Unspecified viral hepatitis C without hepatic coma; K21.9 Gastro-esophageal reflux disease without esophagitis; F41.9 Anxiety disorder, unspecified; F32.9 Major depressive disorder, single episode, unspecified; G25.81 Restless legs syndrome; Z88.6 Allergy status to analgesic agent; Z88.8 Allergy status to other drugs, medicaments and biological substances; Z87.19 Personal history of other diseases of the digestive system; Z77.22 Contact with and (suspected) exposure to environmental tobacco smoke (acute) (chronic); Z90.89 Acquired absence of other organs; Z90.710 Acquired absence of both cervix and uterus
CPT/HCPCS: 96372; 99284

== ENCOUNTER 2018-11-25 21:16 | Inpatient (IN) | payer MEDICARE ==
[~2018-11-25] VITALS: Ht 162.6 cm; Wt 68.5 kg
[2018-11-25 02:56] VITALS: BP 191/114
[~2018-11-25 21:16] MED LIST changes: -KETOROLAC 60 MG/2 ML VIAL IM ONE; -PROCHLORPERAZINE 10 MG/2ML INJ (COMPAZINE) IM ONE; -TRAZ-189 PO; +TRAZ-222 PO; -diphenhydrAMINE 50 MG/ML INJ (BENADRYL) IM ONE
[2018-11-25] MEDS ORDERED: LACTATED RINGERS 1,000 ML IV ONE ×2 (21:39→23:46)
[2018-11-25] MEDS ORDERED: LEVETIRACETAM INJECTION 1,000 MG in NS (IVPB) 100 ML IV ONE (21:45)
[2018-11-25 21:53] LABS: BASOPHILS # (AUTO) 0.1 10^3/uL (0.0-0.1); BASOPHILS % (AUTO) 1 % (0-10); EOSINOPHILS # (AUTO) 0.2 10^3/uL (0.0-0.3); EOSINOPHILS % (AUTO) 2 % (0-10); HEMATOCRIT 46 % (35-52); HEMOGLOBIN 15.9 G/DL (11.5-16.0); LYMPHOCYTES # (AUTO) 4.6 X 10^3 (1.0-4.0); LYMPHOCYTES % (AUTO) 41 % (12-44); MEAN CORPUSCULAR HEMOGLOBIN 31 PG (25-34); MEAN CORPUSCULAR HGB CONC 35 G/DL (32-36); MEAN CORPUSCULAR VOLUME 90 FL (80-99); MEAN PLATELET VOLUME 10.1 FL (7.4-10.4); MONOCYTES # (AUTO) 1.3 X 10^3 (0.0-1.0); MONOCYTES % (AUTO) 11 % (0-12); NEUTROPHILS # (AUTO) 5.3 X 10^3 (1.8-7.8); NEUTROPHILS % (AUTO) 46 % (42-75); PLATELET COUNT 115 10^3/uL (130-400); WHITE BLOOD COUNT 11.4 10^3/uL (4.3-11.0)
[2018-11-25 22:14] LABS: INR 1.3 (0.8-1.4); PROTHROMBIN TIME PATIENT 16.3 SEC (12.2-14.7)
[2018-11-25 22:15] LABS: BILIRUBIN,URINE 1+ (NEGATIVE); CLARITY,URINE SLIGHTLY CLOUDY; COLOR,URINE YELLOW; GLUCOSE, URINE (UA) NEGATIVE (NEGATIVE); KETONES,URINE 2+ (NEGATIVE); LEUKOCYTE ESTERASE ,URINE 3+ (NEGATIVE); NITRITE,URINE NEGATIVE (NEGATIVE); PH,URINE 6 (5-9); PROTEIN,URINE 4+ (NEGATIVE); UROBILINOGEN,URINE 4 MG/DL (NORMAL)
[2018-11-25 22:16] LABS: ALANINE AMINOTRANSFERASE 12 U/L (0-55); ALBUMIN 5.2 GM/DL (3.2-4.5); ALKALINE PHOSPHATASE 124 U/L (40-136); AMYLASE 40 U/L (25-125); BILIRUBIN,TOTAL 1.6 MG/DL (0.1-1.0); BUN/CREATININE RATIO 6; CALCIUM 11.9 MG/DL (8.5-10.1); CARBON DIOXIDE 16 MMOL/L (21-32); CHLORIDE 102 MMOL/L (98-107); CREATINE KINASE 405 U/L (29-168); CREATININE SERUM 1.06 MG/DL (0.60-1.30); GFR ESTIMATED 52; GLUCOSE 127 MG/DL (70-105); LIPASE 361 U/L (8-78); MAGNESIUM 2.1 MG/DL (1.8-2.4); POTASSIUM 3.8 MMOL/L (3.6-5.0); SODIUM 142 MMOL/L (135-145); TOTAL PROTEIN 10.1 GM/DL (6.4-8.2)
[2018-11-25 22:20] LABS: BACTERIA,URINE LARGE /HPF; RBC,URINE 0-2 /HPF; WBC,URINE 25-50 /HPF
--- NOTE | 2018-11-25 22:20 | ED General ---
General Stated Complaint: UTI Source of Information: Old Records History of Present Illness Date Seen by Provider: November 25, 2018 Time Seen by Provider: 21:32 Initial Comments PT ARRIVES VIA POV FROM HOME, WITH A FEMALE FRIEND PT'S PRESENTING COMPLAINT WAS "UTI" PT HAD BEEN GIVEN A URINE SPECIMEN CONTAINER ON ARRIVAL AND PT HAD WALKED BACK TO HER ROOM AFTER GOING TO THE BATHROOM ( WAS NOT ABLE TO GIVE A SAMPLE ), AND AT 2130 WAS WITNESSED BY MYSELF AND OTHER STAFF SHE WAS WALKING INTO HER ROOM, PT WAS SMILING, WALKING NORMALLY AND STATED THAT SHE COULD NOT GIVE A SPECIMEN, AND SOON SHE GOT TO THE BED, SHE BEGAN TO HAVE A GENERALIZED TONIG-CLONIC SEIZURE, LASTING 2 MINUTES--[id number] DID NOT BIT TONGUE NO INCONTINENCE DOES HAVE SOME BRUISING TO RIGHT FOREARM PT WITH SNOROUS BREATHING, AND THEN APPEARED POST-ICTAL AND ABLE ROUSE AT 2139 FRIEND IS A VERY LIMITED HISTORIAN AND STATES THAT SHE DOES NOT HAVE A HISTORY OF SEIZURES, THEN STATES "SHE'S BEEN HAVING SEIZURES ALL DAY BUT WE DIDN'T THINK ANYTHING ABOUT IT" THEN FRIEND STATES THAT "SHE GETS LIKE THIS EVERY TIME SHE HAS A UTI AND SHE WAITS TOO LONG" FRIEND ALSO STATES "SHE'S BEEN VOMITING ALL DAY" BUT CANNOT STATE HOW MANY TIMES, OR IF PT HAS HAD DIARRHEA OR ANY OTHER SYMPTOMS NO OTHER RELEVANT INFORMATION IS OBTAINABLE FROM FRIEND--FRIEND APPEARS TO BE UNDER THE INFLUENCE OF SOME SUBSTANCE/S. AND LEFT SHORTLY AFTER ARRIVAL. 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 HAS BEEN ON MULTIPLE NARCOTICS FOR HER DAILY HEADACHE COMPLAINT-INCLUDING: MORPHINE, HYDROCODONE, PERCOCET, DEMEROL, ULTRAM ADDITIONALLY, PT HAS LONG HISTORY OF IV METHAMPHETAMINE USE-HAS CLAIMED ON PRIOR VISITS THAT SHE HAS NOT USED "FOR 30 YEARS" PT ALSO HAS A HISTORY OF HEPATITIS C--UNTREATED PT WITH LONG HISTORY OF NON-COMPLIANCE Allergies and Home Medications Allergies Coded Allergies: aspirin (Verified Allergy, Unknown, 11/30/07) desvenlafaxine (Verified Allergy, Unknown, NAUSEA, 11/05/15) Home Medications Alprazolam 0.5 Mg Tablet, 0.5 MG PO BID PRN for ANXIETY Prescribed by: FELIBERTO JOHNSTON on 12/01/17 1105 Benzonatate 100 Mg Capsule, 100 MG PO TID PRN for COUGH Prescribed by: ARJUN BRANTLEY on 03/07/18 1330 Docusate Sodium 100 Mg Capsule, 100 MG PO BID Prescribed by: FELIBERTO JOHNSTON on 12/01/171104 Enoxaparin Sodium 40 Mg/0.4 Ml Syringe, 40 MG SC DAILY Prescribed by: FELIBERTO JOHNSTON on 12/01/171104 Fentanyl 1 Each Patch.td72, 50 MCG TD Q72H Prescribed by: FELIBERTO JOHNSTON on 12/01/171104 Fexofenadine HCl 180 Mg Tablet, 180 MG PO DAILY, (Reported) Ipratropium/Albuterol Sulfate 3 Ml Ampul.neb, 3 ML INH RTQ8HR Prescribed by: FELIBERTO JOHNSTON on 12/01/171104 Lactulose 20 Gm/30 Ml Solution, 10 GM PO BID Prescribed by: FELIBERTO JOHNSTON on 12/01/171104 Lisinopril 40 Mg Tablet, 40 MG PO DAILY, (Reported) Lurasidone HCl 80 Mg Tablet, 80 MG PO 1800, (Reported) Melatonin 3 Mg Tablet, 3 MG PO HS, (Reported) Memantine HCl 10 Mg Tablet, 10 MG PO BID, (Reported) Montelukast Sodium 10 Mg Tablet, 10 MG PO HS, (Reported) Nicotine 1 Each Patch.td24, 21 MG TD DAILY@0900 Prescribed by: FELIBERTO JOHNSTON on 12/01/171104 Omeprazole Magnesium 20 Mg Tablet.dr, 20 MG PO DAILY, (Reported) Oxycodone HCl/Acetaminophen 1 Each Tablet, 1 TAB PO Q4H PRN for PAIN-MODERATE Prescribed by: FELIBERTO JOHNSTON on 12/01/171104 Pediatric Multivit Comb. No.49 1 Each Tab.chew, 2 TAB.CHEW PO DAILY, (Reported) Potassium Chloride 20 Meq Tab.er.prt, 20 MEQ PO DAILY, (Reported) Simvastatin 40 Mg Tablet, 40 MG PO HS, (Reported) Sulfamethoxazole/Trimethoprim 1 Each Tablet, 1 EACH PO BID Prescribed by: ARJUN BRANTLEY on 01/18/182053 Trazodone HCl 50 Mg Tablet, 50 MG PO HS, (Reported) Venlafaxine HCl 150 Mg Cap.er.24h, 150 MG PO DAILY, (Reported) Patient Home Medication List Home Medication List Reviewed: Yes Review of Systems Review of Systems Constitutional: other (VERY MINIMAL INFORMATION) Gastrointestinal: see HPI Psychiatric/Neurological: See HPI Past Mnzqcyq-Kwrjde-Cnvahq Hx Patient Social History Alcohol Use: Occasionally Uses Recreational Drug Use: Yes (+IV METH USE; THC USE; RX NARCOTIC AND BENZODIAZEPINE ABUSE/DEPENDENCE DAILY ) Drug of Choice: +IV METH USE, THC USE, RX NARCOTICS/BENZO'S ABUSE/DEPENDENCE DAILY USE Smoking Status: Current Everyday Smoker Type Used: Cigarettes 2nd Hand Smoke Exposure: Yes Recent Foreign Travel: No Contact w/Someone Who Travel: No Recent Hopitalizations: No Immunizations Up To Date Tetanus Booster (TDap): Unknown Date of Pneumonia Vaccine: Jun 02, 2017 Seasonal Allergies Seasonal Allergies: No Past Medical History Surgeries: Yes (RIGHT FOOT X 4; LEFT FOOT X 1; LEFT KNEE FX/PATELLAR TENDON REPAIR 11/26/17; BILATERAL ANKLES; TEETH REMOVED; HYST/BSO) Appendectomy, Gallbladder, Hysterectomy, Oophorectomy, Orthopedic Respiratory: No Cardiac: Yes High Cholesterol, Hypertension, Irregular Heartbeat Neurological: Yes (DAILY NARCOTIC USE/ABUSE FOR CHRONIC HEADACHE COMPLAINT; "chronic tremors") Dementia, Headaches /Migraines Reproductive Disorders: 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, 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 Sexually Transmitted Disease: No HIV/AIDS: No Genitourinary: Yes Bladder Infection Gastrointestinal: Yes (HEPATITIS C-UNTREATED; OPIOID INDUCED CONSTIPATION) Gastroesophageal Reflux, Liver Disease/Jaundice, Chronic Constipation, Hepatitis Musculoskeletal: Yes (CHRONIC ANKLE PAIN/BILAT ANKLE FX'S; RESTLESS LEGS; LEFT PATELLAR FX/TENDON REPAIR 10/2017; RIGHT HUMERAL FX 10/2017--NO SURGERY; T12 COMPRESSION) Back Injury, Chronic Back Pain, Fractures Endocrine: Yes (HYPONATREMIA) HEENT: Yes (SINUS PROBLEMS) Cancer: No Psychosocial: Yes (PLYSUBSTANCE ABUSE) Anxiety, Depression Integumentary: No Blood Disorders: Yes (ANEMIA) Adverse Reaction/Blood Tranf: No Family Medical History Patient reports no known family medical history. No Pertinent Family Hx Physical Exam Vital Signs Vital Signs - First Documented 11/25/18 21:22 Temp 97.8 Pulse 90 Resp 16 B/P (MAP) 182/138 (153) Pulse Ox 100 O2 Delivery Room Air Capillary Refill : Height, Weight, BMI Height: 5'3.00" Weight: 150lbs. 6.0oz. 68.474264nw; 30.5 BMI Method:Stated General Appearance: Thin, Other ( ABOVE) HEENT: PERRL/EOMI, Other (EDENTULOUS) Neck: Normal Inspection Respiratory: Normal Breath Sounds, No Accessory Muscle Use, No Respiratory Distress Cardiovascular: Regular Rate, Rhythm, No Edema, No JVD, Normal Peripheral Pulses Gastrointestinal: No Organomegaly, No Pulsatile Mass, Soft, Abnormal Bowel Sounds (DECREASED ), Tenderness (MILD DIFFUSE TENDERNESS) Extremity: Normal Range of Motion, No Pedal Edema Neurologic/Psychiatric: Other (MENTATION ABOVE. CONTINUES TO HAVE BIZARRE AFFECT AND ERRATIC SPEECH) Focused Exam Sepsis Stage: Sepsis Possible Source: GI Tract/Intra-Abdominal (ALSO UTI) Lactate Level 11/25/18 22:00: Lactic Acid Level 9.91*H 11/26/18 00:20: Lactic Acid Level 2.43*H Time of Focused Exam: 22:40 Respiratory: Normal Breath Sounds, No Accessory Muscle Use, No Respiratory Distress Cardiovascular: Regular Rate, Rhythm, No Murmur, Normal Peripheral Pulses Capillary Refill: Less Than 3 Seconds Peripheral Pulses: 3+ Dorsalis Pedis (R), 3+ Left Dors-Pedis (L), 3+ Radial Pulses (R), 3+ Radial Pulses (L) Skin: warm/dry, pallor Lactic Acid Level Laboratory Tests Test 11/26/18 00:20 Lactic Acid Level 2.43 MMOL/L (0.50-2.00) *H Progress/Results/Core Measures Suspected Sepsis SIRS Temperature: Pulse: Respiratory Rate: Laboratory Tests 11/25/18 21:35: White Blood Count 11.4H 11/26/18 03:16: White Blood Count 4.5 Blood Pressure / Mean: 11/25/18 22:00: Lactic Acid Level 9.91*H 11/26/18 00:20: Lactic Acid Level 2.43*H Laboratory Tests 11/25/18 21:35: Creatinine 1.06, INR Comment 1.3, Platelet Count 115L, Total Bilirubin 1.6H 11/26/18 03:16: Platelet Count 66L Results/Orders Lab Results Laboratory Tests Test 11/25/18 21:35 11/25/18 21:49 11/25/18 22:00 11/25/18 22:43 Range/Units White Blood Count 11.4 H 4.3-11.0 10^3/uL Red Blood Count 5.08 4.35-5.85 10^6/uL Hemoglobin 15.9 11.5-16.0 G/DL Hematocrit 46 35-52 % Mean Corpuscular Volume 90 80-99 FL Mean Corpuscular Hemoglobin 31 25-34 PG Mean Corpuscular Hemoglobin Concent 35 32-36 G/DL Red Cell Distribution Width 14.0 10.0-14.5 % Platelet Count 115 L 130-400 10^3/uL Mean Platelet Volume 10.1 7.4-10.4 FL Neutrophils (%) (Auto) 46 42-75 % Lymphocytes (%) (Auto) 41 12-44 % Monocytes (%) (Auto) 11 0-12 % Eosinophils (%) (Auto) 2 0-10 % Basophils (%) (Auto) 1 0-10 % Neutrophils # (Auto) 5.3 1.8-7.8 X 10^3 Lymphocytes # (Auto) 4.6 H 1.0-4.0 X 10^3 Monocytes # (Auto) 1.3 H 0.0-1.0 X 10^3 Eosinophils # (Auto) 0.2 0.0-0.3 10^3/uL Basophils # (Auto) 0.1 0.0-0.1 10^3/uL Prothrombin Time 16.3 H 12.2-14.7 SEC INR Comment 1.3 0.8-1.4 Activated Partial Thromboplast Time 32 24-35 SEC Sodium Level 142 135-145 MMOL/L Potassium Level 3.8 3.6-5.0 MMOL/L Chloride Level 102 98-107 MMOL/L Carbon Dioxide Level 16 L 21-32 MMOL/L Anion Gap 24 H 5-14 MMOL/L Blood Urea Nitrogen 6 L 7-18 MG/DL Creatinine 1.06 0.60-1.30 MG/DL Estimat Glomerular Filtration Rate 52 BUN/Creatinine Ratio 6 Glucose Level 127 H 70-105 MG/DL Calcium Level 11.9 H 8.5-10.1 MG/DL Corrected Calcium 8.5-10.1 MG/DL Magnesium Level 2.1 1.8-2.4 MG/DL Total Bilirubin 1.6 H 0.1-1.0 MG/DL Aspartate Amino Transf (AST/SGOT) 30 5-34 U/L Alanine Aminotransferase (ALT/SGPT) 12 0-55 U/L Alkaline Phosphatase 124 40-136 U/L Ammonia 90 H 11-32 UMOL/L Total Creatine Kinase 405 H 29-168 U/L Creatine Kinase MB 7.3 *H <6.6 NG/ML Myoglobin 644.7 H 10.0-92.0 NG/ML Troponin I < 0.028 <0.028 NG/ML Total Protein 10.1 H 6.4-8.2 GM/DL Albumin 5.2 H 3.2-4.5 GM/DL Amylase Level 40 25-125 U/L Lipase 361 H 8-78 U/L TSH [place] Testing 3.67 0.35-4.94 UIU/ML Acetaminophen Level < 10 L 10-30 UG/ML Serum Alcohol < 10 <10 MG/DL Glucometer 153 H 70-110 MG/DL Urine Color YELLOW Urine Clarity SLIGHTLY CLOUDY Urine pH 6 5-9 Urine Specific [place] 1.025 H 1.016-1.022 Urine Protein 4+ NEGATIVE Urine Glucose (UA) NEGATIVE NEGATIVE Urine Ketones 2+ H NEGATIVE Urine Nitrite NEGATIVE NEGATIVE Urine Bilirubin 1+ H NEGATIVE Urine Urobilinogen 4 H NORMAL MG/DL Urine Leukocyte Esterase 3+ H NEGATIVE Urine RBC (Auto) 4+ H NEGATIVE Urine RBC 0-2 /HPF Urine WBC 25-50 H /HPF Urine Squamous Epithelial Cells 5-10 /HPF Urine Crystals NONE /LPF Urine Bacteria LARGE H /HPF Urine Casts NONE /LPF Urine Mucus NEGATIVE /LPF Urine Culture Indicated YES Lactic Acid Level 9.91 *H 0.50-2.00 MMOL/L Urine Opiates Screen POSITIVE H NEGATIVE Urine Oxycodone Screen NEGATIVE NEGATIVE Urine Methadone Screen NEGATIVE NEGATIVE Urine Propoxyphene Screen NEGATIVE NEGATIVE Urine Barbiturates Screen NEGATIVE NEGATIVE Ur Tricyclic Antidepressants Screen NEGATIVE NEGATIVE Urine Phencyclidine Screen NEGATIVE NEGATIVE Urine Amphetamines Screen POSITIVE H NEGATIVE Urine Methamphetamines Screen POSITIVE H NEGATIVE Urine Benzodiazepines Screen POSITIVE H NEGATIVE Urine Cocaine Screen NEGATIVE NEGATIVE Urine Cannabinoids Screen POSITIVE H NEGATIVE Blood Gas Puncture Site LEFT RADIAL Blood Gas Patient Temperature 96.1 Arterial Blood pH 7.55 H 7.37-7.43 Arterial Blood Partial Pressure CO2 18 *L 35-45 MMHG Arterial Blood Partial Pressure O2 113 H 79-93 MMHG Arterial Blood HCO3 16 *L 23-27 MMOL/L Arterial Blood Total CO2 16.4 L 21.0-31.0 MMOL/L Arterial Blood Oxygen Saturation 100 94-100 % Arterial Blood Base Excess -6.5 L -2.5-2.5 MMOL/L Elliott Test POSITIVE Blood Gas Ventilator Setting NO Blood Gas Inspired Oxygen N Test 11/26/18 00:20 11/26/18 02:00 11/26/18 03:16 Range/Units Lactic Acid Level 2.43 *H 0.50-2.00 MMOL/L Blood Gas Puncture Site LEFT RADIAL Blood Gas Patient Temperature 98.1 Arterial Blood pH 7.38 7.37-7.43 Arterial Blood Partial Pressure CO2 38 35-45 MMHG Arterial Blood Partial Pressure O2 82 79-93 MMHG Arterial Blood HCO3 22 L 23-27 MMOL/L Arterial Blood Total CO2 22.9 21.0-31.0 MMOL/L Arterial Blood Oxygen Saturation 97 94-100 % Arterial Blood Base Excess -2.7 L -2.5-2.5 MMOL/L Elliott Test POSITIVE Blood Gas Ventilator Setting NO Blood Gas Inspired Oxygen N White Blood Count 4.5 4.3-11.0 10^3/uL Red Blood Count 3.84 L 4.35-5.85 10^6/uL Hemoglobin 12.0 # 11.5-16.0 G/DL Hematocrit 34 L 35-52 % Mean Corpuscular Volume 89 80-99 FL Mean Corpuscular Hemoglobin 31 25-34 PG Mean Corpuscular Hemoglobin Concent 35 32-36 G/DL Red Cell Distribution Width 13.5 10.0-14.5 % Platelet Count 66 L 130-400 10^3/uL Mean Platelet Volume 10.3 7.4-10.4 FL Neutrophils (%) (Auto) 63 42-75 % Lymphocytes (%) (Auto) 25 12-44 % Monocytes (%) (Auto) 10 0-12 % Eosinophils (%) (Auto) 1 0-10 % Basophils (%) (Auto) 0 0-10 % Neutrophils # (Auto) 2.9 1.8-7.8 X 10^3 Lymphocytes # (Auto) 1.2 1.0-4.0 X 10^3 Monocytes # (Auto) 0.4 0.0-1.0 X 10^3 Eosinophils # (Auto) 0.1 0.0-0.3 10^3/uL Basophils # (Auto) 0.0 0.0-0.1 10^3/uL My Orders Orders - KIMBERLY,DEA K DO Accucheck Stat ONCE (11/25/18 21:39) Ed Iv/Invasive Line Start (11/25/18 21:39) Ekg Tracing (11/25/18:39) Catheter(Urinary) Insert & Ass 03,15 (11/25/18 21:39) O2 (11/25/18 21:39) Monitor-Rhythm Ecg Trace Only (11/25/18 21:39) Ct Abdomen/Pelvis Wo (11/25/18 21:39) Ct Head Wo-R/O Stroke (11/25/18 21:39) Chest 1 View, Ap/Pa Only (11/25/18 21:39) Forearm, Right, 2 Views (11/25/18:39) Acetaminophen (11/25/18 21:39) Alcohol (11/25/18 21:39) Ammonia (11/25/18 21:39) Amylase (11/25/18 21:39) Cbc With Automated Diff (11/25/18 21:39) Comprehensive Metabolic Panel (11/25/18 21:39) Creatine Kinase (11/25/18 21:39) Creatine Kinase Mb (11/25/18 21:39) Drug Screen Stat (Urine) (11/25/18 21:39) Lactic Acid Analyzer (11/25/18 21:39) Lipase (11/25/18 21:39) Magnesium (11/25/18 21:39) Protime With Inr (11/25/18 21:39) Partial Thromboplastin Time (11/25/18 21:39) Thyroid Analyzer (11/25/18 21:39) Troponin I (11/25/18 21:39) Blood Culture (11/25/18 21:39) Myoglobin Serum (11/25/18 21:39) Ed Iv/Invasive Line Start (11/25/18 21:39) Lactated Ringers (Lr 1000 Ml Iv Solution (11/25/18 21:39) Levetiracetam Injection (Keppra Injectio (11/25/18 21:45) Ondansetron Injection (Zofran Injectio (11/25/18 22:30) Scopolamine Patch (Transderm-Scop Patch) (11/25/18 22:30) Lactulose Syrup (Pour Bottle) (Cephulac (11/25/18 22:30) Arterial Blood Gas (11/25/18 22:30) Ed Iv/Invasive Line Start (11/25/18 22:35) Ed Iv/Invasive Line Start (11/25/18 22:35) Ns Iv 1000 Ml (Sodium Chloride 0.9%) (11/25/18 22:35) Ceftriaxone For Iv Use (Rocephin For I (11/25/18 22:45) Lactulose Oral Solution (Enulose Oral So (11/25/18 22:51) Lactulose Oral Solution (Enulose Oral So (11/25/18 22:53) Arterial Blood Draw (11/25/18 ) Ondansetron Injection (Zofran Injectio (11/25/18 23:30) Ed Iv/Invasive Line Start (11/25/18 23:46) Lactated Ringers (Lr 1000 Ml Iv Solution (11/25/18 23:46) Promethazine Injection (Phenergan Injec (11/26/18 00:00) Diphenhydramine Injection (Benadryl Inje (11/26/18 00:00) Ceftriaxone For Iv Use (Rocephin For I (11/25/18 23:51) Water (Sterile) For Injection (Sterile W (11/25/18 23:51) Piperacillin/Tazobactam (Bulk) (Zosyn In (11/26/18 01:15) Labetalol Injection (Normodyne Injection (11/26/18 01:15) Ns (Ivpb) (Sodium Chloride 0.9% Ivpb Bag (11/26/18 01:11) Piperacillin Sodium/Tazobactam (Zosyn Vi (11/26/18 01:11) Arterial Blood Gas (11/26/18 01:49) Medications Given in ED Current Medications Medications Dose Ordered Sig/[place] Route Start Time Stop Time Status Last Admin Dose Admin Ceftriaxone Sodium 1000 mg/ Sterile Water 10 ml @ 200 mls/hr ONCE ONCE IV 11/25/18 22:45 11/26/18 00:01 DC 11/25/18 23:00 200 MLS/HR Diphenhydramine HCl 12.5 mg ONCE ONCE IVP 11/26/18 00:00 11/26/18 00:01 DC 11/26/18 00:05 12.5 MG Lactated Ringer's 1,000 ml @ 0 mls/hr Q0M ONCE IV 11/25/18 21:39 11/25/18 21:44 DC 11/25/18 22:47 999 MLS/HR Lactated Ringer's 1,000 ml @ 0 mls/hr Q0M ONCE IV 11/25/18 23:46 11/26/18 00:01 DC 11/26/18 01:00 999 MLS/HR Levetiracetam 1000 mg/Sodium Chloride 110 ml @ 440 mls/hr ONCE ONCE IV 11/25/18 21:45 11/25/18 21:59 DC 11/25/18 22:45 440 MLS/HR Ondansetron HCl 8 mg ONCE ONCE IVP 11/25/18 22:30 11/25/18 22:31 DC 11/25/18 22:29 8 MG Ondansetron HCl 8 mg ONCE ONCE IVP 11/25/18 23:30 11/25/18 23:31 DC 11/25/18 22:30 8 MG Promethazine HCl 12.5 mg ONCE ONCE IVP 11/26/18 00:00 11/26/18 00:01 DC 11/26/18 00:32 12.5 MG Scopolamine 1.5 mg ONCE ONCE TD 11/25/18 22:30 11/25/18 22:31 DC 11/25/18 22:29 1.5 MG Sodium Chloride 1,000 ml @ 0 mls/hr Q0M ONCE IV 11/25/18 22:35 11/25/18 22:37 DC 11/25/18 23:00 999 MLS/HR Vital Signs/I&O 11/25/18 11/26/18 21:22 03:00 Temp 97.8 Pulse 90 87 Resp 16 B/P (MAP) 182/138 (153) Pulse Ox 100 O2 Delivery Room Air 11/26/18 00:00 Intake Total 1120 ml Balance 1120 ml Capillary Refill : Point of Care Testing Finger Stick Blood Glucose: 153 Blood Glucose Action Taken: AND RN NOTIFIED Progress Note : Progress Note GENERALIZED TONIC-CLINIC SEIZURE ACTIVITY LASTED FROM [id number], WITH SNOROUS BREATHING AFTERWARD NASAL TRUMPET AND OXIMASK APPLIED WITH O2 SATS OF 100%, PT TACHYCARDIC IN 110'S, BP ELEVATED TO 190'S /100'S 2 IV'S STARTED AND IV FLUIDS GIVEN ALONG WITH KEPPRA 1 GRAM IV 2139--PT ABLE TO ROUSE SOME AND UTTER A FEW WORDS, VERY DROWSY/POST-ICTAL 2219--PT IS NOW BACK TO APPARENT BASELINE, BUT IS AN EXTREMELY POOR AND DIFFICULT HISTORIAN WITH SPEECH RAPID, MUMBLED AND SOMEWHAT ERRATIC AND SOME DIFFICULTY COMPLETING SENTENCES/STAYING ON SUBJECT. PT WITH CONSTANT MOVEMENTS OF BODY AND MOUTH, AND FACIAL GRIMACING. PT APPEARS TO BE UNDER THE INFLUENCE OF SOME SUBSTANCE/S. PT IS ALERT TO PERSON, PLACE, KNOWS MONTH/HOLIDAY/YEAR, AND GROSSLY ORIENTED TO WHY SHE IS HERE--STATES SHE HAS "BEEN PUKING" THEN STATES "FOR A YEAR"--UNABLE TO STATES WHEN VOMITING ACTUALLY STARTED OR HOW MANY EPISODES OF VOMITING SHE HAS HAD TODAY. STATES SHE HAS HAD DIARRHEA X 1 TODAY IS UNABLE TO STATE IF SHE ACTUALLY HAS ABDOMINAL PAIN OR NOT PT STATES SHE DID TAKE HER MORNING MEDICATIONS BUT NOT HER EVENING MEDICATIONS, DENIES MISSING DOSES OF ANY OF HER REGULAR MEDICATIONS PT CANNOT STATE WHAT SHE HAS BEEN DOING TODAY OTHERWISE. PT CANNOT STATE IF SHE HAS HAD A SEIZURE BEFORE, AND DOES NOT APPEAR TO COMPREHEND WHEN I INFORM HER THAT SHE HAS HAD A SEIZURE. LATER, ON REVIEWING HER TEST RESULTS, AND AGAIN ON DIRECT QUESTIONING, PT NOW ADMITS TO USING METH "LAST NIGHT" STATES SHE "ATE IT" --STATES SHE USED TO USE IT IV "FOR 30 YEARS" PT ALSO ADMITS TO THC USE ON REGULAR BASIS. BP DOWN WITH MEDICATIONS, O2 SATS REMAINED IN UPPER 90'S ON ROOM AIR FOR REMAINDER OF ER STAY, HEART RATE DOWN NAUSEA AND VOMITING RESOLVED WITH ZOFRAN, SCOPOLAMINE PATCH AND PHENERGAN/BENADRYL PT HAD NO OTHER COMPLAINTS DURING ER STAY. ECG Initial ECG Impression Date: November 26, 2018 Initial ECG Impression Time: 00:04 Initial ECG Rate: 89 Initial ECG Rhythm: Normal Sinus Initial ECG Impression: Nonspecific Changes Diagnostic Imaging Comments CXR--NO ACUTE PROCESS XRAYS RIGHT FOREARM--NO ACUTE PROCESS PENDING RADIOLOGIST REVIEW CT HEAD--NO ACUTE PROCESS, CHRONIC CHANGES INCLUDING OLD LEFT THALAMIC LACUNAR INFARCT AND MICROVASCULAR ISCHEMIC CHANGES--PER [facility] VIA FAX @ 6984 CT ABDOMEN/PELVIS--THICKENING OF WALL OF CECUM WITH PNEUMATOSIS OF CECUM AND AIR IN MESENTERIC VEINS IN LOWER ABDOMEN AND PELVIS--HIGHLY SUSPICIOUS FOR BOWEL/MESENTERIC ISCHEMIA-ISCHEMIC COLITIS--PER RADIOLOGIST VIA PHONE AT 0025 AND VIA FAX AT [phone] Reviewed: Reviewed by Me, Discussed w/Radiologist Critical Care Note Critical Care Total Time (minutes) 30 Departure Communication (Admissions) 0050--SPOKE WITH DR. GORDON, ADVISES ADMIT AND CONTACT HOSPITALIST AND PULMONOLOGY. ORDERS NOTED 005--SPOKE WITH DR. JOHNSTON, HOSPITALIST, ACCEPTS PT 0056--SPOKE WITH DR. RIDLEY, ACCOUNTS PAYABLE CLERK. ORDERS NOTED. Impression Primary Impression: Ischemic colitis Additional Impressions: Sepsis New onset seizure UTI (urinary tract infection) ILLICIT DRUG USE-MULTIPLE SUBSTANCES Uncontrolled hypertension Lactic acidosis Hepatitis C ELEVATED AMMONIA LEVEL Intractable nausea and vomiting Dementia Disposition: ADMITTED INPATIENT Condition: Improved Admissions Decision to Admit Reason: Admit from ER (General) Decision to Admit/Date: November 26, 2018 Time/Decision to Admit Time: 00:50 Departure-Patient Inst. Referrals: GERMAIN WAN MD (PCP/Family) Primary Care Physician DEA HARRIS DO November 25, 2018 22:20
[2018-11-25 22:24] LABS: AMPHETAMINE SCREEN, URINE POSITIVE (NEGATIVE); BARBITURATE SCREEN URINE NEGATIVE (NEGATIVE); BENZODIAZEPINES SCREEN URINE POSITIVE (NEGATIVE); CANNABINOID SCREEN, URINE POSITIVE (NEGATIVE); COCAINE SCREEN URINE NEGATIVE (NEGATIVE); METHADONE STAT NEGATIVE (NEGATIVE); METHAMPHETAMINE SCREEN URINE S POSITIVE (NEGATIVE); OPIATE SCREEN URINE POSITIVE (NEGATIVE); OXYCODONE STAT NEGATIVE (NEGATIVE); PROPOXYPHENE STAT NEGATIVE (NEGATIVE); TRICYCLIC ANTIDEPRESSANTS SCRE NEGATIVE (NEGATIVE)
[2018-11-25 22:30] LABS: ACETAMINOPHEN < 10 UG/ML (10-30); AMMONIA 90 UMOL/L (11-32)
[2018-11-25] MEDS ORDERED: ONDANSETRON 4 MG/2 ML (SDV) Z0FRAN IVP ONE ×2 (22:30→23:30)
[2018-11-25] MEDS ORDERED: LACTULOSE 10 GM/15 ML 30 ML POUR BOTTLE FOR ENEMA PR ONE (22:30)
[2018-11-25] MEDS ORDERED: SCOPOLAMINE 1.5 MG (TRANSDERM-SCOP) PATCH TD ONE (22:30)
[2018-11-25] MEDS ORDERED: NS IV 1000 ML 1,000 ML IV ONE (22:35)
[2018-11-25 22:36] LABS: CREATINE KINASE MB 7.3 NG/ML (<6.6); TSH (THYROID ANALYZER) 3.67 UIU/ML (0.35-4.94)
[2018-11-25] MEDS ORDERED: cefTRIAXone FOR IV USE 1,000 MG in WATER (STERILE) FOR INJECTION 10 ML IV ONE (22:45)
[2018-11-25] MEDS ORDERED: LACTULOSE SYRUP 10GM/15ML (ENULOSE) 30ML UDC ONE ×2 (22:51→22:53)
[2018-11-25 22:57] LABS: ABG BASE EXCESS -6.5 MMOL/L (-2.5-2.5); ABG OXYGEN SATURATION 100 % (94-100); ABG PH 7.55 (7.37-7.43); ABG PO2 113 MMHG (79-93); ABG TCO2 16.4 MMOL/L (21.0-31.0); ALLENS TEST POSITIVE; INSPIRED O2 N; VENTILATOR NO
[2018-11-25 22:58] LABS: ABG PCO2 18 MMHG (35-45); PATIENT TEMP 96.1
[2018-11-25] MEDS ORDERED: cefTRIAXone 1,000 MG IV (ROCEPHIN) VIAL ONE (23:51)
[2018-11-25] MEDS ORDERED: WATER (STERILE) FOR INJECTION 10 ML ONE (23:51)
[2018-11-26] VITALS (28 sets, daily range): BP systolic 133–194; BP diastolic 60–129
[2018-11-26] MEDS ORDERED: diphenhydrAMINE 50 MG/ML INJ (BENADRYL) IVP ONE
[2018-11-26] MEDS ORDERED: PROMETHAZINE INJ 25 MG/ML (PHENERGAN) AMP IVP ONE
[2018-11-26] MEDS ORDERED: PIPERACILLIN/TAZO 4.5 GM VIAL (ZOSYN) IV ONE (01:11)
[2018-11-26] MEDS ORDERED: NS (IVPB) 100 ML ONE (01:11)
[2018-11-26] MEDS ORDERED: LABETALOL HCL 20 MG/4 ML VIAL IV ONE (01:15)
[2018-11-26] MEDS ORDERED: PIPERACILLIN/TAZOBACTAM (BULK) 4.5 GM in NS (IVPB) 100 ML IV ONE (01:15)
[2018-11-26 02:11] LABS: ABG BASE EXCESS -2.7 MMOL/L (-2.5-2.5); ABG OXYGEN SATURATION 97 % (94-100); ABG PCO2 38 MMHG (35-45); ABG PH 7.38 (7.37-7.43); ABG PO2 82 MMHG (79-93); ABG TCO2 22.9 MMOL/L (21.0-31.0)
[2018-11-26 02:17] LABS: ALLENS TEST POSITIVE; INSPIRED O2 N; PATIENT TEMP 98.1; VENTILATOR NO
[2018-11-26] MEDS ORDERED: NS IV 1000 ML 1,000 ML ONE (03:07)
[2018-11-26] MEDS ORDERED: D5 1/2 NS W/KCL 20 MEQ/L 1,000 ML IV ONE (03:07)
[2018-11-26 03:22] LABS: BASOPHILS % (AUTO) 0 % (0-10); EOSINOPHILS # (AUTO) 0.1 10^3/uL (0.0-0.3); EOSINOPHILS % (AUTO) 1 % (0-10); HEMATOCRIT 34 % (35-52); LYMPHOCYTES # (AUTO) 1.2 X 10^3 (1.0-4.0); LYMPHOCYTES % (AUTO) 25 % (12-44); MEAN CORPUSCULAR HEMOGLOBIN 31 PG (25-34); MEAN CORPUSCULAR HGB CONC 35 G/DL (32-36); MEAN CORPUSCULAR VOLUME 89 FL (80-99); MEAN PLATELET VOLUME 10.3 FL (7.4-10.4); MONOCYTES # (AUTO) 0.4 X 10^3 (0.0-1.0); MONOCYTES % (AUTO) 10 % (0-12); NEUTROPHILS # (AUTO) 2.9 X 10^3 (1.8-7.8); NEUTROPHILS % (AUTO) 63 % (42-75); PLATELET COUNT 66 10^3/uL (130-400); RED CELL DISTRIBUTION WIDTH 13.5 % (10.0-14.5); WHITE BLOOD COUNT 4.5 10^3/uL (4.3-11.0)
--- NOTE | 2018-11-26 03:45 | NUR ---
Flexiseal inserted to administer lactulose dose per dr order. Pt reported having diarrhea prior to arrival and stated that her rectum was "burning". Josette rectal area noted to be reddened and raw-looking.
[2018-11-26 03:56] LABS: ALANINE AMINOTRANSFERASE 9 U/L (0-55); ALBUMIN 3.7 GM/DL (3.2-4.5); ALKALINE PHOSPHATASE 87 U/L (40-136); BUN/CREATININE RATIO 7; CALCIUM 9.2 MG/DL (8.5-10.1); CARBON DIOXIDE 20 MMOL/L (21-32); CHLORIDE 108 MMOL/L (98-107); CREATININE SERUM 0.76 MG/DL (0.60-1.30); GFR ESTIMATED > 60; GLUCOSE 123 MG/DL (70-105); MAGNESIUM 1.9 MG/DL (1.8-2.4); PHOSPHORUS 2.8 MG/DL (2.3-4.7); POTASSIUM 3.5 MMOL/L (3.6-5.0); SODIUM 141 MMOL/L (135-145); TOTAL PROTEIN 7.2 GM/DL (6.4-8.2)
--- NOTE | 2018-11-26 05:56 | NUR ---
When asked about emergency contacts, pt stated Laquita Levine lived with her and took care of her, but when asked what phone number I could reach her at, pt stated "[phone], but don't call her". Pt is a poor historian, admission done to the best of this RN's ability.
[2018-11-26] MEDS ORDERED: LEVETIRACETAM 1,000 MG/NS 100 ML IVPB IV ONE ×2 (06:00)
--- NOTE | 2018-11-26 06:06 | Diagnostic Imaging Report ---
Portable erect AP chest at 1014 hours. INDICATION: Seizure, chest pain. FINDINGS: The heart size is within normal limits and stable when compared to 11/09/2017. The lungs are clear. There is no evidence for failure, pneumonia or for pleural effusion to indicate an acute abnormality. The mediastinum is not widened. As noted on the prior exam, there are fractures of the distal right clavicle. These seem similar to the previous study. However, there is now an acute fracture of the surgical neck of the right humerus. Reportedly, the right humerus exam is pending for further study. IMPRESSION: 1. There is no evidence for an acute cardiopulmonary abnormality. 2. There is an acute fracture of the right humerus. A right humerus exam is pending for further study. Dictated by: Dictated on workstation # [id number]
--- NOTE | 2018-11-26 06:08 | Diagnostic Imaging Report ---
EXAMINATION: Right forearm INDICATION: Seizure, arm pain AP and lateral views were obtained. There are no prior studies available for comparison. There is no fracture, dislocation or acute bony abnormality evident. The elbow joint is well maintained. There is mild degenerative disease of the radiocarpal joint. The soft tissues are unremarkable. IMPRESSION: There is no evidence for an acute bony abnormality. Dictated by: Dictated on workstation # [id number]
--- NOTE | 2018-11-26 06:11 | Diagnostic Imaging Report ---
PROCEDURE: CT head wo r/o stroke. TECHNIQUE: Multiple contiguous axial images were obtained through the brain without the use of intravenous contrast. Auto Exposure Controls were utilized during the CT exam to meet ALARA standards for radiation dose reduction. INDICATION: Seizure, vomiting. FINDINGS: There is no mass, shift of midline or hemorrhage to suggest an acute intracranial abnormality. The normal tentorial blush is noted. The ventricles are not abnormally dilated and stable in size when compared to the prior exam of 03/19/2018. As noted on the prior study, there are vague areas of low density in the periventricular white matter bilaterally. These findings are nonspecific but may be secondary to encephalomalacia from microvascular ischemia. There is also now an area of diminished density in the left thalamus. This was not clearly present on the prior exam. I suspect that this too is related to encephalomalacia from a prior infarct. However, if clinical concern regarding an acute abnormality persists, then MRI would be recommended for further evaluation. The bone windows show no sign of a fracture or destructive lesion. The orbits are symmetrical and within normal limits. The sinuses were visualized are clear. IMPRESSION: 1. The small area of diminished density in the left thalamus is more likely due to encephalomalacia from an interval infarct than to an acute or subacute nonhemorrhagic infarct. Even so, if further evaluation is desired, then MRI would be recommended. 2. There is no acute intracranial abnormality noted otherwise. Dictated by: Dictated on workstation # [id number]
--- NOTE | 2018-11-26 06:15 | Pulmonary Consultation ---
History of Present Illness History of Present Illness Date of Consultation 11/26/18 06:10 Time Seen by Provider: 06:10 Date of Admission History of Present Illness 63yo with hx of hep C, drug use including methamphetamine presented to ED complaining of UTI. Pt had questionable seizure in the ED. No hx of seizures in the past. PT states she has been having seizures all day prior to admission. PT was found to have severe sepsis in ED with elevated LA. CT scan of abd questions ischemia. Dr. Loredo is consulted. I am consulted for pulmonary/ICU management. Allergies and Home Medications Allergies Coded Allergies: aspirin (Verified Allergy, Unknown, 11/30/07) desvenlafaxine (Verified Allergy, Unknown, NAUSEA, 11/05/15) Home Medications Alprazolam 0.5 Mg Tablet, 0.5 MG PO BID PRN for ANXIETY Prescribed by: FELIBERTO JOHNSTON on 12/01/17 110 Benzonatate 100 Mg Capsule, 100 MG PO TID PRN for COUGH Prescribed by: ARJUN BRANTLEY on 03/07/18 1330 Docusate Sodium 100 Mg Capsule, 100 MG PO BID Prescribed by: FELIBERTO JOHNSTON on 12/01/17 110 Enoxaparin Sodium 40 Mg/0.4 Ml Syringe, 40 MG SC DAILY Prescribed by: FELIBERTO JOHNSTON on 12/01/17 110 Fentanyl 1 Each Patch.td72, 50 MCG TD Q72H Prescribed by: FELIBERTO JOHNSTON on 12/01/17 110 Fexofenadine HCl 180 Mg Tablet, 180 MG PO DAILY, (Reported) Ipratropium/Albuterol Sulfate 3 Ml Ampul.neb, 3 ML INH RTQ8HR Prescribed by: FELIBERTO JOHNSTON on 12/01/17 110 Lactulose 20 Gm/30 Ml Solution, 10 GM PO BID Prescribed by: FELIBERTO JOHNSTON on 12/01/17 110 Lisinopril 40 Mg Tablet, 40 MG PO DAILY, (Reported) Lurasidone HCl 80 Mg Tablet, 80 MG PO 1800, (Reported) Melatonin 3 Mg Tablet, 3 MG PO HS, (Reported) Memantine HCl 10 Mg Tablet, 10 MG PO BID, (Reported) Montelukast Sodium 10 Mg Tablet, 10 MG PO HS, (Reported) Nicotine 1 Each Patch.td24, 21 MG TD DAILY@0900 Prescribed by: FELIBERTO JOHNSTON on 12/01/171104 Omeprazole Magnesium 20 Mg Tablet.dr, 20 MG PO DAILY, (Reported) Oxycodone HCl/Acetaminophen 1 Each Tablet, 1 TAB PO Q4H PRN for PAIN-MODERATE Prescribed by: FELIBERTO JOHNSTON on 12/01/171104 Pediatric Multivit Comb. No.49 1 Each Tab.chew, 2 TAB.CHEW PO DAILY, (Reported) Potassium Chloride 20 Meq Tab.er.prt, 20 MEQ PO DAILY, (Reported) Simvastatin 40 Mg Tablet, 40 MG PO HS, (Reported) Sulfamethoxazole/Trimethoprim 1 Each Tablet, 1 EACH PO BID Prescribed by: ARJUN BRANTLEY on 01/18/182053 Trazodone HCl 50 Mg Tablet, 50 MG PO HS, (Reported) Venlafaxine HCl 150 Mg Cap.er.24h, 150 MG PO DAILY, (Reported) Past Joqkzbc-Wcnugc-Ixaqax Hx Patient Social History Alcohol Use: Occasionally Uses Recreational Drug Use: Yes (+IV METH USE; THC USE; RX NARCOTIC AND BENZODIAZEPINE ABUSE/DEPENDENCE DAILY ) Drug of Choice: +IV METH USE, THC USE, RX NARCOTICS/BENZO'S ABUSE/DEPENDENCE DAILY USE Smoking Status: Current Everyday Smoker Type Used: Cigarettes 2nd Hand Smoke Exposure: Yes Recent Foreign Travel: No Contact w/Someone Who Travel: No Recent Infectious Disease Expo: No Recent Hopitalizations: No Immunizations Up To Date Tetanus Booster (TDap): Unknown Date of Pneumonia Vaccine: Jun 02, 2017 Seasonal Allergies Seasonal Allergies: No Past Medical History Surgeries: Yes (RIGHT FOOT X 4; LEFT FOOT X 1; LEFT KNEE FX/PATELLAR TENDON REPAIR 11/26/17; BILATERAL ANKLES; TEETH REMOVED; HYST/BSO) Appendectomy, Gallbladder, Hysterectomy, Oophorectomy, Orthopedic Respiratory: No Cardiac: Yes High Cholesterol, Hypertension, Irregular Heartbeat Neurological: Yes (DAILY NARCOTIC USE/ABUSE FOR CHRONIC HEADACHE COMPLAINT; "chronic tremors") Dementia, Headaches /Migraines 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, 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 Sexually Transmitted Disease: No HIV/AIDS: No Genitourinary: Yes Bladder Infection Gastrointestinal: Yes (HEPATITIS C-UNTREATED; OPIOID INDUCED CONSTIPATION) Gastroesophageal Reflux, Liver Disease/Jaundice, Chronic Constipation, Hepatitis Musculoskeletal: Yes (CHRONIC ANKLE PAIN/BILAT ANKLE FX'S; RESTLESS LEGS; LEFT PATELLAR FX/TENDON REPAIR 10/2017; RIGHT HUMERAL FX 10/2017--NO SURGERY; T12 COMPRESSION) Back Injury, Chronic Back Pain, Fractures Endocrine: Yes (HYPONATREMIA) HEENT: Yes (SINUS PROBLEMS) Cancer: No Psychosocial: Yes (PLYSUBSTANCE ABUSE) Anxiety, Depression Integumentary: No Blood Disorders: Yes (ANEMIA) Adverse Reaction/Blood Tranf: No Family Medical History Patient reports no known family medical history. No Pertinent Family Hx Review of Systems Time Seen by Provider: 06:41 Constitutional: Sweats, Weakness, Malaise; No: Fever, Chills, Other Eyes: No: Pain, Vision change, Conjunctivae inflammation, Eyelid inflammation, Other, Redness ENT: Nose congestion; No: Ear pain, Ear discharge, Nose pain, Nose discharge, Mouth pain, Mouth swelling, Throat pain, Throat swelling, Other Respiratory: Cough, Dry, Shortness of breath, SOB with excertion; No: Wheezing, Hemoptysis, Pleuritic Pain, Sputum, Wheezing, Other Cardiovascular: Palpitations, Lt Headedness; No: Chest Pain, Orthopnea, Paroxysmal Noc. Dyspnea, Edema, Other Gastrointestinal: Nausea, Vomiting, Abdominal Pain, Diarrhea; No: Constipation, Melena, Hematochezia, Other Genitourinary: Dysuria, Frequency; No Incontinence, No Hematuria, No Retention, No Other Neurological: Weakness, Change in speech, Confusion, Seizures Sepsis Event Evaluation Height, Weight, BMI Height: 5'4.00" Weight: 147lbs. 4.0oz. [id number]; 25.3 BMI Method:Estimated Exam Exam Vital Signs Date Time Temp Pulse Resp B/P (MAP) Pulse Ox O2 Delivery O2 Flow Rate FiO2 11/26/18 05:30 78 27 193/97 (129) 100 Room Air 11/26/18 05:15 75 16 189/127 (147) 100 Room Air 11/26/18 05:00 86 25 185/99 (127) 99 Room Air 11/26/18 04:45 82 20 181/101 (127) 100 Room Air 11/26/18 04:30 87 28 183/106 (131) 97 Room Air 11/26/18 04:15 74 15 164/123 (137) 100 Room Air 11/26/18 04:00 82 23 156/85 (108) 100 Room Air 11/26/18 03:45 82 21 187/87 (120) 100 Room Air 11/26/18 03:30 81 20 193/89 (123) 100 Room Air 11/26/18 03:24 92 23 190/91 (124) 96 Room Air 11/26/18 03:00 95 18 172/86 (114) 99 Room Air 11/26/18 03:00 87 27 194/100 (131) 100 Room Air 11/26/18 03:00 87 11/25/18 21:22 97.8 90 16 182/138 (153) 100 Room Air I & O 11/26/18 07:00 Intake Total 3340 ml Balance 3340 ml Height & Weight Height: 5'4.00" Weight: 147lbs. 4.0oz. 66.261182yf; 25.3 BMI Method:Estimated General Appearance: Anxious, Thin HEENT: PERRL/EOMI, Other (EDENTULOUS) Neck: Normal Inspection Respiratory: Normal Breath Sounds, No Accessory Muscle Use, No Respiratory Distress Cardiovascular: Regular Rate, Rhythm, No Murmur, Normal Peripheral Pulses Capillary Refill: Less Than 3 Seconds Peripheral Pulses: 3+ Dorsalis Pedis (R), 3+ Left Dors-Pedis (L), 3+ Radial Pulses (R), 3+ Radial Pulses (L) Extremity: Normal Range of Motion, No Pedal Edema Neurologic/Psychiatric: Alert, Oriented x3 Skin: Normal Color, Warm/Dry Lymphatic: No Adenopathy Results Lab Laboratory Tests 11/25/18 21:35 11/26/18 03:16 Assessment/Plan Assessment/Plan Severe sepsis -IVF -Zosyn mesenteric ischemia per CT of Abd/pelvis -Surgery is following -Improving leukocytosis, no fevers, and LA -Abdominal pain is minimal and not peritoneal -D/C rectal tube (ordered per ED) -Discussed with Dr. Loredo -N/V resolved Elevated ammonia level -S/p Lactulose enema -repeat ammonia level Hx of untreated hep C Elevated CPK, and lipase -Repeat labs -Monitor -IVF Methamphetamine, marijuanna, narcotics, and benzo use -Education Acute seizure Metabolic lactic acidosis -Repeat LA - TAMIKA RIDLEY DO November 26, 2018 06:15
[2018-11-26] MEDS ORDERED: ONDANSETRON 4 MG/2 ML (SDV) Z0FRAN IV PRN (06:30)
[2018-11-26] MEDS ORDERED: NS IV 1000 ML 1,000 ML IV SCH ×2 (06:30)
[2018-11-26] MEDS ORDERED: D5 1/2 NS W/KCL 20 MEQ/L 1,000 ML IV SCH ×2 (06:30)
[2018-11-26] MEDS ORDERED: diphenhydrAMINE 50 MG/ML INJ (BENADRYL) IV PRN (06:30)
[2018-11-26] MEDS ORDERED: hydrALAZINE (APESOLINE) 20 MG/ML VIAL IV PRN (06:45)
[2018-11-26] MEDS: metroNIDAZOLE 500 MG/100 ML IVPB (PRE-MIX) IV SCH ×3 (06:46→18:02)
--- NOTE | 2018-11-26 06:54 | Diagnostic Imaging Report ---
PROCEDURE: CT abdomen and pelvis without contrast. TECHNIQUE: Multiple contiguous axial images were obtained through the abdomen and pelvis without the use of intravenous contrast. Auto Exposure Controls were utilized during the CT exam to meet ALARA standards for radiation dose reduction. INDICATION: Seizure, vomiting The previous CT abdomen/pelvis exam of 01/18/2018 noted hepatosplenomegaly and raised the question of cirrhosis. On this exam, both the liver and spleen remain enlarged. The pancreas, the adrenals, the kidneys, the aorta and inferior vena cava are unremarkable for an acute abnormality. As noted on the prior exam the gallbladder is surgically absent. The stomach is partially filled with fluid and consequently difficult to assess. By history, the appendix is surgically absent. There are a few linear collections of gas low in the pelvis near midline. These may be within the bowel or bowel wall. It would be possible, although unlikely that these findings are related to bowel ischemia. Clinical followup is recommended. There is no pelvic mass or free fluid collection noted. The uterus is also surgically absent. The urinary bladder is grossly unremarkable. The bone windows show no sign of a fracture or of an acute abnormality. There is a longstanding anterior wedge compression deformity at T12. The lung bases are clear. IMPRESSION: 1. There is a question of pneumatosis of the bowel low in the pelvis near midline. The possibility that there is element of bowel ischemia would be unlikely but should still be considered. Clinical followup is recommended. 2. There is no acute abnormality of the abdomen or pelvis noted otherwise. 3. There is persistent hepatosplenomegaly. 4. The gallbladder, the uterus and the appendix are surgically absent. Dictated by: Dictated on workstation # [id number]
--- NOTE | 2018-11-26 07:02 | NUR ---
Flexiseal removed at this time per Dr Maradiaga.
[2018-11-26 07:30] LABS: AMYLASE 26 U/L (25-125); CREATINE KINASE 454 U/L (29-168); LIPASE 129 U/L (8-78)
[2018-11-26] MEDS: LACTATED RINGERS 1,000 ML IV SCH ×3 (07:54→19:41)
[2018-11-26] MEDS: PIPERACILLIN/TAZO 4.5 GM/NS 100 ML IV SCH ×6 (08:24→23:30)
--- NOTE | 2018-11-26 08:53 | Consultation (Surgery) ---
History of Present Illness History of Present Illness Patient Consulted On(yesika/time) 11/26/18 08:53 Date Seen by Provider: November 26, 2018 Time Seen by Provider: 08:53 History of Present Illness Consult requested by Dr. Garcia for possible ischemic bowel. patient is a 63 year old female poor historian. She went to the emergency dept for concerns of having a UTI. She apparently had a seizure while in the emergency dept. Patient states that she has been ill for about the last 3 weeks with Depression and just stayed in bed the entire time. She began having some slight discomfort lower abdomen and burning with urination. She denies much oral intake the last few weeks. She also admits to poly substance abuse. Patient also noted to have Hep C . She states her pain in lower abdomen is minimal and nothing really makes worse or better. She had ct abd/pelvis with questionable pneumatosis of cecum with some linear lines of air which may be intraluminal. She denies fever sweats chills shortness of breath or chest pain. Allergies and Home Medications Allergies Coded Allergies: aspirin (Verified Allergy, Unknown, 11/30/07) desvenlafaxine (Verified Allergy, Unknown, NAUSEA, 11/05/15) Home Medications Albuterol Sulfate 1 Puff Puff, 2 PUFF IH Q4H PRN for SHORTNESS OF BREATH, (Reported) 1 PUFF = 90 MCG Alprazolam 0.5 Mg Tablet, 0.5 MG PO BID PRN for ANXIETY Prescribed by: FELIBERTO JOHNSTON on 12/01/17 1105 Amlodipine Besylate 5 Mg Tablet, 5 MG PO DAILY, (Reported) Diphenhydramine HCl 25 Mg Tablet, 50 MG PO HS PRN for allergies, (Reported) Docusate Sodium 100 Mg Capsule, 100 MG PO BID Prescribed by: FELIBERTO JOHNSTON on 12/01/17 1105 Lactulose 20 Gm/30 Ml Solution, 10 GM PO BID Prescribed by: FELIBERTO JOHNSTON on 12/01/17 1105 Lisinopril 40 Mg Tablet, 40 MG PO DAILY, (Reported) Lurasidone HCl 80 Mg Tablet, 80 MG PO 1800, (Reported) Melatonin 3 Mg Tablet, 3 MG PO HS, (Reported) Montelukast Sodium 10 Mg Tablet, 10 MG PO HS, (Reported) Omeprazole Magnesium 20 Mg Tablet.dr, 20 MG PO DAILY, (Reported) Pediatric Multivit Comb. No.49 1 Each Tab.chew, 2 TAB.CHEW PO DAILY, (Reported) Potassium Chloride 20 Meq Tab.er.prt, 20 MEQ PO DAILY, (Reported) Propranolol HCl 20 Mg Tablet, 20 MG PO BID, (Reported) Trazodone HCl 50 Mg Tablet, 50 MG PO HS, (Reported) Venlafaxine HCl 150 Mg Cap.er.24h, 150 MG PO DAILY, (Reported) Patient Home Medication List Home Medication List Reviewed: Yes Past Jbnyvkf-Hoposb-Fleytz Hx Patient Social History Alcohol Use: Occasionally Uses Recreational Drug Use: Yes (+IV METH USE; THC USE; RX NARCOTIC AND BENZODIAZEPINE ABUSE/DEPENDENCE DAILY ) Drug of Choice: +IV METH USE, THC USE, RX NARCOTICS/BENZO'S ABUSE/DEPENDENCE DAILY USE Smoking Status: Current Everyday Smoker Type Used: Cigarettes 2nd Hand Smoke Exposure: Yes Recent Foreign Travel: No Contact w/Someone Who Travel: No Recent Infectious Disease Expo: No Recent Hopitalizations: No Immunizations Up To Date Tetanus Booster (TDap): Unknown Date of Pneumonia Vaccine: Jun 02, 2017 Seasonal Allergies Seasonal Allergies: No Surgeries History of Surgeries: Yes (RIGHT FOOT X 4; LEFT FOOT X 1; LEFT KNEE FX/PATELLAR TENDON REPAIR 11/26/17; BILATERAL ANKLES; TEETH REMOVED; HYST/BSO) Surgeries: Appendectomy, Gallbladder, Hysterectomy, Oophorectomy, Orthopedic Respiratory History of Respiratory Disorde: No Cardiovascular History of Cardiac Disorders: Yes Cardiac Disorders: High Cholesterol, Hypertension, Irregular Heartbeat Neurological History of Neurological Disord: Yes (DAILY NARCOTIC USE/ABUSE FOR CHRONIC HEADACHE COMPLAINT; "chronic tremors") Neurological Disorders: Dementia, Headaches /Migraines Reproductive System : No Hx Reproductive Disorders: No Sexually Transmitted Disease: No HIV/AIDS: 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, 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 Genitourinary History of Genitourinary Disor: Yes Genitourinary Disorders: Bladder Infection Gastrointestinal History of Gastrointestinal Di: Yes (HEPATITIS C-UNTREATED; OPIOID INDUCED CONSTIPATION) Gastrointestinal Disorders: Gastroesophageal Reflux, Liver Disease/Jaundice, Chronic Constipation, Hepatitis Musculoskeletal History of Musculoskeletal Dis: Yes (CHRONIC ANKLE PAIN/BILAT ANKLE FX'S; RESTLESS LEGS; LEFT PATELLAR FX/TENDON REPAIR 10/2017; RIGHT HUMERAL FX --NO SURGERY; T12 COMPRESSION) Musculoskeletal Disorders: Back Injury, Chronic Back Pain, Fractures Endocrine History of Endocrine Disorders: Yes (HYPONATREMIA) HEENT History of HEENT Disorders: Yes (SINUS PROBLEMS) Cancer History of Cancer: No Psychosocial History of Psychiatric Problem: Yes (PLYSUBSTANCE ABUSE) Behavioral Health Disorders: Anxiety, Depression Integumentary History of Skin or Integumenta: No Blood Transfusions History of Blood Disorders: Yes (ANEMIA) Adverse Reaction to a Blood Tr: No Family Medical History Significant Family History: No Pertinent Family Hx Family Medial History: Patient reports no known family medical history. Review of Systems-General Constitutional: no symptoms reported EENTM: no symptoms reported Respiratory: no symptoms reported Cardiovascular: no symptoms reported Gastrointestinal: see HPI Genitourinary: see HPI Musculoskeletal: no symptoms reported Skin: no symptoms reported Psychiatric/Neurological: No Symptoms Reported Physical Exam-General Problems Physical Exam Vital Signs Vital Signs - First Documented 11/25/18 02:56 Temp 97.1 Pulse 88 Resp 19 B/P (MAP) 191/114 (139) Pulse Ox 100 O2 Delivery Room Air Capillary Refill : Less Than 3 Seconds General Appearance: WD/WN, no apparent distress HEENT: PERRL/EOMI, normal ENT inspection Neck: non-tender, supple Respiratory: chest non-tender, no respiratory distress, no accessory muscle use Cardiovascular: regular rate, rhythm Gastrointestinal: soft, tenderness (no significant pain on my exam no guarding or rebounding or tenderness with deep palpation.) Rectal: deferred Back: no CVA tenderness, no vertebral tenderness Extremities: normal range of motion Neurologic/Psychiatric: line lead II-XII nml as tested, alert, normal mood/affect, oriented x 3 Skin: normal color, warm/dry Lymphatic: no adenopathy Data Review Labs Laboratory Tests 11/25/18 21:35: White Blood Count 11.4H, Red Blood Count 5.08, Hemoglobin 15.9, Hematocrit 46, Mean Corpuscular Volume 90, Mean Corpuscular Hemoglobin 31, Mean Corpuscular Hemoglobin Concent 35, Red Cell Distribution Width 14.0, Platelet Count 115L, Mean Platelet Volume 10.1, Neutrophils (%) (Auto) 46, Lymphocytes (%) (Auto) 41, Monocytes (%) (Auto) 11, Eosinophils (%) (Auto) 2, Basophils (%) (Auto) 1, Neutrophils # (Auto) 5.3, Lymphocytes # (Auto) 4.6H, Monocytes # (Auto) 1.3H, Eosinophils # (Auto) 0.2, Basophils # (Auto) 0.1, Prothrombin Time 16.3H, INR Comment 1.3, Activated Partial Thromboplast Time 32, Sodium Level 142, Potassium Level 3.8, Chloride Level 102, Carbon Dioxide Level 16L, Anion Gap 24H, Blood Urea Nitrogen 6L, Creatinine 1.06, Estimat Glomerular Filtration Rate 52, BUN/Creatinine Ratio 6, Glucose Level 127H, Calcium Level 11.9H, Corrected Jero cium , Magnesium Level 2.1, Total Bilirubin 1.6H, Aspartate Amino Transf (AST/SGOT) 30, Alanine Aminotransferase (ALT/SGPT) 12, Alkaline Phosphatase 124, Ammonia 90H, Total Creatine Kinase 405H, Creatine Kinase MB 7.3*H, Myoglobin 644.7H, Troponin I < 0.028, Total Protein 10.1H, Albumin 5.2H, Amylase Level 40, Lipase 361H, TSH [place] Testing 3.67, Acetaminophen Level < 10L, Serum Alcohol < 10 11/25/18 21:49: Glucometer 153H 11/25/18 22:00: Urine Color YELLOW, Urine Clarity SLIGHTLY CLOUDY, Urine pH 6, Urine Specific [place] 1.025H, Urine Protein 4+, Urine Glucose (UA) NEGATIVE, Urine Ketones 2+H , Urine Nitrite NEGATIVE, Urine Bilirubin 1+H, Urine Urobilinogen 4H, Urine Leukocyte Esterase 3+H, Urine RBC (Auto) 4+H, Urine RBC 0-2, Urine WBC 25-50H, Urine Squamous Epithelial Cells 5-10, Urine Crystals NONE, Urine Bacteria LARGEH , Urine Casts NONE, Urine Mucus NEGATIVE, Urine Culture Indicated YES, Lactic Acid Level 9.91*H, Urine Opiates Screen POSITIVEH, Urine Oxycodone Screen NEGATIVE, Urine Methadone Screen NEGATIVE, Urine Propoxyphene Screen NEGATIVE, Urine Barbiturates Screen NEGATIVE, Ur Tricyclic Antidepressants Screen NEGATIVE, Urine Phencyclidine Screen NEGATIVE, Urine Amphetamines Screen POSITIVEH, Urine Methamphetamines Screen POSITIVEH, Urine Benzodiazepines Screen POSITIVEH, Urine Cocaine Screen NEGATIVE, Urine Cannabinoids Screen POSITIVEH 11/25/18 22:43: Blood Gas Puncture Site LEFT RADIAL, Blood Gas Patient Temperature 96.1, Arterial Blood pH 7.55H, Arterial Blood Partial Pressure CO2 18*L, Arterial Blood Partial Pressure O2 113H, Arterial Blood HCO3 16*L, Arterial Blood Total CO2 16.4L, Arterial Blood Oxygen Saturation 100, Arterial Blood Base Excess - 6.5L, Elliott Test POSITIVE, Blood Gas Ventilator Setting NO, Blood Gas Inspired Oxygen N 11/26/18 00:20: Lactic Acid Level 2.43*H 11/26/18 02:00: Blood Gas Puncture Site LEFT RADIAL, Blood Gas Patient Temperature 98.1, Arterial Blood pH 7.38, Arterial Blood Partial Pressure CO2 38, Arterial Blood Partial Pressure O2 82, Arterial Blood HCO3 22L, Arterial Blood Total CO2 22.9, Arterial Blood Oxygen Saturation 97, Arterial Blood Base Excess -2.7L, Elliott Test POSITIVE, Blood Gas Ventilator Setting NO, Blood Gas Inspired Oxygen N 11/26/18 03:16: White Blood Count 4.5, Red Blood Count 3.84L, Hemoglobin 12.0#, Hematocrit 34L, Mean Corpuscular Volume 89, Mean Corpuscular Hemoglobin 31, Mean Corpuscular Hemoglobin Concent 35, Red Cell Distribution Width 13.5, Platelet Count 66L, Mean Platelet Volume 10.3, Neutrophils (%) (Auto) 63, Lymphocytes (%) (Auto) 25, Monocytes (%) (Auto) 10, Eosinophils (%) (Auto) 1, Basophils (%) (Auto) 0, Neutrophils # (Auto) 2.9, Lymphocytes # (Auto) 1.2, Monocytes # (Auto) 0.4, Eosinophils # (Auto) 0.1, Basophils # (Auto) 0.0, Sodium Level 141, Potassium Level 3.5L, Chloride Level 108H, Carbon Dioxide Level 20L, Anion Gap 13, Blood Urea Nitrogen 5L, Creatinine 0.76, Estimat Glomerular Filtration Rate > 60, BUN/Creatinine Ratio 7, Glucose Level 123H, Calcium Level 9.2, Corrected Calcium 9.4, Phosphorus Level 2.8, Magnesium Level 1.9, Total Bilirubin 1.0, Aspartate Amino Transf (AST/SGOT) 28, Alanine Aminotransferase (ALT/SGPT) 9, Alkaline Phosphatase 87, Total Creatine Kinase 454H, Total Protein 7.2, Albumin 3.7, Amylase Level 26, Lipase 129H Assessment/Plan Assessment/Plan Assessment/Plan lower abdominal pain questionable cecal pneumatosis poly substance abuse new onset seizure elevated lactic acid lab improved after resuscitaion. Her exam does not fit with ischemic bowel at t his time. She is not having any pain. Could be result of polysubstance abuse. If patient does not continue to get better may need surgical intervention. If continues to improved will continue with conservative measures. Patient On Zosyn and Flagyl. Will follow closely NPO IV hydration Clinical Quality Measures DVT/VTE Risk/Contraindication: Risk Factor Score Per Nursin RFS Level Per Nursing on Admit: 4+=Very High DAVE GORDON DO November 26, 2018 08:53
[2018-11-26] MEDS ORDERED: LEVETIRACETAM INJECTION 500 MG in NS (IVPB) 100 ML IV SCH ×2 (09:00→21:00)
--- NOTE | 2018-11-26 09:21 | Diagnostic Imaging Report ---
Portable erect AP chest at 330 hours. INDICATION: Seizure. FINDINGS: The heart size is within normal limits and stable when compared to 11/25/2018. The lungs remain clear. There is still no sign of failure, pneumonia or pleural effusion. The mediastinum is not widened. The fractures of the right clavicle and right humerus seen previously are again evident and no different. IMPRESSION: Stable chest. There has been no adverse change since the prior exam. Dictated by: Dictated on workstation # [id number]
--- NOTE | 2018-11-26 10:48 | Diagnostic Imaging Report ---
INDICATION: Right shoulder clavicle injury COMPARISON: 11/26/2018 FINDINGS: 2 views of the right clavicle demonstrate chronic fracture deformity of the mid to distal and distal clavicle. There is chronic fracture deformity of the humeral head. There is no acute appearing fracture or dislocation. No pneumothorax seen. IMPRESSION: Chronic right humeral clavicle fracture deformities. No obvious acute fracture or dislocation seen on today's series. Dictated by: Dictated on workstation # [id number]
--- NOTE | 2018-11-26 10:49 | Diagnostic Imaging Report ---
INDICATION: Fall shoulder injury COMPARISON: 11/26/2018 and 11/26/2017 FINDINGS: 2 views right humerus demonstrate chronic fracture deformity of the distal clavicle and humeral head. There is no acute fracture or dislocation on today's series. There is no radiopaque foreign body. IMPRESSION: No acute fracture or dislocation. Dictated by: Dictated on workstation # [id number]
--- NOTE | 2018-11-26 11:44 | History & Physicial ([facility]) ---
HPI History of Present Illness: 63 yo female states she came to ER due to UTI. On further questioning she states she had stuttering and vomiting which has happened before with UTI. With additional questioning she does admit some burning with urination. She also does admit she used "ice" on Monday and she regretted it immediately, states she was clean for 30 years and she doesn't know why she did it. She has mild abdominal pain. She does not recall events from ER, but per notes she had a seizure- she states she had a seizure once about a year ago in a rehab facility. Her speech is clear at times and at times she stutters and appears to have difficulty getting any words out at all, limiting history. Chart review notes: she was transferred from [facility] in 2016 to [facility] for seizure work-up and she was seen 10/2017 for her right humeral fracture and a patellar injury- had patellar tendon repair but apparently ORIF for shoulder was deferred to outpatient- unclear follow up and CXR on admit shows humeral fracture and clavicular fracture. Date seen by provider: November 26, 2018 Time Seen by Provider: 09:45 Attending Physician Masha Garcia MD PCP Luisito Anne MD Consult Date of Admission November 26, 2018 at 00:50 Home Medications Home Medications Reviewed patient Home Medication Reconciliation performed by pharmacy medication reconciliations reliability technician and/or nursing. Patients Allergies have been reviewed. Allergies Coded Allergies: aspirin (Verified Allergy, Unknown, 11/30/07) desvenlafaxine (Verified Allergy, Unknown, NAUSEA, 11/05/15) [id number] Hx Patient Social History Alcohol Use: Occasionally Uses Recreational Drug Use: Yes (+IV METH USE; THC USE; RX NARCOTIC AND BENZODIAZEPINE ABUSE/DEPENDENCE DAILY ) Drug of Choice: +IV METH USE, THC USE, RX NARCOTICS/BENZO'S ABUSE/DEPENDENCE DAILY USE Smoking Status: Current Everyday Smoker Type Used: Cigarettes 2nd Hand Smoke Exposure: Yes Recent Foreign Travel: No Contact w/other who traveled: No Recent Hopitalizations: No Recent Infectious Disease Expo: No Immunizations Up To Date Tetanus Booster (TDap): Unknown Date of Pneumonia Vaccine: Jun 02, 2017 Past Medical History PMHx: Liver disease/Hep C Hypertension Depression Chronic pain Anxiety PSurgHx: Patellar tendon repair Appendectomy ORIF bilateral ankles Hysterectomy Family Medical History Family History: Patient reports no known family medical history. Review of Systems ([facility]) Constitutional: malaise, other (difficult to obtain due to poor historian) EENTM: no symptoms reported Respiratory: no symptoms reported Cardiovascular: no symptoms reported Gastrointestinal: abdominal pain, vomiting Genitourinary: see HPI Musculoskeletal: back pain Psychiatric/Neurological: Depressed Reviewed Test Results Reviewed Test Results Lab Laboratory Tests Test 11/25/18 21:35 11/25/18 21:49 11/25/18 22:00 11/25/18 22:43 Range/Units White Blood Count 11.4 H 4.3-11.0 10^3/uL Red Blood Count 5.08 4.35-5.85 10^6/uL Hemoglobin 15.9 11.5-16.0 G/DL Hematocrit 46 35-52 % Mean Corpuscular Volume 90 80-99 FL Mean Corpuscular Hemoglobin 31 25-34 PG Mean Corpuscular Hemoglobin Concent 35 32-36 G/DL Red Cell Distribution Width 14.0 10.0-14.5 % Platelet Count 115 L 130-400 10^3/uL Mean Platelet Volume 10.1 7.4-10.4 FL Neutrophils (%) (Auto) 46 42-75 % Lymphocytes (%) (Auto) 41 12-44 % Monocytes (%) (Auto) 11 0-12 % Eosinophils (%) (Auto) 2 0-10 % Basophils (%) (Auto) 1 0-10 % Neutrophils # (Auto) 5.3 1.8-7.8 X 10^3 Lymphocytes # (Auto) 4.6 H 1.0-4.0 X 10^3 Monocytes # (Auto) 1.3 H 0.0-1.0 X 10^3 Eosinophils # (Auto) 0.2 0.0-0.3 10^3/uL Basophils # (Auto) 0.1 0.0-0.1 10^3/uL Prothrombin Time 16.3 H 12.2-14.7 SEC INR Comment 1.3 0.8-1.4 Activated Partial Thromboplast Time 32 24-35 SEC Sodium Level 142 135-145 MMOL/L Potassium Level 3.8 3.6-5.0 MMOL/L Chloride Level 102 98-107 MMOL/L Carbon Dioxide Level 16 L 21-32 MMOL/L Anion Gap 24 H 5-14 MMOL/L Blood Urea Nitrogen 6 L 7-18 MG/DL Creatinine 1.06 0.60-1.30 MG/DL Estimat Glomerular Filtration Rate 52 BUN/Creatinine Ratio 6 Glucose Level 127 H 70-105 MG/DL Calcium Level 11.9 H 8.5-10.1 MG/DL Corrected Calcium 8.5-10.1 MG/DL Magnesium Level 2.1 1.8-2.4 MG/DL Total Bilirubin 1.6 H 0.1-1.0 MG/DL Aspartate Amino Transf (AST/SGOT) 30 5-34 U/L Alanine Aminotransferase (ALT/SGPT) 12 0-55 U/L Alkaline Phosphatase 124 40-136 U/L Ammonia 90 H 11-32 UMOL/L Total Creatine Kinase 405 H 29-168 U/L Creatine Kinase MB 7.3 *H <6.6 NG/ML Myoglobin 644.7 H 10.0-92.0 NG/ML Troponin I < 0.028 <0.028 NG/ML Total Protein 10.1 H 6.4-8.2 GM/DL Albumin 5.2 H 3.2-4.5 GM/DL Amylase Level 40 25-125 U/L Lipase 361 H 8-78 U/L TSH [place] Testing 3.67 0.35-4.94 UIU/ML Acetaminophen Level < 10 L 10-30 UG/ML Serum Alcohol < 10 <10 MG/DL Glucometer 153 H 70-110 MG/DL Urine Color YELLOW Urine Clarity SLIGHTLY CLOUDY Urine pH 6 5-9 Urine Specific [place] 1.025 H 1.016-1.022 Urine Protein 4+ NEGATIVE Urine Glucose (UA) NEGATIVE NEGATIVE Urine Ketones 2+ H NEGATIVE Urine Nitrite NEGATIVE NEGATIVE Urine Bilirubin 1+ H NEGATIVE Urine Urobilinogen 4 H NORMAL MG/DL Urine Leukocyte Esterase 3+ H NEGATIVE Urine RBC (Auto) 4+ H NEGATIVE Urine RBC 0-2 /HPF Urine WBC 25-50 H /HPF Urine Squamous Epithelial Cells 5-10 /HPF Urine Crystals NONE /LPF Urine Bacteria LARGE H /HPF Urine Casts NONE /LPF Urine Mucus NEGATIVE /LPF Urine Culture Indicated YES Lactic Acid Level 9.91 *H 0.50-2.00 MMOL/L Urine Opiates Screen POSITIVE H NEGATIVE Urine Oxycodone Screen NEGATIVE NEGATIVE Urine Methadone Screen NEGATIVE NEGATIVE Urine Propoxyphene Screen NEGATIVE NEGATIVE Urine Barbiturates Screen NEGATIVE NEGATIVE Ur Tricyclic Antidepressants Screen NEGATIVE NEGATIVE Urine Phencyclidine Screen NEGATIVE NEGATIVE Urine Amphetamines Screen POSITIVE H NEGATIVE Urine Methamphetamines Screen POSITIVE H NEGATIVE Urine Benzodiazepines Screen POSITIVE H NEGATIVE Urine Cocaine Screen NEGATIVE NEGATIVE Urine Cannabinoids Screen POSITIVE H NEGATIVE Blood Gas Puncture Site LEFT RADIAL Blood Gas Patient Temperature 96.1 Arterial Blood pH 7.55 H 7.37-7.43 Arterial Blood Partial Pressure CO2 18 *L 35-45 MMHG Arterial Blood Partial Pressure O2 113 H 79-93 MMHG Arterial Blood HCO3 16 *L 23-27 MMOL/L Arterial Blood Total CO2 16.4 L 21.0-31.0 MMOL/L Arterial Blood Oxygen Saturation 100 94-100 % Arterial Blood Base Excess -6.5 L -2.5-2.5 MMOL/L [place] Test POSITIVE Blood Gas Ventilator Setting NO Blood Gas Inspired Oxygen N Test 11/26/18 00:20 11/26/18 02:00 11/26/18 03:16 Range/Units Lactic Acid Level 2.43 *H 0.50-2.00 MMOL/L Blood Gas Puncture Site LEFT RADIAL Blood Gas Patient Temperature 98.1 Arterial Blood pH 7.38 7.37-7.43 Arterial Blood Partial Pressure CO2 38 35-45 MMHG Arterial Blood Partial Pressure O2 82 79-93 MMHG Arterial Blood HCO3 22 L 23-27 MMOL/L Arterial Blood Total CO2 22.9 21.0-31.0 MMOL/L Arterial Blood Oxygen Saturation 97 94-100 % Arterial Blood Base Excess -2.7 L -2.5-2.5 MMOL/L Elliott Test POSITIVE Blood Gas Ventilator Setting NO Blood Gas Inspired Oxygen N White Blood Count 4.5 4.3-11.0 10^3/uL Red Blood Count 3.84 L 4.35-5.85 10^6/uL Hemoglobin 12.0 # 11.5-16.0 G/DL Hematocrit 34 L 35-52 % Mean Corpuscular Volume 89 80-99 FL Mean Corpuscular Hemoglobin 31 25-34 PG Mean Corpuscular Hemoglobin Concent 35 32-36 G/DL Red Cell Distribution Width 13.5 10.0-14.5 % Platelet Count 66 L 130-400 10^3/uL Mean Platelet Volume 10.3 7.4-10.4 FL Neutrophils (%) (Auto) 63 42-75 % Lymphocytes (%) (Auto) 25 12-44 % Monocytes (%) (Auto) 10 0-12 % Eosinophils (%) (Auto) 1 0-10 % Basophils (%) (Auto) 0 0-10 % Neutrophils # (Auto) 2.9 1.8-7.8 X 10^3 Lymphocytes # (Auto) 1.2 1.0-4.0 X 10^3 Monocytes # (Auto) 0.4 0.0-1.0 X 10^3 Eosinophils # (Auto) 0.1 0.0-0.3 10^3/uL Basophils # (Auto) 0.0 0.0-0.1 10^3/uL Sodium Level 141 135-145 MMOL/L Potassium Level 3.5 L 3.6-5.0 MMOL/L Chloride Level 108 H 98-107 MMOL/L Carbon Dioxide Level 20 L 21-32 MMOL/L Anion Gap 13 5-14 MMOL/L Blood Urea Nitrogen 5 L 7-18 MG/DL Creatinine 0.76 0.60-1.30 MG/DL Estimat Glomerular Filtration Rate > 60 BUN/Creatinine Ratio 7 Glucose Level 123 H 70-105 MG/DL Calcium Level 9.2 8.5-10.1 MG/DL Corrected Calcium 9.4 8.5-10.1 MG/DL Phosphorus Level 2.8 2.3-4.7 MG/DL Magnesium Level 1.9 1.8-2.4 MG/DL Total Bilirubin 1.0 0.1-1.0 MG/DL Aspartate Amino Transf (AST/SGOT) 28 5-34 U/L Alanine Aminotransferase (ALT/SGPT) 9 0-55 U/L Alkaline Phosphatase 87 40-136 U/L Total Creatine Kinase 454 H 29-168 U/L Total Protein 7.2 6.4-8.2 GM/DL Albumin 3.7 3.2-4.5 GM/DL Amylase Level 26 25-125 U/L Lipase 129 H 8-78 U/L Radiology CT head with left thalamus evidence of old infarct, no acute abnormalities Chest x-ray with right distal clavicle fx, old/chronic and right humeral fx CT abd/pelvis with hepatosplenomgaly and pneumatosis in bowel in pelvic area concerning for ischemic colitis Right forearm x-ray negative for fx Physical Exam-([facility]) Physical Exam Vital Signs VS - Last 72 Hours, by Label 11/25/18 11/25/18 11/26/18 11/26/18 02:56 21:22 02:50 03:00 Temp 97.1 97.8 Pulse 88 90 87 Resp 16 B/P (MAP) 191/114 (139) 182/138 (153) Pulse Ox 100 100 O2 Delivery Room Air Room Air Room Air 11/26/18 11/26/18 11/26/18 11/26/18 03:00 03:00 03:24 03:30 Pulse 87 95 92 81 Resp 20 B/P (MAP) 194/100 (131) 172/86 (114) 190/91 (124) 193/89 (123) Pulse Ox 100 99 96 100 O2 Delivery Room Air Room Air Room Air Room Air 11/26/18 11/26/18 11/26/18 11/26/18 03:45 04:00 04:15 04:30 Pulse 82 82 74 87 Resp 28 B/P (MAP) 187/87 (120) 156/85 (108) 164/123 (137) 183/106 (131) Pulse Ox 100 100 100 97 O2 Delivery Room Air Room Air Room Air Room Air 11/26/18 11/26/18 11/26/18 11/26/18 04:45 05:00 05:15 05:30 Pulse 82 86 75 78 Resp 27 B/P (MAP) 181/101 (127) 185/99 (127) 189/127 (147) 193/97 (129) Pulse Ox 100 99 100 100 O2 Delivery Room Air Room Air Room Air Room Air 11/26/18 11/26/18 11/26/18 11/26/18 05:45 06:00 07:00 07:00 Pulse 80 71 81 77 Resp 15 18 B/P (MAP) 184/129 (147) 193/93 (126) 176/82 (113) Pulse Ox 100 99 100 O2 Delivery Room Air Room Air Room Air 11/26/18 11/26/18 11/26/18 11/26/18 07:39 08:00 08:00 09:00 Temp 99.4 Pulse 76 81 Resp 30 17 B/P (MAP) 159/76 (103) 165/91 (115) Pulse Ox 100 98 O2 Delivery Room Air Room Air Room Air 5/27/19 5/27/19 5/27/19 5/27/19 10:00 11:00 11:11 12:00 Temp 98.1 Pulse 91 79 Resp 22 20 B/P (MAP) 160/87 (111) 170/80 (110) Pulse Ox 100 100 O2 Delivery Room Air Room Air Room Air 11/26/18 11/26/18 11/26/18 12:00 12:50 13:00 Pulse 84 87 82 Resp 20 20 B/P (MAP) 147/88 (107) Pulse Ox 94 93 O2 Delivery Room Air Room Air Capillary Refill : Less Than 3 Seconds General Appearance: no apparent distress HEENT: PERRL/EOMI Respiratory: lungs clear, normal breath sounds, no respiratory distress Cardiovascular: regular rate, rhythm, no murmur Gastrointestinal: normal bowel sounds; No distended, No guarding; tenderness (very mild) Extremities: no pedal edema Neurologic/Psychiatric: signal operator II-XII nml as tested, alert, oriented x 3; No abnormal cerebellar tests; aphasia (Intermittently going from speaking in clear fluid sentences, to stuttering and saying "MMM" before resuming normal conversation); No facial droop, No motor weakness Skin: warm/dry Assessment/Plan Assessment/Plan Admission Status: Inpatient Order (span 2 midnights) Reason for Inpatient Admission: Seizure in presence of multiple comoribdities along with possible ischemic bowel which has high risk for severe morbidity or mortality. (1) Severe sepsis Status: Acute Assessment & Plan: Suspected with leukocytosis and severe lactic acidosis on admit. LA nearly normal last check, leukocytosis resolved. Possibly secondary to UTI vs intraabdominal infection. On flagyl and zosyn. (2) New onset seizure Status: Acute Assessment & Plan: Further review of chart shows she had seizures in 2017 and was transferred to facility with Neurology- will try to obtain records. Keppra IV initated. No seizures overnight. CT head without acute abnormality. Denies alcohol use. (3) Ischemic colitis Status: Acute Assessment & Plan: CT findings concerning, but clinical exam relatively benign. Surgery consulted. On zosyn and flagyl. Lactic acidosis markedly improved with IVF. NPO. (4) Lactic acidosis Status: Acute Assessment & Plan: Severe, suspect secondary to seizure and possible ischemic colitis. Possibly sepsis related, only source of infection is possible UTI. (5) Elevated lipase Status: Acute Assessment & Plan: Suspect secondary to underlying abdominal pathology- suspected possible ischemic colitis. Follow. (6) Metabolic acidosis Status: Acute Assessment & Plan: Secondary to vomiting and possible ischemic bowel, improving this am after IVF. (7) Methamphetamine use Status: Acute Assessment & Plan: Pt reports one time use, she also notes she does not want to continue to use, will consult social services assistant. (8) Respiratory alkalosis Status: Resolved Assessment & Plan: On admission, much improved this am. (9) Thrombocytopenia Status: Acute Assessment & Plan: Intermittently chronic, related to liver disease, monitor closely. (10) History of stroke Status: Chronic Permanent Comment: CT head 10/2018 with evidence of left thalamus encephalomalacia Last Edited By: Masha Garcia on November 26, 2018 14:18 Assessment & Plan: No acute findings on CT, neuro exam normal except for intermittent and rapidly fluctuating speech difficulties. Monitor neuro status closely. (11) Hepatic encephalopathy Status: Chronic Assessment & Plan: On lactulose chronically, ammonia high on admission. Lactulose enema ordered given NPO. (12) Elevated CK Status: Acute Assessment & Plan: Secondary to seizure, no renal dysfunction. Follow. (13) Hypokalemia Status: Acute Assessment & Plan: Replace and follow. (14) Fracture, humerus Status: Chronic Assessment & Plan: Notes from 10/2017 indicating plan for outpatient repair, will look into clinic records and determine if follow up was completed. Qualifiers: (15) Hypertension Status: Chronic Assessment & Plan: Uncontrolled, but NPO at this time, IV hydralazine prn ordered by Dr. Maradiaga Qualifiers: Qualified Codes: I10 - Essential (primary) hypertension (16) UTI (urinary tract infection) Status: Acute Assessment & Plan: Culture pending. On zosyn. Qualifiers: (17) Hepatitis C Status: Chronic Qualifiers: (18) Fracture, clavicle Status: Chronic Assessment & Plan: Will review chart to determine if she was lost to follow up and if further intervention was recommended. (19) DVT prophylaxis Status: Acute Assessment & Plan: Enoxaparin- monitor closely given thrombocytopenia Clinical Quality Measures DVT/VTE Risk/Contraindication: Risk Factor Score Per Nursin RFS Level Per Nursing on Admit: 4+=Very High MASHA GARCIA MD November 26, 2018 11:44
--- NOTE | 2018-11-26 11:46 | NUR ---
DR RIDLEY INFORMED US STAFF UNAVAILABLE TO COMPLETE TODAYS ABD US. RE-TIMED FOR TOMORROW.
[2018-11-26] MEDS ORDERED: ENOXAPARIN 40 MG/0.4 ML (LOVENOX) SYR SC SCH (12:10)
[2018-11-26] MEDS: PHARMACY TO DOSE SQ SCH (12:33)
[2018-11-26] MEDS ORDERED: AMLO5TAB9 PO (13:48)
[2018-11-26] MEDS ORDERED: PROP20TA5 PO (13:48)
[2018-11-26] MEDS ORDERED: RT-ALBUINH IH (13:48)
[2018-11-26] MEDS ORDERED: ATOR20TA66 PO (13:48)
[2018-11-26] MEDS ORDERED: DIPH25TA65 PO (13:48)
[2018-11-26] MEDS: LORazepam INJ 2 MG/ML (ATIVAN) VIAL IV PRN (15:23)
--- NOTE | 2018-11-26 15:23 | NUR ---
PT HAD APPROX 30 SECOND EPISODE OF WHOLE BODY SHAKING. DID NOT BITE TONGUE. FAMILY PRESENT IN ROOM. PRN ATIVAN GIVEN.
[2018-11-26] MEDS: ALPRAZolam 0.5 MG (XANAX) TAB PO PRN (19:41)
[2018-11-27] VITALS (15 sets, daily range): BP systolic 140–188; BP diastolic 61–111
[2018-11-27] MEDS: LORazepam INJ 2 MG/ML (ATIVAN) VIAL IV PRN (00:13)
[2018-11-27] MEDS: metroNIDAZOLE 500 MG/100 ML IVPB (PRE-MIX) IV SCH ×4 (00:22→18:32)
[2018-11-27 03:55] LABS: BASOPHILS % (AUTO) 1 % (0-10); EOSINOPHILS # (AUTO) 0.1 10^3/uL (0.0-0.3); EOSINOPHILS % (AUTO) 3 % (0-10); HEMATOCRIT 32 % (35-52); HEMOGLOBIN 10.9 G/DL (11.5-16.0); LYMPHOCYTES # (AUTO) 1.8 X 10^3 (1.0-4.0); LYMPHOCYTES % (AUTO) 40 % (12-44); MEAN CORPUSCULAR HEMOGLOBIN 31 PG (25-34); MEAN CORPUSCULAR HGB CONC 34 G/DL (32-36); MEAN CORPUSCULAR VOLUME 91 FL (80-99); MONOCYTES # (AUTO) 0.5 X 10^3 (0.0-1.0); MONOCYTES % (AUTO) 11 % (0-12); NEUTROPHILS % (AUTO) 45 % (42-75); PLATELET COUNT 53 10^3/uL (130-400); RED CELL DISTRIBUTION WIDTH 13.6 % (10.0-14.5); WHITE BLOOD COUNT 4.4 10^3/uL (4.3-11.0)
[2018-11-27 04:13] LABS: BUN/CREATININE RATIO 6; CALCIUM 8.9 MG/DL (8.5-10.1); CARBON DIOXIDE 21 MMOL/L (21-32); CHLORIDE 108 MMOL/L (98-107); CREATININE SERUM 0.86 MG/DL (0.60-1.30); GFR ESTIMATED > 60; GLUCOSE 79 MG/DL (70-105); MAGNESIUM 1.5 MG/DL (1.8-2.4); PHOSPHORUS 3.2 MG/DL (2.3-4.7); POTASSIUM 3.2 MMOL/L (3.6-5.0); SODIUM 138 MMOL/L (135-145)
[2018-11-27] MEDS ORDERED: MAGNESIUM 1 GM/100 ML IVPB 200 ML IV ONE (04:48)
[2018-11-27] MEDS ORDERED: POTASSIUM CL 10MEQ/50ML IVPB 300 ML IV ONE (04:48)
[2018-11-27] MEDS: LACTATED RINGERS 1,000 ML IV SCH (05:01)
[2018-11-27] MEDS: MAGNESIUM 1 GM/100 ML IVPB 100 ML IV SCH ×2 (05:02→05:53)
[2018-11-27] MEDS: POTASSIUM CL 10MEQ/50ML IVPB 50 ML IV SCH ×5 (05:02→12:15)
[2018-11-27] MEDS ORDERED: KCL 20 MEQ TAB (K-DUR) PO SCH (06:00)
[2018-11-27] MEDS ORDERED: MAGNESIUM 1 GM/100 ML IVPB 100 ML IV SCH (06:00)
[2018-11-27] MEDS ORDERED: POTASSIUM CL 10MEQ/50ML IVPB 50 ML IV SCH (06:00)
--- NOTE | 2018-11-27 06:49 | Pulmonary Progress Note ---
Subjective Time Seen by a Provider: 07:38 Subjective/Events-last exam Pt appears to be doing better. Sepsis Event Evaluation Height, Weight, BMI Height: 5'4.00" Weight: 157lbs. 0.0oz. [id number]; 25.3 BMI Method:Estimated Focused Exam Lactate Level 11/25/18 22:00: Lactic Acid Level 9.91*H 11/26/18 00:20: Lactic Acid Level 2.43*H Time of Focused Exam: 22:40 Exam Exam Vital Signs Date Time Temp Pulse Resp B/P (MAP) Pulse Ox O2 Delivery O2 Flow Rate FiO2 11/27/18 06:00 77 23 162/71 (101) 93 Room Air 11/27/18 05:00 83 28 161/84 (109) 93 Room Air 11/27/18 04:00 Room Air 11/27/18 04:00 68 22 152/76 (101) 92 Room Air 11/27/18 03:00 72 25 140/72 (94) 91 Room Air 11/27/18 02:00 77 22 154/83 (106) 90 Room Air 11/27/18 01:00 79 23 149/74 (99) 90 Room Air 11/27/18 01:00 79 11/27/18 00:07 81 28 168/71 (103) Room Air 11/27/18 00:00 Room Air 11/26/18 23:16 82 23 156/90 (112) Room Air 11/26/18 22:11 86 26 139/81 (100) 92 Room Air 11/26/18 21:00 81 34 136/81 (99) 98 Room Air 11/26/18 20:03 75 26 133/60 (84) 95 Room Air 11/26/18 20:00 98.4 11/26/18 20:00 Room Air 11/26/18 19:00 75 20 161/108 (125) 95 Room Air 11/26/18 19:00 75 11/26/18 18:00 77 18 96 Room Air 11/26/18 17:00 84 8 174/73 (106) 95 Room Air 11/26/18 16:22 Room Air 11/26/18 16:00 79 25 163/79 (107) 97 Room Air 11/26/18 15:52 97.9 11/26/18 15:00 80 16 157/82 (107) 98 Room Air 11/26/18 14:00 81 23 152/74 (100) 94 Room Air 11/26/18 13:00 82 20 93 Room Air 11/26/18 12:50 87 11/26/18 12:00 84 20 147/88 (107) 94 Room Air 11/26/18 12:00 98.1 11/26/18 11:11 Room Air 11/26/18 11:00 79 20 170/80 (110) 100 Room Air 11/26/18 10:00 91 22 160/87 (111) 100 Room Air 11/26/18 09:00 81 17 165/91 (115) 98 Room Air 11/26/18 08:00 Room Air 11/26/18 08:00 76 30 159/76 (103) 100 Room Air 11/26/18 07:39 99.4 11/26/18 07:00 77 18 176/82 (113) 100 Room Air 11/26/18 07:00 81 I & O 11/27/18 07:00 Intake Total 2650 ml Output Total 2250 ml Balance 400 ml Height & Weight Height: 5'4.00" Weight: 157lbs. 0.0oz. [id number]; 25.3 BMI Method:Estimated General Appearance: Anxious, Thin HEENT: PERRL/EOMI, Other (EDENTULOUS) Neck: Normal Inspection Respiratory: Normal Breath Sounds, No Accessory Muscle Use, No Respiratory Distress Cardiovascular: Regular Rate, Rhythm, No Murmur, Normal Peripheral Pulses Capillary Refill: Less Than 3 Seconds Peripheral Pulses: 3+ Dorsalis Pedis (R), 3+ Left Dors-Pedis (L), 3+ Radial Pulses (R), 3+ Radial Pulses (L) Gastrointestinal: soft, tenderness (no significant pain on my exam no guarding or rebounding or tenderness with deep palpation.) Extremity: Normal Range of Motion, No Pedal Edema Neurologic/Psychiatric: Alert, Oriented x3 Skin: Normal Color, Warm/Dry Lymphatic: No Adenopathy Results Lab Laboratory Tests 11/25/18 21:35 11/26/18 03:16 11/27/18 03:10 Assessment/Plan Assessment/Plan mesenteric ischemia per CT of Abd/pelvis -Surgery is following -Improving leukocytosis, no fevers, and LA -Abdominal pain is minimal and not peritoneal -N/V resolved Elevated ammonia level -S/p Lactulose enema -repeat ammonia level Hx of untreated hep C Methamphetamine, marijuanna, narcotics, and benzo use -Education Acute seizure Metabolic lactic acidosis -Repeat LA - TAMIKA RIDLEY DO November 27, 2018 06:49
--- NOTE | 2018-11-27 07:51 | Diagnostic Imaging Report ---
INDICATION: Ischemic bowel, new-onset seizure. Lactic acidosis. TECHNIQUE: Single view chest at 3:48 AM. CORRELATION STUDY: 11/26/2018 FINDINGS: Heart size relatively stable. Vasculature slightly increased from prior study. Lung torres overall clear without definitive consolidating infiltrate. Overlying monitor leads are present. Chronic deformity about the proximal right humerus and distal right clavicle. IMPRESSION: 1. Vasculature slightly increased from prior study but without definite evidence for overt failure, otherwise acute findings of the chest. Dictated by: Dictated on workstation # [id number]
--- NOTE | 2018-11-27 09:52 | Progress Note (SOAP) ---
Subjective Subjective/Events-last exam Afebrile. Continues to have intermittent speech difficulties, frequently writhing in bed. She wants to go home. Review of Systems Date Seen by Provider: November 27, 2018 Time Seen by Provider: 08:25 Focused Exam Lactate Level 11/25/18 22:00: Lactic Acid Level 9.91*H 11/26/18 00:20: Lactic Acid Level 2.43*H Time of Focused Exam: 22:40 Objective Exam Last Set of Vital Signs Vital Signs Date Time Temp Pulse Resp B/P (MAP) Pulse Ox O2 Delivery O2 Flow Rate FiO2 11/27/18 09:00 81 32 Room Air 11/27/18 07:00 91 11/26/18 20:00 98.4 Capillary Refill : Less Than 3 Seconds I&O Intake and Output 11/27/18 00:00 Intake Total 5570 ml Output Total 3350 ml Balance 2220 ml Intake Oral 0 ml IV Total 4870 ml Other 700 ml Output Urine Total 3050 ml Stool Total 300 ml Daily Weight Change No General: Alert, No Acute Distress, Other (writhing in bed, frequent oral movements) Lungs: Clear to Auscultation, Normal Air Movement Heart: Regular Rate, No Murmurs Abdomen: Normal Bowel Sounds, Soft, Other (mild diffuse ttp with no guarding) Neuro: Other (oriented x 3, but with some memory troubles- thinks her daughter lives with her and nurse reports she said her daughter lives in [place]) Results/Procedures Lab Laboratory Tests 11/26/18 16:26: Glucometer 102 11/27/18 03:10: White Blood Count 4.4, Red Blood Count 3.51L, Hemoglobin 10.9L, Hematocrit 32L, Mean Corpuscular Volume 91, Mean Corpuscular Hemoglobin 31, Mean Corpuscular Hemoglobin Concent 34, Red Cell Distribution Width 13.6, Platelet Count 53L, Mean Platelet Volume 10.0, Neutrophils (%) (Auto) 45, Lymphocytes (%) (Auto) 40, Monocytes (%) (Auto) 11, Eosinophils (%) (Auto) 3, Basophils (%) (Auto) 1, Neutrophils # (Auto) 2.0, Lymphocytes # (Auto) 1.8, Monocytes # (Auto) 0.5, Eosinophils # (Auto) 0.1, Basophils # (Auto) 0.0, Sodium Level 138, Potassium Level 3.2L, Chloride Level 108H, Carbon Dioxide Level 21, Anion Gap 9, Blood Urea Nitrogen 5L, Creatinine 0.86, Estimat Glomerular Filtration Rate > 60, BUN/Creatinine Ratio 6, Glucose Level 79, Calcium Level 8.9, Phosphorus Level 3.2, Magnesium Level 1.5L Microbiology 11/25/18 Blood Culture - Preliminary, Resulted No growth 11/26/18 MRSA Screen - Final, Complete MRSA not isolated 11/25/18 Urine Culture - Preliminary, Resulted Gram Negative [facility] CT head with left thalamus evidence of old infarct, no acute abnormalities Chest x-ray with right distal clavicle fx, old/chronic and right humeral fx CT abd/pelvis with hepatosplenomgaly and pneumatosis in bowel in pelvic area concerning for ischemic colitis Right forearm x-ray negative for fx Assessment/Plan Assessment/Plan (1) Severe sepsis Status: Resolved Assessment & Plan: Suspected with leukocytosis and severe lactic acidosis on admit. LA nearly normal last check, leukocytosis resolved. Possibly secondary to UTI vs intraabdominal infection. On flagyl and zosyn. 11/27- repeat LA, continue zosyn and flagyl. Markedly improved. Urine culture pending- gram neg rods. (2) New onset seizure Status: Acute Assessment & Plan: Further review of chart shows she had seizures in 2017 and was transferred to facility with Neurology- will try to obtain records. Keppra IV initated. No seizures overnight. CT head without acute abnormality. Denies alcohol use. 11/27 will try to obtain records from [facility] to determine planned follow up for her previous seizures. (3) Ischemic colitis Status: Acute Assessment & Plan: CT findings concerning, but clinical exam relatively benign. Surgery consulted. On zosyn and flagyl. Lactic acidosis markedly improved with IVF. NPO. 11/27 minimal pain, recheck LA, lipase. Continue zosyn and flagyl. (4) Lactic acidosis Status: Acute Assessment & Plan: Severe, suspect secondary to seizure and possible ischemic colitis. Possibly sepsis related, possible UTI. 11/27 repeat LA (5) Elevated lipase Status: Acute Assessment & Plan: Suspect secondary to underlying abdominal pathology- suspected possible ischemic colitis. Follow. (6) Metabolic acidosis Status: Resolved Assessment & Plan: Secondary to vomiting and possible ischemic bowel, improving this am after IVF. (7) Methamphetamine use Status: Acute Assessment & Plan: Pt reports one time use, she also notes she does not want to continue to use, will consult social work assistant. (8) Respiratory alkalosis Status: Resolved Assessment & Plan: On admission, much improved this am. (9) Thrombocytopenia Status: Acute Assessment & Plan: Intermittently chronic, related to liver disease, monitor closely. (10) History of stroke Status: Chronic Permanent Comment: CT head 10/2018 with evidence of left thalamus encephalomalacia Last Edited By: Jerome Garcia on November 26, 2018 14:18 Assessment & Plan: No acute findings on CT, neuro exam normal except for intermittent and rapidly fluctuating speech difficulties. Monitor neuro status closely. (11) Hepatic encephalopathy Status: Chronic Assessment & Plan: On lactulose chronically, ammonia high on admission. Lactulose enema ordered given NPO. 11/27 mental status improved, recheck ammonia (12) Elevated CK Status: Acute Assessment & Plan: Secondary to seizure, no renal dysfunction. Follow. (13) Hypokalemia Status: Acute Assessment & Plan: Replace and follow. (14) Fracture, humerus Status: Chronic Assessment & Plan: Notes from 10/2017 indicating plan for outpatient repair, will look into clinic records and determine if follow up was completed. 11/27- records indicated plan for ORIF outpatient, does not appear to have followed up, will try to reschedule outpatient follow up to determine if any further treatment warranted at this juncture. Qualifiers: (15) Hypertension Status: Chronic Assessment & Plan: Uncontrolled, but NPO at this time, IV hydralazine prn ordered by Dr. Maradiaga 11/27 resume lisinopril and amlodipine Qualifiers: Qualified Codes: I10 - Essential (primary) hypertension (16) UTI (urinary tract infection) Status: Acute Assessment & Plan: Culture pending. On zosyn. Qualifiers: (17) Hepatitis C Status: Chronic Qualifiers: (18) Fracture, clavicle Status: Chronic Assessment & Plan: Will review chart to determine if she was lost to follow up and if further intervention was recommended. (19) DVT prophylaxis Status: Acute Assessment & Plan: Enoxaparin- monitor closely given thrombocytopenia 11/27- worsening thrombocytopenia, hold for today. Clinical Quality Measures DVT/VTE Risk/Contraindication: Risk Factor Score Per Nursin RFS Level Per Nursing on Admit: 4+=Very High JEROME GARCIA MD November 27, 2018 09:52
--- NOTE | 2018-11-27 10:03 | Diagnostic Imaging Report ---
INDICATION: Elevated liver function tests, hyperbilirubinemia, pancreatitis. TECHNIQUE: Multiple Real-time grayscale sonographic images of the abdomen. CORRELATION STUDY: None. FINDINGS: LIVER: Overall limited in visualization, particularly the left lobe. Liver length is 18.2 cm. GALLBLADDER: Cholecystectomy. COMMON BILE DUCT: Not visualized. No overt bile duct dilatation. PANCREAS: Obscured by overlying bowel gas. SPLEEN: Mildly enlarged at 14.3 x 4.4 x 6.6 cm. ABDOMINAL AORTA: Obscured. INFERIOR VENA CAVA: Limited in visualization. RIGHT KIDNEY: 8.2 x 3.4 x 4.7 cm. Limited in visualization. Generally unremarkable. LEFT KIDNEY: 9.4 x 4.5 x 4.2 cm. Limited in visualization. Generally unremarkable. OTHER: No significant abdominal ascites. IMPRESSION: Overall, this appears to be a fairly limited abdominal ultrasound examination owing to a large amount of overlying bowel gas. Given limitations, no definitive acute abnormality. Borderline hepatomegaly. Dictated by: Dictated on workstation # [id number]
[2018-11-27] MEDS: ALPRAZolam 0.5 MG (XANAX) TAB PO PRN ×2 (10:06→22:52)
[2018-11-27] MEDS: amLODIPine 5 MG (NORVASC) TAB PO SCH (10:08)
[2018-11-27] MEDS: lisINopril 40 MG (PRINIVIL) TABLET PO SCH (10:08)
[2018-11-27 10:50] LABS: CREATINE KINASE 665 U/L (29-168); LIPASE 17 U/L (8-78)
[2018-11-27] MEDS: PIPERACILLIN/TAZO 4.5 GM/NS 100 ML IV SCH ×4 (10:59→17:10)
[2018-11-27] MEDS: PHARMACY TO DOSE SQ SCH (12:12)
[2018-11-27] MEDS ORDERED: NICOTINE 21 MG (NICODERM) PATCH ONE (12:24)
--- NOTE | 2018-11-27 14:44 | ST Dysphagia Evaluation ---
Speech Evaluation-General Medical Diagnosis Seizure, Severe Sepsis Onset Date: November 27, 2018 Therapy Diagnosis Therapy Diagnosis: Oropharyngeal Dysphagia, Dysarthria Precautions Precautions: Aspiration Precautions/Isolations: Seizure, Fall Prevention, Standard Precautions Referral Referring Physician: Dr. Garcia Medical History Pertinent Medical History: HTN, Smoking Social History Current Living Status: Alone Speech PLF/Current-Dysphagia Prior Level of Function The patient lived alone and was independent for most of her daily needs. She is reported to have been getting ill at home for the past few weeks and has just stayed in bed. Subjective The patient was pleasant and cooperative with the bedside evaluation. Cognitive Status Patient Orientation: Person, Confused Patient is a poor historian and is difficult to follow. Oral Motor Skills Dentition: Edentalous Ability to Follow Directions: Fair Oral Expression Ability: Mild Impairment Voice Voice Phonatory-Based Quality: Weak Voice Pitch: Mildly Low Voice Loudness: Mildly Soft/Quiet Face Facial Symmetry: Symmetrical Oral-Facial Assessment Oral-Facial Dentition: Normal Labial Seal Description: Normal Smile: Normal Puff Cheeks: Normal Lingual Protrusion: Normal Lingual ROM: Normal Lingual Strength: Normal Pharynx Velopharyngeal Move.: Normal Volitional Dry Swallow: Yes Voluntary Cough: Yes Can Clear Throat Volitionally: Yes Dysphagia Evaluation Consistencies Presented: Regular, Thin Liquid, Mechanical Soft, Pureed Patient has normal oral phase function for all consistencies presented. Patient exhibits adequate pharyngeal function for all consistencies presented. Funct. Velo/Pharyngeal Symptom: Cough After Swallow Patient states she coughs a lot even when she isn't eating. Dietary Recommendations: Mechanical Soft Liquid Recommendations: Thin Swallowing Precautions: Alternate Liquids/Solids, Decreased Bolus 1/2 Tsp, Liquids from Straw, Small Bites and Sips, Sitting Upright 90 Degrees, Sitting 90 Degrees 30 Post Intake Dysphagia Evaluation Summary The patient was a pleasant 63 year old female who was admitted to the hospital s/p seizure and severe sepsis. The patient is noted to have an involved history of drug usage with multiple surgeries and injuries. The patient's speech is at 75% intelligible, however the patient is edentulous at this time. Her drug history and current physical state lend to speech irregularities. ST services are not appropriate to address her speech issues due to most likely be long standing. The Bedside Dysphagia Evaluation was also completed with thin liquids via 1/2 tsp x2 and small sips via straw x2 without s/s of aspiration. Puree, mechanical soft and regular diet consistencies were all presented without difficulty. Due to her edentulous state she will be on a Dysphagia II diet level with thin liquids. This information was provided for her nurse, Prerna. Barriers to Learning Drug use history Speech Short Term Goals Short Term Goals Short Term Goals 1) The patient will tolerate least restrictive diet level without s/s of aspiration at 90% with minimal verbal cues. 2) The patient will utilize compensatory strategies for safe oral intake as trained at 90% with minimal verbal cues. Speech Tool Setter Goals Tool Setter Goals The patient will maintain adequate nutrition/hydration via safe effective swallow function. Speech-Plan Patient/Family Goals Patient/Family Goals: The patient plans on returning to her home upon hospital discharge. Treatment Plan Speech Therapy Treatment Plan: Continue Plan of Care The patient will receive skilled dysphagia therapy for safe oral intake. Treatment Duration: November 30, 2018 Frequency: 3 times per week Estimated Hrs Per Day: .25 hour per day Rehab Potential: Fair Barriers to Learning: Drug abuse history Pt/Family Agrees to Plan: Yes Safety Risks/Education Teaching Recipient: Patient, Family Teaching Methods: Discussion Response to Teaching: Verbalize Understanding Education Topics Provided: Safety of oral intake. Time Speech Therapy Time In: 13:00 Speech Therapy Time Out: 13:15 Total Billed Time: 15 Billed Treatment Time 1, ZIA Borden November 27, 2018 14:43
--- NOTE | 2018-11-27 14:51 | Occupational Therapy Eval ---
OT Evaluation-General/PLF Medical Diagnosis Admission Date November 26, 2018 at 00:50 Medical Diagnosis: Severe sepsis Onset Date: November 26, 2018 Therapy Diagnosis Therapy Diagnosis: Decreased ADL skills Height/Weight Height (Feet): 5 Height (Inches): 4.00 Weight (Pounds): 157 Weight (Ounces): 0.0 Precautions Precautions/Isolations: Seizure, Fall Prevention, Standard Precautions Safety Interventions: None Weight Bear Status Weight Bearing Restriction: Weight Bearing/Tolerated Referral Physician: Dr. Garcia Referral Reason: Activity Tolerance, Self Care, Evaluation/Treatment, Strengthening/ROM Medical History Pertinent Medical History: HTN, Smoking Additional Medical History Liver disease, Hep C, Depression, Anxiety, Old humerus fx, patellar tendon repair, ORIF bilateral ankles. Current History Pt. came to ER with UTI. Pt. experienced seizure while in ER. At this OT evaluation, pt. ary princeian. Reviewed History: Yes Social History Pt. ary historian. Pt. reports that she lives in [place], [place] with only her dog. Then states that her daughter's home is handicap accessible. OT asks if she is going to go stay with her daughter. Pt. is inconsistent with her answer. When OT asks more questions about her current home, pt. is unable to answer them. ADL-Prior Level of Function Therapy Code Descriptions/Definitions Functional [place] Measure: 0=Not Assessed/NA 4=Minimal Assistance 1=Total Assistance 5=Supervision or Setup 2=Maximal Assistance 6=Modified [place] 3=Moderate Assistance 7=Complete [place] Therapy Quality Codes: 6 Independent with activity with or without an assistive device 5 Patient requires set up or clean up by helper. Patient completes activity by themselves 4 Supervision or touching assist (CGA). Sabinal provide cues , steadying assist 3 The helper provides less than half the effort to complete the activity 2 The helper provides more than half the effort to complete the activity 1 Dependent. The helper does all the effort to complete an activity 7 Patient refused to complete or attempt activity 9 The patient did not perform the activity before the current illness or injury 88 Not attempted due to Medical conditions or safety concerns Functional Abilities and Goals: Independent: Patient completed the activities by him/herself, with or without an assistive device, with no assistance from a helper. Needed Some Help: Patient needed partial assistance from another person to complete activities. Dependent: A helper completed the activities for the patient. Unknown: Not Applicable: ADL PLOF Comments This is unclear. Self Care: Unknown Functional Cognition: Unknown OT Current Status Subjective Pt. states that she is feeling well and does not report any pain. Appearance Pt. in bed alert. Agrees to shower. Mental Status/Objective Patient Orientation: Unable to Assess Attachments: Rebolledo Catheter, IV Current Hand Dominance: Right ADL-Treatment Therapy Code Descriptions/Definitions Functional [place] Measure: 0=Not Assessed/NA 4=Minimal Assistance 1=Total Assistance 5=Supervision or Setup 2=Maximal Assistance 6=Modified [place] 3=Moderate Assistance 7=Complete [place] Therapy Quality Codes: 6 Independent with activity with or without an assistive device 5 Patient requires set up or clean up by helper. Patient completes activity by themselves 4 Supervision or touching assist (CGA). Sabinal provide cues , steadying assist 3 The helper provides less than half the effort to complete the activity 2 The helper provides more than half the effort to complete the activity 1 Dependent. The helper does all the effort to complete an activity 7 Patient refused to complete or attempt activity 9 The patient did not perform the activity before the current illness or injury 88 Not attempted due to Medical conditions or safety concerns Bathing (FIM): 4 (Constant supervision, cues, and at times CGA. Pt. is impulsive. Stands and sits multiple times but is unsafe when doing so.) Lower Body Dressing (FIM): 5 (SBA to don slipper socks.) Transfers (B, C, W/C) (FIM): 4 (Min assist to ambulate with IV pole to bathroom.) Shower Transfer (FIM): 4 Other Treatments Pt. agrees to shower. Stands with cues to hold OT's hand, as pt. is unbalanced. Ambulated to shower area. OT covered IV on hand. Pt. demonstrates impulsivity, poor awareness, and poor sequencing. Pt. puts shampoo into hair without getting it wet first. Pt. insists on washing it herself, but will only spray it slightly, not getting the shampoo out or massaging it in. Pt. does agree to let OT assist her with this. Pt. stands in shower but water is at level that does not reach her. Pt. does not seem to understand this. Unsafe in stance, as she closes her eyes from the shampoo. Pt. is encouraged multiple times to be careful of her catheter and her IV. Pt. is able to wash all parts, but with cues. After water is turned off, pt. reports that she has not washed her kenji area. OT turns water back on and pt. gets soap, and puts it back into hair. OT and pt. go through washing process again. After ADLs, pt. ambulated back to bed with CGA. All needs met in bed. Sister in room with pt at this time. Notified nursing about IV. Education OT Patient Education: Correct positioning, Exercise program, Modified ADL techniques, Progress toward Goal/Update tx plan, Purpose of tx/functional activities, Reviewed precautions, Rehab process, Transfer techniques Teaching Recipient: Patient Teaching Methods: Demonstration, Discussion Response to Teaching: Verbalize Understanding, Return Demonstration OT Short Term Goals Short Term Goals 1=Demonstrate adherence to instructed precautions during ADL tasks. 2=Patient will verbalize/demonstrate understanding of assistive devic es/modifications for ADL. 3=Patient will improve strength/tolerance for activity to enable patient to perform ADL's. OT Assisted Goals Tool Setter Apprentice Goals Time Frame: Dec 11, 2018 Eating (FIM): 6 Grooming(FIM): 6 Bathing(FIM): 5 Upper Body Dressing(FIM): 5 Lower Body Dressing(FIM): 5 Toileting(FIM): 6 Transfers (B,C,W/C) (FIM): 6 Toilet/Commode Transfer(FIM): 6 Shower Transfer(FIM): 5 Additional Goals: 1-Demonstrate ADL Tasks, 2-Verbalize Understanding, 3- ImproveStrength/Brando 1=Demonstrate adherence to instructed precautions during ADL tasks. 2=Patient will verbalize/demonstrate understanding of assistive devices/modifications for ADL. 3=Patient will improve strength/tolerance for activity to enable patient to perform ADL's. OT Education/Plan Problem List/Assessment Assessment: Decreased Activ Tolerance, Decreased Safety Aware, Decreased UE Strength, Dependent Transfers, Impaired Bed Mobility, Impaired Cognition, Impaired Funct Balance, Impaired I ADL's, Impaired Self-Care Skills Discharge Recommendations Plan/Recommendations: Continue POC Comment To be determined. Treatment Plan/Plan of Care Treatment,Training & Education: Yes Patient would benefit from OT for education, treatment and training to promote independence in ADL's, mobility, safety and/or upper extremity function for ADL's. Plan of Care: ADL Retraining, Caregiver Training, Functional Mobility, UE Funct Exercise/Act Treatment Duration: Dec 11, 2018 Frequency: 5 times per week Estimated Hrs Per Day: .5 hour per day Agreement: Yes Rehab Potential: Fair Time/GCodes Start Time: 13:15 Stop Time: 13:50 Total Time Billed (hr/min): 35 Billed Treatment Time 1, EVH x 15minutes, ADL x 20minutes TETE BOUDREAUX OT November 27, 2018 14:50
--- NOTE | 2018-11-27 14:53 | Physical Therapy Evaluation ---
PT Evaluation-General Medical Diagnosis Admission Date November 26, 2018 at 00:50 Medical Diagnosis: sepsis, seizure Onset Date: November 26, 2018 Therapy Diagnosis Therapy Diagnosis: impaired mobility, endurance, balance Height/Weight Height (Feet): 5 Height (Inches): 4.00 Weight (Pounds): 157 Weight (Ounces): 0.0 Precautions Precautions/Isolations: Seizure, Fall Prevention, Standard Precautions Weight Bear Status Right Lower Extremity: Right Weight Bearing/Tolerated Left Lower Extremity: Left Weight Bearing/Tolerated Referral Physician: Masha Garcia MD Reason for Referral: Evaluation/Treatment Medical History Pertinent Medical History: HTN, Smoking Additional Medical History Past Medical History Surgeries: Yes (RIGHT FOOT X 4; LEFT FOOT X 1; LEFT KNEE FX/PATELLAR TENDON REPAIR 11/26/17; BILATERAL ANKLES; TEETH REMOVED; HYST/BSO) Appendectomy, Gallbladder, Hysterectomy, Oophorectomy, Orthopedic Respiratory: No Cardiac: Yes High Cholesterol, Hypertension, Irregular Heartbeat Neurological: Yes (DAILY NARCOTIC USE/ABUSE FOR CHRONIC HEADACHE COMPLAINT; "chronic tremors") Dementia, Headaches /Migraines Reproductive Disorders: No 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: Hysterectomy, Menopausal Sexually Transmitted Disease: No HIV/AIDS: No Genitourinary: Yes Bladder Infection Gastrointestinal: Yes (HEPATITIS C-UNTREATED; OPIOID INDUCED CONSTIPATION) Gastroesophageal Reflux, Liver Disease/Jaundice, Chronic Constipation, Hepatitis Musculoskeletal: Yes (CHRONIC ANKLE PAIN/BILAT ANKLE FX'S; RESTLESS LEGS; LEFT PATELLAR FX/TENDON REPAIR 10/2017; RIGHT HUMERAL FX 10/2017--NO SURGERY; T12 COMPRESSION) Back Injury, Chronic Back Pain, Fractures Endocrine: Yes (HYPONATREMIA) HEENT: Yes (SINUS PROBLEMS) Cancer: No Psychosocial: Yes (PLYSUBSTANCE ABUSE) Anxiety, Depression Integumentary: No Blood Disorders: Yes (ANEMIA) Adverse Reaction/Blood Tranf: No Current History Went to ER with concerns of UTI Reviewed History: Yes Social History Current Living Status: Entry Into Home: Level Entry Patient is confused so the accuracy of this is suspect but she seems to have somebody living with her and a level entry. No AD used previously. Prior/Core FIM Prior Level of Function Therapy Code Descriptions/Definitions Functional [place] Measure: 0=Not Assessed/NA 4=Minimal Assistance 1=Total Assistance 5=Supervision or Setup 2=Maximal Assistance 6=Modified [place] 3=Moderate Assistance 7=Complete [place] Therapy Quality Codes: 6 Independent with activity with or without an assistive device 5 Patient requires set up or clean up by helper. Patient completes activity by themselves 4 Supervision or touching assist (CGA). [place] provide cues , steadying assist 3 The helper provides less than half the effort to complete the activity 2 The helper provides more than half the effort to complete the activity 1 Dependent. The helper does all the effort to complete an activity 7 Patient refused to complete or attempt activity 9 The patient did not perform the activity before the current illness or injury 88 Not attempted due to Medical conditions or safety concerns Functional Abilities and Goals: Independent: Patient completed the activities by him/herself, with or without an assistive device, with no assistance from a helper. Needed Some Help: Patient needed partial assistance from another person to complete activities. Dependent: A helper completed the activities for the patient. Unknown: Not Applicable: Bed Mobility: 7 Transfers (B,C,W/C) (FIM): 7 Gait: 7 Stairs: 7 Indoor Mobility (Ambulation): Independent Stairs: Independent PT Evaluation-Current Subjective Patient in bed pre tx, agrees to PT and seems excited about getting out of bed. Patient has no complaints of pain. Patient is writhing in bed but not having seizure, has a lot of trouble talking. Pt/Family Goals none stated. Objective Patient Orientation: Person, Confused Attachments: Rebolledo Catheter, IV ROM/Strength ROM Lower Extremities WNL Strength Lower Extremities Cannot follow directions for testing. Neuromuscular (Tone, Coordination, Reflexes) NT Sensory Vision: Functional Hearing: Functional Sensation Right Lower Extremit: Intact Sensation Left Lower Extremity: Intact Transfers Therapy Code Descriptions/Definitions Functional [place] Measure: 0=Not Assessed/NA 4=Minimal Assistance 1=Total Assistance 5=Supervision or Setup 2=Maximal Assistance 6=Modified [place] 3=Moderate Assistance 7=Complete [place] Transfers (B, C, W/C) (FIM): 4 Scootin Rollin Supine to/from Sit: 5 Sit to/from Stand: 4 Min assist for sit to stand due to poor balance. Needs cues for safety. Patient very unsteady. Gait Mode of Locomotion: Walk Anticipated Mode of Locomotion: Walk Gait (FIM): 2 Distance: 80' Gait Level of Assist: 4 Gait Persons Needed: 1 Gait Assistive Device: FWW Comments/Gait Description Patient ambulated 80' with a rolling walker with min assist, very unsteady, impulsive. Balance Sitting Static: Fair Sitting Dynamic: Fair Standing Static: Poor Standing Dynamic: Poor Treatment BLE supine exercises x15 (HS, AP) Assessment/Needs Patient has impaired mobility, strength, endurance, balance. She is confused, impulsive, has trouble talking. Patient in bed post tx with nurse call, phone, tray, bed alarm on. Rehab Potential: Guarded PT Short Term Goals Short Term Goals Time Frame: Dec 04, 2018 Transfers (B,C,W/C) (FIM): 5 Gait (FIM): 5 Gait Distance Comment: 150' Gait Level of Assist: 5 Gait Assistive Device: FWW PT Plan Problem List Problem List: Activity Tolerance, Functional Strength, Safety, Balance, Gait, Transfer, Bed Mobility Treatment/Plan Treatment Plan: Continue Plan of Care Treatment Plan: Bed Mobility, Education, Functional Activity Brando, Functional Strength, Gait, Safety, Therapeutic Exercise, Transfers Treatment Duration: Dec 04, 2018 Frequency: 6 times per week Estimated Hrs Per Day: .25 hour per day (15-30') Patient and/or Family Agrees t: Yes Safety Risks/Education Patient Education: Gait Training, Transfer Techniques, Correct Positioning, Safety Issues Teaching Recipient: Patient Teaching Methods: Demonstration, Discussion Response to Teaching: Reinforcement Needed Discharge Recommendations Plan Patient will perform bed mobility and transfer training, balance and endurance training, functional strengthening, stair training, gait training, and education, to improve functional mobility and independence at home. Therapy D/C Recommendations: Home w/ Family Support, Usp (TCU/NH) Time/GCodes Time In: 1423 Time Out: 1442 Total Billed Treatment Time: 19 Total Billed Treatment 1 visit EVKlaudia 19' KRYSTLE ROGERS PT November 27, 2018 14:53
[2018-11-27] MEDS: PROMETHAZINE INJ 25 MG/ML (PHENERGAN) AMP IV PRN ×2 (18:21→23:30)
--- NOTE | 2018-11-27 20:16 | Progress Note ---
Subjective Date Seen by a Provider: November 27, 2018 Time Seen by a Provider: 17:24 Subjective/Events-last exam Patient states not having any abdominal pain. Wanting food. Wbc down. Lactic acid improved. Alert and oriented x 2 No family at bedside. Denies n/v fever sweats chills shortness of breath or amy st pain. Focused Exam Lactate Level 11/25/18 22:00: Lactic Acid Level 9.91*H 11/26/18 00:20: Lactic Acid Level 2.43*H 11/27/18 10:20: Lactic Acid Level 0.73 Time of Focused Exam: 22:40 Objective Exam Vital Signs Date Time Temp Pulse Resp B/P (MAP) Pulse Ox O2 Delivery O2 Flow Rate FiO2 11/27/18 19:28 98.2 86 20 154/89 (110) 94 Room Air 11/27/18 16:00 Room Air 11/27/18 15:44 97.9 79 22 164/81 (108) 94 Room Air 11/27/18 12:00 Room Air 11/27/18 12:00 98.6 84 22 148/61 (90) 92 Room Air 11/27/18 11:00 83 12 164/80 (108) Room Air 11/27/18 10:00 83 29 165/66 (99) Room Air 11/27/18 09:00 81 32 Room Air 11/27/18 08:00 82 27 188/79 (115) Room Air 11/27/18 08:00 Room Air 11/27/18 07:00 89 26 165/75 (105) 91 Room Air 11/27/18 07:00 80 11/27/18 06:00 77 23 162/71 (101) 93 Room Air 11/27/18 05:00 83 28 161/84 (109) 93 Room Air 11/27/18 04:00 Room Air 11/27/18 04:00 68 22 152/76 (101) 92 Room Air 11/27/18 03:00 72 25 140/72 (94) 91 Room Air 11/27/18 02:00 77 22 154/83 (106) 90 Room Air 11/27/18 01:00 79 23 149/74 (99) 90 Room Air 11/27/18 01:00 79 11/27/18 00:07 81 28 168/71 (103) Room Air 11/27/18 00:00 Room Air 11/26/18 23:16 82 23 156/90 (112) Room Air 11/26/18 22:11 86 26 139/81 (100) 92 Room Air 11/26/18 21:00 81 34 136/81 (99) 98 Room Air I & O 11/27/18 07:00 Intake Total 4270 ml Output Total 2250 ml Balance 2020 ml Capillary Refill : Less Than 3 Seconds General Appearance: No Apparent Distress, Anxious, Thin HEENT: PERRL/EOMI Neck: Normal Inspection Respiratory: Chest Non Tender, No Accessory Muscle Use, No Respiratory Distress Cardiovascular: Regular Rate, Rhythm, No Murmur, Normal Peripheral Pulses Peripheral Pulses: 3+ Dorsalis Pedis (R), 3+ Left Dors-Pedis (L), 3+ Radial Pulses (R), 3+ Radial Pulses (L) Gastrointestinal: non tender (no guarding or rebounding, no palpable masses), soft; No tenderness Extremity: Normal Inspection, Normal Range of Motion, Non Tender, No Pedal Edema Neurologic/Psychiatric: Alert (oriented x 2) Skin: Normal Color, Warm/Dry Lymphatic: No Adenopathy Results Lab Laboratory Tests 11/27/18 03:10: White Blood Count 4.4, Red Blood Count 3.51L, Hemoglobin 10.9L, Hematocrit 32L, Mean Corpuscular Volume 91, Mean Corpuscular Hemoglobin 31, Mean Corpuscular Hemoglobin Concent 34, Red Cell Distribution Width 13.6, Platelet Count 53L, Mean Platelet Volume 10.0, Neutrophils (%) (Auto) 45, Lymphocytes (%) (Auto) 40, Monocytes (%) (Auto) 11, Eosinophils (%) (Auto) 3, Basophils (%) (Auto) 1, Neutrophils # (Auto) 2.0, Lymphocytes # (Auto) 1.8, Monocytes # (Auto) 0.5, Eosinophils # (Auto) 0.1, Basophils # (Auto) 0.0, Sodium Level 138, Potassium Level 3.2L, Chloride Level 108H, Carbon Dioxide Level 21, Anion Gap 9, Blood Urea Nitrogen 5L, Creatinine 0.86, Estimat Glomerular Filtration Rate > 60, BUN/Creatinine Ratio 6, Glucose Level 79, Calcium Level 8.9, Phosphorus Level 3.2, Magnesium Level 1.5L 11/27/18 10:20: Lactic Acid Level 0.73, Total Creatine Kinase 665H, Lipase 17 Microbiology 11/25/18 Blood Culture - Preliminary, Resulted No growth 11/26/18 MRSA Screen - Final, Complete MRSA not isolated 11/25/18 Urine Culture - Preliminary, Resulted Escherichia coli Assessment/Plan Assessment/Plan Assessment/Plan lower abdominal pain-resolved questionable cecal pneumatosis poly substance abuse new onset seizure elevated lactic acid- improved Her exam does not fit with ischemic bowel still. She is not having any pain. Could be result of polysubstance abuse. I don't believe she will need surgical intervention, will start on clears. If continues to improved will continue with conservative measures. Patient On Zosyn and Flagyl. Will follow. Clinical Quality Measures DVT/VTE Risk/Contraindication: Risk Factor Score Per Nursin RFS Level Per Nursing on Admit: 4+=Very High DAVE GORDON DO November 27, 2018 20:16
[2018-11-28] MEDS: metroNIDAZOLE 500 MG/100 ML IVPB (PRE-MIX) IV SCH ×5 (00:05→23:34)
[2018-11-28] MEDS: PIPERACILLIN/TAZO 4.5 GM/NS 100 ML IV SCH ×8 (00:06→23:33)
[2018-11-28 04:34] VITALS: BP 161/81
[2018-11-28 05:55] LABS: BASOPHILS % (AUTO) 0 % (0-10); EOSINOPHILS # (AUTO) 0.2 10^3/uL (0.0-0.3); EOSINOPHILS % (AUTO) 4 % (0-10); HEMATOCRIT 38 % (35-52); LYMPHOCYTES # (AUTO) 1.5 X 10^3 (1.0-4.0); LYMPHOCYTES % (AUTO) 30 % (12-44); MEAN CORPUSCULAR HEMOGLOBIN 31 PG (25-34); MEAN CORPUSCULAR HGB CONC 34 G/DL (32-36); MEAN CORPUSCULAR VOLUME 90 FL (80-99); MEAN PLATELET VOLUME 9.6 FL (7.4-10.4); MONOCYTES # (AUTO) 0.5 X 10^3 (0.0-1.0); MONOCYTES % (AUTO) 11 % (0-12); NEUTROPHILS # (AUTO) 2.8 X 10^3 (1.8-7.8); NEUTROPHILS % (AUTO) 56 % (42-75); PLATELET COUNT 58 10^3/uL (130-400); RED CELL DISTRIBUTION WIDTH 13.6 % (10.0-14.5)
[2018-11-28 06:31] LABS: ALANINE AMINOTRANSFERASE 14 U/L (0-55); ALBUMIN 4.1 GM/DL (3.2-4.5); ALKALINE PHOSPHATASE 82 U/L (40-136); BILIRUBIN,TOTAL 1.3 MG/DL (0.1-1.0); BUN/CREATININE RATIO 6; CARBON DIOXIDE 21 MMOL/L (21-32); CHLORIDE 107 MMOL/L (98-107); CREATINE KINASE 311 U/L (29-168); GFR ESTIMATED > 60; GLUCOSE 79 MG/DL (70-105); POTASSIUM 3.6 MMOL/L (3.6-5.0); SODIUM 142 MMOL/L (135-145); TOTAL PROTEIN 7.8 GM/DL (6.4-8.2)
--- NOTE | 2018-11-28 07:43 | Pulmonary Progress Note ---
Subjective Time Seen by a Provider: 07:41 Subjective/Events-last exam Pt appears to be doing better. Sepsis Event Evaluation Height, Weight, BMI Height: 5'4.00" Weight: 156lbs. 4.0oz. [id number]; 25.3 BMI Method:Estimated Focused Exam Lactate Level 11/25/18 22:00: Lactic Acid Level 9.91*H 11/26/18 00:20: Lactic Acid Level 2.43*H 11/27/18 10:20: Lactic Acid Level 0.73 Time of Focused Exam: 22:40 Exam Exam Vital Signs Date Time Temp Pulse Resp B/P (MAP) Pulse Ox O2 Delivery O2 Flow Rate FiO2 11/28/18 04:34 97.2 93 18 161/81 (107) 93 Room Air 11/27/18 23:42 96.7 90 18 173/72 (105) 96 Room Air 11/27/18 20:00 Room Air 11/27/18 19:28 98.2 86 20 154/89 (110) 94 Room Air 11/27/18 16:00 Room Air 11/27/18 15:44 97.9 79 22 164/81 (108) 94 Room Air 11/27/18 12:00 Room Air 11/27/18 12:00 98.6 84 22 148/61 (90) 92 Room Air 11/27/18 11:00 83 12 164/80 (108) Room Air 11/27/18 10:00 83 29 165/66 (99) Room Air 11/27/18 09:00 81 32 Room Air 11/27/18 08:00 82 27 188/79 (115) Room Air 11/27/18 08:00 Room Air I & O 11/28/18 07:00 Intake Total 1280 ml Output Total 4325 ml Balance -3045 ml Height & Weight Height: 5'4.00" Weight: 156lbs. 4.0oz. 70.567721me; 25.3 BMI Method:Estimated General Appearance: Anxious, Thin HEENT: PERRL/EOMI, Other (EDENTULOUS) Neck: Normal Inspection Respiratory: Normal Breath Sounds, No Accessory Muscle Use, No Respiratory Distress Cardiovascular: Regular Rate, Rhythm, No Murmur, Normal Peripheral Pulses Capillary Refill: Less Than 3 Seconds Peripheral Pulses: 3+ Dorsalis Pedis (R), 3+ Left Dors-Pedis (L), 3+ Radial Pulses (R), 3+ Radial Pulses (L) Gastrointestinal: soft, tenderness (no significant pain on my exam no guarding or rebounding or tenderness with deep palpation.) Extremity: Normal Range of Motion, No Pedal Edema Neurologic/Psychiatric: Alert, Oriented x3 Skin: Normal Color, Warm/Dry Lymphatic: No Adenopathy Results Lab Laboratory Tests 11/27/18 03:10 11/28/18 05:15 11/28/18 05:19 Assessment/Plan Assessment/Plan mesenteric ischemia per CT of Abd/pelvis -Surgery is following -Improving leukocytosis, no fevers, and LA -Abdominal pain is minimal and not peritoneal -N/V resolved Hx of untreated hep C Methamphetamine, marijuanna, narcotics, and benzo use -Education Acute seizure Metabolic lactic acidosis -Repeat TAMIKA CAGE DO November 28, 2018 07:43
[2018-11-28 08:00] VITALS: BP 168/79
[2018-11-28] MEDS: amLODIPine 5 MG (NORVASC) TAB PO SCH (08:49)
[2018-11-28] MEDS: lisINopril 40 MG (PRINIVIL) TABLET PO SCH (08:49)
[2018-11-28] MEDS ORDERED: LACTULOSE 10 GM PO SCH (09:00)
[2018-11-28] MEDS ORDERED: NON-FORMULARY MEDICATION 1 EA EA (Venlafaxine HCl (Venlafaxine HCl ER) 150 MG) PO SCH (09:00)
[2018-11-28] MEDS ORDERED: NON-FORMULARY MEDICATION 1 EA EA (Amlodipine Besylate 5 MG) PO SCH (09:00)
--- NOTE | 2018-11-28 09:48 | Physical Therapy Daily Note ---
PT Daily Note-Current Subjective Patient in bed pre tx, agrees readily to PT and seems excited to get out of bed and ambulate, indicates that she has some pain in her abdomen but is unable to rate it. Patient is impulsive, has difficulty speaking, and is constantly writhing/moving. Appearance Patient in bed post tx with nurse call, phone, tray, bed alarm on. Mental Status Patient Orientation: Person, Confused Transfers Therapy Code Descriptions/Definitions Functional [place] Measure: 0=Not Assessed/NA 4=Minimal Assistance 1=Total Assistance 5=Supervision or Setup 2=Maximal Assistance 6=Modified [place] 3=Moderate Assistance 7=Complete [place] Therapy Quality Codes: 6 Independent with activity with or without an assistive device 5 Patient requires set up or clean up by helper. Patient completes activity by themselves 4 Supervision or touching assist (CGA). [place] provide cues , steadying a ssist 3 The helper provides less than half the effort to complete the activity 2 The helper provides more than half the effort to complete the activity 1 Dependent. The helper does all the effort to complete an activity 7 Patient refused to complete or attempt activity 9 The patient did not perform the activity before the current illness or injury 88 Not attempted due to Medical conditions or safety concerns Transfers (B, C, W/C) (FIM): 5 Scootin Rollin Supine to/from Sit: 5 Patient quickly sits on the side of the bed and then immediately lays back down. She says she is done. When asked by PT why she will not continue she has difficulty explaining why. She just says "im done". Patient will not perform LE exercises in bed. Weight Bearing Right Lower Extremity: Right Weight Bearing/Tolerated Left Lower Extremity: Left Weight Bearing/Tolerated Treatments bed mobility, supine <-> sit Assessment Current Status: Poor Progress Patient had poor participation in PT this morning. PT Short Term Goals Short Term Goals Time Frame: Dec 04, 2018 Transfers (B,C,W/C) (FIM): 5 Gait (FIM): 5 Gait Distance Comment: 150' Gait Level of Assist: 5 Gait Assistive Device: FWW PT Plan Problem List Problem List: Activity Tolerance, Functional Strength, Safety, Balance, Gait, Transfer, Bed Mobility, ROM Treatment/Plan Treatment Plan: Continue Plan of Care Treatment Plan: Bed Mobility, Education, Functional Activity Brando, Functional Strength, Gait, Safety, Therapeutic Exercise, Transfers Treatment Duration: Dec 04, 2018 Frequency: 6 times per week Estimated Hrs Per Day: .25 hour per day (15-30') Patient and/or Family Agrees t: Yes Safety Risks/Education Patient Education: Correct Positioning, Safety Issues Teaching Recipient: Patient Teaching Methods: Demonstration, Discussion Response to Teaching: Reinforcement Needed Time/GCodes Time In: 925 Time Out: 0934 Total Billed Treatment Time: 8 Total Billed Treatment 1 visit FA 8' KRYSTLE ROGERS PT November 28, 2018 09:47
[2018-11-28] MEDS: PROPRANOLOL 20 MG (INDERAL) TABLET PO SCH ×2 (10:28→20:33)
[2018-11-28] MEDS: LACTULOSE SYRUP 10GM/15ML (ENULOSE) 30ML UDC PO SCH ×2 (10:28→20:33)
--- NOTE | 2018-11-28 10:54 | Occupational Ther Daily Note ---
OT Current Status-Daily Note Subjective pt laying in bed upon OT arrival. pt agreed to OT TX session with focus on increasing independence with ADLS. Patient is impulsive, garbled speech, and is constantly rocking back and forth putting her blanket on then taking them back off. pt is only oriented to name. Mental Status/Objective Patient Orientation: Person Therapy Code Descriptions/Definitions Functional [place] Measure: 0=Not Assessed/NA 4=Minimal Assistance 1=Total Assistance 5=Supervision or Setup 2=Maximal Assistance 6=Modified [place] 3=Moderate Assistance 7=Complete [place] Attachments: Rebolledo Catheter, IV ADL-Treatment Eating (FIM): 5 (pt demo ability to drink the drinks on her tray) Grooming (FIM): 4 (pt required assist to comb back of hair. pt required demo to complete all tasks that were asked. pt demo abilty to wash face post cuing/ demo. noted pt not following verbal commands. ) pt sitting EOB for tasks. CGA fro safety/ balance. Education OT Patient Education: Correct positioning, Energy conservation, Modified ADL techniques, Progress toward Goal/Update tx plan, Safety issues, Transfer techniques Teaching Recipient: Patient Teaching Methods: Demonstration, Discussion Response to Teaching: Return Demonstration, Reinforcement Needed OT Short Term Goals Short Term Goals Transfers (B,C,W/C) (FIM): 5 1=Demonstrate adherence to instructed precautions during ADL tasks. 2=Patient will verbalize/demonstrate understanding of assistive devices/modifications for ADL. 3=Patient will improve strength/tolerance for activity to enable patient to perform ADL's. OT Custodial Goals Custodial Goals Time Frame: Dec 11, 2018 Eating (FIM): 6 Grooming(FIM): 6 Bathing(FIM): 5 Upper Body Dressing(FIM): 5 Lower Body Dressing(FIM): 5 Toileting(FIM): 6 Transfers (B,C,W/C) (FIM): 6 Toilet/Commode Transfer(FIM): 6 Shower Transfer(FIM): 5 Additional Goals: 1-Demonstrate ADL Tasks, 2-Verbalize Understanding, 3- ImproveStrength/Brando 1=Demonstrate adherence to instructed precautions during ADL tasks. 2=Patient will verbalize/demonstrate understanding of assistive devices/modifications for ADL. 3=Patient will improve strength/tolerance for activity to enable patient to perform ADL's. OT Education/Plan Problem List/Assessment Assessment: Decreased Activ Tolerance, Decreased Safety Aware, Decreased UE Strength, Impaired Cognition, Impaired Coordination, Impaired Funct Balance, Impaired I ADL's, Impaired Self-Care Skills Discharge Recommendations Plan/Recommendations: Continue POC Treatment Plan/Plan of Care Treatment,Training & Education: Yes Patient would benefit from OT for education, treatment and training to promote independence in ADL's, mobility, safety and/or upper extremity function for ADL's. Plan of Care: ADL Retraining, Caregiver Training, Functional Mobility, UE Funct Exercise/Act Treatment Duration: Dec 11, 2018 Frequency: 5 times per week Estimated Hrs Per Day: .5 hour per day Agreement: Yes Rehab Potential: Fair Time/GCodes Start Time: 10:40 Stop Time: 10:53 Billed Treatment Time ADL 13 minutes, 1 unit DOV PERSAUD OT November 28, 2018 10:54
[2018-11-28] MEDS: VENlafaxine XR 75 MG (EFFEXOR XR) CAP PO SCH (11:44)
[2018-11-28] MEDS: ALPRAZolam 0.5 MG (XANAX) TAB PO PRN (11:53)
[2018-11-28 12:00] VITALS: BP 167/84
--- NOTE | 2018-11-28 12:30 | NUR ---
CM/SS spoke with the patient and her sister. They stated that the plan is for the patient to move to [place] with a daughter. Patient's sister wanted this worker to speak with the Son (Sergio), he was in a meeting and unavailable to speak at that time and will call this travel writer when he is available to discuss the plan for discharge.
--- NOTE | 2018-11-28 13:34 | NUR ---
CM/SS spoke with the son (Sergio) he feels that she will need 24hr care at this time and they were not planning for that when they were discussing her going to [place] to live with the daughter, it was just to get her out of the area and away from drugs and bad friends. Discussed SNF, he would like [facility] sent a referral as she has been there previously. He stated that he is the POA, asked that he supply that paperwork to the hospital.
--- NOTE | 2018-11-28 14:38 | Progress Note (SOAP) ---
Subjective Subjective/Events-last exam Afebrile, no acute events. Remains intermittently confused. Did not do well with PT/OT. She denies concerns. Review of Systems Date Seen by Provider: November 28, 2018 Time Seen by Provider: 11:35 Focused Exam Lactate Level 11/25/18 22:00: Lactic Acid Level 9.91*H 11/26/18 00:20: Lactic Acid Level 2.43*H 11/27/18 10:20: Lactic Acid Level 0.73 Time of Focused Exam: 22:40 Objective Exam Last Set of Vital Signs Vital Signs Date Time Temp Pulse Resp B/P (MAP) Pulse Ox O2 Delivery O2 Flow Rate FiO2 11/28/18 12:00 97.3 81 20 167/84 (111) 92 Room Air Capillary Refill : Less Than 3 Seconds I&O Intake and Output 11/28/18 00:00 Intake Total 2580 ml Output Total 4125 ml Balance -1545 ml Intake Oral 860 ml IV Total 1720 ml Output Urine Total 4125 ml # Bowel Movements 4 General: Alert, No Acute Distress Lungs: Clear to Auscultation, Normal Air Movement Heart: Regular Rate, No Murmurs Abdomen: Normal Bowel Sounds, Soft, Other (mild ttp) Neuro: Other (writhing lip movements and arm movements) Results/Procedures Lab Laboratory Tests 11/28/18 05:15: White Blood Count 5.0, Red Blood Count 4.23L, Hemoglobin 13.0, Hematocrit 38, Mean Corpuscular Volume 90, Mean Corpuscular Hemoglobin 31, Mean Corpuscular Hemoglobin Concent 34, Red Cell Distribution Width 13.6, Platelet Count 58L, Mean Platelet Volume 9.6, Neutrophils (%) (Auto) 56, Lymphocytes (%) (Auto) 30, Monocytes (%) (Auto) 11, Eosinophils (%) (Auto) 4, Basophils (%) (Auto) 0, Neutrophils # (Auto) 2.8, Lymphocytes # (Auto) 1.5, Monocytes # (Auto) 0.5, Eosinophils # (Auto) 0.2, Basophils # (Auto) 0.0 11/28/18 05:19: Sodium Level 142, Potassium Level 3.6, Chloride Level 107, Carbon Dioxide Level 21, Anion Gap 14, Blood Urea Nitrogen 5L, Creatinine 0.90, Estimat Glomerular Filtration Rate > 60, BUN/Creatinine Ratio 6, Glucose Level 79, Calcium Level 10.0, Corrected Calcium 9.9, Total Bilirubin 1.3H, Aspartate Amino Transf (AST/SGOT) 37H, Alanine Aminotransferase (ALT/SGPT) 14, Alkaline Phosphatase 82, Total Creatine Kinase 311H, Total Protein 7.8, Albumin 4.1 11/28/18 09:05: Ammonia 33H Microbiology 11/25/18 Blood Culture - Preliminary, Resulted No growth 11/26/18 MRSA Screen - Final, Complete MRSA not isolated 11/25/18 Urine Culture - Final, Complete Escherichia coli Radiology CT head with left thalamus evidence of old infarct, no acute abnormalities Chest x-ray with right distal clavicle fx, old/chronic and right humeral fx CT abd/pelvis with hepatosplenomgaly and pneumatosis in bowel in pelvic area concerning for ischemic colitis Right forearm x-ray negative for fx Assessment/Plan Assessment/Plan (1) Severe sepsis Status: Resolved Assessment & Plan: Suspected with leukocytosis and severe lactic acidosis on admit. LA nearly normal last check, leukocytosis resolved. Possibly secondary to UTI vs intraabdominal infection. On flagyl and zosyn. 11/27- repeat LA, continue zosyn and flagyl. Markedly improved. Urine culture pending- gram neg rods. 11/28- Ucx with E coli pansensitive, continuing zosyn and flagyl for now given concern for intraabdominal infection. (2) New onset seizure Status: Acute Assessment & Plan: Further review of chart shows she had seizures in 2017 and was transferred to facility with Neurology- will try to obtain records. Keppra IV initated. No seizures overnight. CT head without acute abnormality. Denies alcohol use. 11/27 will try to obtain records from [facility] to determine planned follow up for her previous seizures. 11/28 reviewed records, when patient was transferred to [facility] she had video EEG done and captured nonepileptic events and moderate cerebral dysfunction. Diagnosis was catatonia and nonepileptic activity. Will resume her home psych meds and monitor. (3) Ischemic colitis Status: Acute Assessment & Plan: CT findings concerning, but clinical exam relatively benign. Surgery consulted. On zosyn and flagyl. Lactic acidosis markedly improved with IVF. NPO. 11/27 minimal pain, recheck LA, lipase. Continue zosyn and flagyl. 5/30 - LA and lipase normalized, minimal pain, tolerating liquids, does not have appetite yet. Continue zosyn and flagyl. (4) Lactic acidosis Status: Resolved Assessment & Plan: Severe, suspect secondary to seizure and possible ischemic colitis. Possibly sepsis related, possible UTI. 11/27 repeat LA (5) Elevated lipase Status: Resolved Assessment & Plan: Suspect secondary to underlying abdominal pathology- suspected possible ischemic colitis. Follow. (6) Metabolic acidosis Status: Resolved Assessment & Plan: Secondary to vomiting and possible ischemic bowel, improving this am after IVF. (7) Methamphetamine use Status: Acute Assessment & Plan: Pt reports one time use, she also notes she does not want to continue to use, will consult manager social services. (8) Respiratory alkalosis Status: Resolved Assessment & Plan: On admission, much improved this am. (9) Thrombocytopenia Status: Acute Assessment & Plan: Intermittently chronic, related to liver disease, monitor closely. (10) History of stroke Status: Chronic Permanent Comment: CT head 10/2018 with evidence of left thalamus encephalomalacia Last Edited By: Jerome Garcia on November 26, 2018 14:18 Assessment & Plan: No acute findings on CT, neuro exam normal except for intermittent and rapidly fluctuating speech difficulties. Monitor neuro status closely. (11) Hepatic encephalopathy Status: Chronic Assessment & Plan: On lactulose chronically, ammonia high on admission. Lactulose enema ordered given NPO. 11/27 mental status improved, recheck ammonia 11/28 ammonia down to 33, continue oral lactulose (12) Elevated CK Status: Acute Assessment & Plan: Secondary to seizure, no renal dysfunction. Follow. 11/28 trending down (13) Hypokalemia Status: Resolved Assessment & Plan: Replace and follow. (14) Fracture, humerus Status: Chronic Assessment & Plan: Notes from 10/2017 indicating plan for outpatient repair, will look into clinic records and determine if follow up was completed. 11/27- records indicated plan for ORIF outpatient, does not appear to have followed up, will try to reschedule outpatient follow up to determine if any further treatment warranted at this juncture. Qualifiers: (15) Hypertension Status: Chronic Assessment & Plan: Uncontrolled, but NPO on admission, IV hydralazine prn ordered by Dr. Maradiaga 11/27 resume lisinopril and amlodipine 11/28 increase amlodipine to 10 mg Qualifiers: Qualified Codes: I10 - Essential (primary) hypertension (16) UTI (urinary tract infection) Status: Acute Assessment & Plan: Culture pending. On zosyn. E coli Qualifiers: (17) Hepatitis C Status: Chronic Qualifiers: (18) Fracture, clavicle Status: Chronic Assessment & Plan: Will review chart to determine if she was lost to follow up and if further intervention was recommended. (19) DVT prophylaxis Status: Acute Assessment & Plan: Enoxaparin- monitor closely given thrombocytopenia 11/27- worsening thrombocytopenia, hold Clinical Quality Measures DVT/VTE Risk/Contraindication: Risk Factor Score Per Nursin RFS Level Per Nursing on Admit: 4+=Very High JEROME GARCIA MD November 28, 2018 14:37
[2018-11-28 15:57] VITALS: BP 151/92
--- NOTE | 2018-11-28 16:00 | NUR ---
CM/SS spoke with the the son, patient's sister, and patient about plan for at discharge. Discussed that after leaving AMA last time from [facility], they are not accepting the patient for placement this time. They would like referral sent to [facility], referral sent. Sergio (son) provided DPOA / POA paperwork, made copies for patient chart.
[2018-11-28] MEDS ORDERED: NON-FORMULARY MEDICATION 1 EA EA (Lurasidone HCl (Latuda) 80 MG) PO SCH (18:00)
[2018-11-28] MEDS: LURASIDONE 80 MG (LATUDA) TABLET NON-FORMULARY PO SCH (18:03)
[2018-11-28 19:00] VITALS: BP 156/83
[2018-11-28] MEDS: traZODone 50 MG (DESYREL) TAB PO SCH (20:33)
[2018-11-28] MEDS ORDERED: SCOPOLAMINE 1.5 MG (TRANSDERM-SCOP) PATCH TOP SCH (21:00)
[2018-11-29] VITALS (7 sets, daily range): BP systolic 12–191; BP diastolic 70–87
[2018-11-29] MEDS: VENlafaxine XR 75 MG (EFFEXOR XR) CAP PO SCH (05:41)
[2018-11-29] MEDS: metroNIDAZOLE 500 MG/100 ML IVPB (PRE-MIX) IV SCH ×4 (05:41→23:15)
[2018-11-29] MEDS: PIPERACILLIN/TAZO 4.5 GM/NS 100 ML IV SCH ×6 (06:33→23:15)
--- NOTE | 2018-11-29 08:20 | Pulmonary Progress Note ---
Subjective Time Seen by a Provider: 08:20 Subjective/Events-last exam Pt is doing well. No complications noted. Sepsis Event Evaluation Height, Weight, BMI Height: 5'4.00" Weight: 151lbs. 2.0oz. 68.228113fa; 25.3 BMI Method:Estimated Focused Exam Lactate Level 11/27/18 10:20: Lactic Acid Level 0.73 Time of Focused Exam: 22:40 Exam Exam Vital Signs Date Time Temp Pulse Resp B/P (MAP) Pulse Ox O2 Delivery O2 Flow Rate FiO2 11/29/18 03:56 98.4 73 17 148/74 (98) 94 Room Air 11/29/18 00:53 152/70 (97) 11/29/18 00:31 98.7 64 18 152/70 (97) 93 Room Air 11/28/18 21:00 Room Air 11/28/18 19:00 97.9 88 18 156/83 (107) 94 Room Air 11/28/18 15:57 98.4 73 20 151/92 (111) 93 Room Air 11/28/18 12:00 97.3 81 20 167/84 (111) 92 Room Air 11/28/18 09:00 Room Air I & O 11/29/18 07:00 Intake Total 1370 ml Output Total 725 ml Balance 645 ml Height & Weight Height: 5'4.00" Weight: 151lbs. 2.0oz. 68.624362tf; 25.3 BMI Method:Estimated General Appearance: No Apparent Distress, Anxious, Thin HEENT: PERRL/EOMI, Other (EDENTULOUS) Neck: Normal Inspection Respiratory: Normal Breath Sounds, No Accessory Muscle Use, No Respiratory Distress Cardiovascular: Regular Rate, Rhythm, No Murmur, Normal Peripheral Pulses Capillary Refill: Less Than 3 Seconds Peripheral Pulses: 3+ Dorsalis Pedis (R), 3+ Left Dors-Pedis (L), 3+ Radial Pulses (R), 3+ Radial Pulses (L) Gastrointestinal: soft, tenderness (no significant pain on my exam no guarding or rebounding or tenderness with deep palpation.) Extremity: Normal Range of Motion, No Pedal Edema Neurologic/Psychiatric: Alert, Oriented x3 Skin: Normal Color, Warm/Dry Lymphatic: No Adenopathy Results Lab Laboratory Tests 11/28/18 05:15 11/28/18 05:19 Assessment/Plan Assessment/Plan mesenteric ischemia per CT of Abd/pelvis -Surgery is following -Improving leukocytosis, no fevers, and LA -Abdominal pain is minimal and not peritoneal -N/V resolved Hx of untreated hep C Methamphetamine, marijuana, narcotics, and benzo use -Education Acute seizure Metabolic lactic acidosis -Repeat LA Pt is doing well from pulmonary standpoint. I am going to sign off please call with any questions. TAMIKA RIDLEY DO November 29, 2018 08:20
[2018-11-29] MEDS: lisINopril 40 MG (PRINIVIL) TABLET PO SCH (08:28)
[2018-11-29] MEDS: amLODIPine 10 MG (NORVASC) TAB PO SCH (08:28)
[2018-11-29] MEDS: LACTULOSE SYRUP 10GM/15ML (ENULOSE) 30ML UDC PO SCH ×2 (08:28→21:22)
[2018-11-29] MEDS: PROPRANOLOL 20 MG (INDERAL) TABLET PO SCH ×2 (08:28→21:22)
[2018-11-29] MEDS ORDERED: amLODIPine 5 MG (NORVASC) TAB PO SCH (09:00)
--- NOTE | 2018-11-29 12:00 | Occ Therapy Progress Note ---
Therapy Progress Note Attempted to see pt for therapeutic exercises to increase strength and activity tolerance for daily functional tasks. Pt stated "No, I am getting on a jet." Encouraged pt to participate in therapy for exercise or opening food packages to eat, pt stated "No I all that will be on the jet." Pt continued to refuse therapy. Visitor in room attempted to encourage pt also. Will check on pt 11/30/18. 1 visit-REF ([phone]) MARBIN ROSALES November 29, 2018 12:00
--- NOTE | 2018-11-29 13:25 | Progress Note (SOAP) ---
Subjective Subjective/Events-last exam Afebrile, no acute events. Remains impulsive and confused. Review of Systems Date Seen by Provider: November 29, 2018 Time Seen by Provider: 11:05 Focused Exam Lactate Level 11/27/18 10:20: Lactic Acid Level 0.73 Time of Focused Exam: 22:40 Objective Exam Last Set of Vital Signs Vital Signs Date Time Temp Pulse Resp B/P (MAP) Pulse Ox O2 Delivery O2 Flow Rate FiO2 11/29/18 08:00 Room Air 11/29/18 03:56 98.4 73 17 148/74 (98) 94 Capillary Refill : Less Than 3 Seconds I&O Intake and Output 11/29/18 00:00 Intake Total 1660 ml Output Total 1475 ml Balance 185 ml Intake Oral 900 ml IV Total 760 ml Output Urine Total 1475 ml # Bowel Movements 5 General: Alert, No Acute Distress Lungs: Clear to Auscultation, Normal Air Movement Heart: Regular Rate, No Murmurs Abdomen: Normal Bowel Sounds, Soft, No Tenderness Neuro: Other (oriented only to self) Results/Procedures Lab Microbiology 11/25/18 Blood Culture - Preliminary, Resulted No growth 11/26/18 MRSA Screen - Final, Complete MRSA not isolated 11/25/18 Urine Culture - Final, Complete Escherichia coli Radiology CT head with left thalamus evidence of old infarct, no acute abnormalities Chest x-ray with right distal clavicle fx, old/chronic and right humeral fx CT abd/pelvis with hepatosplenomgaly and pneumatosis in bowel in pelvic area concerning for ischemic colitis Right forearm x-ray negative for fx Assessment/Plan Assessment/Plan (1) Severe sepsis Status: Resolved Assessment & Plan: Suspected with leukocytosis and severe lactic acidosis on admit. LA nearly normal last check, leukocytosis resolved. Possibly secondary to UTI vs intraabdominal infection. On flagyl and zosyn. 11/27- repeat LA, continue zosyn and flagyl. Markedly improved. Urine culture pending- gram neg rods. 11/28- Ucx with E coli pansensitive, continuing zosyn and flagyl for now given concern for intraabdominal infection. 11/29- change to oral cipro and flagyl in anticipate of d/c (2) New onset seizure Status: Acute Assessment & Plan: Further review of chart shows she had seizures in 2017 and was transferred to facility with Neurology- will try to obtain records. Keppra IV initated. No seizures overnight. CT head without acute abnormality. Denies alcohol use. 11/27 will try to obtain records from [facility] to determine planned follow up for her previous seizures. 11/28 reviewed records, when patient was transferred to [facility] she had video EEG done and captured nonepileptic events and moderate cerebral dysfunction. Diagnosis was catatonia and nonepileptic activity. Will resume her home psych meds and monitor. (3) Ischemic colitis Status: Acute Assessment & Plan: CT findings concerning, but clinical exam relatively benign. Surgery consulted. On zosyn and flagyl. Lactic acidosis markedly improved with IVF. NPO. 11/27 minimal pain, recheck LA, lipase. Continue zosyn and flagyl. 11/28 - LA and lipase normalized, minimal pain, tolerating liquids, does not have appetite yet. Continue zosyn and flagyl. 11/29 change to cipro/flagyl PO (4) Lactic acidosis Status: Resolved Assessment & Plan: Severe, suspect secondary to seizure and possible ischemic colitis. Possibly sepsis related, possible UTI. 11/27 repeat LA (5) Elevated lipase Status: Resolved Assessment & Plan: Suspect secondary to underlying abdominal pathology- suspected possible ischemic colitis. Follow. (6) Metabolic acidosis Status: Resolved Assessment & Plan: Secondary to vomiting and possible ischemic bowel, improving this am after IVF. (7) Methamphetamine use Status: Acute Assessment & Plan: Pt reports one time use, she also notes she does not want to continue to use, will consult social research assistant. (8) Respiratory alkalosis Status: Resolved Assessment & Plan: On admission, much improved this am. (9) Thrombocytopenia Status: Acute Assessment & Plan: Intermittently chronic, related to liver disease, monitor closely. (10) History of stroke Status: Chronic Permanent Comment: CT head 10/2018 with evidence of left thalamus encephalomalacia Last Edited By: Jerome Garcia on November 26, 2018 14:18 Assessment & Plan: No acute findings on CT, neuro exam normal except for int ermittent and rapidly fluctuating speech difficulties. Monitor neuro status closely. (11) Hepatic encephalopathy Status: Chronic Assessment & Plan: On lactulose chronically, ammonia high on admission. Lactulose enema ordered given NPO. 11/27 mental status improved, recheck ammonia 11/28 ammonia down to 33, continue oral lactulose (12) Elevated CK Status: Acute Assessment & Plan: Secondary to seizure, no renal dysfunction. Follow. 11/28 trending down (13) Hypokalemia Status: Resolved Assessment & Plan: Replace and follow. (14) Fracture, humerus Status: Chronic Assessment & Plan: Notes from 10/2017 indicating plan for outpatient repair, will look into clinic records and determine if follow up was completed. 11/27- records indicated plan for ORIF outpatient, does not appear to have followed up, will try to reschedule outpatient follow up to determine if any further treatment warranted at this juncture. Qualifiers: (15) Hypertension Status: Chronic Assessment & Plan: Uncontrolled, but NPO on admission, IV hydralazine prn ordered by Dr. Maradiaga 11/27 resume lisinopril and amlodipine 11/28 increase amlodipine to 10 mg Qualifiers: Qualified Codes: I10 - Essential (primary) hypertension (16) UTI (urinary tract infection) Status: Acute Assessment & Plan: Culture pending. On zosyn. E coli Qualifiers: (17) Hepatitis C Status: Chronic Qualifiers: (18) Fracture, clavicle Status: Chronic Assessment & Plan: Will review chart to determine if she was lost to follow up and if further intervention was recommended. Plan for outpatient follow up (19) DVT prophylaxis Status: Acute Assessment & Plan: Enoxaparin- monitor closely given thrombocytopenia 11/27- worsening thrombocytopenia, hold (20) Discharge planning issues Status: Acute Assessment & Plan: Not able to adequately care for self at home, staying with family was discussed, but family did not know how much care she would need and are in agreement with nursing facility placement at this time. Looking for bed. Clinical Quality Measures DVT/VTE Risk/Contraindication: Risk Factor Score Per Nursin RFS Level Per Nursing on Admit: 4+=Very High JEROME GARCIA MD November 29, 2018 13:24
--- NOTE | 2018-11-29 13:33 | Progress Note ---
Subjective Date Seen by a Provider: November 29, 2018 Time Seen by a Provider: 08:15 Subjective/Events-last exam Patient alert but confused. Oriented only to place. No new complaints. Tolerating diet. Denies n/v fever sweats chills shortness of breath or chest pain. Focused Exam Lactate Level 11/27/18 10:20: Lactic Acid Level 0.73 Time of Focused Exam: 22:40 Objective Exam Vital Signs Date Time Temp Pulse Resp B/P (MAP) Pulse Ox O2 Delivery O2 Flow Rate FiO2 11/29/18 12:00 97.8 68 18 190/87 (121) 93 Room Air 11/29/18 08:00 Room Air 11/29/18 08:00 97.4 73 18 191/85 (120) 94 Room Air 11/29/18 03:56 98.4 73 17 148/74 (98) 94 Room Air 11/29/18 00:53 152/70 (97) 11/29/18 00:31 98.7 64 18 152/70 (97) 93 Room Air 11/28/18 21:00 Room Air 11/28/18 19:00 97.9 88 18 156/83 (107) 94 Room Air 11/28/18 15:57 98.4 73 20 151/92 (111) 93 Room Air I & O 11/29/18 06:59 Intake Total 1370 ml Output Total 725 ml Balance 645 ml Capillary Refill : Less Than 3 Seconds General Appearance: Anxious, Thin HEENT: PERRL/EOMI, Other (EDENTULOUS) Neck: Normal Inspection Respiratory: Normal Breath Sounds, No Accessory Muscle Use, No Respiratory Distress Cardiovascular: Regular Rate, Rhythm, No Murmur, Normal Peripheral Pulses Peripheral Pulses: 3+ Dorsalis Pedis (R), 3+ Left Dors-Pedis (L), 3+ Radial Pulses (R), 3+ Radial Pulses (L) Gastrointestinal: soft, tenderness (no significant pain on my exam no guarding or rebounding or tenderness with deep palpation.) Extremity: Normal Range of Motion, No Pedal Edema Neurologic/Psychiatric: Alert, Oriented x3 Skin: Normal Color, Warm/Dry Lymphatic: No Adenopathy Results Lab Microbiology 11/25/18 Blood Culture - Preliminary, Resulted No growth 11/26/18 MRSA Screen - Final, Complete MRSA not isolated 5/26/19 Urine Culture - Final, Complete Escherichia coli Assessment/Plan Assessment/Plan Assessment/Plan lower abdominal pain-resolved questionable cecal pneumatosis poly substance abuse new onset seizure elevated lactic acid- improved Her exam does not fit with ischemic bowel still. She is not having any pain. Could be result of polysubstance abuse. I don't believe she will need surgical intervention, will start on clears. If continues to improved will continue with conservative measures. Patient On Zosyn and Flagyl. Will follow. Clinical Quality Measures DVT/VTE Risk/Contraindication: Risk Factor Score Per Nursin RFS Level Per Nursing on Admit: 4+=Very High DAVE GORDON DO November 29, 2018 13:33
--- NOTE | 2018-11-29 15:56 | Physical Therapy Progress Note ---
Therapy Progress Note SALESFORCE BUSINESS ANALYST attempted to see pt at approx. 1150. Pt stated she "would not do Therapy because she would do it on the jet instead". SALESFORCE BUSINESS ANALYST stated that we can try again tomorrow to see if pt is a little less confused. 1, no tx rendered SIMBA LI PTA November 29, 2018 15:56
[2018-11-29] MEDS: LURASIDONE 80 MG (LATUDA) TABLET NON-FORMULARY PO SCH (18:21)
[2018-11-29] MEDS: traZODone 50 MG (DESYREL) TAB PO SCH (21:22)
[2018-11-30 00:55] VITALS: BP 141/67
[2018-11-30] MEDS: PIPERACILLIN/TAZO 4.5 GM/NS 100 ML IV SCH ×2 (06:16)
[2018-11-30] MEDS: metroNIDAZOLE 500 MG/100 ML IVPB (PRE-MIX) IV SCH (06:17)
[2018-11-30] MEDS: VENlafaxine XR 75 MG (EFFEXOR XR) CAP PO SCH (06:17)
[2018-11-30 07:46] LABS: ALANINE AMINOTRANSFERASE 11 U/L (0-55); ALBUMIN 3.7 GM/DL (3.2-4.5); ALKALINE PHOSPHATASE 79 U/L (40-136); BILIRUBIN,TOTAL 0.8 MG/DL (0.1-1.0); BUN/CREATININE RATIO 17; CALCIUM 9.6 MG/DL (8.5-10.1); CARBON DIOXIDE 23 MMOL/L (21-32); CHLORIDE 109 MMOL/L (98-107); CREATINE KINASE 59 U/L (29-168); CREATININE SERUM 0.82 MG/DL (0.60-1.30); GFR ESTIMATED > 60; GLUCOSE 89 MG/DL (70-105); POTASSIUM 3.2 MMOL/L (3.6-5.0); SODIUM 139 MMOL/L (135-145); TOTAL PROTEIN 7.1 GM/DL (6.4-8.2)
[2018-11-30 08:00] VITALS: BP 188/81
[2018-11-30] MEDS ORDERED: CIPR-225 PO (08:28)
[2018-11-30] MEDS ORDERED: AMLO10TA7 PO (08:28)
[2018-11-30] MEDS ORDERED: METR500T PO (08:28)
[2018-11-30] MEDS ORDERED: KCL 20 MEQ TAB (K-DUR) PO NR (08:30)
--- NOTE | 2018-11-30 08:47 | NUR ---
CM/SS [facility] has accepted the patient for placement. They would like to transport this day between 12-1. Spoke with Son (Sergio) he will be available to complete the CARE assessment this day as her DPOA. Updated RNing and patient.
[2018-11-30] MEDS: lisINopril 40 MG (PRINIVIL) TABLET PO SCH (10:14)
[2018-11-30] MEDS: PROPRANOLOL 20 MG (INDERAL) TABLET PO SCH (10:14)
[2018-11-30] MEDS: LACTULOSE SYRUP 10GM/15ML (ENULOSE) 30ML UDC PO SCH (10:14)
[2018-11-30] MEDS: amLODIPine 10 MG (NORVASC) TAB PO SCH (10:15)
--- NOTE | 2018-11-30 10:17 | Physical Therapy Daily Note ---
PT Daily Note-Current Subjective Agrees to PT. Reports she thinks she is discharging to a facility today. Transfers Therapy Code Descriptions/Definitions Functional Coffey Measure: 0=Not Assessed/NA 4=Minimal Assistance 1=Total Assistance 5=Supervision or Setup 2=Maximal Assistance 6=Modified Coffey 3=Moderate Assistance 7=Complete Coffey Therapy Quality Codes: 6 Independent with activity with or without an assistive device 5 Patient requires set up or clean up by helper. Patient completes activity by themselves 4 Supervision or touching assist (CGA). Wesley provide cues , steadying assist 3 The helper provides less than half the effort to complete the activity 2 The helper provides more than half the effort to complete the activity 1 Dependent. The helper does all the effort to complete an activity 7 Patient refused to complete or attempt activity 9 The patient did not perform the activity before the current illness or inj ury 88 Not attempted due to Medical conditions or safety concerns Transfers (B, C, W/C) (FIM): 5 Supine to/from Sit: 6 Sit to/from Stand: 5 (SBA with toilet transfer as well) pt is SBA with all functional transfers as she seems to have decreased safety awareness. Weight Bearing Right Lower Extremity: Right Weight Bearing/Tolerated Left Lower Extremity: Left Weight Bearing/Tolerated Gait Training Gait (FIM): 5 Distance (FIM): 3=150 ft Distance: 250 ft Gait Level of Assist: 5 Gait Assistive Device: FWW pt tends to walk fast and demonstrates decreased safety awareness. Treatments Bed mobilty, toileted, gait; pt up in chair post treatment with needs met and call light in reach Assessment Current Status: Good Progress Mobility slightly unsteady but no noted LOB; decreased safety awareness. PT Short Term Goals Short Term Goals Time Frame: Dec 04, 2018 Transfers (B,C,W/C) (FIM): 5 Gait (FIM): 5 Gait Distance Comment: 150' Gait Level of Assist: 5 Gait Assistive Device: FWW PT Plan Problem List Problem List: Activity Tolerance, Functional Strength, Safety Treatment/Plan Treatment Plan: Continue Plan of Care Treatment Plan: Bed Mobility, Education, Functional Activity Brando, Functional Strength, Gait, Safety, Therapeutic Exercise, Transfers Treatment Duration: Dec 04, 2018 Frequency: 6 times per week Estimated Hrs Per Day: .25 hour per day (15-30') Patient and/or Family Agrees t: Yes Safety Risks/Education Patient Education: Transfer Techniques, Safety Issues Teaching Recipient: Patient Teaching Methods: Discussion Response to Teaching: Reinforcement Needed Discharge Recommendations Therapy D/C Recommendations: Prison (TCU/[facility]) (PT) Time/GCodes Time In: 935 Time Out: 950 Total Billed Treatment Time: 15 Total Billed Treatment visit GT 15 MARBIN ALAN PT November 30, 2018 10:17
--- NOTE | 2018-11-30 10:50 | NUR ---
Important Message from Medicare presented, reviewed, signed and charted. Patient and her sister voiced no intention to appeal and deny any needs or further questions at this time.
--- NOTE | 2018-11-30 12:34 | Discharge Inst-Skilled Nursing ---
Discharge Inst-Skilled NF Patient Instructions Patient Problems: Confusion Non epileptic seizure like events Anxiety Hypertension UTI Possible episode of bowel ischemia Consult/Follow Up/Orders Skilled NF Admit to: [facility] Certifications SNF I certify that SNF services are required to be given on an inpatient basis because of the above named patient's need for correction care on a con tinuing basis for the conditions(s) for which he/she was receiving inpatient hospital services prior to his/her transfer to the SNF. Longterm Facility Order: Nursing Services, [employer]-Evaluate & Treat, Physical Therapy-Evaluate & Treat, Speech Language-Evaluate & Treat Oxygen Delivery Method: Room Air Discharge Diet: Low Sodium Diet Daily Activity as Tolerated: Yes Discharge Medications New, Converted or Re-Newed RX: Transmitted to Pharmacy New Medications: Ciprofloxacin HCl (Cipro) 500 Mg Tablet 500 MG PO BID for 7 Days, #14 TAB Metronidazole (Flagyl) 500 Mg Tablet 500 MG PO TID for 7 Days, #21 TAB 0 Refills Amlodipine Besylate (Amlodipine Besylate) 10 Mg Tablet 10 MG PO DAILY, #30 TAB 0 Refills Continued Medications: Albuterol Sulfate (Proair Hfa) 1 Puff Puff 2 PUFF IH Q4H PRN for SHORTNESS OF BREATH, PUFF 1 PUFF = 90 MCG Alprazolam (Alprazolam) 0.5 Mg Tablet 0.5 MG PO BID PRN for ANXIETY, #30 TAB Atorvastatin Calcium (Atorvastatin Calcium) 20 Mg Tablet 20 MG PO, TAB Diphenhydramine HCl (Benadryl Allergy) 25 Mg Tablet 50 MG PO HS PRN for allergies, TAB Docusate Sodium (Docusate Sodium) 100 Mg Capsule 100 MG PO BID for 30 Days, CAP Lactulose (Lactulose) 20 Gm/30 Ml Solution 10 GM PO BID for 30 Days, EA Lisinopril (Lisinopril) 40 Mg Tablet 40 MG PO DAILY, TAB Lurasidone HCl (Latuda) 80 Mg Tablet 80 MG PO 1800, TAB Melatonin (Melatonin) 3 Mg Tablet 3 MG PO HS, TAB Montelukast Sodium (Singulair) 10 Mg Tablet 10 MG PO HS, TAB Omeprazole Magnesium (Prilosec Otc) 20 Mg Tablet.dr 20 MG PO DAILY, TAB Pediatric Multivit Comb. No.49 (Flintstones Gummies) 1 Each Tab.chew 2 TAB.CHEW PO DAILY, TAB Potassium Chloride (Potassium Chloride) 20 Meq Tab.er.prt 20 MEQ PO DAILY, TAB Propranolol HCl (Propranolol HCl) 20 Mg Tablet 20 MG PO BID, TAB Trazodone HCl (Trazodone HCl) 50 Mg Tablet 50 MG PO HS, TAB Venlafaxine HCl (Venlafaxine HCl ER) 150 Mg Cap.er.24h 150 MG PO DAILY, CAP Discontinued Medications: Amlodipine Besylate (Amlodipine Besylate) 5 Mg Tablet 5 MG PO DAILY, TAB Jerome Garcia November 30, 2018 08:29 JEROME GARCIA MD November 30, 2018 08:30
[2018-11-30 12:43] VITALS: BP 188/81
--- NOTE | 2018-11-30 12:57 | NUR ---
CM/SS completed the CARE Assessment with patient and her son. CARE sent to [facility], and copy maintained on the chart. Discharge paperwork faxed to facility.
--- NOTE | 2018-12-02 17:01 | Discharge Summary ---
Diagnosis/Chief Complaint Date of Admission November 26, 2018 at 00:50 Date of Discharge November 30, 2018 at 12:43 Admission Diagnosis Admission Diagnosis Severe sepsis Bowel ischemia Altered mental status Methamphetamine use Seizure like activity Metabolic acidosis Respiratory alkalosis Lactic acidosis Discharge Diagnosis See problem list Problems/Diagnosis: (1) Severe sepsis Assessment & Plan: Suspected with leukocytosis and severe lactic acidosis on admit. LA nearly normal last check, leukocytosis resolved. Possibly secondary to UTI vs intraabdominal infection. On flagyl and zosyn. 11/27- repeat LA, continue zosyn and flagyl. Markedly improved. Urine culture pending- gram neg rods. 11/28- Ucx with E coli pansensitive, continuing zosyn and flagyl for now given concern for intraabdominal infection. 11/29- change to oral cipro and flagyl in anticipate of d/c Status: Resolved Resolution Date/Time: 11/27/18 @ 09:49 (2) New onset seizure Assessment & Plan: Further review of chart shows she had seizures in 2017 and was transferred to facility with Neurology- will try to obtain records. Keppra IV initated. No seizures overnight. CT head without acute abnormality. Denies alcohol use. 11/27 will try to obtain records from [facility] to determine planned follow up for her previous seizures. 11/28 reviewed records, when patient was transferred to [facility] she had video EEG done and captured nonepileptic events and moderate cerebral dysfunction. Diagnosis was catatonia and nonepileptic activity. Will resume her home psych meds and monitor. Status: Resolved Resolution Date/Time: 12/02/18 @ 16:58 (3) Ischemic colitis Assessment & Plan: CT findings concerning, but clinical exam relatively benign. Surgery consulted. On zosyn and flagyl. Lactic acidosis markedly improved with IVF. NPO. 11/27 minimal pain, recheck LA, lipase. Continue zosyn and flagyl. 11/28 - LA and lipase normalized, minimal pain, tolerating liquids, does not have appetite yet. Continue zosyn and flagyl. 11/29 change to cipro/flagyl PO Status: Resolved Resolution Date/Time: 12/02/18 @ 16:58 (4) Lactic acidosis Assessment & Plan: Severe, suspect secondary to seizure and possible ischemic colitis. Possibly sepsis related, possible UTI. 11/27 repeat LA Status: Resolved Resolution Date/Time: 11/27/18 @ 14:36 (5) Elevated lipase Assessment & Plan: Suspect secondary to underlying abdominal pathology- suspected possible ischemic colitis. Follow. Status: Resolved Resolution Date/Time: 11/28/18 @ 14:36 (6) Metabolic acidosis Assessment & Plan: Secondary to vomiting and possible ischemic bowel, improving this am after IVF. 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 Status: Acute (8) Respiratory alkalosis Assessment & Plan: On admission, much improved this am. Status: Resolved Resolution Date/Time: 11/26/18 @ 14:18 (9) Thrombocytopenia Assessment & Plan: Intermittently chronic, related to liver disease, monitor closely. Status: Acute (10) History of stroke Assessment & Plan: No acute findings on CT, neuro exam normal except for intermittent and rapidly fluctuating speech difficulties. Monitor neuro status closely. Permanent Comment: CT head 10/2018 with evidence of left thalamus encephalomalacia Last Edited By: Masha Garcia on November 26, 2018 14:18 Status: Chronic (11) Hepatic encephalopathy Assessment & Plan: On lactulose chronically, ammonia high on admission. Lactulose enema ordered given NPO. 11/27 mental status improved, recheck ammonia 11/28 ammonia down to 33, continue oral lactulose Status: Chronic (12) Elevated CK Assessment & Plan: Secondary to seizure, no renal dysfunction. Follow. 11/28 trending down Status: Acute (13) Hypokalemia Assessment & Plan: Replace and follow. Status: Resolved Resolution Date/Time: 11/28/18 @ 14:37 (14) Fracture, humerus Assessment & Plan: Notes from 10/2017 indicating plan for outpatient repair, will look into clinic records and determine if follow up was completed. Records indicated plan for ORIF outpatient, does not appear to have followed up, will need to reschedule outpatient follow up to determine if any further treatment warranted at this juncture. Qualifiers: Status: Chronic (15) Hypertension Assessment & Plan: Uncontrolled, but NPO on admission, IV hydralazine prn ordered by Dr. Maradiaga 11/27 resume lisinopril and amlodipine 11/28 increase amlodipine to 10 mg Qualifiers: Qualified Codes: I10 - Essential (primary) hypertension Status: Chronic (16) UTI (urinary tract infection) Assessment & Plan: Culture pending. On zosyn. E coli Qualifiers: Status: Acute (17) Hepatitis C Qualifiers: Status: Chronic (18) Fracture, clavicle Assessment & Plan: Will review chart to determine if she was lost to follow up and if further intervention was recommended. Plan for outpatient follow up Status: Chronic (19) Discharge planning issues Assessment & Plan: Not able to adequately care for self at home, staying with family was discussed, but family did not know how much care she would need and are in agreement with nursing facility placement at this time. Status: Acute Chief Complaint/HPI Chief Complaint/HPI 63 yo female states she came to ER due to UTI. On further questioning she states she had stuttering and vomiting which has happened before with UTI. With additional questioning she does admit some burning with urination. She also does admit she used "ice" on Monday and she regretted it immediately, states she was clean for 30 years and she doesn't know why she did it. She has mild abdominal pain. She does not recall events from ER, but per notes she had a seizure- she states she had a seizure once about a year ago in a rehab facility. Her speech is clear at times and at times she stutters and appears to have difficulty getting any words out at all, limiting history. Chart review notes: she was transferred from [facility] in 2016 to [facility] for seizure work-up and she was seen 10/2017 for her right humeral fracture and a patellar injury- had patellar tendon repair but apparently ORIF for shoulder was deferred to outpatient- unclear follow up and CXR on admit shows humeral fracture and clavicular fracture. Discharge Summary-Simple/Stand Consultations Discharge Physical Examination Allergies: Coded Allergies: aspirin (Verified Allergy, Unknown, 11/30/07) desvenlafaxine (Verified Allergy, Unknown, NAUSEA, 11/05/15) Vitals & I&Os Vital Sign - Last 12Hours Date Time Temp Pulse Resp B/P (MAP) Pulse Ox O2 Delivery O2 Flow Rate FiO2 11/30/18 12:43 64 20 188/81 95 Room Air 11/30/18 08:00 97.2 General Appearance: Alert, Oriented X3, No Acute Distress Respiratory: Clear to Auscultation, Normal Air Movement Cardiovascular: Regular Rate, No Murmurs Neuro: Normal Speech Psych/Mental Status: Mental Status NL Hospital Course See final discharge diagnosis. Radiology Reviewed CT head with left thalamus evidence of old infarct, no acute abnormalities Chest x-ray with right distal clavicle fx, old/chronic and right humeral fx CT abd/pelvis with hepatosplenomgaly and pneumatosis in bowel in pelvic area concerning for ischemic colitis Right forearm x-ray negative for fx Discharge Instructions to patient/family Please see electronic discharge instructions given to patient. Discharge Medications Reviewed and agree with Discharge Medication list on patient's Discharge Instruction sheet Clinical Quality Measures DVT/VTE Risk/Contraindication: Risk Factor Score Per Nursin RFS Level Per Nursing on Admit: 4+=Very High Copy Copies To 1: ART Sinha BETHANY N MD Dec 02, 2018 17:01
== END 2018-11-30 12:43 | DRG 871 ==
LOC: EDUNIT# 21:16 → ER 21:18 → ICU 11-26 00:50 → 4TH 11-27 11:34
PROVIDERS: ADMIT Internal Medicine; ATTEND Family Medicine
DX: A41.51 Sepsis due to Escherichia coli [E. coli] (principal); R65.20 Severe sepsis without septic shock; N39.0 Urinary tract infection, site not specified; K55.059 Acute (reversible) ischemia of intestine, part and extent unspecified; E87.1 Hypo-osmolality and hyponatremia; E87.2 Acidosis; E87.3 Alkalosis; F15.20 Other stimulant dependence, uncomplicated; F11.20 Opioid dependence, uncomplicated; F19.20 Other psychoactive substance dependence, uncomplicated; R56.9 Unspecified convulsions; D69.59 Other secondary thrombocytopenia; K72.10 Chronic hepatic failure without coma; E87.6 Hypokalemia; I10 Essential (primary) hypertension; I69.328 Other speech and language deficits following cerebral infarction; E78.00 Pure hypercholesterolemia, unspecified; K59.03 Drug induced constipation; T40.2X5A Adverse effect of other opioids, initial encounter; K63.89 Other specified diseases of intestine; F17.210 Nicotine dependence, cigarettes, uncomplicated; F03.90 Unspecified dementia, unspecified severity, without behavioral disturbance, psychotic disturbance, mood disturbance, and anxiety; G43.909 Migraine, unspecified, not intractable, without status migrainosus; K21.9 Gastro-esophageal reflux disease without esophagitis; F41.9 Anxiety disorder, unspecified; F32.9 Major depressive disorder, single episode, unspecified; B18.2 Chronic viral hepatitis C; S42.201D Unspecified fracture of upper end of right humerus, subsequent encounter for fracture with routine healing; S42.034D Nondisplaced fracture of lateral end of right clavicle, subsequent encounter for fracture with routine healing; Z91.19 Patient's noncompliance with other medical treatment and regimen
CPT/HCPCS: 36415; 36600; 70450; 71045; 73000; 73060; 73090; 74176; 76700; 80048; 80053; 80306; 80320; 80329; 81000; 82140; 82150; 82550; 82553; 82805; 82962; 83605; 83690; 83735; 83874; 84100; 84443; 84484; 85025; 85610; 85730; 87040; 87081; 87088; 87186; 93005; 93041; 96374; 96375; 99291